=== PATIENT | female | born 1960 | race Hispanic/Latino ===

== ENCOUNTER 2017-04-20 20:06 | Emergency (ER) | payer SELFPAY ==
[2017-04-20 22:24] LABS: #Eosinphils 0.1 thou/uL (0.0-0.7); #Monocytes 0.4 thou/uL (0.11-0.59); #Neutrophils 3.5 thou/uL (1.40-6.50); %Basophils 0.5 % (0.0-1.0); %Eosinophils 1.1 % (0.0-10.0); %Lymphocytes 33.2 % (21.0-51.0); %Monocytes 7.3 % (0.0-10.0); %Neutrophils 57.9 % (42.0-75.0); Hemoglobin 11.4 g/dL (12.0-16.0); Mean Corpuscular HGB CONC 36.2 g/dL (32.0-36.0); Mean Corpuscular Hemoglobin 34.3 pg (27.0-31.0); Mean Corpuscular Volume 94.8 fl (81.0-99.0); Mean Platelet Volume 8.1 fL (7.4-10.4); Platelet Count 141 thou/uL (130-400); RBC Distribution Width 12.5 % (11.5-14.5); Red Blood Cell (RBC) Count 3.32 mill/uL (4.20-5.40)
--- NOTE | 2017-04-20 22:27 | RAD ---
PORTABLE CHEST: History: Dyspnea. FINDINGS: The lungs appear clear. No infiltrate identified on this portable projection. Heart and mediastinum u nremarkable. Evidence of old right rib fractures. IMPRESSION: No acute finding. POS: [facility]
[2017-04-20 22:38] LABS: ALT (SGPT) 12 U/L (8-55); AST (SGOT) 10 U/L (5-34); Albumin 3.8 g/dL (3.5-5.0); Alkaline Phosphatase 121 U/L (40-150); Anion Gap 17 mmol/L (10-20); BUN (Urea Nitrogen) 38 mg/dL (9.8-20.1); Bilirubin, Total 0.2 mg/dL (0.2-1.2); CK (CPK) 49 U/L (29-168); Calc. Creatinine Clearance 0 mL/min (70-130); Carbon Dioxide 22 mmol/L (22-29); Chloride 100 mmol/L (98-107); Estimated GFR-MDRD 23; Globulin 3.8 g/dL (2.4-3.5); Glucose 443 mg/dL (70-105); Lipase 17 U/L (8-78); Potassium 4.4 mmol/L (3.5-5.1); Protein, Total 7.6 g/dL (6.0-8.3); Sodium 135 mmol/L (136-145)
[2017-04-20 22:42] LABS: Troponin I Less than 0.010 ng/mL (< 0.028)
== END 2017-04-20 23:10 | disposition home or self-care (01) ==
LOC: ERS 20:06
DX: R06.2 Wheezing (principal); E10.22 Type 1 diabetes mellitus with diabetic chronic kidney disease; E10.65 Type 1 diabetes mellitus with hyperglycemia; N18.9 Chronic kidney disease, unspecified; F41.9 Anxiety disorder, unspecified; F32.9 Major depressive disorder, single episode, unspecified; J44.9 Chronic obstructive pulmonary disease, unspecified
CPT/HCPCS: 36415; 71045; 80053; 82550; 82553; 83690; 83880; 84484; 85025; 93005; 94640; J7620

== ENCOUNTER 2017-11-29 15:45 | Observation (INO) | payer MEDICAID, SELFPAY ==
--- NOTE | 2017-11-29 16:15 | RAD ---
CHEST ONE VIEW: HISTORY: Chest pain. COMPARISON: 04/20/2017 FINDINGS: The lungs are clear. No pneumothorax or effusion. The cardiac silhouette and mediastinal contour ar e similar. IMPRESSION: No acute intrathoracic abnormality. POS: [facility]
[2017-11-29 16:36] LABS: #Eosinphils 0.1 thou/uL (0.0-0.7); #Lymphocytes 1.5 thou/uL (1.20-3.40); #Monocytes 0.5 thou/uL (0.11-0.59); #Neutrophils 4.6 thou/uL (1.40-6.50); %Basophils 0.6 % (0.0-1.0); %Eosinophils 1.1 % (0.0-10.0); %Lymphocytes 22.2 % (21.0-51.0); %Neutrophils 69.2 % (42.0-75.0); Hemoglobin 12.3 g/dL (12.0-16.0); Mean Corpuscular HGB CONC 35.3 g/dL (32.0-36.0); Mean Corpuscular Hemoglobin 34.2 pg (27.0-31.0); Mean Platelet Volume 7.5 fL (7.4-10.4); Platelet Count 207 thou/uL (130-400); Red Blood Cell (RBC) Count 3.59 mill/uL (4.20-5.40); White Blood Cell (WBC) Count 6.6 thou/uL (4.8-10.8)
[2017-11-29 16:50] LABS: ALT (SGPT) 17 U/L (8-55); AST (SGOT) 22 U/L (5-34); Alkaline Phosphatase 164 U/L (40-150); Anion Gap 16 mmol/L (10-20); BUN (Urea Nitrogen) 21 mg/dL (9.8-20.1); Bilirubin, Total 0.3 mg/dL (0.2-1.2); Calc. Creatinine Clearance 0 mL/min (70-130); Calcium 9.5 mg/dL (7.8-10.44); Carbon Dioxide 23 mmol/L (22-29); Chloride 105 mmol/L (98-107); Estimated GFR-MDRD 68; Globulin 3.3 g/dL (2.4-3.5); Glucose 146 mg/dL (70-105); Potassium 4.7 mmol/L (3.5-5.1); Protein, Total 7.3 g/dL (6.0-8.3); Sodium 139 mmol/L (136-145)
[2017-11-29 16:54] LABS: CKMB 4.1 ng/mL (0-6.6); Troponin I Less than 0.010 ng/mL (< 0.028)
[2017-11-29] MEDS ORDERED: Nitroglycerin 2% Ointment 1 INCH/1 GM Packet ONE (16:57)
--- NOTE | 2017-11-29 17:26 | CT ---
CT BRAIN WITHOUT CONTRAST: HISTORY: Fall. COMPARISON: None. FINDINGS: No territorial infarct or hemorrhage. No midline shift or mass effect. Ventricular size and extraax ial CSF spaces are normal. The calvarium is intact. The paranasal sinuses and mastoids are clear. IMPRESSION: No acute intracranial abnormality. POS: [facility]
--- NOTE | 2017-11-29 17:27 | CT ---
CT CERVICAL SPINE WITHOUT CONTRAST: HISTORY: Fall. COMPARISON: None. FINDINGS: The occipital condyles are intact. The odontoid process is intact. Temporomandibular joint alignmen t is normal. Advanced calcifications of the carotid bulbs. The lung apices are clear. The thyroid is unremarkabl e. The paraspinal soft tissues are unremarkable. IMPRESSION: No acute fracture or malalignment. POS: [facility]
--- NOTE | 2017-11-29 17:33 | RAD ---
LEFT SHOULDER THREE VIEWS: HISTORY: Fall. COMPARISON: None. FINDINGS: No acute displaced fracture or malalignment. The ribs are unremarkable. IMPRESSION: No acute fracture or malalignment. POS: [facility]
[2017-11-29] MEDS ORDERED: Dextrose 50% Abboject 50 ML SYRINGE SLOW IVP PRN (18:03)
[2017-11-29] MEDS ORDERED: HumaLOG 300 UNITS/3 ML VIAL SC PRN ×2 (18:03)
[2017-11-29] MEDS ORDERED: Dextrose 5% in Water 1,000 ML IV PRN (18:03)
[2017-11-29] MEDS ORDERED: hydrALAZINE 20 MG/ML VIAL SLOW IVP PRN (18:39)
[2017-11-29] MEDS ORDERED: Bisacodyl 5 MG TAB PO PRN ×2 (18:39)
[2017-11-29] MEDS ORDERED: cloNIDine 0.1 MG TAB PO PRN (18:39)
[2017-11-29] MEDS ORDERED: traZODone HCl 50 MG TAB PO PRN (18:39)
[2017-11-29] MEDS ORDERED: Mag-Al 1200 mg/1200 mg/30 ML UDCUP PO PRN (18:39)
[2017-11-29] MEDS ORDERED: Calcium Carbonate 500 MG ChewTAB PO PRN (18:39)
[2017-11-29] MEDS ORDERED: Benzonatate 100 MG CAP PO PRN (18:39)
[2017-11-29] MEDS ORDERED: Loratadine 10 MG TAB PO PRN (18:39)
[2017-11-29] MEDS ORDERED: Diabetic Tussin 200 MG/10 ML UDCUP PO PRN (18:39)
[2017-11-29] MEDS ORDERED: Nitroglycerin 0.4 MG TAB (25 Tab Bottle) SL PRN (18:39)
[2017-11-29] MEDS ORDERED: Senokot 8.6 MG TAB PO PRN ×2 (18:39)
[2017-11-29] MEDS ORDERED: Acetaminophen 325 MG TAB PO PRN (18:39)
[2017-11-29] MEDS ORDERED: Ondansetron HCl/PF 4 MG/2 ML Vial IVP PRN (18:39)
--- NOTE | 2017-11-29 19:39 | HP ---
DATE OF ADMISSION: 11/29/2017 PRIMARY CARE PHYSICIAN: None. CHIEF COMPLAINT: Left shoulder pain and left neck pain. The patient has fallen 2 days ago. HISTORY OF PRESENTING ILLNESS: Ms. Wilson is a 57-year-old female with past medical history of shana betes, hypertension, and dyslipidemia who has not had any medical care for the last 6 months and is n ot able to afford most of her medication except insulin, who presented to the emergency room with abo ve-mentioned complaint. History is mainly obtained by the patient herself and supplemented by her si ster present in the room. The patient reports that she fell in the shower 2 days ago and started to feel left shoulder pain yes terday evening. It is pretty sharp, now it is a dull ache. It was not associated with any dizziness , but she did have some nausea. She denies any shortness of breath. She denies any fever, chills, o r cough. She reports that the pain radiated somewhat upwards to her left side of the neck. She bossman es any paraesthesias. She has no history of coronary artery disease, but very significant family his tory of coronary artery disease. Her brother had multiple stents and in his 70s. Upon presentation to the emergency room, she was hemodynamically stable. Her initial evaluation reve aled normal EKG and negative troponin. Her BELL score was 5 based on her personal history and family history and she is now being admitted for further workup and rule out acute coronary syndrome. PAST MEDICAL HISTORY: 1. Hypertension. 2. Dyslipidemia. 3. Diabetes mellitus. PAST SURGICAL HISTORY: None reviewed with the patient. SOCIAL HISTORY: The patient has moved to live with her sister in [place]. She is unemployed and unins ured. No history of drug, tobacco or alcohol abuse. FAMILY HISTORY: Significant for heart disease in her brother who in his 70s. The patien t's mother had uterine cancer as well as pancreatic cancer. The patient's grandmother on father's si de and one of her uncles on father's side had colon cancer. ALLERGIES: No known medication allergies. CURRENT MEDICATIONS: Lisinopril and insulin. The patient does not remember the dose and it will be further clarified. REVIEW OF SYSTEMS: A 12-point review of systems was done and it is negative except for those mention ed in the history and physical. PHYSICAL EXAMINATION: VITAL SIGNS: Upon presentation, blood pressure 173/86, pulse 80, saturating 97% on room air, afebril e, respirations 20. GENERAL: No acute distress, awake, alert, oriented x3. The patient appears somewhat disheveled. HEENT: Mucous membrane is moist and pink. No oropharyngeal exudate or erythema. She is missing man y teeth in the front. Poor dental hygiene. She has an eczematous rash over her face involving her f orehead, cheeks, chin and upper lip area. Awake, alert. NECK: Supple without any lymphadenopathy, JVD or bruit. She is somewhat tender to palpation in the left shoulder area without any obvious bruises. CHEST: Clear to auscultation without any wheezing, rales or rhonchi. Rhythm is regular without any murmur, rubs or gallops. ABDOMEN: Soft, nontender, nondistended, positive bowel sounds. EXTREMITIES: Free of any cyanosis, clubbing, or edema. NEUROLOGIC: Examination is nonfocal. SKIN: Shows various scratches in her leg, which she reports was given to her by her 2 cats. PSYCHIATRIC: Normal affect. LABORATORY DATA AND IMAGING DATA: CBC is unremarkable. Serum chemistries: BUN 21, creatinine karen l. Blood sugar 146, alkaline phosphatase 164. Cardiac enzymes, CK-MB normal at 4.1, troponin normal at 0.010. Chest x-ray by my review has no evidence of pleural effusion, edema or infiltrate. A CT scan of the brain was done due to the fall and is negative for any hemorrhage or mass effect. Should er x-ray and CT scan of the cervical spine once again are negative for any fractures. Twelve lead EK G by my review shows normal sinus rhythm and nonspecific ST-T wave changes. IMPRESSION AND PLAN: 1. Left shoulder pain with radiation to neck. The patient has a high heart score given her age, hyp ertension, dyslipidemia, diabetes, and family history. She reports that she has had a stress test do ne 3 years ago for whatever reason, which was reportedly negative. At this time, I will go ahead and order a lipid panel and repeat the stress test. She will be treated with full dose aspirin and poss ibly statins if her lipid panel suggests abnormality. We will continue with Nitro-Dur transdermal fo r now given uncontrolled hypertension. We will continue to trend serial cardiac enzymes. 2. Hypertensive urgency. We will continue transdermal nitroglycerin and restart her lisinopril. Sh polly will benefit from starting on a low dose beta mathew if her blood pressure allows. Continue to mo nitor and start p.r.n. antihypertensives as well. 3. Diabetes mellitus. The patient likely has poor diabetes control with marginal prescription cover age. We will check a hemoglobin A1c and put her insulin sliding scale and adjust her home medication s once confirmed. 4. Hypertension. Restart lisinopril and adjust as needed. 5. Code status: FULL CODE. Discussed with the patient. 6. Eczematous dermatitis on the face. We will use hydrocortisone cream p.r.n. on face. 7. Deep venous thrombosis and gastrointestinal prophylaxis, on p.r.n. medication. 8. Chronic deconditioning. The patient uses a cane to walk around and has had recent falls. We ana l have OT, PT to evaluate her. DISPOSITION: Ms. Wilson is currently being admitted to the hospital to rule out acute coronary syn drome. Further management will depend upon her clinical course. She is currently under observation status.
[2017-11-29] MEDS: HYDROcodone/Acetaminophen 5/325 mg Tablet PO PRN (20:23)
[2017-11-29] MEDS: Famotidine 20 MG TAB PO SCH (20:24)
[2017-11-29] MEDS: Lisinopril 10 MG TAB PO SCH (20:24)
[2017-11-29] MEDS: Proctozone-HC 2.5% Cream 30 GM TUBE TOP SCH (20:25)
[2017-11-29 20:30] LABS: Troponin I Less than 0.010 ng/mL (< 0.028)
[2017-11-29 21:26] LABS: Bilirubin Negative (Negative); Blood, Urine Negative (Negative); Clarity CLEAR (Clear); Glucose, Urine (Dipstick) 100 mg/dL (Negative); Leukocyte Moderate (Negative); Nitrite Negative (Negative); Protein, Urine (Dipstick) 30 mg/dL (Neg-Trace); Specific Gravity, Urine 1.011 (1.002-1.036)
[2017-11-29 21:28] LABS: Bacteria/HPF None Seen HPF (None Seen); Hyaline Casts/LPF 0-3 HYALINE CAST LPF (0-3 Hyaline); Pathc Cast-AUWi Flag 0.58 (0-2.49)
[2017-11-29 21:41] LABS: Crystals/HPF None Seen HPF (Negative); WBC/HPF 21-50 HPF (0-3); Yeast-All Forms None Seen HPF (None Seen)
[2017-11-29 22:56] LABS: Troponin I Less than 0.010 ng/mL (< 0.028)
[2017-11-29] MEDS: traMADol HCl 50 MG TAB PO PRN (23:44)
[2017-11-29] MEDS: Nitroglycerin 2% Ointment 1 INCH/1 GM Packet TOP SCH (23:47)
[2017-11-30] MEDS: HYDROcodone/Acetaminophen 5/325 mg Tablet PO PRN ×2 (03:32→16:01)
[2017-11-30 04:37] LABS: Hemoglobin A1c 9.7 % (4.0-6.0)
[2017-11-30 04:39] LABS: #Eosinphils 0.1 thou/uL (0.0-0.7); #Lymphocytes 1.8 thou/uL (1.20-3.40); #Monocytes 0.4 thou/uL (0.11-0.59); #Neutrophils 2.6 thou/uL (1.40-6.50); %Basophils 0.6 % (0.0-1.0); %Eosinophils 1.4 % (0.0-10.0); %Lymphocytes 36.9 % (21.0-51.0); %Monocytes 7.8 % (0.0-10.0); %Neutrophils 53.3 % (42.0-75.0); Hemoglobin 11.1 g/dL (12.0-16.0); Mean Corpuscular HGB CONC 34.1 g/dL (32.0-36.0); Mean Corpuscular Hemoglobin 33.8 pg (27.0-31.0); Mean Platelet Volume 7.7 fL (7.4-10.4); Platelet Count 160 thou/uL (130-400); Red Blood Cell (RBC) Count 3.29 mill/uL (4.20-5.40); White Blood Cell (WBC) Count 4.9 thou/uL (4.8-10.8)
[2017-11-30 04:51] LABS: Anion Gap 16 mmol/L (10-20); BUN (Urea Nitrogen) 14 mg/dL (9.8-20.1); Calc. Creatinine Clearance 104 mL/min (70-130); Calcium 9.3 mg/dL (7.8-10.44); Carbon Dioxide 17 mmol/L (22-29); Cardiac Risk 4.7 (Less than 4.5); Chloride 107 mmol/L (98-107); Cholesterol 202 mg/dl (< 200 Desired); Estimated GFR-MDRD 69; Glucose 250 mg/dL (70-105); HDL Cholesterol 43 mg/dL (>60 Neg Risk); LDL Cholesterol, Calculated 126 mg/dL; Potassium 4.6 mmol/L (3.5-5.1); Sodium 135 mmol/L (136-145); Triglycerides 164 mg/dL (Less than 150)
[2017-11-30] MEDS: Nitroglycerin 2% Ointment 1 INCH/1 GM Packet TOP SCH ×2 (06:09→14:05)
[2017-11-30] MEDS: traMADol HCl 50 MG TAB PO PRN (08:11)
[2017-11-30] MEDS ORDERED: Regadenoson 0.4 MG/5 ML SYRINGE ONE (08:17)
[2017-11-30] MEDS ORDERED: Aspirin 325 mg Enteric Coated Tablet PO SCH (09:00)
[2017-11-30] MEDS ORDERED: Enoxaparin Sodium 40 MG/0.4 ML SYRINGE SC SCH (09:00)
[2017-11-30] MEDS ORDERED: Lisinopril 10 MG TAB PO SCH (09:16)
[2017-11-30] MEDS ORDERED: Lisinopril 5 MG TAB PO SCH ×2 (09:30→21:00)
[2017-11-30] MEDS ORDERED: Insulin NPH/Reg Insulin Hm 300 UNITS/3 ML VIAL SC SCH (12:00)
--- NOTE | 2017-11-30 13:13 | NM ---
MYOCARDIAL PERFUSION SCAN WITH SPECT IMAGING: HISTORY: Chest pain. Examination was performed using 27.8 mCi on the stress and 10.4 on the resting images. This shows a fairly normal distribution of the radiopharmaceutical without signs of ischemia or scar. WALL MOTION: There is symmetric contractility to the ventricle. LEFT VENTRICULAR EJECTION FRACTION: The calculated left ventricular ejection fraction was 66%. IMPRESSION: Unremarkable myocardial perfusion scan. POS: [facility]
[2017-11-30] MEDS: Famotidine 20 MG TAB PO SCH (13:21)
[2017-11-30] MEDS: Proctozone-HC 2.5% Cream 30 GM TUBE TOP SCH (13:30)
[2017-11-30] MEDS: Lisinopril 10 MG TAB PO SCH (14:06)
--- NOTE | 2017-11-30 15:08 | DIS ---
DATE OF ADMISSION: 11/29/2017 DATE OF DISCHARGE: 11/30/2017 CONDITION AT THE TIME OF DISCHARGE: Stable and improved. DISCHARGE DIAGNOSES: 1. Shoulder pain, likely secondary to fall, acute coronary syndrome ruled out. 2. Urinary tract infection. 3. Uncontrolled diabetes mellitus. 4. Hypertension. 5. Dyslipidemia. PRIMARY CARE PHYSICIAN: None. The patient is instructed to set up with [facility]. PROCEDURES DONE IN THE HOSPITAL: CT scan of the brain as well as CT scan of the cervical spine. Bot h are unremarkable for any acute changes. No hemorrhage, no fractures. Shoulder x-ray of the left s houlder, which shows no evidence of any fractures or malalignment. Chest x-ray unremarkable. Nuclea r medicine stress test negative for any evidence of ischemia or scar. EF 66%. DISCHARGE MEDICATIONS: Resume home medications as follows. Humulin 70/30, 25 units t.i.d., lisinopr il 5 mg daily, albuterol inhaler 2 puffs b.i.d. New medications, metformin 500 mg p.o. b.i.d., levof loxacin 500 mg daily for 5 days, hydrocortisone 2.5% cream for face eczematous lesion. HISTORY OF PRESENT ILLNESS: Ms. Wilson is a pleasant 57-year-old female with poorly controlled shana betes and minimal medical care because of recent move, who presented to the emergency room 3 days aft er a fall with complaints of left shoulder pain. She has significant family history as well as multi ple other risk factors, so she was admitted for ACS rule out. Serial cardiac enzymes and EKG were un remarkable. Please see admission history and physical for further details. HOSPITAL COURSE: The patient remained hemodynamically stable throughout the rest of her hospitalizat ion. Her A1c was checked and it was found to be elevated to 9.7. Because of this, she was started o n metformin and continued on her home insulin. Blood pressure was otherwise controlled. She was con tinued on lisinopril 5 mg daily. Her triglycerides were minimally elevated to 164 and cholesterol to 202. Dietitian was consulted for carb control and heart healthy diet education. The patient's sist er and the patient herself are highly counseled with regards to followup and set up care with a prima care physician. All prescriptions for new medications were provided. She was found to have a urinary tract infection with multiple WBCs, leukocyte esterase in the urine, so was empirically started on levofloxacin short course for 5 days orally. She was not having any sy mptoms with related to that. She was seen and examined prior to discharge and has no new complaints. PHYSICAL EXAMINATION: VITAL SIGNS: This morning, temperature 97.8, pulse of 80, respirations 16, saturating 100% on room a ir, blood pressure 121/56. GENERAL: No acute distress, awake, alert, oriented x3. CHEST: Clear to auscultation bilaterally without any wheezing, rales or rhonchi. CARDIOVASCULAR: Rate and rhythm are regular without any murmurs or gallops. Discharge plan was discussed with the patient who verbalized understanding. development manager has been co nsulted to arrange home health for the patient as she does exhibit deconditioning with frequent falls , needing to use a cane to walk around. Once this is arranged, she will be discharged.
[2017-11-30 15:28] VITALS: BP 144/66; TEMP 97.7
[2017-11-30] MEDS: Insulin NPH/Reg Insulin Hm 300 UNITS/3 ML VIAL SC SCH ×2 (16:02→19:20)
[2017-11-30] MEDS ORDERED: metFORMIN 500 MG TAB PO SCH (17:00)
--- NOTE | 2017-12-04 09:25 | STRESS ---
Acquisition Time: 2017-11-30 09:38:22 Total Exercise Time: 00:01:00 Test Indications: CHEST PAIN Medications: Protocol: LEXISCAN Max HR: 092 BPM 56% of Pred: 163 BPM Max BP: 134/080 mmHG Max Work Load: 1.0 METS RESTING ECG: NORMAL SINUS RHYTHM AT 65 BPM SYMPTOMS: DYSPNEA ON EXERTION; NAUSEA/VOMITING NORMAL BP RESPONSE ECTOPY: NONE ECG STRESS: NO SIGNIFICANT CHANGES INTERPRETATION: AWAIT NUCLEAR IMAGES FOR DEFINITIVE DIAGNOSIS COMMENTS: PATIENT DIAGNOSED WITH COPD. LEXISCAN ADMINISTERED. Confirmed by ILDEFONSO GONZALES ([id number]), avid editor NIC ARROYO ([id number]) on 12/04/2017 9:25:02 AM Referred By: MD Maritza KANG Confirmed By:ILDEFONSO GONZALES
--- NOTE | 2017-12-05 11:20 | EKG ---
Test Reason : Blood Pressure : / mmHG Vent. Rate : 092 BPM Atrial Rate : 092 BPM P-R Int : 128 ms QRS Dur : 064 ms QT Int : 352 ms P-R-T Axes : 008 -30 024 degrees QTc Int : 435 ms Poor data quality, interpretation may be adversely affected Normal sinus rhythm Left axis deviation Minimal voltage criteria for LVH, may be normal variant Abnormal ECG No ST elevation/FL Confirmed by HONG Seth, ELSIE ([id number]), scientific publications editor GAETANO HEBERT ([id number]) on 12/05/2017 11:20:01 AM Referred By: Confirmed By:ELSIE PITTS M.D.
== END 2017-11-30 19:47 | disposition home or self-care (01) ==
LOC: ERS 15:45 → 2SW 17:33
PROVIDERS: ADMIT Internal Medicine; ATTEND Internal Medicine
DX: M25.512 Pain in left shoulder (principal); M54.2 Cervicalgia; N39.0 Urinary tract infection, site not specified; I16.0 Hypertensive urgency; E11.9 Type 2 diabetes mellitus without complications; I10 Essential (primary) hypertension; E78.5 Hyperlipidemia, unspecified; Z85.038 Personal history of other malignant neoplasm of large intestine; Z79.4 Long term (current) use of insulin; Z79.899 Other long term (current) drug therapy; Z91.14 Patient's other noncompliance with medication regimen; W19.XXXA Unspecified fall, initial encounter
CPT/HCPCS: 36415; 36416; 70450; 71045; 72125; 78452; 80048; 80053; 80061; 81003; 81015; 82553; 83036; 84443; 84484; 85025; 87086; 93005; 93017; 96361; 96374; A9500; G0378; G8978-GP-CK; G8979-GP-CJ; G8987-GO-CI; G8988-GO-CI; G8989-GO-CI; J2270; J2785

== ENCOUNTER 2018-06-02 23:36 | Inpatient (IN) | payer MEDICAID, MEDICARE ==
[2018-06-03 00:16] LABS: #Lymphocytes 0.8 thou/uL (1.20-3.40); #Monocytes 0.4 thou/uL (0.11-0.59); #Neutrophils 6.7 thou/uL (1.40-6.50); %Basophils 0.1 % (0.0-1.0); %Eosinophils 0.6 % (0.0-10.0); %Lymphocytes 10.1 % (21.0-51.0); %Monocytes 5.2 % (0.0-10.0); Hemoglobin 10.4 g/dL (12.0-16.0); Mean Corpuscular HGB CONC 35.8 g/dL (32.0-36.0); Mean Corpuscular Hemoglobin 34.5 pg (27.0-31.0); Mean Corpuscular Volume 96.3 fL (78.0-98.0); Mean Platelet Volume 7.6 fL (7.4-10.4); Platelet Count 143 thou/uL (130-400); RBC Distribution Width 11.8 % (11.5-14.5)
[2018-06-03 00:37] LABS: ALT (SGPT) 12 U/L (8-55); AST (SGOT) 11 U/L (5-34); Albumin 3.7 g/dL (3.5-5.0); Alkaline Phosphatase 98 U/L (40-150); Anion Gap 15 mmol/L (10-20); BUN (Urea Nitrogen) 32 mg/dL (9.8-20.1); Bilirubin, Total 0.2 mg/dL (0.2-1.2); Calc. Creatinine Clearance 0 mL/min (70-130); Calcium 9.3 mg/dL (7.8-10.44); Carbon Dioxide 21 mmol/L (22-29); Chloride 106 mmol/L (98-107); Estimated GFR-MDRD 35; Globulin 3.5 g/dL (2.4-3.5); Glucose 322 mg/dL (70-105); Protein, Total 7.2 g/dL (6.0-8.3); Sodium 138 mmol/L (136-145)
[2018-06-03 01:08] LABS: Bilirubin Negative (Negative); Blood, Urine Moderate (Negative); Clarity CLOUDY (Clear); Glucose, Urine (Dipstick) >=1000 mg/dL (Negative); Leukocyte Small (Negative); Nitrite Positive (Negative); Protein, Urine (Dipstick) 100 mg/dL (Neg-Trace); Specific Gravity, Urine 1.033 (1.002-1.036)
[2018-06-03 01:11] LABS: Bacteria/HPF 4+ HPF (None Seen); Hyaline Casts/LPF 7-10 HYALINE CAST LPF (0-3 Hyaline); Pathc Cast-AUWi Flag 1.22 (0-2.49); RBC/HPF 0-3 HPF (0-3); Squamous Epithelial 0-3 HPF (0-3)
[2018-06-03] MEDS ORDERED: cefTRIAXone\\ROCEPHIN 1 GM VIAL ONE (01:42)
[2018-06-03] MEDS ORDERED: Zolpidem Tartrate 5 MG TAB PO PRN (04:28)
[2018-06-03] MEDS ORDERED: HumaLOG 300 UNITS/3 ML VIAL SC PRN (04:32)
[2018-06-03] MEDS ORDERED: Dextrose 5% in Water 1,000 ML IV PRN (04:32)
[2018-06-03] MEDS ORDERED: Dextrose 50% Abboject 50 ML SYRINGE SLOW IVP PRN (04:32)
[2018-06-03] MEDS: cefTRIAXone\\ROCEPHIN 1 GM in Sodium Chloride 0.9% 100 ML IVPB SCH (05:14)
--- NOTE | 2018-06-03 05:34 | HP ---
CHIEF COMPLAINT: Fall, inability to walk. HISTORY OF PRESENT ILLNESS: This is a 58-year-old female coming in status post fall and also complaining of burning upon urination. Patient was found to have high blood sugars as well in the ER. Patient stated that she is unable to walk. Patient had pelvic x-ray and CT scans performed, which did not show any dislocations or any fractures. Patient states that otherwise upon ambulation, she does have pain in her lower back. Denies any other complaints or issues. No alleviating or aggravating factors noted. Patient is seen and examined in the ER, official read of the x-rays pending, x-ray and images read by myself as well as the ER doctor. Decision made to admit the patient to observation unit. [facility] was contacted to see if the patient would be accepted there. However, there are no beds and the patient is unable to be taken there today at this point in time. Patient otherwise feels stable and feels well. Patient was seen and examined in the ER. No family at bedside. All questions answered. ALLERGIES: NO KNOWN DRUG ALLERGIES. REVIEW OF SYSTEMS: All systems reviewed, pertinent positives in HPI, otherwise negative. FAMILY HISTORY: Hypertension and diabetes. SOCIAL HISTORY: Nonsmoker and nondrinker. HOME MEDICATIONS: See MAR. PHYSICAL EXAMINATION: VITAL SIGNS: Blood pressure 128/88, respiratory rate of 18, temperature of 98, O2 saturations of 100% on room air, and heart rate of 78. GENERAL: Patient is lying in bed, in no acute discomfort. HEENT: Pupils equal, round, and reactive to light and accommodation. Oral cavity, moist and pink. Extraocular muscles intact. NECK: Supple, mobile, nontender thyroid. RESPIRATORY: Clear to auscultation bilaterally. No respiratory distress. HEART EXAM: Regular rate and rhythm. S1 and S2. ABDOMINAL EXAM: Positive bowel sounds. Soft, nontender, and nondistended. EXTREMITIES: 2+ pulses. No cyanosis, clubbing, or edema. NEUROLOGICAL: Cranial nerves 2 through 12 intact. Positive straight leg raise test on both sides of the lower extremities. LABORATORY DATA: CBC normal. Basic metabolic panel shows a creatinine of 1.52, high blood sugars at 322. UA positive for UTI. ASSESSMENT: 1. Fall. 2. Hypertension. 3. Hyperlipidemia. 4. Diabetes mellitus. 5. Urinary tract infection. 6. Antalgic gait. PLAN: At this point in time, we admit the patient to observation unit. Consult placed to PT as well as Case Management for placement to rehab, likely [facility] in the morning. We will trend enzymes. Insulin for diabetes, as well as antibiotics for the UTI. Patient wishes to remain a full code. Case and plan discussed with patient at length. She understood and agreed with this plan. Job ID: [id number]
--- NOTE | 2018-06-03 08:08 | RAD ---
AP PELVIS: Date: 06/02/18 COMPARISON: None. HISTORY: Fall with pelvic pain. FINDINGS: Single view of the pelvis shows no evidence of acute fracture or dislocation. No degenerative changes are seen in either hip. Multiple injection granulomas are seen in the bilateral gluteal regions. IMPRESSION: No evidence of acute osseous abnormality. POS: [facility]
[2018-06-03 08:19] LABS: Troponin I 0.038 ng/mL (< 0.028)
--- NOTE | 2018-06-03 08:20 | CT ---
PRELIMINARY REPORT/[facility]/EMERGENCY AFTER HOURS PROCEDURE: EXAM: CT Head Without Contrast EXAM DATE/TIME: 06/03/2018 12:57 AM CLINICAL HISTORY: 58 years old, female; Injury or trauma; Fall; Initial encounter; Blunt trauma (contusions or hematoma s); Without loss of consciousness; Patient HX: F58 presents to ed for fall. Ems reports PT was trying to get dressed after taking a shower when she felt dizzy, tried to sit on the edge of the tub, and t hen fell back into the tub. PT reports she felt dizzy like she was off balance and then fell backward s landing in the tub and hitting her head. PT denies any loc. PT reports bilateral hip pain. PT repor ts multiple falls in the last few days. PT reports HX of similar symptoms in november but reports sh e passed out that time TECHNIQUE: Imaging protocol: Axial computed tomography images of the head/brain without contrast. COMPARISON: No relevant prior studies available. FINDINGS: Brain: Normal. No hemorrhage. No significant white matter disease. No edema. Ventricles: Normal. No ventriculomegaly. Bones/joints: Unremarkable. No acute fracture. Sinuses: Visualized sinuses are unremarkable. No acute sinusitis. Mastoid air cells: Visualized mastoid air cells are unremarkable. No mastoid effusion. Soft tissues: Unremarkable. IMPRESSION: No acute intracranial hemorrhage. Thank you for allowing us to participate in the care of your patient. Dictated and Authenticated by: Vineet Barragan MD 06/03/2018 1:29 AM Central Time ([place] & [place]) FINAL REPORT HEAD CT WITHOUT CONTRAST: Date: 06/03/18 COMPARISON: 11/29/17. HISTORY: Fall, trauma, pain. FINDINGS: This report is in agreement with the preliminary report given by Man. Imaged paranasal sinuses/masto id air cells are well aerated. No displaced calvarial fracture. No intracranial hemorrhage, midline s hift, mass effect, or ventricular enlargement. IMPRESSION: No acute findings. POS: [facility]
[2018-06-03] MEDS: Lisinopril 5 MG TAB PO SCH (08:25)
[2018-06-03] MEDS ORDERED: Lisinopril 10 MG TAB ONE (08:29)
[2018-06-03] MEDS ORDERED: Acetaminophen 325 MG TAB ONE (08:52)
[2018-06-03] MEDS: Acetaminophen 325 MG TAB PO PRN ×3 (08:53→20:34)
[2018-06-03] MEDS ORDERED: Sodium Bicarbonate 75 MEQ in Sodium Chloride 0.45% 1,000 ML IV SCH (10:00)
[2018-06-03] MEDS ORDERED: HumaLOG 300 UNITS/3 ML VIAL ONE (12:02)
[2018-06-03] MEDS: HumaLOG 300 UNITS/3 ML VIAL SC PRN ×2 (12:09→16:37)
[2018-06-03 14:39] VITALS: BMI 29.9
[2018-06-03 14:46] LABS: Troponin I 0.014 ng/mL (< 0.028)
[2018-06-03] MEDS: Insulin Glargine 10 UNITS in Pre-Filled Syringe 1 EACH SC SCH (20:42)
[2018-06-04] MEDS: Acetaminophen 325 MG TAB PO PRN ×5 (00:24→20:15)
[2018-06-04] MEDS: cefTRIAXone\\ROCEPHIN 1 GM in Sodium Chloride 0.9% 100 ML IVPB SCH (05:15)
[2018-06-04 05:30] LABS: #Eosinphils 0.1 thou/uL (0.0-0.7); #Lymphocytes 1.5 thou/uL (1.20-3.40); #Monocytes 0.3 thou/uL (0.11-0.59); #Neutrophils 3.2 thou/uL (1.40-6.50); %Basophils 0.2 % (0.0-1.0); %Eosinophils 1.4 % (0.0-10.0); %Lymphocytes 29.7 % (21.0-51.0); %Monocytes 5.8 % (0.0-10.0); %Neutrophils 62.9 % (42.0-75.0); Mean Corpuscular HGB CONC 34.7 g/dL (32.0-36.0); Mean Corpuscular Hemoglobin 33.3 pg (27.0-31.0); Mean Corpuscular Volume 96.1 fL (78.0-98.0); Mean Platelet Volume 7.7 fL (7.4-10.4); Platelet Count 121 thou/uL (130-400); Red Blood Cell (RBC) Count 3.01 mill/uL (4.20-5.40); White Blood Cell (WBC) Count 5.1 thou/uL (4.8-10.8)
[2018-06-04 05:33] LABS: Hemoglobin A1c 8.2 % (4.0-6.0)
[2018-06-04 05:50] LABS: Anion Gap 9 mmol/L (10-20); BUN (Urea Nitrogen) 14 mg/dL (9.8-20.1); Calc. Creatinine Clearance 101 mL/min (70-130); Calcium 9.1 mg/dL (7.8-10.44); Carbon Dioxide 29 mmol/L (22-29); Chloride 104 mmol/L (98-107); Estimated GFR-MDRD 76; Glucose 207 mg/dL (70-105); Potassium 3.4 mmol/L (3.5-5.1); Sodium 139 mmol/L (136-145)
[2018-06-04] MEDS: HumaLOG 300 UNITS/3 ML VIAL SC PRN ×2 (06:30→13:07)
[2018-06-04] MEDS: Lisinopril 5 MG TAB PO SCH (08:49)
[2018-06-04] MEDS ORDERED: PROVENTIL INHALER 6.7 G (200 INHALATIONS) INH PRN (13:31)
[2018-06-04] MEDS ORDERED: Insulin Regular 300 UNITS/3 ML VIAL SC PRN (13:35)
[2018-06-04] MEDS: traMADol HCl 50 MG TAB PO PRN ×2 (13:48→20:15)
[2018-06-04] MEDS: metFORMIN 500 MG TAB PO SCH (16:35)
[2018-06-04] MEDS: HumuLIN 70/30 (300 UNITS/3 ML VIAL) SC SCH (16:35)
[2018-06-04] MEDS ORDERED: Potassium Chloride 20 MEQ TAB PO SCH (17:00)
--- NOTE | 2018-06-04 17:43 | PDOC.PN ---
- Subjective Encounter Start Date: 06/04/18 Encounter Start Time: 13:39 Subjective: Patient without any complaints. States yesterday when she fell she was -: trying to get out of the shower and had weakness in her legs. Denies any -: associated dizziness or chest pain. No sob. No further episodes. Per patient she is eager to go home. Patient states she lives with her sister. Per nurse she is in a 1 bedroom apartment with stairs. Patient states she doesnt use her walker at home, only when walking outside of her home. At home she uses a cane but admits she is unsteady when not using her walker. She admits to being noncompliant with oral diabetes medications and states it is due to high-cost of meds. She only takes Insulin, and has been taking more than what was prescribed. Usually in the morning she takes 60 units and 10 at night, but was prescribed 20 units TID. - Objective Resuscitation Status - Order Detail: 06/03/18 04:28 Resuscitation Status Routine Resuscitation Status: FULL: Full Resuscitation Discussed with: patient Vital Signs & Weight: Vital Signs (12 hours) Temp Pulse Resp BP BP BP Pulse Ox 06/04/18 15:17 97.6 F 69 18 132/74 95 06/04/18 10:45 97.5 F L 69 18 110/69 95 06/04/18 08:49 65 140/77 06/04/18 07:42 97.7 F 65 16 104/77 95 Weight Weight 180 lb I&O: 06/03/18 06/04/18 06/05/18 06:59 06:59 06:59 Intake Total 3480 Balance 3480 Result Diagrams: 06/04/18 05:05 06/04/18 05:05 Additional Labs: Accuchecks 06/04/18 06/04/18 06/04/18 15:43 11:49 05:27 POC Glucose 386 H 368 H 218 H 06/03/18 20:37 POC Glucose 315 H Phys Exam - Physical Examination Constitutional: NAD HEENT: PERRLA, oral pharynx no lesions Neck: full ROM Respiratory: no wheezing, no rales, no rhonchi, clear to auscultation bilateral Cardiovascular: RRR Gastrointestinal: soft, non-tender, no distention, positive bowel sounds Musculoskeletal: no edema, pulses present Neurological: normal sensation, moves all 4 limbs Psychiatric: A&O x 3 Deviation from normal: flat affect, able to answer questions appropriately expresses understanding but appears to have underlying learning disability Skin: no rash Dx/Plan (1) Fall Code(s): W19.XXXA - UNSPECIFIED FALL, INITIAL ENCOUNTER Status: Acute Plan: Evaluated by PT/OT. Was screened for [facility] but no beds. Has since been cleared by PT. No further falls or unsteadiness. (2) Diabetes Code(s): E11.9 - TYPE 2 DIABETES MELLITUS WITHOUT COMPLICATIONS Status: Acute Plan: Patient knowingly missing oral meds and taking insulin incorrectly due to cost of oral meds, per patient. Resume home meds as prescribed. Monitor glucose. (3) UTI (urinary tract infection) Status: Acute Plan: continue antibiotics. (4) Weakness Code(s): R53.1 - WEAKNESS Status: Acute (5) Noncompliance w/medication treatment due to intermit use of medication Code(s): Z91.14 - PATIENT'S OTHER NONCOMPLIANCE WITH MEDICATION REGIMEN Status : Acute - Plan cont current plan of care, PT/OT Patient seems to have a learning disability and unsafely taking meds. -: Unfortunately she does not wish to undergo placement, and -: due to insurance does not have many options. -: Per discussion with Dr. Lynne, given patients competence he -: advised to educate and plan for discharge tmrw as per patients request. * .
[2018-06-04] MEDS: Insulin Glargine 10 UNITS in Pre-Filled Syringe 1 EACH SC SCH (20:19)
[2018-06-05] MEDS: traMADol HCl 50 MG TAB PO PRN ×2 (04:06→14:56)
[2018-06-05] MEDS: Acetaminophen 325 MG TAB PO PRN ×3 (04:06→20:06)
[2018-06-05] MEDS: Ondansetron PF 4 MG/2 ML Vial IVP PRN ×2 (05:40→10:38)
[2018-06-05] MEDS: cefTRIAXone\\ROCEPHIN 1 GM in Sodium Chloride 0.9% 100 ML IVPB SCH (05:48)
[2018-06-05] MEDS: glipiZIDE 10 MG TAB PO SCH (08:14)
[2018-06-05] MEDS: Lisinopril 5 MG TAB PO SCH (08:15)
[2018-06-05] MEDS: metFORMIN 500 MG TAB PO SCH ×2 (08:15→18:19)
[2018-06-05] MEDS: HumuLIN 70/30 (300 UNITS/3 ML VIAL) SC SCH ×3 (08:58→18:19)
--- NOTE | 2018-06-05 10:14 | PDOC.EVN ---
Event Note - Event Note Event Note: Given the N/V and inability to tolerate PO meds and the uncontrolled glucose, will need inpatient care. Discussed with nurse, CM and order entered.
[2018-06-05 10:38] LABS: #Eosinphils 0.1 thou/uL (0.0-0.7); #Lymphocytes 1.3 thou/uL (1.20-3.40); #Monocytes 0.3 thou/uL (0.11-0.59); #Neutrophils 4.6 thou/uL (1.40-6.50); %Basophils 0.6 % (0.0-1.0); %Eosinophils 0.9 % (0.0-10.0); %Lymphocytes 20.9 % (21.0-51.0); %Monocytes 5.2 % (0.0-10.0); %Neutrophils 72.3 % (42.0-75.0); Hemoglobin 10.1 g/dL (12.0-16.0); Mean Corpuscular HGB CONC 34.5 g/dL (32.0-36.0); Mean Corpuscular Hemoglobin 33.1 pg (27.0-31.0); Mean Corpuscular Volume 96.1 fL (78.0-98.0); Mean Platelet Volume 7.4 fL (7.4-10.4); Platelet Count 122 thou/uL (130-400); RBC Distribution Width 12.1 % (11.5-14.5); Red Blood Cell (RBC) Count 3.05 mill/uL (4.20-5.40); White Blood Cell (WBC) Count 6.3 thou/uL (4.8-10.8)
--- NOTE | 2018-06-05 10:50 | PRG ---
DATE OF SERVICE: 06/05/2018 SUBJECTIVE: The patient reports that she started vomiting last night. She continues to report nausea this morning, still had some vomiting this morning. She denies any abdominal pain, change in her bowel movements, or fever. OBJECTIVE: VITAL SIGNS: T-max 98.3, pulse 59, BP 132/72, respirations 16, O2 saturation 96% on room air, BP 113/68. GENERAL APPEARANCE: Age-appropriate female. She is awake and alert. She is in no distress. HEART: Regular rate and rhythm without murmurs, gallops, or rubs. LUNGS: Clear bilaterally. No wheezes or rales. ABDOMEN: Soft, nontender, and nondistended. Positive bowel sounds. No masses or organomegaly. EXTREMITIES: No cyanosis, clubbing, or edema. LABORATORY DATA: Glucose 107-386. IMPRESSION AND PLAN: 1. Fall. The patient appears to not have any significant injury. She has been evaluated and cleared by physical therapy. 2. Urinary tract infection. Culture was negative at 24 hours. She continues on Rocephin. Should have update today. If it remains negative at 48 hours, we will likely discontinue the Rocephin in light of her vomiting for fear that it could be possibly interacting. 3. Diabetes mellitus. The patient's blood sugar is lower this morning. Of course she has the nausea and vomiting and has not eaten much this morning. Overall, blood sugars have been running fairly high. We will need to continue to monitor today. 4. Hypertension, stable, well controlled. 5. Hyperlipidemia, stable, well controlled. 6. With nausea and vomiting, we will obtain some repeat labs. Continue with p.r.n. antiemetics. It is possible the patient may have some gastroparesis as well. However, she does not carry that diagnosis or had that history. Job ID: [id number]
[2018-06-05 11:00] LABS: Anion Gap 12 mmol/L (10-20); BUN (Urea Nitrogen) 15 mg/dL (9.8-20.1); Calc. Creatinine Clearance 103 mL/min (70-130); Calcium 9.1 mg/dL (7.8-10.44); Carbon Dioxide 28 mmol/L (22-29); Chloride 102 mmol/L (98-107); Estimated GFR-MDRD 77; Glucose 177 mg/dL (70-105); Potassium 4.2 mmol/L (3.5-5.1); Sodium 138 mmol/L (136-145)
--- NOTE | 2018-06-05 17:15 | EKG ---
Test Reason : Blood Pressure : / mmHG Vent. Rate : 099 BPM Atrial Rate : 099 BPM P-R Int : 124 ms QRS Dur : 070 ms QT Int : 376 ms P-R-T Axes : 025 -25 013 degrees QTc Int : 482 ms Normal sinus rhythm Minimal voltage criteria for LVH, may be normal variant Septal infarct , age undetermined Abnormal ECG Confirmed by CAMILLE CORNEJO ([id number]), medical editor SHIRA VARGAS ([id number]) on 06/05/2018 5:14:52 PM Referred By: Confirmed By:CAMILLE CORNEJO
[2018-06-05] MEDS: Insulin Regular 300 UNITS/3 ML VIAL SC PRN (18:23)
[2018-06-05] MEDS: Insulin Glargine 10 UNITS in Pre-Filled Syringe 1 EACH SC SCH (22:05)
[2018-06-06] MEDS: traMADol HCl 50 MG TAB PO PRN ×4 (01:02→23:18)
[2018-06-06] MEDS: cefTRIAXone\\ROCEPHIN 1 GM in Sodium Chloride 0.9% 100 ML IVPB SCH (05:20)
[2018-06-06] MEDS: Acetaminophen 325 MG TAB PO PRN (05:21)
[2018-06-06] MEDS: HumuLIN 70/30 (300 UNITS/3 ML VIAL) SC SCH ×3 (09:25→18:02)
[2018-06-06] MEDS: Lisinopril 5 MG TAB PO SCH (09:28)
[2018-06-06] MEDS: glipiZIDE 10 MG TAB PO SCH (09:28)
[2018-06-06] MEDS: metFORMIN 500 MG TAB PO SCH ×2 (09:29→18:02)
[2018-06-06] MEDS: Insulin Regular 300 UNITS/3 ML VIAL SC PRN (12:02)
--- NOTE | 2018-06-06 13:16 | PDOC.PN ---
- Subjective Encounter Start Date: 06/06/18 Encounter Start Time: 13:14 Subjective: low blood sugar this morning -: no more vomiting but some nausea but still was able to eat all breakfats -: no abd pain or diarrhea - Objective Resuscitation Status - Order Detail: 06/03/18 04:28 Resuscitation Status Routine Resuscitation Status: FULL: Full Resuscitation Discussed with: patient KEERTHI Reviewed: Yes Vital Signs & Weight: Vital Signs (12 hours) Temp Pulse Resp BP BP Pulse Ox 06/06/18 11:24 97.9 F 75 16 124/71 97 06/06/18 07:52 98.8 F 67 16 124/85 95 06/06/18 04:00 97.9 F 66 16 129/75 94 L Weight Weight 180 lb I&O: 06/05/18 06/06/18 06/07/18 06:59 06:59 06:59 Intake Total 2800 660 2100 Output Total 1900 Balance 2800 660 200 Result Diagrams: 06/05/18 10:22 06/05/18 10:22 Additional Labs: Accuchecks 06/06/18 06/06/18 06/06/18 11:58 06:08 05:46 POC Glucose 246 H 99 48 L* 06/06/18 06/05/18 05:32 16:05 POC Glucose 51 L* 239 H Microbiology 06/03/18 18:55 Urine clean catch Urine Culture - Final NO GROWTH AT 48 HOURS Laboratory Tests 11/29/17 11/29/17 11/29/17 16:26 19:46 22:18 Creatinine Hemoglobin A1c Troponin I Less than 0.010 Less than 0.010 Less than 0.010 Triglycerides Cholesterol 11/30/17 11/30/17 06/03/18 03:30 03:30 00:07 Creatinine 1.52 H Hemoglobin A1c 9.7 H Troponin I Triglycerides 164 H Cholesterol 202 H 06/04/18 06/04/18 06/05/18 05:05 05:05 10:22 Creatinine 0.78 0.77 Hemoglobin A1c 8.2 H Troponin I Triglycerides Cholesterol Phys Exam - Physical Examination Constitutional: NAD HEENT: PERRLA, moist MMs, sclera anicteric, oral pharynx no lesions Neck: no nodes, no JVD, supple, full ROM Respiratory: no wheezing, no rales, no rhonchi, clear to auscultation bilateral Cardiovascular: RRR, no significant murmur, no rub Gastrointestinal: soft, non-tender, no distention, positive bowel sounds Musculoskeletal: no edema, pulses present Neurological: non-focal, normal sensation, moves all 4 limbs Psychiatric: normal affect, A&O x 3 Dx/Plan (1) Hypoglycemia Code(s): E16.2 - HYPOGLYCEMIA, UNSPECIFIED Status: Acute (2) Diabetes Code(s): E11.9 - TYPE 2 DIABETES MELLITUS WITHOUT COMPLICATIONS Status: Chronic Qualifiers: Diabetes mellitus type: type 2 (3) Fall Code(s): W19.XXXA - UNSPECIFIED FALL, INITIAL ENCOUNTER Status: Acute (4) Noncompliance w/medication treatment due to intermit use of medication Code(s): Z91.14 - PATIENT'S OTHER NONCOMPLIANCE WITH MEDICATION REGIMEN Status : Acute (5) Weakness Code(s): R53.1 - WEAKNESS Status: Acute - Plan DVT proph w/SCDs DC lantus -: monitor sugar.HD stable -: stop antibiotic as there is no clear indication .urine Cx negative -: Cleared by OT/PT.encouraged to use walker & cane at home-has them at home -: likely DC later today or tomorrow if sugar stable.restart 70/30 & monitor * . Review of Systems - Review of Systems Constitutional: negative: fever, chills, sweats, weakness, malaise, other ENT: negative: Ear Pain, Ear Discharge, Nose Pain, Nose Discharge, Nose Congestion, Mouth Pain, Mouth Swelling, Throat Pain, Throat Swelling, Other Respiratory: negative: Cough, Dry, Shortness of Breath, Hemoptysis, SOB with Excertion, Pleuritic Pain, Sputum, Wheezing Cardiovascular: negative: chest pain, palpitations, orthopnea, paroxysmal nocturnal dyspnea, edema, light headedness, other Gastrointestinal: negative: Nausea, Vomiting, Abdominal Pain, Diarrhea, Constipation, Melena, Hematochezia, Other Genitourinary: negative: Dysuria, Frequency, Incontinence, Hematuria, Retention , Other Musculoskeletal: negative: Neck Pain, Shoulder Pain, Arm Pain, Back Pain, Hand Pain, Leg Pain, Foot Pain, Other Neurological: negative: Weakness, Numbness, Incoordination, Change in Speech, Confusion, Seizures, Other - Medications/Allergies Allergies/Adverse Reactions: Allergies Allergy/AdvReac Type Severity Reaction Status Date / Time No Known Allergies Allergy Verified 11/29/17 20:50 Medications: Current Medications Acetaminophen (Tylenol) 650 mg PO Q4H PRN PRN Reason: Headache/Fever/Mild Pain (1-3) Last Admin: 06/06/18 05:21 Dose: 650 mg Albuterol Sulfate (Proventil Hfa) 2 puff INH Q4H PRN PRN Reason: SOB &/or Wheezing Dextrose/Water (Dextrose 50%) 25 gm SLOW IVP PRN PRN PRN Reason: Hypoglycemia Glipizide (Glucotrol) 10 mg PO DAILY [facility] Last Admin: 06/06/18 09:28 Dose: 10 mg Glucagon (Glucagon) 1 mg IM PRN PRN PRN Reason: Hypoglycemia Dextrose/Water (D5w) 1,000 mls @ 0 mls/hr IV .Q0M PRN PRN Reason: Hypoglycemia Ceftriaxone Sodium 1 gm/ (Sodium Chloride) 100 mls @ 200 mls/hr IVPB Q24HR [facility] Last Admin: 06/06/18 05:20 Dose: 100 mls Insulin Human Isoph/Insulin Regular (Humulin 70/30) 25 units SC TID-[facility] Last Admin: 06/06/18 12:02 Dose: 25 unit Insulin Human Regular (Humulin R) 0 units SC .MODERATE SLIDING SC PRN PRN Reason: Moderate Correctional Scale Last Admin: 06/06/18 12:02 Dose: 4 unit Insulin Human Regular (Humulin R) 0 units SC .BEDTIME SLIDING SC PRN PRN Reason: Bedtime Correctional Scale Lisinopril (Zestril) 5 mg PO DAILY [facility] Last Admin: 06/06/18 09:28 Dose: 5 mg Metformin HCl (Glucophage) 500 mg PO BID-[facility] Last Admin: 06/06/18 09:29 Dose: 500 mg Ondansetron HCl (Zofran) 4 mg IVP Q6H PRN PRN Reason: Nausea/Vomiting Last Admin: 06/05/18 10:38 Dose: 4 mg Sodium Chloride (Flush - Normal Saline) 10 ml IVF Q12HR PRN PRN Reason: Saline Flush Last Admin: 06/05/18 20:09 Dose: 10 ml Tramadol HCl (Ultram) 50 mg PO Q6H PRN PRN Reason: Pain Last Admin: 03/24/19 10:06 Dose: 50 mg Zolpidem Tartrate (Ambien) 5 mg PO HSPRN PRN PRN Reason: Insomnia
[2018-06-07] MEDS: Acetaminophen 325 MG TAB PO PRN ×4 (04:04→21:36)
[2018-06-07] MEDS: traMADol HCl 50 MG TAB PO PRN ×3 (04:19→21:09)
[2018-06-07] MEDS: Insulin Regular 300 UNITS/3 ML VIAL SC PRN ×2 (06:31→17:44)
[2018-06-07] MEDS: Lisinopril 5 MG TAB PO SCH (08:28)
[2018-06-07] MEDS: metFORMIN 500 MG TAB PO SCH ×2 (08:28→17:43)
[2018-06-07] MEDS: glipiZIDE 10 MG TAB PO SCH (08:28)
[2018-06-07] MEDS: HumuLIN 70/30 (300 UNITS/3 ML VIAL) SC SCH ×3 (08:29→17:43)
--- NOTE | 2018-06-07 13:20 | PQF ---
TARAN SMILEY RICHA MD [id number] B- [id number] CLINICAL DOCUMENTATION IMPROVEMENT CLARIFICATION FORM: ICD-10 Updated PLEASE DO AN ADDENDUM TO THE PROGRESS NOTE WITH ANY DOCUMENTATION UPDATES OR ADDITIONS AND CARRY THROUGH TO DC SUMMARY. THANK YOU. DATE: 06/07 ATTN: DR. CHELA KANG Please exercise your independent, professional judgment in responding to the clarification form. Clinical indicators are provided on the bottom of this form for your review. Please check appropriate box(s): [ X ] Acute Renal Failure (ARF) / Acute Kidney Injury (EUGENIO) [ ] Acute on Chronic Renal Failure please specify Stage of CKD (see below) [ ] Other [ ] Unable to determine In addition, please specify: Present on Admission (POA): [ X ] Yes [ ] No [ ] Unable to determine National Kidney Foundation Guidelines for CKD Staging Stage I Kidney damage with normal or increased GFR GFR > 90 Stage II Kidney damage with mildly decreased GFR GFR 60-89 Stage III Kidney damage with moderately decreased GFR GFR 30-59 Stage IV Kidney damage with severely decreased GFR GFR 16-29 Stage V Kidney failure GFR<15 ESRD End Stage Renal Disease On dialysis Acute Renal Failure/Acute Kidney Failure defined as: Increases in SCr by (>) 0.3 mg/dl within 48 hours OR- Increases in SCr by (>) 1.5 times baseline, known or presumed to have occurred within the prior 7 days OR- Urine volume < 0.5 ml/kg/hour for 6 hours (KDIGO supplement 2012 for RIFLE/LILIAN criteria) For continuity of documentation, please document condition throughout progress notes and discharge summary. Thank You. CLINICAL INDICATORS - SIGNS / SYMPTOMS / LABS BUN: 32 CR: 1.52 GFR: 35 (06/03) 14 0.78 76 (06/04) 15 0.77 77 (06/05) RISK: DM II MEDICATION NON-COMPLIANCE NAUSEA W/VOMITING TREATMENT: SODIUM BICARBONATE 1/2 NS (1L 06/04) IVF (1L NS IN ER 06/04) THANK YOU! Estrella (This form is maintained as a part of the permanent medical record) 2014 [employer], [employer]. All Rights Reserved Estrella Parrish RN, BSN [email or web address] Office: [phone] [facility]
--- NOTE | 2018-06-07 14:24 | PDOC.PN ---
- Subjective Encounter Start Date: 06/07/18 Encounter Start Time: 14:23 Subjective: FEELS WELL. NO NEW COMPLAINTS -[facility] - Objective Resuscitation Status - Order Detail: 06/03/18 04:28 Resuscitation Status Routine Resuscitation Status: FULL: Full Resuscitation Discussed with: patient KEERTHI Reviewed: Yes Vital Signs & Weight: Vital Signs (12 hours) Temp Pulse Resp BP BP Pulse Ox 06/07/18 11:20 97.8 F 66 14 133/59 L 97 06/07/18 08:43 97.7 F 63 15 110/54 L 94 L Weight Weight 180 lb I&O: 06/06/18 06/07/18 06/08/18 06:59 06:59 06:59 Intake Total 660 5010 Output Total 4400 Balance 660 610 Result Diagrams: 06/05/18 10:22 06/05/18 10:22 Additional Labs: Accuchecks 06/07/18 06/07/18 06/06/18 11:43 05:10 21:59 POC Glucose 145 H 192 H 165 H 06/06/18 06/06/18 20:11 15:21 POC Glucose 65 L 101 Microbiology 06/03/18 18:55 Urine clean catch Urine Culture - Final NO GROWTH AT 48 HOURS Phys Exam - Physical Examination Constitutional: NAD HEENT: PERRLA, moist MMs, sclera anicteric, oral pharynx no lesions Neck: no nodes, no JVD, supple, full ROM Respiratory: no wheezing, no rales, no rhonchi, clear to auscultation bilateral Cardiovascular: RRR, no significant murmur, no rub Gastrointestinal: soft, non-tender, no distention, positive bowel sounds Musculoskeletal: no edema, pulses present Neurological: non-focal, normal sensation, moves all 4 limbs Dx/Plan (1) Hypoglycemia Code(s): E16.2 - HYPOGLYCEMIA, UNSPECIFIED Status: Acute Comment: labile Diabetes.Insulin reduced to 5 units TID /30 (2) Diabetes Code(s): E11.9 - TYPE 2 DIABETES MELLITUS WITHOUT COMPLICATIONS Status: Chronic Qualifiers: Diabetes mellitus type: type 2 (3) Fall Code(s): W19.XXXA - UNSPECIFIED FALL, INITIAL ENCOUNTER Status: Acute (4) Noncompliance w/medication treatment due to intermit use of medication Code(s): Z91.14 - PATIENT'S OTHER NONCOMPLIANCE WITH MEDICATION REGIMEN Status : Acute (5) Weakness Code(s): R53.1 - WEAKNESS Status: Acute (6) EUGENIO (acute kidney injury) Code(s): N17.9 - ACUTE KIDNEY FAILURE, UNSPECIFIED Status: Resolved - Plan DVT proph w/SCDs HD stable and blood sugar better.running high so increase 70/30 gradually -: placement pending * . Review of Systems - Review of Systems Constitutional: negative: fever, chills, sweats, weakness, malaise, other ENT: negative: Ear Pain, Ear Discharge, Nose Pain, Nose Discharge, Nose Congestion, Mouth Pain, Mouth Swelling, Throat Pain, Throat Swelling, Other Respiratory: negative: Cough, Dry, Shortness of Breath, Hemoptysis, SOB with Excertion, Pleuritic Pain, Sputum, Wheezing Cardiovascular: negative: chest pain, palpitations, orthopnea, paroxysmal nocturnal dyspnea, edema, light headedness, other Gastrointestinal: negative: Nausea, Vomiting, Abdominal Pain, Diarrhea, Constipation, Melena, Hematochezia, Other Genitourinary: negative: Dysuria, Frequency, Incontinence, Hematuria, Retention , Other Musculoskeletal: negative: Neck Pain, Shoulder Pain, Arm Pain, Back Pain, Hand Pain, Leg Pain, Foot Pain, Other Neurological: negative: Weakness, Numbness, Incoordination, Change in Speech, Confusion, Seizures, Other - Medications/Allergies Allergies/Adverse Reactions: Allergies Allergy/AdvReac Type Severity Reaction Status Date / Time No Known Allergies Allergy Verified 11/29/17 20:50 Medications: Current Medications Acetaminophen (Tylenol) 650 mg PO Q4H PRN PRN Reason: Headache/Fever/Mild Pain (1-3) Last Admin: 06/07/18 10:45 Dose: 650 mg Albuterol Sulfate (Proventil Hfa) 2 puff INH Q4H PRN PRN Reason: SOB &/or Wheezing Dextrose/Water (Dextrose 50%) 25 gm SLOW IVP PRN PRN PRN Reason: Hypoglycemia Glipizide (Glucotrol) 10 mg PO DAILY [facility] Last Admin: 06/07/18 08:28 Dose: 10 mg Glucagon (Glucagon) 1 mg IM PRN PRN PRN Reason: Hypoglycemia Dextrose/Water (D5w) 1,000 mls @ 0 mls/hr IV .Q0M PRN PRN Reason: Hypoglycemia Insulin Human Isoph/Insulin Regular (Humulin 70/30) 5 units SC TID-[facility] Last Admin: 06/07/18 12:12 Dose: 5 unit Insulin Human Regular (Humulin R) 0 units SC .MODERATE SLIDING SC PRN PRN Reason: Moderate Correctional Scale Last Admin: 06/07/18 06:31 Dose: 2 unit Insulin Human Regular (Humulin R) 0 units SC .BEDTIME SLIDING SC PRN PRN Reason: Bedtime Correctional Scale Lisinopril (Zestril) 5 mg PO DAILY [facility] Last Admin: 06/07/18 08:28 Dose: 5 mg Metformin HCl (Glucophage) 500 mg PO BID-[facility] Last Admin: 06/07/18 08:28 Dose: 500 mg Ondansetron HCl (Zofran) 4 mg IVP Q6H PRN PRN Reason: Nausea/Vomiting Last Admin: 06/05/18 10:38 Dose: 4 mg Sodium Chloride (Flush - Normal Saline) 10 ml IVF Q12HR PRN PRN Reason: Saline Flush Last Admin: 06/06/18 23:26 Dose: 10 ml Tramadol HCl (Ultram) 50 mg PO Q6H PRN PRN Reason: Pain Last Admin: 06/07/18 14:13 Dose: 50 mg Zolpidem Tartrate (Ambien) 5 mg PO HSPRN PRN PRN Reason: Insomnia
[2018-06-08] MEDS: Acetaminophen 325 MG TAB PO PRN ×3 (05:13→18:34)
[2018-06-08] MEDS: traMADol HCl 50 MG TAB PO PRN ×2 (05:13→16:53)
[2018-06-08] MEDS: Insulin Regular 300 UNITS/3 ML VIAL SC PRN ×2 (06:26→15:57)
[2018-06-08] MEDS: glipiZIDE 10 MG TAB PO SCH (09:09)
[2018-06-08] MEDS: Lisinopril 5 MG TAB PO SCH (09:09)
[2018-06-08] MEDS: metFORMIN 500 MG TAB PO SCH ×2 (09:11→16:53)
[2018-06-08] MEDS: HumuLIN 70/30 (300 UNITS/3 ML VIAL) SC SCH ×3 (09:12→16:56)
--- NOTE | 2018-06-08 10:06 | PDOC.PN ---
- Subjective Encounter Start Date: 06/08/18 Encounter Start Time: 11:50 Subjective: Patient reports some SOB on and off. No chest pain. No more low -: blood sugar. - Objective Resuscitation Status - Order Detail: 06/03/18 04:28 Resuscitation Status Routine Resuscitation Status: FULL: Full Resuscitation Discussed with: mable PENDLETON Reviewed: Yes Vital Signs & Weight: Vital Signs (12 hours) Temp Pulse Resp BP Pulse Ox 06/08/18 09:09 70 06/08/18 04:00 98.3 F 70 16 129/71 92 L 06/08/18 00:00 98.5 F 71 16 130/72 93 L Weight Weight 180 lb I&O: 06/07/18 06/08/18 06/09/18 06:59 06:59 06:59 Intake Total 5010 3010 Output Total 4400 2100 Balance 610 910 Result Diagrams: 06/05/18 10:22 06/05/18 10:22 Additional Labs: Accuchecks 06/08/18 06/07/18 06/07/18 05:42 20:14 16:19 POC Glucose 252 H 191 H 255 H 06/07/18 06/05/18 11:43 20:32 POC Glucose 145 H 98 Phys Exam - Physical Examination Constitutional: NAD HEENT: moist MMs Respiratory: no wheezing, no rales, no rhonchi Cardiovascular: RRR, no significant murmur Gastrointestinal: soft, positive bowel sounds Neurological: non-focal Psychiatric: normal affect Dx/Plan (1) Diabetes Code(s): E11.9 - TYPE 2 DIABETES MELLITUS WITHOUT COMPLICATIONS Status: Chronic Qualifiers: Diabetes mellitus type: type 2 Diabetes mellitus longterm insulin use: with longterm use Comment: BS still a bit high, just bumped up insulin to 10 unit TID last night, will observe response over course of today and can titrate up further as needed (2) Fall Code(s): W19.XXXA - UNSPECIFIED FALL, INITIAL ENCOUNTER Status: Acute (3) Noncompliance w/medication treatment due to intermit use of medication Code(s): Z91.14 - PATIENT'S OTHER NONCOMPLIANCE WITH MEDICATION REGIMEN Status : Acute (4) EUGENIO (acute kidney injury) Code(s): N17.9 - ACUTE KIDNEY FAILURE, UNSPECIFIED Status: Resolved - Plan cont current plan of care, PT/OT, DVT proph w/SCDs stable for discharge home vs. detention if family able to arrange * . - Discharge Day Encounter end time: 12:00
[2018-06-08 16:17] VITALS: BP 101/49; TEMP 98.2
--- NOTE | 2018-06-09 08:29 | DIS ---
DATE OF ADMISSION: 06/05/2018 DATE OF DISCHARGE: 06/08/2018 PRIMARY CARE PHYSICIAN: Bj Rao MD, at [facility]. REASON FOR ADMISSION: Fall with some back pain and difficulty walking. DIAGNOSES AT DISCHARGE: 1. Diabetes mellitus type 2, insulin dependent with poor compliance and intermittent hypoglycemia. 2. Fall. 3. Acute kidney injury, resolved. PROCEDURES: 1. CT of the brain without contrast showing no acute findings. 2. X-ray of the pelvis showing no acute evidence of osseous abnormality. CONSULTATIONS: None. SUMMARY OF HOSPITAL COURSE: This is a 58-year-old white female, who has a history of poorly controlled diabetes associated with poor vision, neuropathy and forgetful about administering her insulin or regulating her blood sugar. She lives with her sister, who works long shifts and is not able to oversee her a lot of the time. Has had recurrent falls. She is currently in the process of trying to get on social security. The patient had a fall at home, was also complaining of some burning with urination. She had negative exams and negative x-rays in the emergency room, but did have urinalysis concerning for possible UTI. She was started on Rocephin. Urine culture was done that eventually was negative for any infections. She did have some nausea and vomiting with antibiotics in the hospital. After the culture came back negative, these were discontinued and she had resolution of all nausea and vomiting, and had no more dysuria. The patient was apparently noncompliant with her insulins at home, was taking more insulin in the morning than she was prescribed and less at night, so she was started on 20 units 3 times a day on diabetic diet here in the hospital and had low blood sugars into the 50s, so she was backed off. She was started on 5 units 3 times a day and then titrated up to 10 units 3 times a day with blood sugars improving mostly in the 100s to 200s on the new dose of medication. She was cleared medically. Sister is not able to care her well at home, so they tried to get her to detention but she denied for that, so the sister is taking her back home now. The patient did ambulate with a walker, which she has at home. DISCHARGE MANAGEMENT: Discharged home. ACTIVITY: As tolerated. DIET: Diabetic diet. MEDICATIONS: 1. Humulin 70/30, 10 units 3 times a day. 2. Continue albuterol as needed. 3. Glipizide 10 mg daily. 4. Lisinopril 5 mg daily. 5. Metformin 500 mg twice a day. 6. Proctozone twice a day. FOLLOWUP: Follow up with primary care physician in 7 days. Job ID: [id number]
== END 2018-06-08 19:14 | disposition home or self-care (01) | DRG 638 ==
LOC: ERS 23:36 → SURG B 06-03 03:37 → ERHOLD 06-03 03:37 → SURG B 06-03 13:59 → OBSVTOIN 06-05 10:12
PROVIDERS: ADMIT Internal Medicine; ATTEND Internal Medicine
DX: E11.65 Type 2 diabetes mellitus with hyperglycemia (principal); N17.9 Acute kidney failure, unspecified; E11.649 Type 2 diabetes mellitus with hypoglycemia without coma; I10 Essential (primary) hypertension; E78.5 Hyperlipidemia, unspecified; R30.0 Dysuria; E11.40 Type 2 diabetes mellitus with diabetic neuropathy, unspecified; W19.XXXA Unspecified fall, initial encounter; Z79.4 Long term (current) use of insulin; Z79.84 Long term (current) use of oral hypoglycemic drugs; Z91.14 Patient's other noncompliance with medication regimen; Z79.899 Other long term (current) drug therapy
CPT/HCPCS: 36415; 36416; 51701; 70450; 72170; 80048; 80053; 81003; 81015; 82010; 83036; 83880; 84484; 85025; 87086; 93005; 96361; 96365; A4353; J0696; J1815; J1825; J2405; J7050

== ENCOUNTER 2018-07-21 16:01 | Inpatient (IN) | payer MEDICAID ==
[2018-07-21 16:33] LABS: #Lymphocytes 0.6 thou/uL (1.20-3.40); #Monocytes 0.4 thou/uL (0.11-0.59); #Neutrophils 7.5 thou/uL (1.40-6.50); %Basophils 0.2 % (0.0-1.0); %Eosinophils 0.4 % (0.0-10.0); %Lymphocytes 6.6 % (21.0-51.0); %Monocytes 4.7 % (0.0-10.0); Hemoglobin 10.1 g/dL (12.0-16.0); Mean Corpuscular HGB CONC 34.4 g/dL (32.0-36.0); Mean Corpuscular Hemoglobin 33.5 pg (27.0-31.0); Mean Corpuscular Volume 97.4 fL (78.0-98.0); Mean Platelet Volume 7.9 fL (7.4-10.4); Platelet Count 165 thou/uL (130-400); RBC Distribution Width 11.7 % (11.5-14.5); Red Blood Cell (RBC) Count 3.02 mill/uL (4.20-5.40); White Blood Cell (WBC) Count 8.5 thou/uL (4.8-10.8)
--- NOTE | 2018-07-21 16:45 | RAD ---
Right foot 3 views HISTORY: Right foot injury. FINDINGS: Lisfranc joint alignment is anatomic. Plantar arch is maintained. Internal fixation of the proximal and middle phalanges of the middle toe. Fragmentation of the navicular shows small sclerotic fragment and well-corticated margins. Minimal me dial displacement of the 2.3 cm medial ossific fragment. Osteophytosis throughout the foot. No acute fracture or dislocation are apparent. 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 Internal fixation of the middle toe. Mild degenerative changes throughout the foot.
[2018-07-21 16:55] LABS: ALT (SGPT) 10 U/L (8-55); AST (SGOT) 13 U/L (5-34); Albumin 3.9 g/dL (3.5-5.0); Alkaline Phosphatase 144 U/L (40-150); Anion Gap 23 mmol/L (10-20); BUN (Urea Nitrogen) 48 mg/dL (9.8-20.1); Bilirubin, Total 0.8 mg/dL (0.2-1.2); Calc. Creatinine Clearance 0 mL/min (70-130); Calcium 9.6 mg/dL (7.8-10.44); Carbon Dioxide 18 mmol/L (22-29); Chloride 97 mmol/L (98-107); Estimated GFR-MDRD 32; Globulin 2.8 g/dL (2.4-3.5); Potassium 5.1 mmol/L (3.5-5.1); Protein, Total 6.7 g/dL (6.0-8.3); Sodium 133 mmol/L (136-145)
[2018-07-21 16:58] LABS: Glucose 572 mg/dL (70-105)
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
[2018-07-21 17:47] LABS: Bilirubin Negative (Negative); Blood, Urine Negative (Negative); Clarity CLOUDY (Clear); Glucose, Urine (Dipstick) >=1000 mg/dL (Negative); Leukocyte Small (Negative); Nitrite Negative (Negative); Protein, Urine (Dipstick) Trace mg/dL (Neg-Trace); Specific Gravity, Urine 1.027 (1.002-1.036)
--- NOTE | 2018-07-21 17:47 | CT ---
CT Cervical Spine WO Con History: [Trauma. Fall. Injury.] Comparison: Cervical spine CT November 2017 Findings: The occipital condyles are intact. The odontoid process is intact. Moderate vascular calcif ications of the carotid bulbs. No abnormal facet joint widening. There is no acute fracture or malalignment. Moderate degenerative c hanges at C5-C7. Thyroid is unremarkable. Impression: No acute fracture or malalignment of the cervical spine.
--- NOTE | 2018-07-21 17:55 | CT ---
CT Chest Abd Pelvis without Con Limited CT thoracic spine without contrast limited CT lumbosacral spine without contrast History: [Fall. Trauma.] Comparison: None. Findings: The sternum and manubrium are intact. No compression fracture of the thoracic or lumbar spi ne nor the sacrum. Clavicles are intact. Both scapula are intact. Old buckle fracture right anterior fifth rib old right posterior seventh, eighth, and ninth rib fract ures. Healing left anterior third, fourth, fifth, sixth rib fractures. Healing left posterior eighth, ninth, and 10th rib fractures. No acute displaced rib fracture is appreciated. No transverse process fracture. SI joints not widened. The obturator rings are intact. The femoral heads and necks are intact. Age indeterminate fracture of a right marginal L2/L3 osteophyte. Lungs are clear. No pneumothorax. No effusion. No contusion. Thyroid is unremarkable. Of note there i s no significant contrast within the vasculature. Dense calcifications of the aorta. No retroperitoneal adenopathy. No free intraperitoneal gas or fluid. Evaluation for solid organ injury i s limited without intravenous contrast. There is a left gluteal soft tissue contusion. No acute aortic injury. Impression: 1. Likely subacute or chronic fracture of the right anterior L2/L3 osteophyte. 2. Left gluteal soft tissue contusion. 3. Combination of remote and healing bilateral rib fractures.
[2018-07-21 18:00] LABS: Bacteria/HPF None Seen HPF (None Seen); Hyaline Casts/LPF 4-6 HYALINE CAST LPF (0-3 Hyaline); Pathc Cast-AUWi Flag 1.49 (0-2.49); RBC/HPF 0-3 HPF (0-3)
[2018-07-21 18:17] LABS: Renal Epithelial 0-3 HPF (0-3); Transitional Epithelial 0-3 HPF (0-3)
[2018-07-21] MEDS ORDERED: Insulin Regular 300 UNITS/3 ML VIAL ONE (19:10)
[2018-07-21] MEDS ORDERED: Insulin Regular 100 units/100 ml in NS IVPB SCH (19:15)
[2018-07-21] MEDS ORDERED: Sodium Chloride 0.9% 1,000 ML IV PRN ×4 (20:50)
[2018-07-21] MEDS ORDERED: NS 0.9% w/ 20 MEQ KCL 1,000 ML IV PRN ×2 (20:50)
[2018-07-21] MEDS ORDERED: CCU Electrolyte Replacement 1 EACH IVPB ONE (20:50)
[2018-07-21] MEDS ORDERED: Dextrose 5 %-0.45 % NaCl 1,000 ML IV PRN (20:50)
[2018-07-21] MEDS ORDERED: PROVENTIL INHALER 6.7 G (200 INHALATIONS) INH PRN (20:53)
[2018-07-21] MEDS ORDERED: HUMULIN R 100 UNITS in Sodium Chloride 0.9% 100 ML IVPB SCH (21:00)
[2018-07-21] MEDS ORDERED: Potassium Phosphate 12 MMOL in Sodium Chloride 0.9% 250 ML 250 ML IV PRN (21:10)
[2018-07-21] MEDS ORDERED: Potassium Phosphate 15 MMOL in Sodium Chloride 0.9% 250 ML 250 ML IV PRN (21:10)
[2018-07-21] MEDS ORDERED: Potassium Chloride 40 MEQ in Sodium Chloride 0.9% 250 ML 250 ML IVPB PRN (21:10)
[2018-07-21] MEDS ORDERED: Potassium Chloride 40 MEQ in Premix Bag 1 BAG IVPB PRN (21:10)
[2018-07-21] MEDS ORDERED: Magnesium 2 GM/50 ML 2 GM in Premix Bag 1 BAG IVPB PRN (21:10)
[2018-07-21] MEDS ORDERED: PHOS-NAK 1 PKT PACK PO PRN ×2 (21:10)
[2018-07-21] MEDS ORDERED: Magnesium Oxide 400 MG TAB PO PRN ×2 (21:10)
[2018-07-21] MEDS ORDERED: Potassium Chloride 20 MEQ TAB PO PRN (21:10)
[2018-07-21] MEDS ORDERED: Potassium Phosphate 9 MMOL in Sodium Chloride 0.9% 100 ML IVPB PRN (21:10)
[2018-07-21] MEDS ORDERED: CCU ELECTROLYTE REPLACEMENT PROTOCOL FS PRN (21:10)
[2018-07-21 21:28] LABS: Anion Gap 15 mmol/L (10-20); BUN (Urea Nitrogen) 39 mg/dL (9.8-20.1); Calc. Creatinine Clearance 0 mL/min (70-130); Calcium 9.2 mg/dL (7.8-10.44); Carbon Dioxide 23 mmol/L (22-29); Chloride 105 mmol/L (98-107); Estimated GFR-MDRD 44; Glucose 219 mg/dL (70-105); Potassium 3.8 mmol/L (3.5-5.1); Sodium 139 mmol/L (136-145)
[2018-07-21 22:06] VITALS: BMI 29.2
[2018-07-21] MEDS: Acetaminophen 325 MG TAB PO PRN (22:11)
[2018-07-21] MEDS: D5 1/2 NS w/20 mEq KCL 1,000 ML IV PRN (22:12)
[2018-07-21] MEDS: HYDROcodone/Acetaminophen 7.5/325 mg Tablet PO PRN (23:47)
[2018-07-22] MEDS: cefTRIAXone\\ROCEPHIN 1 GM in Sodium Chloride 0.9% 100 ML IVPB SCH (01:05)
--- NOTE | 2018-07-22 01:11 | HP ---
PRIMARY CARE DOCTOR: Bj Rao MD. CODE STATUS: Full code. TIME OF EVALUATION: 8:00 p.m. CHIEF COMPLAINT: "I have a fall." HISTORY OF PRESENT ILLNESS: This is a 58-year-old female patient with past medical history of diabetes, came to the hospital after having a fall when she hit her head. The patient denies any loss of consciousness. She stated she remembers all the events. She was at home with her sister. She was on the ground for 10 minutes. She reported having some headache. The patient was also found to be in DKA. She has been started on DKA protocol. Labs have been improving. After the treatment is being initiated, she will be in IMCU most likely to be able to transfer in the morning. The symptoms were reported as severe, associated with back pain. No clear triggers, no alleviating factors. REVIEW OF SYSTEMS: CONSTITUTIONAL: No fever or chills. The patient did report generalized weakness. RESPIRATORY : No cough, sputum production, or shortness of breath. CARDIOVASCULAR: No chest pain or palpitation. GASTROINTESTINAL: No nausea, vomiting, diarrhea, abdominal pain. TELEVISION PARTS TESTER: The patient has headache after a fall. No dizziness or feeling lightheaded. GENITOURINARY: No burning on urination. EXTREMITIES: No leg swelling. PAST MEDICAL HISTORY: The patient has hyperlipidemia, hypertension, history of diabetes type 1, and COPD. SURGICAL HISTORY: Dilation and curettage multiple times, appendectomy, cholecystectomy, orthopedic surgery of the right knee and the right great toe. PSYCH HISTORY: Includes anxiety and depression. SOCIAL HISTORY: No alcohol, no drugs. The patient quit smoking more than 10 years ago. FAMILY HISTORY: Reviewed, noncontributory for current presentation. KNOWN ALLERGIES: No known drug allergies reported. MEDICATIONS: Humulin 70/30. ProAir HFA. PHYSICAL EXAMINATION: VITAL SIGNS: On ,presentation blood pressure is 163/72 with heart rate 93, respiratory rate was 18. Pain was 0/10, oxygen saturation was 97% on room air. GENERAL APPEARANCE: The patient is alert, oriented, not in acute distress. HEENT: Eyes normal. ENT normal. Oral mucosa anicteric. No JVD. RESPIRATORY: Bilateral air entry. No rales. No wheezes. Symmetric expansion. CARDIOVASCULAR: Normal. Rate regular rhythm. No murmurs. No gallop. No edema. ABDOMEN: Soft, normal bowel sounds. MUSCULOSKELETAL: Baseline range of motion and strength. No tenderness. SKIN: Warm, intact. No pallor. No rash. No redness. Peripheral pulses are present. Capillary refill seems to be intact. NEURO: No evidence of any new focal weakness. Baseline speech. Cranial nerves seems to be intact. The patient has some ecchymosis on the left frontal area of the forehead secondary to the fall. PSYCH: The patient is in good mood. No anxiety. IMAGING: EKG was reviewed. The patient has normal sinus rhythm with a rate of 83, TN 138, QRS 80, QT corrected 453. Brain CT was reviewed. The patient has no acute intracranial abnormalities. Chest, abdomen and pelvis CT was reviewed. The patient has left gluteal soft-tissue contusion, a combination of remote and bilateral rib fractures and likely subacute to chronic fracture of the right into the L2-L3. Cervical spine CT was reviewed. The patient has no acute fracture or malalignment of the cervical spine. Foot x-ray was reviewed. Mild degenerative changes throughout the foot. Old injury fracture of the navicular with evidence of osteonecrosis of the medial fragment. Internal fixation reviewed. LABORATORY DATA: Reviewed the patient has white count of 8.5, hemoglobin 10.1, MCV 97.4. Chemistry: Sodium 133, corrected after treatment 139; potassium 5.1, chloride 97, carbon dioxide was 18, anion gap 23, the repeat one was 15. The BUN is 48, came down 39, creatinine initially was , GFR 32-44, and glucose 272, came down to 219. UA was done and showed white count 11 to 20. ASSESSMENT AND PLAN: The patient will be placed in the hospital with following medical problems: 1. Diabetic ketoacidosis. The patient has been started on diabetic ketoacidosis protocol. He has been placed in IMCU. Repeat labs are improving, we will monitor closely. 2. Acute kidney injury, presented with creatinine 1.67. Creatinine has improved after initial hydration and came down to 1.25. This problem is resolving. We will continue to monitor and treat accordingly. 3. Urinary tract infection. The patient has a white count of [address] the patient on antibiotics, we will follow cultures and adjust treatment as needed. 4. Hyponatremia. It seems to be hypertonic: Sodium was 133, repeat was 139. This has resolved due to hyperglycemia. 5. Iron gap metabolic acidosis secondary to diabetic ketoacidosis. Treatment as above. Job ID: [id number]
[2018-07-22 01:29] LABS: Anion Gap 13 mmol/L (10-20); BUN (Urea Nitrogen) 37 mg/dL (9.8-20.1); Calc. Creatinine Clearance 72 mL/min (70-130); Calcium 9.2 mg/dL (7.8-10.44); Carbon Dioxide 24 mmol/L (22-29); Chloride 106 mmol/L (98-107); Estimated GFR-MDRD 53; Glucose 173 mg/dL (70-105); Potassium 3.8 mmol/L (3.5-5.1); Sodium 139 mmol/L (136-145)
[2018-07-22] MEDS: D5 1/2 NS w/20 mEq KCL 1,000 ML IV PRN ×2 (02:51→06:04)
[2018-07-22 05:01] LABS: #Eosinphils 0.1 thou/uL (0.0-0.7); #Lymphocytes 2.1 thou/uL (1.20-3.40); #Monocytes 0.5 thou/uL (0.11-0.59); #Neutrophils 2.9 thou/uL (1.40-6.50); %Basophils 0.3 % (0.0-1.0); %Eosinophils 1.4 % (0.0-10.0); %Lymphocytes 37.7 % (21.0-51.0); %Monocytes 8.2 % (0.0-10.0); %Neutrophils 52.5 % (42.0-75.0); Hemoglobin 9.4 g/dL (12.0-16.0); Mean Corpuscular HGB CONC 34.9 g/dL (32.0-36.0); Mean Corpuscular Volume 97.4 fL (78.0-98.0); Platelet Count 155 thou/uL (130-400); RBC Distribution Width 11.7 % (11.5-14.5); Red Blood Cell (RBC) Count 2.77 mill/uL (4.20-5.40); White Blood Cell (WBC) Count 5.5 thou/uL (4.8-10.8)
[2018-07-22 05:21] LABS: Anion Gap 9 mmol/L (10-20); BUN (Urea Nitrogen) 35 mg/dL (9.8-20.1); Calc. Creatinine Clearance 83 mL/min (70-130); Carbon Dioxide 25 mmol/L (22-29); Chloride 108 mmol/L (98-107); Estimated GFR-MDRD 62; Glucose 138 mg/dL (70-105); Sodium 138 mmol/L (136-145)
[2018-07-22] MEDS: HYDROcodone/Acetaminophen 7.5/325 mg Tablet PO PRN ×4 (06:06→22:55)
[2018-07-22 06:27] LABS: Anion Gap 13 mmol/L (10-20); BUN (Urea Nitrogen) 33 mg/dL (9.8-20.1); Calc. Creatinine Clearance 91 mL/min (70-130); Calcium 8.9 mg/dL (7.8-10.44); Carbon Dioxide 20 mmol/L (22-29); Chloride 109 mmol/L (98-107); Estimated GFR-MDRD 69; Glucose 101 mg/dL (70-105); Potassium 3.7 mmol/L (3.5-5.1); Sodium 138 mmol/L (136-145)
--- NOTE | 2018-07-22 08:24 | PRG ---
DATE OF SERVICE: 07/22/2018 SUBJECTIVE: The patient is seen and examined at bedside. She is feeling somewhat better. She did not have any nausea or vomiting. She fell without any warning and according to her, she had some workup done for frequent falls and they never found any good reason why she does that. Her sister called EMS and she was brought to the emergency room, was found to be in DKA. She is not having any other complaints at this point. OBJECTIVE: VITAL SIGNS: Blood pressure is 149/71, pulse is 90, respiratory rate is 16, O2 saturation is 100 on room air, and temperature is 97.0. GENERAL: She is posttraumatic. HEENT: She has abrasion, which is scabbed on the left face and her left eye. Her pupils are responding to light properly. Sclerae are nonicteric. Oral mucosa is dry. NECK: Supple. LUNGS: Clear. HEART: S1 and S2 normal. No S3. No S4. ABDOMEN: Soft. Mildly tender in the epigastric area in the mid section. No guarding. No masses. EXTREMITIES: No clubbing, cyanosis, or edema. NEUROLOGICAL: She follows my commands. She moves all 4 extremities. There is no any motor deficits. Cranial nerves are intact. LABORATORY DATA: Labs showed white count of 5.5, hemoglobin 9.4, hematocrit 27.0, and platelet count is 155. Sodium of 138, potassium 3.7, chloride 109, CO2 of 20, BUN 33, creatinine 0.85, glucose is 101, and calcium 8.9. IMPRESSION: 1. Diabetic ketoacidosis. She is on diabetic ketoacidosis protocol. Her anion gap is closed and her glycemia is down to 100. She is on D5 water 250 mL/h and 2 units of insulin drip at this moment. We are going to switch her to 10 units of 70/30 and continue IV fluids because she is dehydrated. We are going to have orthopedic surgeon to look at her foot since her x-ray showed some osteonecrosis of the navicular bone in the foot. This could be the cause of her diabetic ketoacidosis, but also she had previous admissions for the same reason and she is not very compliant. She forgets to use her insulin and she works long hours, so this could be the reason. Also, she is treated for urinary tract infection as possible cause of her diabetic ketoacidosis. 2. Acute kidney injury, improved with IV fluids. 3. Urinary tract infection, possible. We are waiting for the cultures. She is on Rocephin at this point. 4. 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 We are going to get orthopedic surgeon to take a look at her. PLAN: So plan is going to give her 10 units of 70/30, let her eat, stop the IV insulin drip and continue IV fluids D5 at 250 for now. Follow up her closely. Apparently, she remembers everything what happened, so those falls are not related to any syncope. We are going to have neurologist to take a look at her and see whether we can find any reason why she falls frequently. Job ID: [id number]
[2018-07-22] MEDS ORDERED: HumuLIN 70/30 (300 UNITS/3 ML VIAL) SC SCH (08:30)
[2018-07-22] MEDS: Enoxaparin Sodium 40 MG/0.4 ML SYRINGE SC SCH (09:00)
[2018-07-22] MEDS: Lisinopril 5 MG TAB PO SCH (09:00)
[2018-07-22] MEDS ORDERED: Dextrose 50% Abboject 50 ML SYRINGE IVP PRN (10:38)
[2018-07-22] MEDS ORDERED: HumaLOG 300 UNITS/3 ML VIAL SC PRN ×3 (10:38→16:30)
[2018-07-22] MEDS ORDERED: Dextrose 5% in Water 1,000 ML IV PRN (10:38)
--- NOTE | 2018-07-22 10:44 | CON ---
DATE OF CONSULTATION: 07/22/2018 This is Anne Patino PA-C dictating a report for Eddi Ken MD. REQUESTING PHYSICIAN: [facility]. CONSULTING PHYSICIAN: Eddi Ken MD REASON FOR CONSULTATION: Right foot injury. HISTORY OF PRESENT ILLNESS: This is a 58-year-old female, who was admitted yesterday on 07/21/2018, after a fall at home. Upon presentation to our facility, she was found to be in DKA. She has a history of DKA. The patient states that her last episode was 2 years ago, for which she was hospitalized. Upon further workup, the patient complained of right foot pain. 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 We have been consulted for this reason. The patient also has a history of multiple frequent falls. Currently at bedside, the patient denies any foot pain. She denies any pain anywhere except for her back. She states that she does have some neuropathy and has decreased sensation to both of her feet. Per nursing staff, the patient reported foot pain last night. She has ambulated to the bedside commode without any difficulty involving her foot. She did not complain of any pain with standing upright. PAST MEDICAL HISTORY: Significant for insulin-dependent diabetes, hyperlipidemia, hypertension, and COPD. PAST SURGICAL HISTORY: D and C multiple times, appendectomy, cholecystectomy, orthopedic surgery of the right knee and right foot. PSYCHIATRIC HISTORY: Includes anxiety and depression. SOCIAL HISTORY: No alcohol. No drugs. The patient quit smoking more than 10 years ago. FAMILY HISTORY: Reviewed, noncontributory. ALLERGIES: NO KNOWN DRUG ALLERGIES REPORTED. REVIEW OF SYSTEMS: A 10-point review of systems conducted and otherwise negative except for stated above. PHYSICAL EXAMINATION: VITAL SIGNS: Blood pressure 131/48, pulse is 72, respiratory rate of 17, and temperature of 97.0. GENERAL: The patient is awake and alert. She is lying supine in bed at this time. No family members are present. She is cooperative with exam at this time. HEENT: Normocephalic. There is a healing abrasion to the forehead noted. The patient has poor dentition. NECK: Supple. Trachea midline. Breathing nonlabored. EXTREMITIES: The bilateral lower extremities were evaluated. There is ecchymosis noted at the right foot along the lateral and distal aspects on both the plantar aspect and the dorsal aspect. No skin injuries are noted. The patient is able to move all toes. No nail bed injuries. No tenderness to palpation along the lateral aspect of the foot, where the ecchymosis is noted. Also no tenderness to palpation over the medial aspect, specifically no tenderness to palpation over the navicular bone. Decreased sensation. Capillary refill 3 seconds. The patient is able to plantar flex and dorsiflex at the ankle. No soft tissue swelling is noted. On the left lower extremity, there is ecchymosis noted along the posterior thigh and popliteal region of the leg. Radiographic data, which is reviewed by Dr. 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 It is noted that there is osteonecrosis of the medial fragment. This bone appears to have necrosed. There is evidence of open reduction and internal fixation on the third toe. 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 PLAN: At this time, the patient is nontender on examination. She does not complain of any pain to me. She has ambulated with the nursing staff without any difficulties. We can place her in a postoperative shoe as this provides her comfort. This will be as needed. I have discussed this with the patient's nurse today. Otherwise, this is not an emergent surgical matter. It may not be even an elective surgical matter if it does not bother the patient. She may follow up on an outpatient basis with Dr. Bird, foot and ankle surgery. We will write her this referral. Please reconsult Orthopedics as needed. Job ID: [id number]
--- NOTE | 2018-07-22 11:26 | CON ---
DATE OF CONSULTATION: HISTORY OF PRESENT ILLNESS: The patient is a 58-year-old female, who apparently fell 2 days ago, was in the ER, and admitted with a blood sugar in the 500. She has known diabetes. This morning, MICU consulted her. She is a former smoker, quit smoking 30 years ago. No prior history of pneumonia or TB. Somewhere there is a diagnosis of COPD. She denies any coughing or wheezing. Denies any headache. She has a bruise on the left side of the face. PAST MEDICAL HISTORY: Uncontrolled diabetes, hyperlipidemia, and hypertension. Former smoker. PAST SURGICAL HISTORY: Appendix, gallbladder, and orthopedic surgery. SOCIAL HISTORY: No alcohol, no drugs. Former smoker as noted, quit smoking 10 years ago apparently. HOME MEDICATIONS: 1. Insulin 70/30 at 10 units 3 times a day. 2. Albuterol inhaler. ALLERGIES: NONE. REVIEW OF SYSTEMS: Otherwise, 10-point negative. PHYSICAL EXAMINATION: GENERAL: No distress. VITAL SIGNS: Saturations 100% on room air, temperature 97, blood pressure and respiratory rate 18. CHEST: No wheezing, crackles. CARDIAC: Normal S1 and S2. No gallops. ABDOMEN: No masses. LABORATORY DATA: Lytes are normal. CBC shows white count 5000, H and H 9 and 29, platelet count normal. DIAGNOSTIC DATA: CT of the abdomen and pelvis did not show any acute pulmonary infiltrate. CT brain was unremarkable. CT spine was negative. ASSESSMENT: Uncontrolled diabetes, status post fall, former smoker. No evidence of . PLAN: Pulmonary crawford, I see no reason to start any antibiotics. Continue diabetic care. Continue home insulin. She can be transferred out of the MICU. We will follow while in the MICU. Job ID: [id number]
[2018-07-22] MEDS: HumuLIN 70/30 (300 UNITS/3 ML VIAL) SC SCH ×2 (11:28→17:13)
[2018-07-22] MEDS: D5 1/2 NS w/20 mEq KCL 1,000 ML IV SCH (17:13)
--- NOTE | 2018-07-22 23:47 | CON ---
DATE OF CONSULTATION: 07/22/2018 This is a telemedicine Neurology consultation with RN, Pablo Godfrey. CHIEF COMPLAINT: Falls and gait difficulty. HISTORY OF PRESENT ILLNESS: We are consulted on the ICU patient for her recurrent falls. Patient's sister was in the room and she gave us medical history. Patient has been falling for a few years now and her pattern of falls is she could be walking and she just hits the floor. She has multiple bruises on her body due to falls. She has not been diagnosed with neuropathy, but complains of numbness in her legs. She also has back problems. She broke two walkers due to her falls and she is fairly independent with her day-to-day activities, gets around the house on her walker. Her sister works at night and she is there with her during daytime, but she is asleep. She tells the patient to take showers when she is around. Patient also has vision problems. She had a surgery in her left eye and she has been playing video games and was told by her doctor not to do so. Patient never had a CVA. PREVIOUS MEDICAL HISTORY: Hypertension, COPD, diabetes, depression, and anxiety. PAST SURGICAL HISTORY: Previous surgical history as noted in the chart. The patient has history of dilatation and curettage, one miscarriage, appendectomy, cholecystectomy, right knee surgery, and right great toe surgery. SOCIAL HISTORY: She does not drink, does not use any drugs. She quit smoking more than 10 years ago. She lives with her sister. FAMILY HISTORY: Negative for any similar health issues. Most family members are healthy. ALLERGIES: NO KNOWN DRUG ALLERGIES. MEDICATIONS: At home, she takes: 1. Humulin 70/30. 2. ProAir HFA. REVIEW OF SYSTEMS: PULMONARY: Positive for shortness of breath and cough due to COPD. CARDIAC: Positive for hypertension. GI: Negative for gastrointestinal problems. GENITOURINARY: Positive for incontinence. NEUROLOGICAL: Positive for balance problems and recurrent falls and numbness in her feet. OPHTHALMOLOGIC: Positive for vision problems. PSYCHIATRIC: Positive for anxiety and depression. HEMATOLOGICAL: Negative for any bleeding diatheses. DERMATOLOGICAL: Multiple bruises. LABORATORY DATA: Her current workup. Her laboratory results, white count 5.5, hemoglobin 9.4, hematocrit 27, and platelet count 155. Chemistry; sodium 138, potassium 3.7, chloride 109, bicarb 20, BUN 33, creatinine 0.85, and glucose 101. Urinalysis is negative. Toxicology, beta hydroxybutyrate 5.59. IMAGING: CT of the head was negative for any acute stroke. There was no comment on chronic microvascular ischemic state. PHYSICAL EXAMINATION: VITAL SIGNS: Blood pressure 100/41, heart rate 76, and temperature 97. GENERAL APPEARANCE: Well-built, well-nourished lady with bruising all over her left legs as well as right leg and arms and face as well. She has multiple bruises in different locations with different sizes. She has edema of her right foot with erythema as general. CHEST: Clear vesicular breathing. CARDIOVASCULAR: S1, S2 heard. No murmurs. ABDOMEN: Soft and nontender. No organomegaly noted. EXTREMITIES: Motor bulk normal, tone normal. Strength, 5/5 in upper and lower extremities in iliopsoas, hamstrings, quadriceps, ankle dorsiflexion, plantar flexion, deltoid, biceps, triceps, wrist extension, flexion, finger extension, flexion bilaterally. Sensory examination, decreased sensation in both lower extremities, left worse than the right to touch. Deep tendon reflexes were absent throughout. Cerebellar, normal [id number]. Cranial nerve examination; pupils 2 mm, reactive to light. Normal extraocular movements. Normal sensation of face bilaterally. Tongue midline. No atrophy noted. Normal elevation of palate. Normal hearing bilaterally. IMPRESSION: Patient is a 58-year-old lady who has severe diabetes and she has neuropathy likely from diabetes as well based on the clinical examination and her history. She has vision problems as well. She has multiple falls and has even broken walkers due to her fall. She lives with her sister. They do not have any home health care or anyone else assisting them; between the two of them they manage. Her sister thinks she might not be taking her insulin regularly and she might be noncompliant. There is no clear forgetfulness or memory loss or dementia. Her current clinical examination shows bilateral lower extremity numbness and no other neurological findings and she had normal strength. Clinical diagnosis is most consistent with gait and balance dysfunction, likely secondary to peripheral neuropathy and vision problems. At this time, based on CT, we are not able to confirm any prior or current infarcts. Therefore, she will need further imaging studies. RECOMMENDATIONS: I ordered an MRI of the brain without contrast. Please complete that, so we can understand if she had any mini strokes here now or in the past. She will also need inpatient rehab and setting up home health care prior to discharge. Please call Neurology if you have any further questions. Job ID: [id number]
[2018-07-23] MEDS: D5 1/2 NS w/20 mEq KCL 1,000 ML IV SCH (01:17)
[2018-07-23] MEDS: cefTRIAXone\\ROCEPHIN 1 GM in Sodium Chloride 0.9% 100 ML IVPB SCH (01:17)
[2018-07-23] MEDS: HYDROcodone/Acetaminophen 7.5/325 mg Tablet PO PRN ×5 (03:58→22:20)
[2018-07-23 06:15] LABS: Anion Gap 10 mmol/L (10-20); BUN (Urea Nitrogen) 12 mg/dL (9.8-20.1); Calc. Creatinine Clearance 103 mL/min (70-130); Calcium 8.8 mg/dL (7.8-10.44); Carbon Dioxide 24 mmol/L (22-29); Chloride 110 mmol/L (98-107); Estimated GFR-MDRD 79; Glucose 191 mg/dL (70-105); Potassium 4.7 mmol/L (3.5-5.1); Sodium 139 mmol/L (136-145)
[2018-07-23] MEDS: HumuLIN 70/30 (300 UNITS/3 ML VIAL) SC SCH ×3 (07:06→18:04)
[2018-07-23] MEDS ORDERED: Dextrose 50% Abboject 50 ML SYRINGE SLOW IVP PRN (08:02)
[2018-07-23] MEDS ORDERED: Dextrose 5% in Water 1,000 ML IV PRN (08:02)
[2018-07-23] MEDS: Lisinopril 5 MG TAB PO SCH (08:22)
[2018-07-23] MEDS: Enoxaparin Sodium 40 MG/0.4 ML SYRINGE SC SCH (08:22)
--- NOTE | 2018-07-23 09:04 | PRG ---
DATE OF SERVICE: 07/23/2018 SUBJECTIVE: Still appears somewhat encephalopathic, but in no respiratory distress. OBJECTIVE: VITAL SIGNS: Temperature 97, blood pressure 115/55, saturations are 98%, respiratory rate 18. CHEST: No wheezing, crackles. CARDIAC: Normal S1, S2. No gallops. ABDOMEN: No masses. LABORATORY DATA: Lytes are normal. ASSESSMENT AND PLAN: 1. Uncontrolled diabetes. 2. Encephalopathy. 3. Probably hypoventilation syndrome, may be chronic obstructive pulmonary disease. Neurology was consulted. An MRI of the head is being ordered. Pulmonary will follow while in the MICU. Job ID: [id number]
--- NOTE | 2018-07-23 09:24 | PRG ---
DATE OF SERVICE: 07/23/2018 SUBJECTIVE: The patient is seen and examined at the bedside. She is feeling significantly better. OBJECTIVE: VITAL SIGNS: Blood pressure is 115/55, pulse is 61, temperature 97. Her pulse oximetry is within normal limits without any oxygen supplementation. HEENT: Head is atraumatic and normocephalic. Sclerae are nonicteric. Conjunctivae pinkish. Oral mucosa is moist. She has multiple missing teeth. NECK: Supple. LUNGS: Clear. HEART: S1 and S2 normal. No S3. No S4. ABDOMEN: Soft. Obese. Nontender. EXTREMITIES: No clubbing, cyanosis, or edema. NEUROLOGICAL: She is alert and oriented x3. There are no any motor deficits. Cranial nerves are intact. LABORATORY DATA: Labs showed sodium of 139, potassium 4.7, chloride 110, CO2 of 24, BUN 12, creatinine 0.75. Glycemia is ranging from 189-260. Microbiology, none. IMPRESSION: 1. Diabetic ketoacidosis, resolved. She is back to her home regimen on insulin three doses a day. We are going to stop her IV fluids and Accu-Chek a.c. and bedtime. 2. Acute kidney injury, improved with IV fluids. 3. Urinary tract infection, possible although we do not have urine culture. 4. 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 The patient was seen by Orthopedic Team and they do not recommend to do anything acutely, is to stop her IV fluids, send her out to the medical floor and continue her current insulin dosing plus sliding scale. Job ID: [id number]
--- NOTE | 2018-07-23 09:31 | MRI ---
MRI BRAIN WITHOUT CONTRAST: HISTORY: Falls, headache, vision problems CORRELATION: CT scan from 07/21/2018. FINDINGS: No restricted diffusion is seen. The ventricular size is appropriate and the basilar cisterns are pat ent. No evidence of acute infarct, hemorrhage, midline shift or abnormal extra-axial fluid collections is seen. Tiny amount of fluid is seen in the mastoid air cells. IMPRESSION: No evidence of acute intracranial process.
[2018-07-23] MEDS: Insulin Regular 300 UNITS/3 ML VIAL SC PRN ×3 (10:43→20:29)
--- NOTE | 2018-07-23 11:39 | PRG ---
DATE OF SERVICE: 07/23/2018 CHIEF COMPLAINT: Falls. INTERVAL HISTORY: The patient has not had any physical therapy. She has been seen by Orthopedic Surgery team and is scheduled for outpatient followup for the old navicular fracture on her right foot. Interval testing MRI has been completed and it did not show any evidence of acute intracranial process. No new labs from today. PHYSICAL EXAMINATION: VITAL SIGNS: Blood pressure 131/48, pulse 74, temperature 97. GENERAL APPEARANCE: Lady with multiple bruises in her legs and also her left face. NEUROLOGICAL: Higher intellectual functions are normal. Cranial nerves, pupils are 2 mm reactive to light and she has light perception and hand movements only in both of her eyes. She cannot count fingers. No facial asymmetry noted. Tongue midline. Motor examination, strength 5/5 throughout in both upper and lower extremities. She still has persistent numbness in the legs. IMPRESSION: The patient is a 58-year-old lady with poorly controlled diabetes and she has had multiple falls. Contribution to falls is from, 1. Vision impairment and she is legally blind. 2. Neuropathy in the legs likely secondary to diabetes. 3. Orthopedic issues with the right foot. RECOMMENDATIONS: Please consider physical therapy and placement in a rehab center for short-term until she is safe to go home. She can see Dr. Cardenas as outpatient for EMG nerve conduction studies. Call Neurology if you have any further questions. Job ID: [id number]
[2018-07-23] MEDS: Ondansetron PF 4 MG/2 ML Vial IVP PRN (20:35)
[2018-07-24] MEDS: cefTRIAXone\\ROCEPHIN 1 GM in Sodium Chloride 0.9% 100 ML IVPB SCH (01:27)
[2018-07-24] MEDS: HYDROcodone/Acetaminophen 7.5/325 mg Tablet PO PRN ×5 (02:02→20:47)
[2018-07-24 05:42] LABS: Anion Gap 8 mmol/L (10-20); BUN (Urea Nitrogen) 9 mg/dL (9.8-20.1); Calc. Creatinine Clearance 104 mL/min (70-130); Calcium 8.9 mg/dL (7.8-10.44); Carbon Dioxide 28 mmol/L (22-29); Chloride 106 mmol/L (98-107); Estimated GFR-MDRD 81; Glucose 136 mg/dL (70-105); Potassium 4.4 mmol/L (3.5-5.1); Sodium 138 mmol/L (136-145)
[2018-07-24] MEDS: diphenhydrAMINE 25 MG CAP PO PRN ×3 (06:20→20:47)
[2018-07-24] MEDS: Enoxaparin Sodium 40 MG/0.4 ML SYRINGE SC SCH (08:39)
[2018-07-24] MEDS: HumuLIN 70/30 (300 UNITS/3 ML VIAL) SC SCH ×3 (08:39→16:29)
[2018-07-24] MEDS: Lisinopril 5 MG TAB PO SCH ×2 (08:40→09:49)
[2018-07-24] MEDS: Ondansetron PF 4 MG/2 ML Vial IVP PRN (08:47)
[2018-07-24] MEDS: Insulin Regular 300 UNITS/3 ML VIAL SC PRN ×2 (12:04→16:30)
--- NOTE | 2018-07-24 14:41 | PRG ---
DATE OF SERVICE: 07/24/2018 SUBJECTIVE: Ms. Wilson has no complaints. She is awaken from sleep. She is in no distress. OBJECTIVE: VITAL SIGNS: She is afebrile. Heart rate 90 and blood pressure 127/52. She is on room air. LUNGS: Clear. HEART: Regular rhythm. ABDOMEN: Soft. IMPRESSION AND PLAN: 1. Possible chronic obstructive pulmonary disease. 2. Obesity hypoventilation. 3. Diabetes. 4. Encephalopathy. She had an MRI done yesterday afternoon that showed nothing acute. She appears to be stable at this time. Job ID: [id number]
--- NOTE | 2018-07-24 18:44 | EKG ---
Test Reason : Blood Pressure : / mmHG Vent. Rate : 083 BPM Atrial Rate : 083 BPM P-R Int : 138 ms QRS Dur : 080 ms QT Int : 386 ms P-R-T Axes : 026 -16 023 degrees QTc Int : 453 ms Normal sinus rhythm Left axis deviation Abnormal ECG Confirmed by ARACELIS CANNON DO ([id number]), school photograph editor SHIRA VARGAS ([id number]) on 07/24/2018 6:44:34 PM Referred By: Confirmed By:ARACELIS CANNON DO
[2018-07-25] MEDS: cefTRIAXone\\ROCEPHIN 1 GM in Sodium Chloride 0.9% 100 ML IVPB SCH (00:10)
[2018-07-25] MEDS: HYDROcodone/Acetaminophen 7.5/325 mg Tablet PO PRN ×5 (00:58→22:25)
[2018-07-25] MEDS: diphenhydrAMINE 25 MG CAP PO PRN ×2 (01:37→20:05)
[2018-07-25 04:50] LABS: Anion Gap 11 mmol/L (10-20); BUN (Urea Nitrogen) 10 mg/dL (9.8-20.1); Calc. Creatinine Clearance 94 mL/min (70-130); Calcium 8.8 mg/dL (7.8-10.44); Carbon Dioxide 25 mmol/L (22-29); Chloride 105 mmol/L (98-107); Estimated GFR-MDRD 72; Glucose 162 mg/dL (70-105); Potassium 4.4 mmol/L (3.5-5.1); Sodium 137 mmol/L (136-145)
[2018-07-25] MEDS: Enoxaparin Sodium 40 MG/0.4 ML SYRINGE SC SCH (08:06)
[2018-07-25] MEDS: Lisinopril 5 MG TAB PO SCH (08:07)
[2018-07-25] MEDS: Insulin Regular 300 UNITS/3 ML VIAL SC PRN ×4 (08:09→12:31)
[2018-07-25] MEDS: HumuLIN 70/30 (300 UNITS/3 ML VIAL) SC SCH ×3 (08:10→17:16)
--- NOTE | 2018-07-25 11:22 | PRG ---
DATE OF SERVICE: 07/25/2018 SUBJECTIVE: The patient is seen and examined at the bedside. She is doing quite well. It is quite apparent that her vision is quite bad and she said that maybe this is the reason why she falls frequently. OBJECTIVE: VITAL SIGNS: Blood pressure is 116/70, pulse is 73, temperature is 97.6, respirations 18, and O2 saturation is 99% on room air. HEENT: Head is atraumatic and normocephalic. Eyes are PERRLA. Sclerae are nonicteric. Oral mucosa is moist. NECK: Supple. No lymphadenopathy. LUNGS: Clear. HEART: S1 and S2 normal. No S3. No S4. No any murmur. ABDOMEN: Soft, nontender. Bowel sounds are present. No organomegaly. EXTREMITIES: No clubbing, cyanosis, or edema. NEUROLOGICAL: She is alert and oriented x3. There is no any motor deficits. LABORATORY DATA: Normal BMP. Glycemia is ranging from 160 to 284, calcium is 8.8. IMPRESSION: 1. Diabetic ketoacidosis, resolved. 2. Acute kidney injury, resolved. 3. Urinary tract infection. 4. 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 The patient was seen by orthopedic surgery team and they did not recommend any acute intervention. Just follow up with them on outpatient basis. 5. Significant visual impairment, which could be the reason why she has those frequent falls. We will obtain consultation with Dr. Olmedo, multimedia developer to find out whether we can help her. Apparently, she did not any multimedia developer because of lack of funds. 6. Frequent falls with negative MRI of the brain. PLAN: Plan is to obtain Ophthalmology consult with Dr. Olmedo and move her to correction unit for PT as soon as this is arranged. We are going to continue current regimen. Job ID: [id number]
[2018-07-25] MEDS: Acetaminophen 325 MG TAB PO PRN (20:05)
[2018-07-26] MEDS: cefTRIAXone\\ROCEPHIN 1 GM in Sodium Chloride 0.9% 100 ML IVPB SCH (01:30)
[2018-07-26] MEDS: diphenhydrAMINE 25 MG CAP PO PRN ×4 (01:30→23:58)
[2018-07-26] MEDS: HYDROcodone/Acetaminophen 7.5/325 mg Tablet PO PRN ×5 (03:03→21:12)
[2018-07-26 07:24] LABS: Anion Gap 10 mmol/L (10-20); BUN (Urea Nitrogen) 8 mg/dL (9.8-20.1); Calc. Creatinine Clearance 94 mL/min (70-130); Calcium 9.1 mg/dL (7.8-10.44); Carbon Dioxide 27 mmol/L (22-29); Chloride 103 mmol/L (98-107); Estimated GFR-MDRD 72; Glucose 247 mg/dL (70-105); Potassium 4.3 mmol/L (3.5-5.1); Sodium 136 mmol/L (136-145)
[2018-07-26] MEDS: HumuLIN 70/30 (300 UNITS/3 ML VIAL) SC SCH ×3 (07:59→17:16)
[2018-07-26] MEDS: Lisinopril 5 MG TAB PO SCH (08:03)
[2018-07-26] MEDS: Enoxaparin Sodium 40 MG/0.4 ML SYRINGE SC SCH (08:04)
--- NOTE | 2018-07-26 08:26 | PRG ---
DATE OF SERVICE: 07/24/2018 SUBJECTIVE: The patient is seen and examined at the bedside. She is feeling better overall. She is tolerating food without any problem. OBJECTIVE: VITAL SIGNS: Blood pressure is 127/52, pulse is 90, temperature is 97.9, and her pulse oximetry is 96% on room air. HEENT: Her head is atraumatic and normocephalic. Eyes are PERRLA. Sclerae are nonicteric. Oral mucosa is moist. She has several missing teeth in her oral cavity. NECK: Supple. Thyroid is not palpable. LUNGS: Clear. HEART: S1 and S2 normal. No S3. No S4. ABDOMEN: Soft, obese, and nontender. EXTREMITIES: No clubbing, cyanosis, or edema. NEUROLOGICAL: She follows my commands. She moves all 4 extremities. There are no any sensory or motor deficits. Cranial nerves are intact. LABORATORY DATA: Labs showed normal electrolytes, CO2 of 28, BUN 9, creatinine 0.74, and glycemia is ranging from 179 to 341. IMAGING DATA: MRI of the brain did not show any evidence of acute intracranial process. IMPRESSION: 1. Diabetic ketoacidosis, resolved. Glycemia is still too high for her current dose what she was on prior to this hospitalization, so I am going to increase her insulin to 15 units twice a day instead of 10 units twice a day. We can transfer her out to the medical floor. 2. Acute kidney injury, improved with IV fluids. 3. Urinary tract infection . 4. 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 The patient was seen by Ortho and they do not recommend to have anything done currently. She will need to have follow up with them in the future. They might consider . 5. Frequent falls. The patient was seen by neurologist. MRI was recommended. It is done, it is negative, so we feel like she will benefit from PT and OT and longterm facility transfer. She can be transferred anytime. Case Management consult is in place and as soon as this is arranged, she can be transferred. Job ID: [id number]
[2018-07-26] MEDS: Insulin Regular 300 UNITS/3 ML VIAL SC PRN (11:56)
--- NOTE | 2018-07-26 13:29 | PDOC.PN ---
- Subjective Encounter Start Date: 07/26/18 Encounter Start Time: 16:50 Subjective: Patient reports low back pain, body aches. Pain meds helping. No -: other complaints. - Objective Resuscitation Status - Order Detail: 07/21/18 20:50 Resuscitation Status Routine Resuscitation Status: FULL: Full Resuscitation MAR Reviewed: Yes Vital Signs & Weight: Vital Signs (12 hours) Temp Pulse Resp BP BP Pulse Ox 07/26/18 08:03 89 125/77 07/26/18 08:00 98.3 F 89 16 125/77 98 Weight Weight 176 lb 1.6 oz Most Recent Monitor Data Heart Rate from ECG 78 NIBP 112/37 NIBP BP-Mean 62 Respiration from ECG 7 I&O: 07/25/18 07/26/18 07/27/18 06:59 06:59 06:59 Intake Total 560 2420 240 Output Total 650 2000 700 Balance -90 420 -460 Result Diagrams: 07/22/18 03:57 07/26/18 06:08 Additional Labs: Accuchecks 07/26/18 07/26/18 07/25/18 11:52 05:30 20:41 POC Glucose 352 H 273 H 154 H 07/25/18 16:33 POC Glucose 124 H Phys Exam - Physical Examination Constitutional: NAD HEENT: moist MMs Respiratory: no wheezing, no rales, no rhonchi Cardiovascular: RRR, no significant murmur Gastrointestinal: soft, non-tender, positive bowel sounds Neurological: non-focal Psychiatric: normal affect, A&O x 3 Deviation from normal: Alert Dx/Plan (1) Diabetes mellitus, insulin dependent (IDDM), controlled Code(s): E11.9 - TYPE 2 DIABETES MELLITUS WITHOUT COMPLICATIONS; 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 starvation ketosis and poorly controlled DM (3) Fall Code(s): W19.XXXA - UNSPECIFIED FALL, INITIAL ENCOUNTER Status: Acute Comment: secondary to poor vision (4) EUGENIO (acute kidney injury) Code(s): N17.9 - ACUTE KIDNEY FAILURE, UNSPECIFIED Status: Resolved (5) Osteonecrosis of left foot due to previous trauma Code(s): M87.275 - OSTEONECROSIS DUE TO PREVIOUS TRAUMA, LEFT FOOT Status: Acute Comment: ortho f/u outpatient (6) Vision disorder Status: Acute Comment: likely diabetic retinopathy, opthamologist recommends f /u in his clinic - Plan cont current plan of care, PT/OT, social studies teacher try and place in SNF, unsuccessful at previous hospitalization * . - Discharge Day Encounter end time: 17:00
[2018-07-26] MEDS: Docusate 100 MG CAP PO SCH (20:15)
[2018-07-26] MEDS: Senokot S 8.6-50 MG TAB PO SCH (20:15)
[2018-07-27] MEDS: cefTRIAXone\\ROCEPHIN 1 GM in Sodium Chloride 0.9% 100 ML IVPB SCH
[2018-07-27] MEDS: HYDROcodone/Acetaminophen 7.5/325 mg Tablet PO PRN ×6 (01:24→22:21)
[2018-07-27] MEDS: diphenhydrAMINE 25 MG CAP PO PRN ×3 (05:59→22:21)
[2018-07-27 07:00] LABS: Anion Gap 12 mmol/L (10-20); BUN (Urea Nitrogen) 10 mg/dL (9.8-20.1); Calc. Creatinine Clearance 77 mL/min (70-130); Calcium 9.6 mg/dL (7.8-10.44); Carbon Dioxide 31 mmol/L (22-29); Chloride 101 mmol/L (98-107); Estimated GFR-MDRD 56; Glucose 253 mg/dL (70-105); Sodium 139 mmol/L (136-145)
[2018-07-27] MEDS: Senokot S 8.6-50 MG TAB PO SCH ×2 (08:10→19:43)
[2018-07-27] MEDS: Enoxaparin Sodium 40 MG/0.4 ML SYRINGE SC SCH (08:10)
[2018-07-27] MEDS: Lisinopril 5 MG TAB PO SCH (08:10)
[2018-07-27] MEDS: Insulin Regular 300 UNITS/3 ML VIAL SC PRN (08:11)
[2018-07-27] MEDS: Docusate 100 MG CAP PO SCH ×2 (08:11→19:43)
[2018-07-27] MEDS: HumuLIN 70/30 (300 UNITS/3 ML VIAL) SC SCH ×3 (08:26→18:04)
--- NOTE | 2018-07-27 09:41 | PRG ---
DATE OF SERVICE: SUBJECTIVE: Pinky Wilson this morning awake, responsive. She is walking in the halls. No distress. OBJECTIVE: VITAL SIGNS: Saturations 98% room air, blood pressure 132/76, temperature 98, respiratory rate 18. CHEST: Decreased breath sounds. No wheezing. CARDIAC: Normal S1 and S2. No gallops. ABDOMEN: Soft. No masses. LABORATORY DATA: Blood sugar is 253. ASSESSMENT AND PLAN: 1. Uncontrolled diabetes. 2. Possibly chronic obstructive pulmonary disease. 3. Possibly obesity hypoventilation syndrome. 4. Pulmonary crawford, could discontinue antibiotics. I see no reason to continue antibiotics. 5. Follow up with the primary care physician. Pulmonary will follow at a distance. Job ID: [id number]
--- NOTE | 2018-07-27 10:22 | PDOC.PN ---
- Subjective Encounter Start Date: 07/27/18 Encounter Start Time: 13:00 Subjective: Persistent low back pain and muscle aches, improving slowly. -: No fever. Ambulating with PT. - Objective Resuscitation Status - Order Detail: 07/21/18 20:50 Resuscitation Status Routine Resuscitation Status: FULL: Full Resuscitation MAR Reviewed: Yes Vital Signs & Weight: Vital Signs (12 hours) Temp Pulse Resp BP BP Pulse Ox 07/27/18 08:10 72 132/76 07/27/18 07:52 98.5 F 72 16 132/76 98 Weight Weight 176 lb 1.6 oz Most Recent Monitor Data Heart Rate from ECG 78 NIBP 112/37 NIBP BP-Mean 62 Respiration from ECG 7 I&O: 07/26/18 07/27/18 07/28/18 06:59 06:59 06:59 Intake Total 2420 2130 Output Total 2000 700 Balance 420 1430 Result Diagrams: 07/22/18 03:57 07/27/18 05:46 Additional Labs: Accuchecks 07/27/18 07/26/18 07/26/18 05:05 19:46 16:32 POC Glucose 251 H 129 H 116 H 07/26/18 11:52 POC Glucose 352 H Phys Exam - Physical Examination Constitutional: NAD HEENT: moist MMs Respiratory: no wheezing, no rales, no rhonchi Cardiovascular: RRR Gastrointestinal: soft, positive bowel sounds Neurological: non-focal, moves all 4 limbs Psychiatric: normal affect, A&O x 3 Dx/Plan (1) Diabetes mellitus, insulin dependent (IDDM), controlled Code(s): E11.9 - TYPE 2 DIABETES MELLITUS WITHOUT COMPLICATIONS; Z79.4 - 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 starvation ketosis and poorly controlled DM (3) Fall Code(s): W19.XXXA - UNSPECIFIED FALL, INITIAL ENCOUNTER Status: Acute Comment: secondary to poor vision (4) EUGENIO (acute kidney injury) Code(s): N17.9 - ACUTE KIDNEY FAILURE, UNSPECIFIED Status: Resolved (5) Osteonecrosis of left foot due to previous trauma Code(s): M87.275 - OSTEONECROSIS DUE TO PREVIOUS TRAUMA, LEFT FOOT Status: Acute Comment: ortho f/u outpatient (6) Vision disorder Status: Acute Comment: likely diabetic retinopathy, opthamologist recommends f /u in his clinic - Plan cont current plan of care, PT/OT d/c antibiotics, awaiting SNF placement -: needs outpatient optho followup * . - Discharge Day Encounter end time: 13:10
[2018-07-28] MEDS: HYDROcodone/Acetaminophen 7.5/325 mg Tablet PO PRN ×4 (03:46→17:08)
[2018-07-28] MEDS: Ondansetron PF 4 MG/2 ML Vial IVP PRN (04:15)
[2018-07-28] MEDS: diphenhydrAMINE 25 MG CAP PO PRN ×2 (04:15→17:11)
[2018-07-28 07:35] LABS: Anion Gap 8 mmol/L (10-20); BUN (Urea Nitrogen) 11 mg/dL (9.8-20.1); Calc. Creatinine Clearance 99 mL/min (70-130); Calcium 9.3 mg/dL (7.8-10.44); Carbon Dioxide 30 mmol/L (22-29); Chloride 101 mmol/L (98-107); Estimated GFR-MDRD 76; Glucose 219 mg/dL (70-105); Potassium 4.4 mmol/L (3.5-5.1); Sodium 135 mmol/L (136-145)
[2018-07-28] MEDS: Lisinopril 5 MG TAB PO SCH (08:09)
[2018-07-28] MEDS: Senokot S 8.6-50 MG TAB PO SCH (08:09)
[2018-07-28] MEDS: Enoxaparin Sodium 40 MG/0.4 ML SYRINGE SC SCH (08:09)
[2018-07-28] MEDS: Docusate 100 MG CAP PO SCH (08:09)
[2018-07-28] MEDS: HumuLIN 70/30 (300 UNITS/3 ML VIAL) SC SCH ×3 (08:10→17:07)
--- NOTE | 2018-07-28 12:03 | PDOC.PN ---
- Subjective Encounter Start Date: 07/28/18 Encounter Start Time: 12:30 Subjective: Patient aching, but otherwise ok. No other complaints. - Objective Resuscitation Status - Order Detail: 07/21/18 20:50 Resuscitation Status Routine Resuscitation Status: FULL: Full Resuscitation MAR Reviewed: Yes Vital Signs & Weight: Vital Signs (12 hours) Temp Pulse Resp BP Pulse Ox 07/28/18 08:09 69 07/28/18 07:57 98.3 F 69 16 105/66 98 Weight Admit Weight 176 lb 1.6 oz Weight 176 lb 1.6 oz Most Recent Monitor Data Heart Rate from ECG 78 NIBP 112/37 NIBP BP-Mean 62 Respiration from ECG 7 I&O: 07/27/18 07/28/18 07/29/18 06:59 06:59 06:59 Intake Total 2130 240 Output Total 700 Balance 1430 240 Result Diagrams: 07/22/18 03:57 07/28/18 07:02 Additional Labs: Accuchecks 07/28/18 07/27/18 07/27/18 04:50 20:12 16:45 POC Glucose 183 H 216 H 155 H 07/27/18 11:47 POC Glucose 236 H Phys Exam - Physical Examination Constitutional: NAD HEENT: moist MMs Respiratory: no wheezing, no rales, no rhonchi Cardiovascular: RRR Gastrointestinal: soft, positive bowel sounds Neurological: non-focal, moves all 4 limbs Psychiatric: normal affect, A&O x 3 Dx/Plan (1) Diabetes mellitus, insulin dependent (IDDM), controlled Code(s): E11.9 - TYPE 2 DIABETES MELLITUS WITHOUT COMPLICATIONS; 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 starvation ketosis and poorly controlled DM (3) Fall Code(s): W19.XXXA - UNSPECIFIED FALL, INITIAL ENCOUNTER Status: Acute Comment: secondary to poor vision (4) EUGENIO (acute kidney injury) Code(s): N17.9 - ACUTE KIDNEY FAILURE, UNSPECIFIED Status: Resolved (5) Osteonecrosis of left foot due to previous trauma Code(s): M87.275 - OSTEONECROSIS DUE TO PREVIOUS TRAUMA, LEFT FOOT Status: Acute Comment: ortho f/u outpatient (6) Vision disorder Status: Acute Comment: likely diabetic retinopathy, opthamologist recommends f /u in his clinic - Plan cont current plan of care, PT/OT Unable to confirm insurance so can't place in SNF. Will d/c home with -: family -: F/u with Dr. Olmedo in the office for catarract surgery and treatment of -: diabetic retinopathy * . - Discharge Day Encounter end time: 12:40
[2018-07-28 20:21] VITALS: BP 118/72; TEMP 98.1
--- NOTE | 2018-07-29 06:55 | DIS ---
DATE OF ADMISSION: 07/21/2018 DATE OF DISCHARGE: 07/28/2018 PRIMARY CARE PHYSICIAN: Bj Rao MD REASON FOR ADMISSION: Diabetic ketoacidosis and fall. DIAGNOSES AT DISCHARGE: 1. Insulin dependent diabetes mellitus, controlled. 2. Diabetic ketoacidosis, resolved. 3. Recurrent falls secondary to poor vision. 4. Cataracts and diabetic retinopathy. 5. Acute kidney injury, resolved. 6. Osteonecrosis of left foot due to previous trauma. PROCEDURES: 1. CT of the brain without contrast showing no acute intracranial abnormality. 2. CT of the cervical spine without contrast showing no acute fracture or malalignment. 3. CT of the chest, abdomen, and pelvis without contrast along with thoracic and lumbosacral spines without contrast showing a subacute or chronic fracture of the right anterior L2-L3 osteophyte, left gluteal soft tissue contusion and combination of remote and healing bilateral rib fractures. 4. Foot x-ray showing old ununited fracture of the navicular with evidence of osteonecrosis of the medial fragment, internal fixation of the middle toe and mild degenerative changes throughout the foot. 5. MRI of the brain showing no evidence of acute intracranial process. CONSULTATIONS: 1. Pulmonology, Dr. Sanders. 2. Orthopedics, Dr. Ken. 3. Neurology, Dr. Leon. 4. Ophthalmology, Dr. Olmedo. SUMMARY OF HOSPITAL COURSE: This is a 58-year-old female with a medical history of diabetes, who came to the hospital after having a fall, where she hit her head. No loss of consciousness, but she was on the ground for 10 minutes. She was found to be in mild DKA versus starvation ketosis on presentation and was treated with fluids and insulin with resolution of those problems. She did have significant back pain after the fall. She had x-ray imaging as above. The patient had Neurology consult to see if she may have some mini-strokes or strokes causing her recurrent falls. MRI of the brain was done, which did not show any evidence of infarction. The patient had Orthopedics consulted for the nonhealing fracture of the foot. This was not painful. She was able to ambulate on, so they determined that she does not need anything acutely done for it and that if she did have any problems with in the future, she could have see the orthopedic surgeon as an outpatient. The patient does have Pulmonology consult due to her being in the [facility] for DKA. Dr. Sanders treated her when she was there, but she does not have any acute pulmonary problems during her hospitalization. Given her lack of evidence for strokes, there was concern that actually her significant vision difficulties were a source for her recurrent falls and trauma. We did consult Dr. Olmedo, who came by and saw her in the hospital. He diagnosed her with cataracts and likely diabetic retinopathy and recommended that she follow up in his clinic for the cataract removal and treatment of the retinopathy. The patient was doing decently with physical therapy during her hospitalization that what we did try to get her set up with either rehab or [facility] facility. However, it turns out that she was not able to confirm actually having any Medicaid or Medicare insurance. She is currently in the process of getting on disability. As a result, we have to do physical therapy here in the hospital. She was able to ambulate well and she is now being discharged home with family. DISCHARGE MANAGEMENT: Discharged home. ACTIVITY: As tolerated. DIET: Diabetic diet. FOLLOWUP: Follow up with Dr. Olmedo in 1 to [address] Rao in 2 to 3 weeks. DISCHARGE MEDICATIONS: 1. Humulin 70/30 of 15 units subcu before meals, 2 vials dispensed. 2. Lisinopril 2.5 mg daily, 30 tablets dispensed. 3. Tramadol as needed, 20 tablets dispensed. 4. Continue albuterol as needed. Job ID: [id number]
== END 2018-07-28 21:30 | disposition home or self-care (01) | DRG 638 ==
LOC: ERS 16:01 → IMCU/EMU 19:07 → T4-B 07-24 08:03
PROVIDERS: ADMIT Hospitalist; ATTEND Hospitalist
DX: E10.10 Type 1 diabetes mellitus with ketoacidosis without coma (principal); N17.9 Acute kidney failure, unspecified; N39.0 Urinary tract infection, site not specified; E87.1 Hypo-osmolality and hyponatremia; G93.40 Encephalopathy, unspecified; E66.2 Morbid (severe) obesity with alveolar hypoventilation; M87.275 Osteonecrosis due to previous trauma, left foot; E78.5 Hyperlipidemia, unspecified; I10 Essential (primary) hypertension; J44.9 Chronic obstructive pulmonary disease, unspecified; E10.40 Type 1 diabetes mellitus with diabetic neuropathy, unspecified; F41.9 Anxiety disorder, unspecified; E10.319 Type 1 diabetes mellitus with unspecified diabetic retinopathy without macular edema; F32.9 Major depressive disorder, single episode, unspecified; Z87.891 Personal history of nicotine dependence; Z68.29 Body mass index [BMI] 29.0-29.9, adult; Z79.4 Long term (current) use of insulin; Z90.49 Acquired absence of other specified parts of digestive tract; Z79.899 Other long term (current) drug therapy
CPT/HCPCS: 36415; 36416; 51701; 70450; 70551; 71250; 72125; 74177; 80048; 80053; 81003; 81015; 82010; 84484; 85025; 90471; 90732; 93005; 96361; 96365; A4353; G0009; J0696; J1650; J1815; J2405; J3490; Q0163

== ENCOUNTER 2018-08-09 16:57 | Emergency (ER) | payer MEDICAID ==
--- NOTE | 2018-08-09 17:47 | CT ---
CT brain. HISTORY: Fall Noncontrast enhanced CT images brain obtained. The brain is unremarkable. No evidence of intracranial masses, hemorrhages strokes or contusion seen. IMPRESSION: normal CT brain.
--- NOTE | 2018-08-09 18:02 | RAD ---
AP view chest. HISTORY: Altered mental status AP view chest obtained. The lungs are well aerated. No evidence of active intrathoracic disease seen. No evidence of effusions, pneumonia or pneumothorax seen. IMPRESSION: Unremarkable AP view chest.
--- NOTE | 2018-08-09 18:03 | RAD ---
3 views lumbar spine. HISTORY: Back pain AP, lateral and coned-down views lumbar spine obtained. 3 views lumbar spine demonstrate multilevel lumbar degenerative changes seen. No evidence of acute fr acture seen. Dextroscoliosis seen at the L4 level. Atherosclerotic calcifications of the abdominal aorta seen. The patient has had numerous previous injection granulomas in the buttocks. IMPRESSION: Multilevel changes of spondylosis.
[2018-08-09 18:11] LABS: #Lymphocytes 1.3 thou/uL (1.20-3.40); #Monocytes 0.5 thou/uL (0.11-0.59); #Neutrophils 5.4 thou/uL (1.40-6.50); %Basophils 0.2 % (0.0-1.0); %Eosinophils 0.5 % (0.0-10.0); %Monocytes 7.4 % (0.0-10.0); Hemoglobin 11.3 g/dL (12.0-16.0); Mean Corpuscular HGB CONC 34.4 g/dL (32.0-36.0); Mean Corpuscular Hemoglobin 33.8 pg (27.0-31.0); Mean Corpuscular Volume 98.4 fL (78.0-98.0); Mean Platelet Volume 7.7 fL (7.4-10.4); Platelet Count 200 thou/uL (130-400); RBC Distribution Width 11.3 % (11.5-14.5); Red Blood Cell (RBC) Count 3.33 mill/uL (4.20-5.40); White Blood Cell (WBC) Count 7.4 thou/uL (4.8-10.8)
[2018-08-09 18:33] LABS: Acetaminophen Less than 6.0 mcg/mL (10.0-30.0); Alcohol Less than 10 mg/dL (Less than 10); Salicylate Less than 8.0 mg/dL (15.0-30.0)
[2018-08-09 18:35] LABS: ALT (SGPT) 15 U/L (8-55); AST (SGOT) 16 U/L (5-34); Albumin 4.1 g/dL (3.5-5.0); Alkaline Phosphatase 163 U/L (40-150); Anion Gap 14 mmol/L (10-20); BUN (Urea Nitrogen) 26 mg/dL (9.8-20.1); Bilirubin, Total 0.6 mg/dL (0.2-1.2); CK (CPK) 134 U/L (29-168); Calc. Creatinine Clearance 0 mL/min (70-130); Calcium 10.2 mg/dL (7.8-10.44); Carbon Dioxide 25 mmol/L (22-29); Chloride 99 mmol/L (98-107); Estimated GFR-MDRD 42; Globulin 3.3 g/dL (2.4-3.5); Glucose 167 mg/dL (70-105); Lipase Less than 4 U/L (8-78); Protein, Total 7.4 g/dL (6.0-8.3); Sodium 134 mmol/L (136-145)
[2018-08-09 19:02] LABS: Actual Bicarbonate (HCO3v) 26 mEq/L (22-28); Analyzer IN Cardio ER; Base Excess -0.6 mEq/L (-2.0 to +3.0); Calcium, Ionized 1.21 mmol/L (1.16-1.32); Chloride (ABG LAB) 101 mmol/L (98-106); Hemoglobin (Hb) 11.3 g/dL (11.7-16.0); Potassium - ABG Lab 4.02 mmol/L (3.70-5.30); Sodium 133.6 mmol/L (133-146); pH (venous) 7.33 (7.32-7.43)
[2018-08-09 19:09] LABS: Bilirubin Negative (Negative); Blood, Urine Negative (Negative); Clarity CLOUDY (Clear); Glucose, Urine (Dipstick) >=1000 mg/dL (Negative); Leukocyte Negative (Negative); Nitrite Negative (Negative); Protein, Urine (Dipstick) 30 mg/dL (Neg-Trace); Specific Gravity, Urine 1.019 (1.002-1.036); Urobilinogen 0.2 mg/dL (0.2-1.0); pH, Urine 5.5 (5.0-9.0)
[2018-08-09 19:11] LABS: Bacteria/HPF None Seen HPF (None Seen); Hyaline Casts/LPF 7-10 HYALINE CAST LPF (0-3 Hyaline); Pathc Cast-AUWi Flag 1.36 (0-2.49); RBC/HPF 0-3 HPF (0-3); Squamous Epithelial 0-3 HPF (0-3); WBC/HPF 0-3 HPF (0-3)
[2018-08-09 19:22] LABS: Amphetamine Not Detected (NotDetected); Barbiturates Screen Not Detected (NotDetected); Benzodiazepine Screen Not Detected (NotDetected); Cocaine Metabolite Screen Not Detected (NotDetected); Medtox Control Line Valid? VALID (VALID); Medtox Reader # READER 1; Methadone Not Detected (NotDetected); Methamphetamine Not Detected (NotDetected); Opiate Screen Not Detected (NotDetected); Oxycodone Screen Not Detected (NotDetected); Phencyclidine (PCP) Not Detected (NotDetected); THC/Cannabinoid Screen Not Detected (NotDetected); Tricyclic Screen Not Detected (NotDetected)
== END 2018-08-09 19:45 | disposition home or self-care (01) ==
LOC: ERS 16:57
DX: E10.65 Type 1 diabetes mellitus with hyperglycemia (principal); J44.9 Chronic obstructive pulmonary disease, unspecified; I10 Essential (primary) hypertension; F41.9 Anxiety disorder, unspecified; F32.9 Major depressive disorder, single episode, unspecified; Z87.891 Personal history of nicotine dependence
CPT/HCPCS: 36415; 51701; 70450; 71045; 72100; 80053; 80306; 80307; 81003; 81015; 82010; 82550; 82805; 83690; 83880; 84443; 84484; 85025; 87040; 93005; 96360; A4353

== ENCOUNTER 2018-08-18 16:57 | Emergency (ER) | payer MEDICAID ==
[2018-08-18 17:44] LABS: Bilirubin Negative (Negative); Blood, Urine Negative (Negative); Clarity CLEAR (Clear); Glucose, Urine (Dipstick) >=1000 mg/dL (Negative); Leukocyte Negative (Negative); Nitrite Negative (Negative); Protein, Urine (Dipstick) Negative (Neg-Trace); Specific Gravity, Urine 1.028 (1.002-1.036); Urobilinogen 0.2 mg/dL (0.2-1.0); pH, Urine 5.5 (5.0-9.0)
[2018-08-18 18:00] LABS: #Eosinphils 0.1 thou/uL (0.0-0.7); #Monocytes 0.3 thou/uL (0.11-0.59); #Neutrophils 2.1 thou/uL (1.40-6.50); %Basophils 0.8 % (0.0-1.0); %Eosinophils 1.5 % (0.0-10.0); %Lymphocytes 27.7 % (21.0-51.0); %Monocytes 8.2 % (0.0-10.0); %Neutrophils 61.8 % (42.0-75.0); Mean Corpuscular HGB CONC 34.8 g/dL (32.0-36.0); Mean Corpuscular Volume 97.8 fL (78.0-98.0); Mean Platelet Volume 7.7 fL (7.4-10.4); Platelet Count 136 thou/uL (130-400); RBC Distribution Width 11.1 % (11.5-14.5); Red Blood Cell (RBC) Count 2.93 mill/uL (4.20-5.40); White Blood Cell (WBC) Count 3.4 thou/uL (4.8-10.8)
[2018-08-18] MEDS ORDERED: Insulin Regular 300 UNITS/3 ML VIAL ONE (18:28)
[2018-08-18 18:29] LABS: ALT (SGPT) 12 U/L (8-55); AST (SGOT) 15 U/L (5-34); Albumin 3.6 g/dL (3.5-5.0); Alkaline Phosphatase 161 U/L (40-150); Anion Gap 12 mmol/L (10-20); BUN (Urea Nitrogen) 20 mg/dL (9.8-20.1); Bilirubin, Total 0.3 mg/dL (0.2-1.2); Calc. Creatinine Clearance 0 mL/min (70-130); Carbon Dioxide 24 mmol/L (22-29); Chloride 100 mmol/L (98-107); Estimated GFR-MDRD 54; Globulin 2.7 g/dL (2.4-3.5); Glucose 521 mg/dL (70-105); Lipase 8 U/L (8-78); Magnesium 1.9 mg/dL (1.6-2.6); Phosphorus 2.7 mg/dL (2.3-4.7); Potassium 4.1 mmol/L (3.5-5.1); Protein, Total 6.3 g/dL (6.0-8.3); Sodium 132 mmol/L (136-145)
[2018-08-18] MEDS ORDERED: Acetaminophen 500 MG TAB ONE (20:01)
== END 2018-08-18 20:05 | disposition home or self-care (01) ==
LOC: ERS 16:57
DX: E10.65 Type 1 diabetes mellitus with hyperglycemia (principal); J44.9 Chronic obstructive pulmonary disease, unspecified; I10 Essential (primary) hypertension; E78.5 Hyperlipidemia, unspecified; F41.9 Anxiety disorder, unspecified; F32.9 Major depressive disorder, single episode, unspecified; Z79.899 Other long term (current) drug therapy; Z87.891 Personal history of nicotine dependence; Z91.19 Patient's noncompliance with other medical treatment and regimen
CPT/HCPCS: 36415; 36416; 81003; 82010; 83690; 83735; 84100; 85025; 94760; 96361; 96374; J1815

== ENCOUNTER 2018-08-28 13:35 | Emergency (ER) | payer MEDICAID ==
[2018-08-28 14:33] LABS: #Lymphocytes 0.8 thou/uL (1.20-3.40); #Monocytes 0.4 thou/uL (0.11-0.59); #Neutrophils 4.2 thou/uL (1.40-6.50); %Basophils 0.4 % (0.0-1.0); %Eosinophils 0.8 % (0.0-10.0); %Monocytes 7.4 % (0.0-10.0); %Neutrophils 77.4 % (42.0-75.0); Hemoglobin 9.8 g/dL (12.0-16.0); Mean Corpuscular HGB CONC 33.9 g/dL (32.0-36.0); Mean Corpuscular Hemoglobin 33.7 pg (27.0-31.0); Mean Corpuscular Volume 99.3 fL (78.0-98.0); Mean Platelet Volume 7.3 fL (7.4-10.4); Platelet Count 166 thou/uL (130-400); RBC Distribution Width 11.2 % (11.5-14.5); Red Blood Cell (RBC) Count 2.91 mill/uL (4.20-5.40); White Blood Cell (WBC) Count 5.4 thou/uL (4.8-10.8)
[2018-08-28 14:52] LABS: Anion Gap 12 mmol/L (10-20); BUN (Urea Nitrogen) 29 mg/dL (9.8-20.1); Calc. Creatinine Clearance 0 mL/min (70-130); Calcium 9.3 mg/dL (7.8-10.44); Carbon Dioxide 25 mmol/L (22-29); Chloride 105 mmol/L (98-107); Estimated GFR-MDRD 58; Glucose 284 mg/dL (70-105); Potassium 4.6 mmol/L (3.5-5.1); Sodium 137 mmol/L (136-145)
--- NOTE | 2018-08-28 15:03 | RAD ---
LEFT KNEE 4 VIEWS: HISTORY: Fall, left knee pain. FINDINGS/IMPRESSION: Degenerative changes are present. No acute fracture or dislocation is identified. POS: [facility]
--- NOTE | 2018-08-28 15:07 | RAD ---
LEFT ANKLE 3 VIEWS: HISTORY: Injury, fall, left ankle pain. FINDINGS/IMPRESSION: The ankle mortise is maintained. No fracture or dislocation is identified. A small radiopaque wire- like density is seen in the soft tissues of the plantar aspect of the proximal foot. This could repr esent a radiopaque foreign body. POS: [facility]
--- NOTE | 2018-08-28 15:13 | RAD ---
LEFT HIP 2 VIEWS: HISTORY: Fall, left hip pain. FINDINGS/IMPRESSION: No acute fracture or dislocation is seen. Soft tissue calcifications in the gluteal region are consi stent with injection granulomas. POS: [facility]
--- NOTE | 2018-08-28 15:13 | RAD ---
LUMBAR SPINE 3 VIEWS: HISTORY: Fall, back pain. FINDINGS: Comparison is made with the exam of 08/09/2018. Multilevel degenerative changes are again seen. No acute fracture or subluxation was identified. Mi nimal dextroscoliosis is again noted. There are vascular calcifications. IMPRESSION: Lumbar spondylosis without evidence of acute fracture or subluxation. POS: [facility]
[2018-08-28] MEDS ORDERED: Adacel (T-DAP) 0.5 ML SYRINGE ONE (16:12)
[2018-08-28] MEDS ORDERED: Acetaminophen 500 MG TAB ONE (17:44)
== END 2018-08-28 18:00 | disposition home or self-care (01) ==
LOC: ERS 13:35
DX: S00.81XA Abrasion of other part of head, initial encounter (principal); S90.512A Abrasion, left ankle, initial encounter; S80.212A Abrasion, left knee, initial encounter; I10 Essential (primary) hypertension; E10.9 Type 1 diabetes mellitus without complications; F41.9 Anxiety disorder, unspecified; F32.9 Major depressive disorder, single episode, unspecified; Z87.891 Personal history of nicotine dependence; Z79.899 Other long term (current) drug therapy; Z79.4 Long term (current) use of insulin; W19.XXXA Unspecified fall, initial encounter
CPT/HCPCS: 36415; 72100; 80048; 85025; 90715; A4353

== ENCOUNTER 2018-10-07 20:50 | Emergency (ER) | payer MEDICAID, MEDICARE ==
--- NOTE | 2018-10-07 21:55 | RAD ---
PORTABLE CHEST: 10/07/18 HISTORY: Mental status change. COMPARISON: 08/09/18. Lungs appear clear of infiltrate. Heart and mediastinum unremarkable and stable in appearance. Old right rib fractures again noted. IMPRESSION: No acute finding. POS: [facility]
--- NOTE | 2018-10-07 21:57 | RAD ---
LEFT ANKLE THREE VIEWS: 10/07/18 HISTORY: Trauma. Minimal soft tissue swelling. No evidence of fracture or acute osseous abnormality. There continues to be a small linear metallic soft tissue foreign body seen in the plantar aspect of the hindfoot. This was present on the films of 08/28/18 and is unchanged. IMPRESSION: 1. No acute fracture. 2. Soft tissue foreign body plantar aspect of foot again noted. POS: [facility]
[2018-10-07 22:16] LABS: Bilirubin Negative (Negative); Blood, Urine Negative (Negative); Clarity Clear (Clear); Glucose, Urine (Dipstick) Greater than 1000 mg/dL (Negative); Leukocyte 75 Leu/uL (Negative); Nitrite Negative (Negative); Protein, Urine (Dipstick) 50 mg/dL (Neg-Trace); RBC/HPF 0-3 HPF (0-3); Squamous Epithelial 0-3 HPF (0-3)
[2018-10-07 22:21] LABS: Bacteria/HPF 1+ HPF (None Seen)
[2018-10-07 22:50] LABS: #Lymphocytes 1.7 thou/uL (1.20-3.40); #Monocytes 0.6 thou/uL (0.11-0.59); #Neutrophils 3.5 thou/uL (1.40-6.50); %Basophils 0.4 % (0.0-1.0); %Eosinophils 0.7 % (0.0-10.0); %Lymphocytes 28.2 % (21.0-51.0); %Monocytes 10.5 % (0.0-10.0); %Neutrophils 60.3 % (42.0-75.0); Hemoglobin 10.6 g/dL (12.0-16.0); Mean Corpuscular HGB CONC 35.4 g/dL (32.0-36.0); Mean Platelet Volume 8.4 fL (7.4-10.4); Platelet Count 165 thou/uL (130-400); RBC Distribution Width 11.5 % (11.5-14.5); Red Blood Cell (RBC) Count 3.11 mill/uL (4.20-5.40); White Blood Cell (WBC) Count 5.8 thou/uL (4.8-10.8)
[2018-10-07 23:11] LABS: ALT (SGPT) 11 U/L (8-55); AST (SGOT) 13 U/L (5-34); Albumin 3.7 g/dL (3.5-5.0); Alkaline Phosphatase 138 U/L (40-150); Anion Gap 13 mmol/L (10-20); BUN (Urea Nitrogen) 46 mg/dL (9.8-20.1); Bilirubin, Total 0.3 mg/dL (0.2-1.2); CK (CPK) 97 U/L (29-168); Calc. Creatinine Clearance 0 mL/min (70-130); Calcium 9.9 mg/dL (7.8-10.44); Carbon Dioxide 25 mmol/L (22-29); Chloride 104 mmol/L (98-107); Estimated GFR-MDRD 39; Globulin 2.9 g/dL (2.4-3.5); Glucose 176 mg/dL (70-105); Lipase 11 U/L (8-78); Potassium 4.2 mmol/L (3.5-5.1); Protein, Total 6.6 g/dL (6.0-8.3); Sodium 138 mmol/L (136-145)
[2018-10-07] MEDS ORDERED: Ciprofloxacin 500 MG TAB ONE (23:22)
== END 2018-10-08 00:07 | disposition home or self-care (01) ==
LOC: ERS 20:50
DX: S90.02XA Contusion of left ankle, initial encounter (principal); E86.0 Dehydration; N39.0 Urinary tract infection, site not specified; J44.9 Chronic obstructive pulmonary disease, unspecified; E78.5 Hyperlipidemia, unspecified; I10 Essential (primary) hypertension; E10.9 Type 1 diabetes mellitus without complications; F41.9 Anxiety disorder, unspecified; F32.9 Major depressive disorder, single episode, unspecified; Z87.891 Personal history of nicotine dependence; W18.30XA Fall on same level, unspecified, initial encounter; Y92.090 Kitchen in other non-institutional residence as the place of occurrence of the external cause
CPT/HCPCS: 36415; 51701; 71045; 80053; 81003; 81015; 82010; 82550; 83690; 83880; 84484; 85025; 93005; 96360; A4353

== ENCOUNTER 2018-10-25 21:16 | Emergency (ER) | payer MEDICAID, MEDICARE, SELFPAY ==
[2018-10-25 22:25] LABS: #Eosinphils 0.1 thou/uL (0.0-0.7); #Lymphocytes 1.5 thou/uL (1.20-3.40); #Monocytes 0.4 thou/uL (0.11-0.59); #Neutrophils 2.3 thou/uL (1.40-6.50); %Basophils 0.2 % (0.0-1.0); %Eosinophils 2.1 % (0.0-10.0); %Lymphocytes 34.1 % (21.0-51.0); %Neutrophils 54.5 % (42.0-75.0); Hemoglobin 10.5 g/dL (12.0-16.0); Mean Corpuscular HGB CONC 35.2 g/dL (32.0-36.0); Mean Corpuscular Hemoglobin 33.9 pg (27.0-31.0); Mean Corpuscular Volume 96.5 fL (78.0-98.0); Mean Platelet Volume 7.1 fL (7.4-10.4); Platelet Count 152 thou/uL (130-400); RBC Distribution Width 11.5 % (11.5-14.5); Red Blood Cell (RBC) Count 3.09 mill/uL (4.20-5.40); White Blood Cell (WBC) Count 4.3 thou/uL (4.8-10.8)
[2018-10-25 22:36] LABS: Bilirubin Negative (Negative); Blood, Urine Negative (Negative); Clarity Clear (Clear); Glucose, Urine (Dipstick) 500 mg/dL (Negative); Leukocyte 250 Leu/uL (Negative); Nitrite Negative (Negative); Protein, Urine (Dipstick) 10 mg/dL (Neg-Trace); RBC/HPF 0-3 HPF (0-3); Squamous Epithelial 0-3 HPF (0-3); Urobilinogen Normal mg/dL (Less than 2); WBC/HPF 21-50 HPF (0-3)
[2018-10-25 22:40] LABS: Amphetamine Not Detected (NotDetected); Barbiturates Screen Not Detected (NotDetected); Benzodiazepine Screen Not Detected (NotDetected); Cocaine Metabolite Screen Not Detected (NotDetected); Medtox Control Line Valid? VALID (VALID); Medtox Reader # READER 4; Methadone Not Detected (NotDetected); Methamphetamine Not Detected (NotDetected); Opiate Screen Not Detected (NotDetected); Oxycodone Screen Not Detected (NotDetected); Phencyclidine (PCP) Not Detected (NotDetected); THC/Cannabinoid Screen Not Detected (NotDetected); Tricyclic Screen Not Detected (NotDetected)
[2018-10-25 22:46] LABS: Bacteria/HPF 1+ HPF (None Seen)
[2018-10-25 22:47] LABS: ALT (SGPT) 13 U/L (8-55); AST (SGOT) 13 U/L (5-34); Albumin 3.6 g/dL (3.5-5.0); Alkaline Phosphatase 146 U/L (40-150); Anion Gap 16 mmol/L (10-20); BUN (Urea Nitrogen) 15 mg/dL (9.8-20.1); Bilirubin, Total 0.2 mg/dL (0.2-1.2); Calc. Creatinine Clearance 0 mL/min (70-130); Calcium 8.9 mg/dL (7.8-10.44); Carbon Dioxide 20 mmol/L (22-29); Chloride 103 mmol/L (98-107); Estimated GFR-MDRD 76; Globulin 2.9 g/dL (2.4-3.5); Glucose 200 mg/dL (70-105); Potassium 4.1 mmol/L (3.5-5.1); Protein, Total 6.5 g/dL (6.0-8.3); Sodium 135 mmol/L (136-145)
[2018-10-25 22:48] LABS: Acetaminophen Less than 6.0 mcg/mL (10.0-30.0); Alcohol Less than 10 mg/dL (Less than 10); Salicylate Less than 8.0 mg/dL (15.0-30.0)
[2018-10-25] MEDS ORDERED: Nitrofurantoin Monohyd/M-Cryst 100 MG CAP PO SCH (23:15)
--- NOTE | 2018-10-30 12:47 | EKG ---
Test Reason : SUICIDAL IDEATIONS Blood Pressure : / mmHG Vent. Rate : 073 BPM Atrial Rate : 073 BPM P-R Int : 138 ms QRS Dur : 074 ms QT Int : 402 ms P-R-T Axes : 047 -19 052 degrees QTc Int : 442 ms Sinus rhythm with Premature supraventricular complexes Minimal voltage criteria for LVH, may be normal variant Borderline ECG Confirmed by HECTOR NEVES, LYLY ([id number]), material expeditor SHIRA VARGAS ([id number]) on 10/30/2018 12:46:13 PM Referred By: Confirmed By:LYLY YOUNG MD
== END 2018-10-26 01:39 ==
LOC: ERS 21:16
DX: F32.9 Major depressive disorder, single episode, unspecified (principal); N39.0 Urinary tract infection, site not specified; E10.9 Type 1 diabetes mellitus without complications; E78.5 Hyperlipidemia, unspecified; I10 Essential (primary) hypertension; J44.9 Chronic obstructive pulmonary disease, unspecified; F41.9 Anxiety disorder, unspecified; Z87.891 Personal history of nicotine dependence; Z79.899 Other long term (current) drug therapy
CPT/HCPCS: 36415; 80053; 80306; 80307; 81003; 81015; 84443; 85025; 87086; 93005

== ENCOUNTER 2018-12-14 19:47 | Emergency (ER) | payer OTHER, SELFPAY ==
[2018-12-14] MEDS ORDERED: Acetaminophen 500 MG TAB ONE (19:57)
--- NOTE | 2018-12-14 20:18 | RAD ---
RADIOGRAPH LUMBAR SPINE 3 VIEWS: DATE: 12/14/2018 HISTORY: Lumbar spine trauma due to fall, 58-year-old female. FINDINGS: Vertebral body heights are maintained. There is no evidence of fracture. Large number of moderate-siz ed dystrophic calcifications in the soft tissues of the bilateral buttocks, presumably representing injection granulomata. Multilevel high-grade degenerative disc disease in the lower thoracic spine as sociated with kyphosis there. IMPRESSION: 1. No evidence of compression fracture. 2. Multilevel degenerative disc disease in the lower thoracic spine and associated kyphosis of lower thoracic spine.
--- NOTE | 2018-12-14 20:21 | RAD ---
Radiograph thoracic spine 3 views: HISTORY: 58-year-old female with acute traumatic mid back pain due to fall FINDINGS: Mildly exaggerated kyphosis. Multilevel mild and moderate degenerative disc disease throughout the mi d and lower thoracic spine. Minimal chronic-appearing anterior wedging of T11. Otherwise, the rest of the thoracic vertebral body heights are maintained. IMPRESSION: 1. Thoracic spondylosis with multilevel degenerative disc disease. 2. No definite acute compression fracture identified. 3. Mildly exaggerated kyphosis. 4. If patient's symptoms persist in the next several days, and an occult compression fracture is clin ically suspected, then a noncontrast MRI of the thoracic spine would be the most sensitive modality to detect such.
== END 2018-12-14 22:30 | disposition home or self-care (01) ==
LOC: ERS 19:47
DX: S29.012A Strain of muscle and tendon of back wall of thorax, initial encounter (principal); E78.5 Hyperlipidemia, unspecified; I10 Essential (primary) hypertension; E10.9 Type 1 diabetes mellitus without complications; J44.9 Chronic obstructive pulmonary disease, unspecified; F41.9 Anxiety disorder, unspecified; F32.9 Major depressive disorder, single episode, unspecified; Z87.891 Personal history of nicotine dependence; Z79.899 Other long term (current) drug therapy; W18.30XA Fall on same level, unspecified, initial encounter
CPT/HCPCS: 72072; 72100

== ENCOUNTER 2018-12-22 11:12 | Emergency (ER) | payer SELFPAY ==
[2018-12-22 12:01] LABS: #Eosinphils 0.1 thou/uL (0.0-0.7); #Monocytes 0.6 thou/uL (0.11-0.59); #Neutrophils 4.1 thou/uL (1.40-6.50); %Basophils 0.3 % (0.0-1.0); %Eosinophils 1.3 % (0.0-10.0); %Lymphocytes 16.3 % (21.0-51.0); Hemoglobin 10.5 g/dL (12.0-16.0); Mean Corpuscular Hemoglobin 33.1 pg (27.0-31.0); Mean Corpuscular Volume 94.6 fL (78.0-98.0); Mean Platelet Volume 7.4 fL (7.4-10.4); Platelet Count 170 thou/uL (130-400); RBC Distribution Width 12.1 % (11.5-14.5); Red Blood Cell (RBC) Count 3.17 mill/uL (4.20-5.40); White Blood Cell (WBC) Count 5.8 thou/uL (4.8-10.8)
--- NOTE | 2018-12-22 12:05 | RAD ---
AP CHEST: Date: 12/22/18 INDICATION: Fall. COMPARISON: 10/07/18. FINDINGS: There is new alveolar infiltrate in the right lower lung. There may also be patchy left basilar infil trate. The exam is suboptimal due to portable projection and poor inspiration. Recommend further eval uation with upright PA and lateral views of chest. Old right rib fractures appear stable. IMPRESSION: Evidence of new infiltrate in the right lower lung and possible infiltrate or atelectasis in the left lung base. Exam is suboptimal as noted above. Recommend upright PA and lateral views of chest. POS: [facility]
--- NOTE | 2018-12-22 12:16 | CT ---
CT BRAIN PERFORMED WITHOUT CONTRAST ENHANCEMENT: Date: 12/22/18 HISTORY: Fall with syncope. COMPARISON: 08/09/18. FINDINGS: The ventricular and cisternal system is mildly prominent for age. There are no signs of intracerebral hemorrhage or extra-axial fluid collections. The mastoid air cells and visualized sinuses appear rafy ar. IMPRESSION: No acute intracranial abnormalities. POS: [facility]
[2018-12-22 12:36] LABS: ALT (SGPT) 16 U/L (8-55); AST (SGOT) 16 U/L (5-34); Albumin 3.5 g/dL (3.5-5.0); Alkaline Phosphatase 156 U/L (40-110); Anion Gap 11 mmol/L (10-20); BUN (Urea Nitrogen) 16 mg/dL (9.8-20.1); Bilirubin, Total 0.3 mg/dL (0.2-1.2); Calc. Creatinine Clearance 0 mL/min (70-130); Calcium 8.7 mg/dL (7.8-10.44); Carbon Dioxide 25 mmol/L (22-29); Chloride 100 mmol/L (98-107); Estimated GFR-MDRD 69; Globulin 2.8 g/dL (2.4-3.5); Glucose 283 mg/dL (70-105); Potassium 4.2 mmol/L (3.5-5.1); Protein, Total 6.3 g/dL (6.0-8.3); Sodium 132 mmol/L (136-145)
[2018-12-22 12:44] LABS: CKMB 3.1 ng/mL (0-6.6)
[2018-12-22] MEDS ORDERED: Ketorolac Tromethamine 30 MG/ML VIAL ONE (13:46)
--- NOTE | 2018-12-22 15:18 | RAD ---
XR Chest Pa Lat STANDARD HISTORY: Multiple falls COMPARISON: Earlier today FINDINGS: The heart size is normal. There are patchy infiltrates bilaterally, most prominent in the r ight medial lung base. No pneumothoraces or large effusions are seen. There are old right rib fractures.
--- NOTE | 2018-12-25 23:23 | EKG ---
Test Reason : FALLS Blood Pressure : / mmHG Vent. Rate : 073 BPM Atrial Rate : 073 BPM P-R Int : 120 ms QRS Dur : 074 ms QT Int : 426 ms P-R-T Axes : 030 -23 050 degrees QTc Int : 469 ms Normal sinus rhythm Normal ECG Confirmed by ROBINSON SILVA DO ([id number]), web editor SHIRA VARGAS ([id number]) on 12/25/2018 11:23:06 PM Referred By: SHIRA Confirmed By:ROBINSON SILVA DO
== END 2018-12-22 18:42 | disposition home or self-care (01) ==
LOC: ERS 11:12
DX: S80.212A Abrasion, left knee, initial encounter (principal); S80.211A Abrasion, right knee, initial encounter; J18.9 Pneumonia, unspecified organism; W18.30XA Fall on same level, unspecified, initial encounter
CPT/HCPCS: 36415; 70450; 71045; 71046; 80053; 82553; 84484; 85025; 93005; 94760; 96372; J1885

== ENCOUNTER 2019-01-01 02:10 | Inpatient (IN) | payer MEDICAID, SELFPAY ==
[2019-01-01 02:57] LABS: #Eosinphils 0.1 thou/uL (0.0-0.7); #Lymphocytes 0.8 thou/uL (1.20-3.40); #Monocytes 0.5 thou/uL (0.11-0.59); #Neutrophils 5.3 thou/uL (1.40-6.50); %Eosinophils 1.3 % (0.0-10.0); %Lymphocytes 12.6 % (21.0-51.0); %Neutrophils 79.1 % (42.0-75.0); Hemoglobin 10.1 g/dL (12.0-16.0); Mean Corpuscular HGB CONC 34.6 g/dL (32.0-36.0); Mean Corpuscular Hemoglobin 33.3 pg (27.0-31.0); Mean Platelet Volume 7.1 fL (7.4-10.4); Platelet Count 156 thou/uL (130-400); RBC Distribution Width 13.2 % (11.5-14.5); Red Blood Cell (RBC) Count 3.03 mill/uL (4.20-5.40); White Blood Cell (WBC) Count 6.7 thou/uL (4.8-10.8)
[2019-01-01 03:18] LABS: ALT (SGPT) 14 U/L (8-55); AST (SGOT) 17 U/L (5-34); Albumin 3.5 g/dL (3.5-5.0); Alkaline Phosphatase 123 U/L (40-110); Anion Gap 12 mmol/L (10-20); BUN (Urea Nitrogen) 19 mg/dL (9.8-20.1); Bilirubin, Total 0.3 mg/dL (0.2-1.2); Calc. Creatinine Clearance 0 mL/min (70-130); Calcium 8.9 mg/dL (7.8-10.44); Carbon Dioxide 22 mmol/L (22-29); Chloride 101 mmol/L (98-107); Estimated GFR-MDRD 78; Globulin 2.8 g/dL (2.4-3.5); Glucose 109 mg/dL (70-105); Potassium 3.9 mmol/L (3.5-5.1); Protein, Total 6.3 g/dL (6.0-8.3); Sodium 131 mmol/L (136-145)
[2019-01-01] MEDS ORDERED: Furosemide 20 MG/2 ML VIAL ONE (04:05)
[2019-01-01 06:36] VITALS: BMI 29.6
[2019-01-01] MEDS ORDERED: FLU VACC QS2019-20(6MOS UP)/PF 60 MCG/0.5 ML SYRINGE IM ONE (07:15)
[2019-01-01 07:31] LABS: Troponin I Less than 0.010 ng/mL (< 0.028)
[2019-01-01] MEDS ORDERED: Ondansetron ODT 4 MG TAB PO PRN (08:55)
[2019-01-01] MEDS ORDERED: Dextrose 5% in Water 1,000 ML IV PRN (08:55)
[2019-01-01] MEDS ORDERED: Dextrose 50% Abboject 50 ML SYRINGE SLOW IVP PRN (08:55)
[2019-01-01] MEDS ORDERED: Ondansetron PF 4 MG/2 ML Vial IVP PRN (08:55)
[2019-01-01] MEDS ORDERED: Acetaminophen 325 MG TAB PO PRN (08:55)
[2019-01-01] MEDS ORDERED: Senokot S 8.6-50 MG TAB PO PRN (08:55)
[2019-01-01] MEDS ORDERED: Bisacodyl 10 MG SUPP PR PRN (08:55)
--- NOTE | 2019-01-01 09:10 | RAD ---
PORTABLE CHEST: HISTORY: Shortness of breath. COMPARISON: 12/22/2018. FINDINGS: Cardiomegaly. Vascular congestion. Bibasilar infiltrates could represent edema, atelectasis, or inf lammatory process. Evidence of bilateral effusions. IMPRESSION: Not significantly changed. POS: [facility]
[2019-01-01] MEDS ORDERED: Furosemide 20 MG/2 ML VIAL SLOW IVP SCH (09:15)
[2019-01-01] MEDS: Polyethylene Glycol 3350 17 GM Packet PO SCH (09:24)
[2019-01-01] MEDS: Ferrous Sulfate 325 MG TAB PO SCH ×2 (09:24→20:36)
[2019-01-01] MEDS: Famotidine 20 MG TAB PO SCH ×2 (09:24→20:36)
[2019-01-01] MEDS: Enoxaparin Sodium 40 MG/0.4 ML SYRINGE SC SCH (09:24)
[2019-01-01 09:38] LABS: Troponin I Less than 0.010 ng/mL (< 0.028)
--- NOTE | 2019-01-01 09:38 | CT ---
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 Per the [place] her o2 sats have b een in the 70's. PT reports an episode of chest pain yesterday morning at breakfast. PT also reports nonproductive cough and nausea. PT states she does not usually wear oxygen. PT reports nausea and inc reased swelling to her ble TECHNIQUE: Imaging protocol: Computed tomographic angiography of the chest with intravenous contrast. 3D rendering: MIP reconstructed images were created and reviewed. COMPARISON: No relevant prior studies available. FINDINGS: Pulmonary arteries: Exam is degraded by motion artifact without definitive central pulmonary emboli. Aorta: No aortic aneurysm. No aortic dissection. Lungs: Lungs are hypoexpanded. Interlobular septal thickening, pulmonary vascular engorgement, bronch ial wall thickening and patchy ground glass opacity are compatible with pulmonary edema. No discrete consolidation. No masses. Pleural space: No pneumothorax. Moderate bilateral, right worst than left, pleural effusion. Heart: Coronary arteries calcifications are moderate. No cardiomegaly. Small pericardial effusion. Lymph nodes: Nonspecific prominent lymph nodes. Bones/joints: No acute fracture. Old right rib fractures. Soft tissues: Unremarkable. IMPRESSION: Exam is degraded by motion artifact without definitive central pulmonary emboli. Findings compatible with pulmonary edema. Moderate bilateral, right worst than left, pleural effusion. Thank you for allowing us to participate in the care of your patient. Dictated and Authenticated by: Angelica Cool MD 01/01/2019 3:45 AM Central Time ([place] & [place]) FINAL REPORT CTA CHEST WITH CONTRAST: Axial tomograms were obtained with multiplanar reconstruction and 3D postprocessing. FINDINGS: The exam is suboptimal as noted on the preliminary report. No definite pulmonary embolus identified. There are bilateral effusions, small pericardial effusion, pulmonary edema, and bibasilar atelectas is. I am in agreement with the preliminary report.
--- NOTE | 2019-01-01 09:40 | HP ---
CHIEF COMPLAINT: Worsening shortness of breath. HISTORY OF PRESENT ILLNESS: A 58-year-old female, prison resident, seen about 2 months ago for frequent falls, insulin-requiring diabetes, hypertension, and others, [facility] the prison due to acute onset of worsening shortness of breath associated with chest pain. The patient reportedly developed worsening shortness of breath as well as chest pain and nonproductive cough associated with nausea but no vomiting. Symptoms started about 2 days prior to presentation, but progressively worsened, such that, when EMS saw the patient, SpO2 was in 70s, hence she was started on oxygen supplementation and brought over to the hospital. Further evaluation in the ER with chest x-ray showed pulmonary congestion. The patient also was found to have elevated D-dimer, but subsequent CT angio of the chest showed pulmonary edema and pleural effusion, but no PE. The patient was started on diuretics and admitted for further evaluation and treatment. She also carries history of COPD. She reports feeling better this morning. PAST MEDICAL HISTORY: 1. Frequent falls. 2. Hyperlipidemia. 3. Hypertension. 4. Diabetes mellitus type 1. 5. COPD. PAST SURGICAL HISTORY: 1. Appendectomy. 2. Cholecystectomy. 3. Right knee surgery. 4. Right great toe, hammertoe repair. 5. D and C. PAST PSYCHIATRIC HISTORY: Anxiety and depression. FAMILY HISTORY: Significant for diabetes in mother and brother as well as coronary artery disease in brother. SOCIAL HISTORY: The patient currently lives at [facility]. She is a former smoker, quit in 2009 after 20 years of smoking 1 pack per day. ALLERGIES: NO KNOWN DRUG ALLERGIES REPORTED. HOME MEDICATIONS: 1. Albuterol sulfate 8.5 g HFA 2 puffs q.6 p.r.n. 2. Doxycycline 100 mg p.o. b.i.d. 3. Ferrous sulfate 325 mg p.o. b.i.d. 4. Breo Ellipta 100 mcg/25 mcg 1 inhalation daily. 5. Humalog sliding scale. 6. Ibuprofen 600 mg q.i.d. p.r.n. 7. Tresiba 24 units subcutaneously at bedtime. 8. Meloxicam 15 mg p.o. daily. 9. Zoloft 50 mg p.o. daily at bedtime. REVIEW OF SYSTEMS: 12-point review of systems performed, was negative other than pertinent positives and negatives included in the history of present illness. Of note, the patient denied dysuria, but admitted to bilateral leg swelling which has worsened in the last few days, but denied pain or erythema. PHYSICAL EXAMINATION: VITAL SIGNS: Temperature 98.2, pulse 75, respiratory rate 16, SpO2 of 98% on nasal cannula oxygen, and blood pressure is 141/65. GENERAL: Female, in no obvious distress. Afebrile. Anicteric. Acyanotic. HEENT: Normocephalic, atraumatic. Oral mucosa is moist. NECK: Supple. Nontender with good range of motion. No JVD or masses appreciated. CARDIOVASCULAR: Regular rhythm and rate with normal heart sounds 1 and 2. RESPIRATORY: Air entry is decreased at both bases with few crackles and some transmitted breath sounds. No obvious rhonchi or use of accessory muscles were appreciated. GI: Abdomen is obese, soft, nontender, nondistended with normal bowel sounds. EXTREMITIES: Moderate bilateral leg edema noted with no obvious erythema. 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 Cranial nerves 2 through 12 are grossly intact. The patient moves all extremities. SKIN: Few bruises with scab noted on the lower extremities. PSYCHIATRIC: Normal affect and cooperative. DIAGNOSTIC DATA: CBC showed WBC count of 6.7, hemoglobin of 10.0, MCV of 96.0, and platelets of 156. D-dimer was 0.76. CMP showed sodium 131, potassium 3.9, chloride 101, CO2 of 22, BUN 19, creatinine 0.76, glucose 109, calcium 8.9, total bilirubin 0.3, AST 17, ALT 14, alkaline phosphatase 123, total protein 6.3, albumin 3.5, and globulin 2.8. Cardiac markers showed initial troponin of less than 0.010 and BNP of 189. Repeat troponin is less than 0.010. EKG showed normal sinus rhythm with rate of 79. Poor R-wave progression noted. Preliminary report of chest x-ray showed pulmonary congestion and effusion. CT angio of the chest showed no PE. Pulmonary edema and effusion also were noted. ASSESSMENT: 1. Acute respiratory failure with hypoxia. 2. Acute congestive heart failure of unclear type. 3. Chronic obstructive pulmonary disease with no obvious exacerbation. 4. Atypical chest pain with negative troponin. 5. Bilateral leg edema. 6. Diabetes mellitus type 1, on insulin therapy. 7. Frequent falls. 8. Hypertension, on treatment. PLAN: 1. We will start the patient on diuretic therapy with Lasix intravenously. 2. We will monitor blood pressures as well as intake and output. 3. We will monitor electrolytes and replete as needed. 4. We will get echocardiogram to assess cardiac function. 5. We will rule out acute myocardial infarction with serial troponin. 6. PT/OT will be continued as well as oxygen supplementation as needed. 7. Insulin therapy also will be continued. 8. Code status, full code. The patient's sister is the surrogate decision maker. Job ID: [id number]
[2019-01-01] MEDS: Insulin Regular 300 UNITS/3 ML VIAL SC PRN ×3 (11:20→20:53)
[2019-01-01] MEDS ORDERED: ISOVUE-370 76%-LOCM 1 ML ONE (12:33)
[2019-01-01] MEDS: Furosemide 40 MG/4 ML VIAL SLOW IVP SCH (13:33)
[2019-01-01] MEDS: HYDROcodone/Acetaminophen 5/325 mg Tablet PO PRN ×2 (13:33→20:36)
[2019-01-01] MEDS: Mometasone/Formoterol 120 PUFF INHALER INH SCH (18:41)
[2019-01-02 04:37] LABS: #Eosinphils 0.1 thou/uL (0.0-0.7); #Lymphocytes 1.2 thou/uL (1.20-3.40); #Monocytes 0.5 thou/uL (0.11-0.59); #Neutrophils 4.9 thou/uL (1.40-6.50); %Basophils 0.2 % (0.0-1.0); %Eosinophils 1.9 % (0.0-10.0); %Lymphocytes 17.2 % (21.0-51.0); %Monocytes 7.9 % (0.0-10.0); %Neutrophils 72.8 % (42.0-75.0); Hemoglobin 10.3 g/dL (12.0-16.0); Mean Corpuscular HGB CONC 34.1 g/dL (32.0-36.0); Mean Corpuscular Hemoglobin 33.2 pg (27.0-31.0); Mean Corpuscular Volume 97.4 fL (78.0-98.0); Mean Platelet Volume 7.6 fL (7.4-10.4); Platelet Count 170 thou/uL (130-400); RBC Distribution Width 13.3 % (11.5-14.5); Red Blood Cell (RBC) Count 3.11 mill/uL (4.20-5.40); White Blood Cell (WBC) Count 6.7 thou/uL (4.8-10.8)
[2019-01-02 04:58] LABS: Anion Gap 11 mmol/L (10-20); BUN (Urea Nitrogen) 19 mg/dL (9.8-20.1); Calc. Creatinine Clearance 96 mL/min (70-130); Calcium 8.5 mg/dL (7.8-10.44); Carbon Dioxide 26 mmol/L (22-29); Chloride 99 mmol/L (98-107); Estimated GFR-MDRD 73; Glucose 100 mg/dL (70-105); Magnesium 1.9 mg/dL (1.6-2.6); Sodium 132 mmol/L (136-145)
[2019-01-02] MEDS: HYDROcodone/Acetaminophen 5/325 mg Tablet PO PRN ×3 (05:20→20:28)
[2019-01-02] MEDS: Furosemide 40 MG/4 ML VIAL SLOW IVP SCH ×2 (05:20→13:55)
[2019-01-02] MEDS: Mometasone/Formoterol 120 PUFF INHALER INH SCH ×2 (06:28→20:06)
[2019-01-02] MEDS: Famotidine 20 MG TAB PO SCH ×2 (08:31→20:30)
[2019-01-02] MEDS: Enoxaparin Sodium 40 MG/0.4 ML SYRINGE SC SCH (08:31)
[2019-01-02] MEDS: Ferrous Sulfate 325 MG TAB PO SCH ×2 (08:31→20:30)
[2019-01-02] MEDS: Polyethylene Glycol 3350 17 GM Packet PO SCH (08:55)
[2019-01-02] MEDS ORDERED: Non-Formulary Item 1 EACH (Fluticasone/Vilanterol [Breo Ellipta] 1 INH) IH SCH (09:00)
[2019-01-02] MEDS: Insulin Regular 300 UNITS/3 ML VIAL SC PRN ×2 (11:11→17:18)
--- NOTE | 2019-01-02 17:47 | PDOC.HOSPP ---
- Subjective Encounter Date: 01/02/19 Encounter Time: 09:39 Subjective: 58 y/o female, [place] resident with frequent falls, DM COPD and others admitted with worsening SOB and edema. Started on oxygen and lasix for CHF exacerbation. Feeling better. still on oxygen. - Objective Vital Signs & Weight: Vital Signs (12 hours) Temp Pulse Pulse Pulse Resp BP BP 01/02/19 15:46 99.0 F 63 16 01/02/19 11:29 98.5 F 70 20 01/02/19 09:24 68 66 135/64 146/65 H 01/02/19 08:02 98.5 F 69 16 BP Pulse Ox 01/02/19 15:46 136/63 99 01/02/19 11:29 138/63 100 01/02/19 09:24 01/02/19 08:02 135/62 95 Weight Weight 188 lb 3 oz I&O: 01/01/19 01/02/19 01/03/19 06:59 06:59 06:59 Intake Total 1160 720 Output Total 3450 1999 Balance -2290 -1280 Result Diagrams: 01/02/19 03:50 01/02/19 03:50 Additional Labs: Accuchecks 01/02/19 01/02/19 01/02/19 16:46 10:41 05:51 POC Glucose 202 H 246 H 125 H 01/01/19 19:34 POC Glucose 201 H Hospitalist ROS - Medication Medications: Active Medications Generic Name Dose Route Start Last Admin Trade Name Freq PRN Reason Stop Dose Admin Hydrocodone Bitart/Acetaminophen 1 tab 01/01/19 08:55 01/02/19 14:32 [place] 5/325 PO 1 tab Q4H PRN Administration Moderate Pain (4-6) Albuterol/Ipratropium 3 ml 01/01/19 09:00 01/02/19 00:32 Duoneb NEB 3 ml [id number] PRN Administration SOB &/or Wheezing Enoxaparin Sodium 40 mg 01/01/19 09:00 01/02/19 08:31 Lovenox SC 40 mg 0900 CARLOS Administration Famotidine 20 mg 01/01/19 09:00 01/02/19 08:31 Pepcid PO 20 mg BID CARLOS Administration Ferrous Sulfate 325 mg 01/01/19 09:00 01/02/19 08:31 Feosol PO 325 mg BID CARLOS Administration Furosemide 40 mg 01/01/19 14:00 01/02/19 13:55 Lasix SLOW IVP 40 mg 0600,1400 CARLOS Administration Insulin Human Regular 0 units 01/01/19 08:55 01/02/19 17:18 Humulin R SC 4 unit .MODERATE SLIDING SC PRN Administration Moderate Correctional Scale Mometasone Furoate/Formoterol Fumar 2 puff 01/01/19 18:30 01/02/19 06:28 Dulera 100 Mcg/5 Mcg Inhaler INH 2 puff BID-RT CARLOS Administration Polyethylene Glycol 17 gm 01/01/19 09:00 01/02/19 08:55 Miralax PO Not Given DAILY CARLOS Sertraline HCl 50 mg 01/01/19 21:00 01/01/19 20:36 Zoloft PO 50 mg HS CARLOS Administration Sodium Chloride 10 ml 01/01/19 21:00 01/02/19 09:06 Flush - Normal Saline IVF 10 ml Q12HR CARLOS Administration Sodium Chloride 10 ml 01/01/19 09:25 01/01/19 09:32 Flush - Normal Saline IVF 10 ml PRN PRN Administration Saline Flush - Exam General Appearance: awake alert Eye: anicteric sclera ENT: normocephalic atraumatic, moist mucosa Neck: supple, symmetric Heart: RRR Respiratory: no ronchi, no tachypnea Respiratory - other findings: fair air entry with bibasal crackles. Gastrointestinal: soft, non-tender, non-distended, normal bowel sounds Extremities: 1+ LE edema Neurological: cranial nerve grossly intact, no focal deficits Psychiatric: A&O x 3 Hosp A/P (1) Acute respiratory failure with hypoxia Code(s): J96.01 - ACUTE RESPIRATORY FAILURE WITH HYPOXIA Status: Acute (2) Acute CHF Code(s): I50.9 - HEART FAILURE, UNSPECIFIED Status: Acute (3) Diabetes mellitus, insulin dependent (IDDM), controlled Code(s): E11.9 - TYPE 2 DIABETES MELLITUS WITHOUT COMPLICATIONS; Z79.4 - SENIOR LIVING (CURRENT) USE OF INSULIN Status: Chronic (4) Hyponatremia Code(s): E87.1 - HYPO-OSMOLALITY AND HYPONATREMIA Status: Acute - Plan Continue diuretics and oxygen. Wean oxygen as tolerated. Continue bronchodilators Continue insulin therapy Awaiting Echo Monitor renal function nand electrolytes
[2019-01-02] MEDS ORDERED: Dextrose 50% Abboject 50 ML SYRINGE IVP PRN (22:40)
[2019-01-02] MEDS ORDERED: Dextrose 5% in Water 1,000 ML IV PRN (22:40)
[2019-01-02] MEDS ORDERED: HumaLOG 300 UNITS/3 ML VIAL SC PRN ×2 (22:40)
[2019-01-03] MEDS: Furosemide 40 MG/4 ML VIAL SLOW IVP SCH ×2 (05:29→14:49)
[2019-01-03] MEDS: HYDROcodone/Acetaminophen 5/325 mg Tablet PO PRN ×3 (05:29→21:36)
[2019-01-03 06:27] LABS: Anion Gap 13 mmol/L (10-20); BUN (Urea Nitrogen) 16 mg/dL (9.8-20.1); Calc. Creatinine Clearance 95 mL/min (70-130); Calcium 8.9 mg/dL (7.8-10.44); Carbon Dioxide 26 mmol/L (22-29); Chloride 96 mmol/L (98-107); Estimated GFR-MDRD 70; Glucose 128 mg/dL (70-105); Potassium 4.4 mmol/L (3.5-5.1); Sodium 131 mmol/L (136-145)
[2019-01-03] MEDS: Mometasone/Formoterol 120 PUFF INHALER INH SCH ×2 (07:31→18:18)
--- NOTE | 2019-01-03 08:10 | PDOC.HOSPP ---
- Subjective Encounter Date: 01/03/19 Encounter Time: 08:07 Subjective: 58 y/o female, [place] resident with frequent falls, DM COPD and others admitted with worsening SOB and edema. Started on oxygen and lasix for CHF exacerbation. Feeling better. Still on oxygen. - Objective Vital Signs & Weight: Vital Signs (12 hours) Temp Pulse Resp BP BP Pulse Ox 01/03/19 07:45 97.6 F 64 16 165/72 H 94 L 01/03/19 07:31 63 18 97 01/03/19 05:34 97.7 F 63 16 144/63 H 92 L 01/03/19 01:16 97.7 F 70 16 136/60 93 L Weight Weight 182 lb 9.6 oz I&O: 01/02/19 01/03/19 01/04/19 06:59 06:59 06:59 Intake Total 1160 720 Output Total 3450 1999 Balance -1358 -4218 Result Diagrams: 01/02/19 03:50 01/03/19 04:44 Additional Labs: Accuchecks 01/03/19 01/02/19 01/02/19 06:21 19:51 16:46 POC Glucose 129 H 215 H 202 H 01/02/19 10:41 POC Glucose 246 H Hospitalist ROS - Medication Medications: Active Medications Generic Name Dose Route Start Last Admin Trade Name Freq PRN Reason Stop Dose Admin Hydrocodone Bitart/Acetaminophen 1 tab 01/01/19 08:55 01/03/19 05:29 [place] 5/325 PO 1 tab Q4H PRN Administration Moderate Pain (4-6) Albuterol/Ipratropium 3 ml 01/01/19 09:00 01/02/19 00:32 Duoneb NEB 3 ml [id number] PRN Administration SOB &/or Wheezing Enoxaparin Sodium 40 mg 01/01/19 09:00 01/02/19 08:31 Lovenox SC 40 mg 0900 CARLOS Administration Famotidine 20 mg 01/01/19 09:00 01/02/19 20:30 Pepcid PO 20 mg BID CARLOS Administration Ferrous Sulfate 325 mg 01/01/19 09:00 01/02/19 20:30 Feosol PO 325 mg BID CARLOS Administration Furosemide 40 mg 01/01/19 14:00 01/03/19 05:29 Lasix SLOW IVP 40 mg 0600,1400 CARLOS Administration Insulin Human Lispro 0 units 01/02/19 22:40 01/02/19 23:06 Humalog SC 2 unit .BEDTIME SLIDING SC PRN Administration BEDTIME SLIDING SCALE Protocol Mometasone Furoate/Formoterol Fumar 2 puff 01/01/19 18:30 01/03/19 07:31 Dulera 100 Mcg/5 Mcg Inhaler INH 2 puff BID-RT CARLOS Administration Polyethylene Glycol 17 gm 01/01/19 09:00 01/02/19 08:55 Miralax PO Not Given DAILY CARLOS Sertraline HCl 50 mg 01/01/19 21:00 01/02/19 20:30 Zoloft PO 50 mg HS CARLOS Administration Sodium Chloride 10 ml 01/01/19 21:00 01/02/19 20:28 Flush - Normal Saline IVF 10 ml Q12HR CARLOS Administration Sodium Chloride 10 ml 01/01/19 09:25 01/01/19 09:32 Flush - Normal Saline IVF 10 ml PRN PRN Administration Saline Flush - Exam General Appearance: awake alert Eye: anicteric sclera ENT: normocephalic atraumatic Neck: supple, symmetric, no JVD Heart: RRR Respiratory: no ronchi, normal chest expansion Respiratory - other findings: Fair air entry with bibasal crackles posteriorly Gastrointestinal: soft, non-tender, non-distended, normal bowel sounds Extremities: no cyanosis, no edema Neurological: cranial nerve grossly intact, no focal deficits Psychiatric: A&O x 3 Hosp A/P (1) Acute respiratory failure with hypoxia Code(s): J96.01 - ACUTE RESPIRATORY FAILURE WITH HYPOXIA Status: Acute (2) Acute CHF Code(s): I50.9 - HEART FAILURE, UNSPECIFIED Status: Acute Qualifiers: Heart failure type: systolic Qualified Code(s): I50.21 - Acute systolic ( congestive) heart failure (3) Diabetes mellitus, insulin dependent (IDDM), controlled Code(s): E11.9 - TYPE 2 DIABETES MELLITUS WITHOUT COMPLICATIONS; Z79.4 - ACT TUTOR (CURRENT) USE OF INSULIN Status: Chronic (4) Hyponatremia Code(s): E87.1 - HYPO-OSMOLALITY AND HYPONATREMIA Status: Acute - Plan Start Lisinopril and coreg. Consult cardioly. Start mucinex Continue diuretics Wean oxygen as tolerated. Continue bronchodilators Continue insulin therapy Monitor renal function and electrolytes
[2019-01-03] MEDS: Ferrous Sulfate 325 MG TAB PO SCH ×2 (08:50→21:35)
[2019-01-03] MEDS: guaiFENesin ER 600 MG TAB PO SCH ×2 (08:50→21:35)
[2019-01-03] MEDS: Carvedilol 3.125 MG TAB PO SCH ×2 (08:50→17:41)
[2019-01-03] MEDS: Lisinopril 10 MG TAB PO SCH (08:51)
[2019-01-03] MEDS: Enoxaparin Sodium 40 MG/0.4 ML SYRINGE SC SCH (08:51)
[2019-01-03] MEDS: Famotidine 20 MG TAB PO SCH ×2 (08:51→21:35)
[2019-01-03] MEDS: Polyethylene Glycol 3350 17 GM Packet PO SCH (09:38)
[2019-01-03] MEDS ORDERED: Furosemide 40 MG/4 ML VIAL SLOW IVP SCH (11:15)
--- NOTE | 2019-01-03 11:26 | CON ---
DATE OF CONSULTATION: HISTORY OF PRESENT ILLNESS: The patient is a 58-year-old woman who presents for evaluation of a chest discomfort and dyspnea. The patient has no previous cardiac history. She was in her usual state of health and started developing increasing dyspnea over the past several days. She also reports having left-sided chest discomfort. She states it lasts up to 30 minutes. She had recurrent chest discomfort this morning. The patient has multiple cardiac risk factors including diabetes mellitus, hypertension, dyslipidemia and a strong family history of coronary artery disease. PAST MEDICAL HISTORY: 1. Diabetes mellitus. 2. COPD. 3. Hypertension. 4. Dyslipidemia. PAST SURGICAL HISTORY: Knee surgery, cholecystectomy, and appendectomy. SOCIAL HISTORY: Former smoker. FAMILY HISTORY: Strong family history of heart disease. ALLERGIES: NO KNOWN DRUG ALLERGIES. REVIEW OF SYSTEMS: Ten-point system otherwise unremarkable. PHYSICAL EXAMINATION: GENERAL: This is an obese woman, in no acute distress. VITAL SIGNS: Blood pressure of 165/72. NECK: Showed no jugular venous distention. LUNGS: Have a few crackles in both bases. HEART: Regular rate and rhythm. Normal S1, S2 with a 1/6 systolic murmur. ABDOMEN: Nondistended. EXTREMITIES: Showed mild edema. VASCULAR: Radial pulses are 2+. LABORATORY DATA: Sodium 131, potassium 4.4, chloride 96, bicarbonate 26, BUN 16, creatinine 0.84, glucose 128. White blood cell count 6.7, hemoglobin 10.3, hematocrit 30.3, platelets are 170. Her EKG reveals normal sinus rhythm with poor R-wave progression. Her chest x-ray revealed mild pulmonary edema. Chest CT revealed her to have bilateral pleural effusions with a small pericardial effusion and evidence of pulmonary edema. IMPRESSION: 1. New onset congestive heart failure. 2. Diabetes mellitus. 3. Hypertension. 4. Dyslipidemia. 5. Chronic obstructive pulmonary disease. 6. Anemia. PLAN: This patient presents with recurrent chest discomfort and dyspnea. From a cardiac standpoint, I have discussed the option of stress testing versus an invasive evaluation and the patient strongly prefers a definitive diagnosis. We will proceed with cardiac catheterization. The risks involved with the procedure include RI, bleeding, stroke, cardiac arrest and cardiac have been explained to the patient. Patient understands these risks and wished to proceed. Job ID: [id number]
[2019-01-03] MEDS ORDERED: Lidocaine 1% (PF) 30 ML VIAL ONE (12:25)
[2019-01-03] MEDS ORDERED: Midazolam HCl 2 mg/2 ml Vial ONE (13:25)
[2019-01-03] MEDS ORDERED: Sodium Chloride 0.9% 200 ML IV PRN (13:44)
[2019-01-03] MEDS ORDERED: Acetaminophen/Codeine 30-300mg Tablet PO PRN ×2 (13:44)
[2019-01-03] MEDS: Insulin Regular 300 UNITS/3 ML VIAL SC PRN (17:41)
[2019-01-03] MEDS ORDERED: Iopamidol 370 76% 100 ML VIAL ONE (20:47)
--- NOTE | 2019-01-03 22:51 | CON ---
DATE OF CONSULTATION: 01/03/2019 REASON FOR CONSULTATION: Evaluate patient for coronary artery bypass grafting. CONSULTING PHYSICIAN: Dr. Dileep Peterson. HISTORY OF PRESENT ILLNESS: Ms. Wilson is a 58-year-old woman who lives at [facility]. She says that due to her diabetes, she has become nearly blind and also cannot feel her feet anymore. She was having numerous falls at home and her sister placed her at [facility]. She presented to the hospital with severe shortness of breath. She had a CT angiogram performed in the emergency department, which showed no pulmonary embolism, but does show a large bilateral pleural effusions. She has a terrible family history of coronary artery disease. She did have some chest pain at home also which led to her having cardiac catheterization performed. The catheterization shows severe left-sided coronary disease with bypassable targets including LAD, diagonal and 2 OM branches. Her right side has no significant stenosis. Echocardiogram shows an ejection fraction in the 40% to 45% range. She does have some mitral regurgitation, but it is not severe. She has no other valvular disease. I have been asked to see her to discuss coronary artery bypass grafting. PAST MEDICAL HISTORY: 1. Diabetes mellitus. 2. COPD. 3. Hypertension. 4. Dyslipidemia. PAST SURGICAL HISTORY: 1. Knee surgery. 2. Cholecystectomy. 3. Appendectomy. SOCIAL HISTORY: She does not use tobacco anymore. She is single and lives in the [facility]. ALLERGIES: NONE. MEDICATIONS: Prior to admission: 1. Tresiba 24 units at bedtime. 2. Vibramycin 100 mg b.i.d. 3. Meloxicam 15 mg daily. 4. Breo Ellipta inhaled 1 puff inhaled daily. 5. Zoloft 50 mg at bedtime. 6. Iron 325 mg b.i.d. 7. Humalog p.r.n. 8. ProAir 2 puffs p.r.n. REVIEW OF SYSTEMS: A 10-point review of systems is performed and is negative except as above. PHYSICAL EXAMINATION: GENERAL: This is a well-developed, well-nourished woman resting comfortably in the bed. VITAL SIGNS: Height 5 feet 5 inches, weight is 182 pounds, BSA is 1.95. Temperature is 98.2. Pulse is 77, regular. Blood pressure 168/72. HEENT: Sclerae nonicteric. Pupils are equal and round bilaterally. NECK: Supple without bruit. CHEST: Clear bilaterally with diminished breath sounds at both bases. HEART: Rhythm is regular. ABDOMEN: Soft and nontender. EXTREMITIES: There is no edema. ASSESSMENT AND PLAN: This is a very pleasant 58-year-old woman with severe left-sided coronary artery disease. Risks, benefits, and options of coronary bypass grafting were discussed with her. We will plan for bypass later in the week with multivessel grafting to her left system. Job ID: [id number]
[2019-01-04] MEDS: Furosemide 40 MG/4 ML VIAL SLOW IVP SCH (06:11)
[2019-01-04 06:13] LABS: Anion Gap 13 mmol/L (10-20); BUN (Urea Nitrogen) 11 mg/dL (9.8-20.1); Calc. Creatinine Clearance 85 mL/min (70-130); Carbon Dioxide 27 mmol/L (22-29); Chloride 94 mmol/L (98-107); Estimated GFR-MDRD 64; Glucose 210 mg/dL (70-105); Potassium 4.5 mmol/L (3.5-5.1); Sodium 129 mmol/L (136-145)
[2019-01-04] MEDS: Mometasone/Formoterol 120 PUFF INHALER INH SCH ×2 (06:45→18:18)
[2019-01-04] MEDS: Insulin Regular 300 UNITS/3 ML VIAL SC PRN ×2 (07:42→11:10)
[2019-01-04] MEDS: Ferrous Sulfate 325 MG TAB PO SCH ×2 (08:48→21:09)
[2019-01-04] MEDS: Lisinopril 10 MG TAB PO SCH (08:48)
[2019-01-04] MEDS: Carvedilol 3.125 MG TAB PO SCH ×2 (08:48→16:54)
[2019-01-04] MEDS: Famotidine 20 MG TAB PO SCH ×2 (08:48→21:08)
[2019-01-04] MEDS: guaiFENesin ER 600 MG TAB PO SCH ×2 (08:49→21:09)
[2019-01-04] MEDS: Enoxaparin Sodium 40 MG/0.4 ML SYRINGE SC SCH (08:49)
[2019-01-04] MEDS ORDERED: Insulin Glargine 12 UNITS in Pre-Filled Syringe 1 EACH SC SCH (09:00)
[2019-01-04] MEDS ORDERED: Carvedilol 3.125 MG TAB PO SCH (09:15)
[2019-01-04] MEDS: Aspirin 325 mg Enteric Coated Tablet PO SCH (09:54)
[2019-01-04] MEDS: Nitroglycerin 2% Ointment 1 INCH/1 GM Packet TOP SCH ×2 (09:55→16:54)
[2019-01-04] MEDS: Polyethylene Glycol 3350 17 GM Packet PO SCH (10:07)
[2019-01-04] MEDS ORDERED: Insulin Regular 300 UNITS/3 ML VIAL SC PRN (10:46)
--- NOTE | 2019-01-04 12:46 | PDOC.HOSPP ---
- Subjective Encounter Date: 01/04/19 Encounter Time: 08:44 Subjective: 58 y/o female, NH resident with frequent falls, DM COPD and others admitted with worsening SOB and edema. Started on oxygen and lasix for CHF exacerbation. Echo showed new systolic dysfunction and subsequent Cardiac cath showed severe Left coronary aartery disease. CABG is planned. Feeling better. Still on oxygen. - Objective Vital Signs & Weight: Vital Signs (12 hours) Temp Pulse Resp BP BP BP Pulse Ox 01/04/19 12:13 97.8 F 64 20 130/59 L 97 01/04/19 08:48 130/61 93 L 01/04/19 07:59 97.9 F 62 20 130/61 93 L 01/04/19 06:47 94 L 01/04/19 06:45 67 16 94 L 01/04/19 03:56 97.8 F 70 20 136/63 95 Weight Weight 175 lb 14.4 oz I&O: 01/03/19 01/04/19 01/05/19 06:59 06:59 06:59 Intake Total 840 Output Total 3151 4350 Balance -2311 -8110 Result Diagrams: 01/02/19 03:50 01/04/19 05:31 Additional Labs: Accuchecks 01/04/19 01/04/19 01/03/19 10:57 06:42 19:13 POC Glucose 330 H 241 H 312 H 01/03/19 16:20 POC Glucose 257 H Hospitalist ROS - Medication Medications: Active Medications Generic Name Dose Route Start Last Admin Trade Name Freq PRN Reason Stop Dose Admin Hydrocodone Bitart/Acetaminophen 1 tab 01/01/19 08:55 01/03/19 21:36 [place] 5/325 PO 1 tab Q4H PRN Administration Moderate Pain (4-6) Albuterol/Ipratropium 3 ml 01/01/19 09:00 01/02/19 00:32 Duoneb NEB 3 ml [id number] PRN Administration SOB &/or Wheezing Aspirin 325 mg 01/04/19 09:00 01/04/19 09:54 Ecotrin PO 325 mg DAILY CARLOS Administration Enoxaparin Sodium 40 mg 01/01/19 09:00 01/04/19 08:49 Lovenox SC 40 mg 0900 CARLOS Administration Famotidine 20 mg 01/01/19 09:00 01/04/19 08:48 Pepcid PO 20 mg BID CARLOS Administration Ferrous Sulfate 325 mg 01/01/19 09:00 01/04/19 08:48 Feosol PO 325 mg BID CARLOS Administration Guaifenesin 600 mg 01/03/19 09:00 01/04/19 08:49 Mucinex PO 600 mg Q12HR CARLOS Administration Insulin Glargine 12 units/ 0.12 mls @ 0 mls/hr 01/04/19 09:00 01/04/19 09:54 Miscellaneous Medication SC 0.12 mls QAM CARLOS Administration Insulin Human Regular 0 units 01/03/19 06:39 01/04/19 11:10 Humulin R SC 8 unit .MODERATE SLIDING SC PRN Administration Moderate Correctional Scale Lisinopril 10 mg 01/03/19 09:00 01/04/19 08:48 Zestril PO 10 mg DAILY CARLOS Administration Mometasone Furoate/Formoterol Fumar 2 puff 01/01/19 18:30 01/04/19 06:45 Dulera 100 Mcg/5 Mcg Inhaler INH 2 puff BID-RT CARLOS Administration Nitroglycerin 1 inch 01/04/19 09:00 01/04/19 09:55 Nitro-Bid 2% Ointment TOP 1 inch 0100,0900,1700 CARLOS Administration Polyethylene Glycol 17 gm 01/01/19 09:00 01/04/19 10:07 Miralax PO Not Given DAILY CARLOS Sertraline HCl 50 mg 01/01/19 21:00 01/03/19 21:35 Zoloft PO 50 mg HS CARLOS Administration Sodium Chloride 10 ml 01/01/19 21:00 01/04/19 11:11 Flush - Normal Saline IVF 10 ml Q12HR CARLOS Administration Sodium Chloride 10 ml 01/01/19 09:25 01/01/19 09:32 Flush - Normal Saline IVF 10 ml PRN PRN Administration Saline Flush - Exam General Appearance: awake alert Eye: anicteric sclera ENT: normocephalic atraumatic Neck: symmetric, no JVD Heart: RRR Respiratory: no wheezes, no ronchi, normal chest expansion, no tachypnea, rales Gastrointestinal: soft, non-tender, non-distended, normal bowel sounds Extremities: no cyanosis, no edema Neurological: cranial nerve grossly intact, no focal deficits Musculoskeletal: generalized weakness Psychiatric: A&O x 3 Hosp A/P (1) Acute respiratory failure with hypoxia Code(s): J96.01 - ACUTE RESPIRATORY FAILURE WITH HYPOXIA Status: Acute (2) Acute CHF Code(s): I50.9 - HEART FAILURE, UNSPECIFIED Status: Acute Qualifiers: Heart failure type: systolic Qualified Code(s): I50.21 - Acute systolic ( congestive) heart failure (3) Diabetes mellitus, insulin dependent (IDDM), controlled Code(s): E11.9 - TYPE 2 DIABETES MELLITUS WITHOUT COMPLICATIONS; Z79.4 - HUMANITIES INSTRUCTOR (CURRENT) USE OF INSULIN Status: Chronic (4) Hyponatremia Code(s): E87.1 - HYPO-OSMOLALITY AND HYPONATREMIA Status: Acute (5) CAD (coronary artery disease) Code(s): I25.10 - ATHSCL HEART DISEASE OF [place] CORONARY ARTERY W/O ANG PCTRS Status: Acute - Plan Add lantus to sliding scaqle insulin to get better glycemic control. Get Hba1c in the am. Start Lisinopril and coreg. Change lasix to oral. Wean oxygen as tolerated. Continue bronchodilators Monitor renal function and electrolytes CABG is planned
[2019-01-04] MEDS: Furosemide 40 MG TAB PO SCH (16:54)
[2019-01-04] MEDS: Nitroglycerin 0.4 MG TAB (25 Tab Bottle) SL PRN (21:06)
[2019-01-04] MEDS: HYDROcodone/Acetaminophen 5/325 mg Tablet PO PRN (21:08)
[2019-01-04] MEDS: Atorvastatin Calcium 40 MG TAB PO SCH (21:08)
[2019-01-05] MEDS: diphenhydrAMINE 25 MG CAP PO PRN ×2 (00:25→04:05)
[2019-01-05] MEDS: Nitroglycerin 2% Ointment 1 INCH/1 GM Packet TOP SCH ×3 (01:01→16:50)
[2019-01-05] MEDS ORDERED: Communication Order-Pharmacy FS SCH (06:12)
[2019-01-05 06:34] LABS: Mean Corpuscular HGB CONC 35.1 g/dL (32.0-36.0); Mean Corpuscular Hemoglobin 33.8 pg (27.0-31.0); Mean Corpuscular Volume 96.3 fL (78.0-98.0); Mean Platelet Volume 7.9 fL (7.4-10.4); Platelet Count 164 thou/uL (130-400); RBC Distribution Width 12.4 % (11.5-14.5); Red Blood Cell (RBC) Count 3.26 mill/uL (4.20-5.40); White Blood Cell (WBC) Count 4.4 thou/uL (4.8-10.8)
[2019-01-05 06:41] LABS: PTT 30.5 SEC (22.9-36.1); Prothrombin Time 13.4 SEC (12.0-14.7)
[2019-01-05 06:58] LABS: Anion Gap 11 mmol/L (10-20); BUN (Urea Nitrogen) 22 mg/dL (9.8-20.1); Calc. Creatinine Clearance 88 mL/min (70-130); Calcium 9.3 mg/dL (7.8-10.44); Carbon Dioxide 26 mmol/L (22-29); Chloride 97 mmol/L (98-107); Estimated GFR-MDRD 67; Glucose 244 mg/dL (70-105); Potassium 4.4 mmol/L (3.5-5.1); Sodium 130 mmol/L (136-145)
[2019-01-05] MEDS: Mometasone/Formoterol 120 PUFF INHALER INH SCH ×2 (07:01→19:13)
[2019-01-05] MEDS: Carvedilol 3.125 MG TAB PO SCH (08:34)
[2019-01-05] MEDS: Aspirin 325 mg Enteric Coated Tablet PO SCH (08:34)
[2019-01-05] MEDS: Famotidine 20 MG TAB PO SCH ×2 (08:34→20:33)
[2019-01-05] MEDS: Enoxaparin Sodium 40 MG/0.4 ML SYRINGE SC SCH (08:34)
[2019-01-05] MEDS: Furosemide 40 MG TAB PO SCH ×2 (08:35→16:15)
[2019-01-05] MEDS: Lisinopril 10 MG TAB PO SCH (08:35)
[2019-01-05] MEDS: Polyethylene Glycol 3350 17 GM Packet PO SCH (08:35)
[2019-01-05] MEDS: Ferrous Sulfate 325 MG TAB PO SCH ×2 (08:35→20:31)
[2019-01-05] MEDS: guaiFENesin ER 600 MG TAB PO SCH ×2 (08:35→20:31)
[2019-01-05] MEDS: Insulin Regular 300 UNITS/3 ML VIAL SC PRN ×2 (08:38→11:52)
[2019-01-05] MEDS: Insulin Glargine 20 UNITS in Pre-Filled Syringe 1 EACH SC SCH (09:36)
--- NOTE | 2019-01-05 11:12 | RAD ---
CHEST TWO VIEWS: HISTORY: Abnormal physical exam. Abnormal auscultation. COMPARISON: 01/01/2019 FINDINGS: Mild cardiomegaly. There is mild vascular congestion which appears improved when compared to 01/02/20 19. Poor inspiration. Small effusions may be present. There continues to be mild interstitial promine nce which could represent mild interstitial edema. POS: TPC
[2019-01-05] MEDS: HYDROcodone/Acetaminophen 5/325 mg Tablet PO PRN ×2 (11:27→20:32)
[2019-01-05] MEDS: Nitroglycerin 0.4 MG TAB (25 Tab Bottle) SL PRN (12:17)
--- NOTE | 2019-01-05 13:26 | PDOC.HOSPP ---
- Subjective Encounter Date: 01/05/19 Encounter Time: 10:25 Subjective: 58 y/o female, NH resident with frequent falls, DM COPD and others admitted with worsening SOB and edema. Started on oxygen and lasix for CHF exacerbation. Echo showed new systolic dysfunction and subsequent Cardiac cath showed severe Left coronary artery disease. CABG is planned. Feeling better. Off oxygen. - Objective Vital Signs & Weight: Vital Signs (12 hours) Temp Pulse Resp BP BP Pulse Ox 01/05/19 11:25 97.8 F 62 17 127/61 94 L 01/05/19 07:31 98.0 F 64 16 120/56 L 94 L 01/05/19 07:03 96 01/05/19 07:01 63 16 96 01/05/19 04:00 97.9 F 66 18 124/60 96 Weight Weight 174 lb 11.2 oz I&O: 01/04/19 01/05/19 01/06/19 06:59 06:59 06:59 Intake Total 720 Output Total 4350 1000 Balance -4350 -280 Result Diagrams: 01/05/19 06:05 01/05/19 06:05 Additional Labs: Accuchecks 01/05/19 01/05/19 01/04/19 11:53 05:21 20:08 POC Glucose 294 H 286 H 275 H 01/04/19 18:30 POC Glucose 205 H Hospitalist ROS - Medication Medications: Active Medications Generic Name Dose Route Start Last Admin Trade Name Freq PRN Reason Stop Dose Admin Acetaminophen/Codeine Phosphate 1 tab 01/03/19 13:44 01/05/19 04:06 Tylenol #3 PO 01/06/19 08:59 1 tab Q4H PRN Administration Mild Pain (1-3) Hydrocodone Bitart/Acetaminophen 1 tab 01/01/19 08:55 01/05/19 11:27 [place] 5/325 PO 01/06/19 08:59 1 tab Q4H PRN Administration Moderate Pain (4-6) Albuterol/Ipratropium 3 ml 01/01/19 09:00 01/02/19 00:32 Duoneb NEB 01/06/19 08:59 3 ml [id number] PRN Administration SOB &/or Wheezing Aspirin 325 mg 01/04/19 09:00 01/05/19 08:34 Ecotrin PO 01/06/19 08:59 325 mg DAILY CARLOS Administration Atorvastatin Calcium 40 mg 01/04/19 21:00 01/04/19 21:08 Lipitor PO 01/06/19 08:59 40 mg HS CARLOS Administration Carvedilol 6.25 mg 01/04/19 17:00 01/05/19 08:34 Coreg PO 01/06/19 10:00 6.25 mg BID-WM CARLOS Administration Diphenhydramine HCl 25 mg 01/04/19 23:21 01/05/19 04:05 Benadryl PO 01/06/19 08:59 25 mg Q4H PRN Administration Itching Enoxaparin Sodium 40 mg 01/01/19 09:00 01/05/19 08:34 Lovenox SC 01/06/19 08:59 40 mg 0900 CARLOS Administration Famotidine 20 mg 01/01/19 09:00 01/05/19 08:34 Pepcid PO 01/06/19 08:59 20 mg BID CARLOS Administration Ferrous Sulfate 325 mg 01/01/19 09:00 01/05/19 08:35 Feosol PO 01/06/19 08:59 325 mg BID CARLOS Administration Furosemide 40 mg 01/04/19 16:00 01/05/19 08:35 Lasix PO 01/06/19 08:59 40 mg 0900,1600 CARLOS Administration Guaifenesin 600 mg 01/03/19 09:00 01/05/19 08:35 Mucinex PO 01/06/19 08:59 600 mg Q12HR CARLOS Administration Insulin Glargine 20 units/ 0.2 mls @ 1 mls/hr 01/05/19 09:00 01/05/19 09:36 Miscellaneous Medication SC 01/06/19 09:01 0.2 mls QAM CARLOS Administration Insulin Human Regular 0 units 01/03/19 06:39 01/05/19 11:52 Humulin R SC 01/06/19 08:59 6 unit .MODERATE SLIDING SC PRN Administration Moderate Correctional Scale Lisinopril 10 mg 01/03/19 09:00 01/05/19 08:35 Zestril PO 01/06/19 10:00 10 mg DAILY CARLOS Administration Mometasone Furoate/Formoterol Fumar 2 puff 01/01/19 18:30 01/05/19 07:01 Dulera 100 Mcg/5 Mcg Inhaler INH 01/06/19 08:59 2 puff BID-RT CARLOS Administration Nitroglycerin 0.4 mg 01/03/19 13:44 01/05/19 12:17 Nitrostat SL 01/06/19 08:59 0.4 mg Q5MIN PRN Administration Chest Pain Nitroglycerin 1 inch 01/04/19 09:00 01/05/19 08:35 Nitro-Bid 2% Ointment TOP 01/06/19 08:59 1 inch 0100,0900,1700 CARLOS Administration Polyethylene Glycol 17 gm 01/01/19 09:00 01/05/19 08:35 Miralax PO 01/06/19 08:59 Not Given DAILY CARLOS Sertraline HCl 50 mg 01/01/19 21:00 01/04/19 21:08 Zoloft PO 01/06/19 08:59 50 mg HS CARLOS Administration Sodium Chloride 10 ml 01/05/19 09:00 01/05/19 08:46 Flush - Normal Saline IVF Not Given Q12HR CARLOS - Exam General Appearance: awake alert Eye: anicteric sclera ENT: normocephalic atraumatic Neck: symmetric, no JVD Heart: RRR Respiratory: no wheezes, no ronchi, normal chest expansion Respiratory - other findings: Fair air entry with few posterior crackles Gastrointestinal: soft, non-tender, non-distended, normal bowel sounds Extremities: no cyanosis, no edema Neurological: cranial nerve grossly intact, no focal deficits Psychiatric: A&O x 3 Hosp A/P (1) CAD (coronary artery disease) Code(s): I25.10 - ATHSCL HEART DISEASE OF [place] CORONARY ARTERY W/O ANG PCTRS Status: Acute Qualifiers: Coronary Disease-Associated Artery/Lesion type: unspecified vessel or lesion type [place] vs. transplanted heart: [place] heart Associated angina: without angina Qualified Code(s): I25.10 - Atherosclerotic heart disease of [place] coronary artery without angina pectoris (2) Acute respiratory failure with hypoxia Code(s): J96.01 - ACUTE RESPIRATORY FAILURE WITH HYPOXIA Status: Acute (3) Acute CHF Code(s): I50.9 - HEART FAILURE, UNSPECIFIED Status: Acute Qualifiers: Heart failure type: systolic Qualified Code(s): I50.21 - Acute systolic ( congestive) heart failure (4) Diabetes mellitus, insulin dependent (IDDM), controlled Code(s): E11.9 - TYPE 2 DIABETES MELLITUS WITHOUT COMPLICATIONS; 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 Continue sliding scale insulin to get better glycemic control. Continue Nitro, lisinopril, BB Continue bronchodilators Monitor renal function and electrolytes CABG tomorrow
[2019-01-05] MEDS: Atorvastatin Calcium 40 MG TAB PO SCH (20:30)
[2019-01-05] MEDS: Carvedilol 6.25 MG TAB PO SCH (20:31)
[2019-01-06] MEDS: Nitroglycerin 2% Ointment 1 INCH/1 GM Packet TOP SCH (02:10)
[2019-01-06] MEDS: Carvedilol 6.25 MG TAB PO SCH (05:27)
[2019-01-06 06:06] LABS: Anion Gap 13 mmol/L (10-20); BUN (Urea Nitrogen) 26 mg/dL (9.8-20.1); Calc. Creatinine Clearance 91 mL/min (70-130); Calcium 9.1 mg/dL (7.8-10.44); Carbon Dioxide 25 mmol/L (22-29); Chloride 96 mmol/L (98-107); Estimated GFR-MDRD 70; Glucose 143 mg/dL (70-105); Potassium 4.2 mmol/L (3.5-5.1); Sodium 130 mmol/L (136-145)
[2019-01-06] MEDS ORDERED: Albumin 5% 500 ML ONE (06:35)
[2019-01-06] MEDS ORDERED: Dexmedetomidine 200 MCG/2 ML VIAL ONE (06:41)
[2019-01-06] MEDS ORDERED: Midazolam HCl 5 mg/5 ml Vial ONE (06:41)
[2019-01-06] MEDS ORDERED: Phenylephrine HCL 10 MG/ML VIAL ONE (06:41)
[2019-01-06] MEDS ORDERED: Fentanyl 250 MCG/5 ML VIAL ONE (06:41)
[2019-01-06] MEDS ORDERED: Heparin 10,000 UNITS/1 ML VIAL 30,000 UNITS in Sodium Chloride 0.9% 1,000 ML FS SCH (07:00)
[2019-01-06] MEDS ORDERED: Dexamethasone 4 mg/ml Vial ONE (07:01)
[2019-01-06] MEDS ORDERED: Bupivacaine HCl 0.5%/Epinephrine 1:200,000/PF 30 ml Vial ONE (07:01)
[2019-01-06] MEDS ORDERED: Insulin Regular 300 UNITS/3 ML VIAL ONE (07:25)
[2019-01-06] MEDS ORDERED: CEFAZOLIN 2 GM in Premix Bag 1 BAG IVPB SCH (07:30)
[2019-01-06] MEDS: Mometasone/Formoterol 120 PUFF INHALER INH SCH (07:48)
[2019-01-06] MEDS ORDERED: Milrinone 10 MG/10 ML VIAL ONE (09:09)
[2019-01-06] MEDS ORDERED: Morphine 2 MG/ML SYRINGE SLOW IVP PRN (11:02)
[2019-01-06] MEDS ORDERED: Guaifenesin DM 100-10/5 ML UDCUP PO PRN (11:02)
[2019-01-06] MEDS ORDERED: Fentanyl 100 MCG/2 ML VIAL SLOW IVP PRN (11:02)
[2019-01-06] MEDS ORDERED: Magnesium 2 GM/50 ML 2 GM in Premix Bag 1 BAG IVPB SCH (11:02)
[2019-01-06] MEDS ORDERED: Phenylephrine 10 MG/NS 250 ML 250 ML IVPB PRN (11:02)
[2019-01-06] MEDS ORDERED: Hetastarch 6% 500 ML 500 ML IVPB PRN (11:02)
[2019-01-06] MEDS ORDERED: Bisacodyl 10 MG SUPP PR PRN (11:02)
[2019-01-06] MEDS ORDERED: Norepinephrine 8 MG in Sodium Chloride 0.9% 250 ML 242 ML IVPB PRN (11:02)
[2019-01-06] MEDS ORDERED: Post-Op Insulin Drip Protocol IVPB ONE (11:02)
[2019-01-06] MEDS ORDERED: hydrALAZINE 20 MG/ML VIAL SLOW IVP PRN (11:02)
[2019-01-06] MEDS ORDERED: Mag-Al 1200 mg/1200 mg/30 ML UDCUP PO PRN (11:02)
[2019-01-06] MEDS ORDERED: Bisacodyl 5 MG TAB PO PRN (11:02)
[2019-01-06] MEDS ORDERED: Promethazine HCl 25 MG/ML VIAL IM PRN (11:02)
[2019-01-06] MEDS ORDERED: Nitroglycerin 50 MG/250 ML BOT 250 ML IVPB PRN (11:02)
[2019-01-06] MEDS ORDERED: D5 1/2 NS w/20 mEq KCL 1,000 ML IV SCH (11:02)
--- NOTE | 2019-01-06 11:22 | OP ---
DATE OF PROCEDURE: 01/06/2019 PREOPERATIVE DIAGNOSES: Coronary artery disease/diabetes mellitus/hypertension/dyslipidemia. POSTOPERATIVE DIAGNOSES: Coronary artery disease/diabetes mellitus/hypertension/dyslipidemia. PROCEDURES PERFORMED: 1. Coronary artery bypass grafting x3. a. Left internal mammary artery to 1.0 mm mid left anterior descending artery - good conduit, small target. b. Reverse saphenous vein 1.0 mm diagonal - thin-walled conduit in small target. c. Reverse saphenous vein to 1.0 mm OM-1 - thin-walled conduit in small target. RF TEST TECHNICIAN: González Santana MD ANESTHESIA: General endotracheal, Dr. Wolf Miranda. PUMP TIME: 58 minutes. CROSS-CLAMP TIME: 34 minutes. LOW CORE TEMPERATURE: 34 degrees Celsius. CLINICAL LABORATORY MEDICAL DIRECTOR: Colton Dan. DRAINS: 24-[place] chest tubes x3. DRIPS: None. TRANSFUSIONS: None. DESCRIPTION OF PROCEDURE: After consent was obtained, the patient was brought up to the operating room, placed in supine position on the operating room table. Appropriate central line and monitors were placed and general endotracheal anesthesia was induced. Chest, abdomen, and legs were prepped and draped in usual sterile fashion. Greater saphenous vein was harvested from left thigh utilizing skip incisions. Wound was irrigated and closed in layers. Median sternotomy was performed. Left internal mammary artery was harvested as a pedicle graft. The patient was systemically heparinized. Distal pedicle was divided and infused with papaverine. Thymic fat and pericardium were divided with electrocautery. Pericardial stay sutures were placed. Aortic and atrial cannulation was performed. After adequate heparinization, retrograde pyelogram was performed and the patient was placed on cardiopulmonary bypass. Distal targets were marked. Aortic cross-clamp was applied and antegrade sanguineous Cardioplegic arrest obtained. 1 L of antegrade cold [place] cardioplegia was given. Topical cold solution was used. Reverse saphenous vein was anastomosed to diagonal in an end-to-side fashion with running 7-0 Prolene suture. Anastomosis was tested and was hemostatic. Reverse saphenous vein was anastomosed to the OM in an end-to-side fashion with running 7-0 Prolene suture. Anastomosis was tested and was hemostatic. The mammary artery was brought through one of the pericardium and anastomosed to mid LAD in an end-to-side fashion with running 7-0 Prolene suture. On release of mammary clamps, good hooding anastomosis and good distal flow. Pedicle was secured with interrupted 6-0 Prolene suture. The cross-clamp was removed and partial occluding clamp placed. Saphenous veins were anastomosed to puncture sized in the aorta with running 6-0 Prolene suture. Partial occluding clamp was removed. Anastomoses were inspected for hemostasis, which was good. The patient was warmed and weaned from cardiopulmonary bypass. After resumption of sinus rhythm, good hemodynamics, temperature greater than 36.5, bypass was discontinued. Transfusions were given. 24-[place] chest tubes x3 were placed in the mediastinum. Sternum was treated with vancomycin paste. Decannulation was performed with pursestring suture secured. After adequate hemostasis had been obtained, sternum was closed with #7 wire. Sternum was treated with platelet rich plasma. Wire was twisted and buried. Parasternal block was performed with Marcaine mixed with Decadron. The wounds were then copiously irrigated and treated with platelet poor plasma and closed in multiple layers. Needle, sponge, and instrument counts were all reported as correct at the end of the procedure. The patient tolerated the procedure well, was transferred to the intensive care unit in stable, but critical condition. Job ID: [id number]
--- NOTE | 2019-01-06 11:30 | RAD ---
XR Chest 1 View Portable HISTORY: Postop open heart surgery. Respiratory failure COMPARISON: 01/01/2019 FINDINGS: Interval changes of median sternotomy are seen. There is an endotracheal tube with tip just above the level of the syd. Chest tubes and mediastinal drains are present. No lobar consolidation, pneumothoraces or large effusions are identified.
[2019-01-06] MEDS ORDERED: Dextrose 50% Abboject 50 ML SYRINGE SLOW IVP PRN (11:31)
[2019-01-06] MEDS ORDERED: HUMULIN R 100 UNITS in Sodium Chloride 0.9% 100 ML IVPB SCH (11:31)
[2019-01-06] MEDS ORDERED: Dextrose 5% in Water 1,000 ML IV PRN (11:31)
[2019-01-06] MEDS ORDERED: Insulin Regular 300 UNITS/3 ML VIAL SC PRN (11:31)
[2019-01-06 11:32] LABS: Actual Bicarbonate (HCO3a) 23.8 mEq/L (22-28); Base Excess (BEa) -0.2 mEq/L (-2.0 to +3.0); CO2 Tension 35.7 mmHg (35.0-45.0); Calcium, Ionized 1.21 mmol/L (1.12-1.30); Carboxyhemoglobin (COHb) 0.9 gm% (0.0-3.0); Hemoglobin (Hb) 9.1 g/dL (12.0-16.0); O2 Tension (PaO2) 95.3 mmHg (80.0-100.0); pH, Arterial 7.44 (7.35-7.45)
[2019-01-06 11:34] LABS: #Eosinphils 0.1 thou/uL (0.0-0.7); #Lymphocytes 0.8 thou/uL (1.20-3.40); #Monocytes 0.5 thou/uL (0.11-0.59); #Neutrophils 8.4 thou/uL (1.40-6.50); %Basophils 0.1 % (0.0-1.0); %Eosinophils 0.9 % (0.0-10.0); %Monocytes 5.3 % (0.0-10.0); %Neutrophils 85.7 % (42.0-75.0); Mean Corpuscular HGB CONC 34.5 g/dL (32.0-36.0); Mean Corpuscular Hemoglobin 33.1 pg (27.0-31.0); Mean Platelet Volume 7.9 fL (7.4-10.4); Platelet Count 134 thou/uL (130-400); RBC Distribution Width 12.7 % (11.5-14.5); Red Blood Cell (RBC) Count 2.71 mill/uL (4.20-5.40); White Blood Cell (WBC) Count 9.8 thou/uL (4.8-10.8)
[2019-01-06] MEDS: Lisinopril 10 MG TAB PO SCH (11:36)
[2019-01-06] MEDS: Insulin Glargine 20 UNITS in Pre-Filled Syringe 1 EACH SC SCH (11:36)
[2019-01-06 11:42] LABS: INR-International Normal Ratio 1.3; PTT 34.1 SEC (22.9-36.1); Prothrombin Time 15.8 SEC (12.0-14.7)
[2019-01-06] MEDS: Ketorolac Tromethamine 30 MG/ML VIAL IVP SCH ×3 (11:43→23:55)
[2019-01-06 11:49] LABS: Puncture Site ALINE
[2019-01-06 11:50] LABS: ALV-art Gradient 145.275 (0-20)
[2019-01-06 11:59] LABS: Anion Gap 11 mmol/L (10-20); BUN (Urea Nitrogen) 23 mg/dL (9.8-20.1); Calc. Creatinine Clearance 100 mL/min (70-130); Carbon Dioxide 23 mmol/L (22-29); Chloride 103 mmol/L (98-107); Estimated GFR-MDRD 78; Glucose 134 mg/dL (70-105); Potassium 3.9 mmol/L (3.5-5.1); Sodium 133 mmol/L (136-145)
[2019-01-06] MEDS ORDERED: Albumin 25% 25 GM/100 ML BOT ONE (12:12)
[2019-01-06] MEDS ORDERED: Heparin 5,000 UNITS/ML VIAL ONE (12:12)
[2019-01-06] MEDS ORDERED: Ondansetron PF 4 MG/2 ML Vial ONE (12:12)
[2019-01-06] MEDS ORDERED: Protamine Sulfate 250 MG/25 ML VIAL ONE (12:12)
[2019-01-06] MEDS ORDERED: Sodium Bicarb 50 MEQ/50 ML VIAL ONE (12:12)
[2019-01-06] MEDS ORDERED: Rocuronium Bromide 10 MG/ML (10ML VIAL) ONE (12:12)
[2019-01-06] MEDS ORDERED: Ketorolac Tromethamine 30 MG/ML VIAL ONE (12:12)
[2019-01-06] MEDS ORDERED: Papaverine 60 MG/2 ML VIAL ONE (12:12)
[2019-01-06] MEDS ORDERED: PROPOFOL 200 MG/20 ML VIAL ONE (12:12)
[2019-01-06] MEDS ORDERED: Calcium Chloride 1 GM/10 ML Abboject SYRINGE ONE (12:12)
[2019-01-06] MEDS ORDERED: Magnesium 5 GM/10 ML VIAL ONE (12:12)
[2019-01-06] MEDS ORDERED: Thrombin 5000 UNITS/5 ML VIAL ONE (12:12)
[2019-01-06] MEDS ORDERED: ePHEDrine 50 MG/ML VIAL ONE (12:12)
[2019-01-06] MEDS ORDERED: Aminocaproic Acid 5 GM/20 ML VIAL ONE (12:12)
[2019-01-06] MEDS ORDERED: Heparin 30,000 units/30 ml VIAL ONE (12:12)
[2019-01-06] MEDS ORDERED: Lidocaine 2% PF 5 ML VIAL ONE (12:12)
[2019-01-06] MEDS ORDERED: Potassium Chloride 60 MEQ/30 ML VIAL ONE (12:12)
[2019-01-06] MEDS ORDERED: Mannitol 12.5 GM/50 ML ONE (12:12)
[2019-01-06] MEDS: Potassium Chloride 20 MEQ/100 ML PREMIX BAG IVPB PRN ×2 (12:46→17:55)
[2019-01-06] MEDS: CEFAZOLIN 2 GM in Premix Bag 1 BAG IVPB SCH ×2 (13:55→21:05)
--- NOTE | 2019-01-06 15:02 | PDOC.HOSPP ---
- Subjective Encounter Date: 01/06/19 Encounter Time: 15:00 Subjective: 58 y/o female, NH resident with frequent falls, DM COPD and others admitted with worsening SOB and edema. Started on oxygen and lasix for CHF exacerbation. Echo showed new systolic dysfunction and subsequent Cardiac cath showed severe Left coronary artery disease. Had CABG earlier today. Still intubated but awake. - Objective Vital Signs & Weight: Vital Signs (12 hours) Temp Pulse Resp BP BP Pulse Ox 01/06/19 14:47 70 01/06/19 14:00 97.5 F L 10 L 01/06/19 13:49 68 15 100 01/06/19 13:12 67 01/06/19 12:00 14 01/06/19 11:49 65 140/54 L 01/06/19 11:36 127/63 01/06/19 11:15 14 100 01/06/19 11:12 97.4 F L 65 01/06/19 05:27 127/63 01/06/19 04:10 98.3 F 61 20 123/58 L 96 Weight Weight 2.773 oz Most Recent Monitor Data Heart Rate from ECG 71 NIBP 88/55 NIBP BP-Mean 66 Respiration from ECG 13 SpO2 100 I&O: 01/05/19 01/06/19 01/07/19 06:59 06:59 06:59 Intake Total 720 730 100 Output Total 1000 2400 306 Balance -716 -6012 -952 Result Diagrams: 01/06/19 11:24 01/06/19 11:24 Additional Labs: Accuchecks 01/06/19 01/06/19 01/06/19 11:27 10:49 10:29 POC Glucose 142 H 123 H 120 H 01/06/19 01/06/19 01/06/19 10:00 09:31 08:59 POC Glucose 120 H 126 H 155 H 01/06/19 01/05/19 01/05/19 07:52 20:09 16:42 POC Glucose 165 H 204 H 147 H Hospitalist ROS - Medication Medications: Active Medications Generic Name Dose Route Start Last Admin Trade Name Freq PRN Reason Stop Dose Admin Albuterol/Ipratropium 3 ml 01/06/19 13:00 01/06/19 13:49 Duoneb NEB 3 ml [id number] CARLOS Administration Hydralazine HCl 10 mg 01/06/19 11:02 01/06/19 11:49 Apresoline SLOW IVP 10 mg Q6H PRN Administration To Maintain SBP< 140mmHG Cefazolin Sodium/Dextrose 2 gm 50 mls @ 100 mls/hr 01/06/19 14:00 01/06/19 13 :55 / Device IVPB 01/07/19 06:29 50 mls Q8HR CARLOS Administration Potassium Chloride/Dextrose/Sod Cl 1,000 mls @ 40 mls/hr 01/06/19 11:02 01/06 11:42 D5 1/2 Ns W/20 Meq Kcl IV 1,000 mls .Q24H CARLOS Administration Nitroglycerin/Dextrose 250 mls @ 0 mls/hr 01/06/19 11:02 01/06/19 12:39 Nitroglycerin 50 Mg/250 Ml Bot IVPB 250 mls PRN PRN Administration To Maintain SBP< 140mmHG Protocol Titrate Insulin Human Regular 0 units 01/06/19 11:31 01/06/19 11:44 Humulin R SC 3 unit Q4H PRN Administration POST OP SLIDING SCALE Protocol Ketorolac Tromethamine 30 mg 01/06/19 12:00 01/06/19 11:43 Toradol IVP 01/09/19 12:01 30 mg Q6HR CARLOS Administration Morphine Sulfate 2 mg 01/06/19 11:02 01/06/19 11:43 Morphine SLOW IVP 2 mg Q15MIN PRN Administration Severe Pain (7-10) Potassium Chloride 20 meq 01/06/19 11:02 01/06/19 12:46 Kcl IVPB 20 meq PRN PRN Administration K level </= 4.0 - Exam General Appearance: awake alert Eye: anicteric sclera ENT: normocephalic atraumatic ENT - other findings: ET tube in place Heart: RRR Respiratory - other findings: good air entry with vent transmitted sound Gastrointestinal: soft, non-distended, normal bowel sounds Gastrointestinal - other findings: [place] catheter in place Extremities: no cyanosis Neurological: cranial nerve grossly intact, no focal deficits Hosp A/P (1) CAD (coronary artery disease) Code(s): I25.10 - ATHSCL HEART DISEASE OF [place] CORONARY ARTERY W/O ANG PCTRS Status: Acute Qualifiers: Coronary Disease-Associated Artery/Lesion type: unspecified vessel or lesion type [place] vs. transplanted heart: [place] heart Associated angina: without angina Qualified Code(s): I25.10 - Atherosclerotic heart disease of [place] coronary artery without angina pectoris (2) Acute respiratory failure with hypoxia Code(s): J96.01 - ACUTE RESPIRATORY FAILURE WITH HYPOXIA Status: Acute (3) Acute CHF Code(s): I50.9 - HEART FAILURE, UNSPECIFIED Status: Acute Qualifiers: Heart failure type: systolic Qualified Code(s): I50.21 - Acute systolic ( congestive) heart failure (4) Diabetes mellitus, insulin dependent (IDDM), controlled Code(s): E11.9 - TYPE 2 DIABETES MELLITUS WITHOUT COMPLICATIONS; 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 sliding scale insulin to get better glycemic control. Monitor Hb, renal function and electrolytes
[2019-01-06 15:24] LABS: Actual Bicarbonate (HCO3a) 22.1 mEq/L (22-28); CO2 Tension 39.6 mmHg (35.0-45.0); Carboxyhemoglobin (COHb) 0.8 gm% (0.0-3.0); O2 Tension (PaO2) 143.8 mmHg (80.0-100.0); Potassium - ABG Lab 4.44 mmol/L (3.70-5.30); pH, Arterial 7.36 (7.35-7.45)
[2019-01-06 15:25] LABS: Puncture Site ALINE
[2019-01-06] MEDS: Fentanyl 100 MCG/2 ML VIAL SLOW IVP PRN ×3 (15:41→19:57)
[2019-01-06 17:04] LABS: Hemoglobin 9.5 g/dL (12.0-16.0)
[2019-01-06] MEDS ORDERED: Famotidine/PF 20 mg/2ml Vial SLOW IVP SCH (21:00)
[2019-01-06] MEDS ORDERED: Atorvastatin Calcium 20 MG TAB PO SCH (21:00)
[2019-01-07] MEDS: traMADol HCl 50 MG TAB PO PRN ×2 (04:13→21:27)
[2019-01-07] MEDS: Acetaminophen 325 MG TAB PO PRN (04:14)
[2019-01-07] MEDS: CEFAZOLIN 2 GM in Premix Bag 1 BAG IVPB SCH (05:12)
[2019-01-07 05:31] LABS: #Lymphocytes 0.7 thou/uL (1.20-3.40); #Monocytes 0.9 thou/uL (0.11-0.59); %Eosinophils 0.2 % (0.0-10.0); %Lymphocytes 7.1 % (21.0-51.0); %Monocytes 9.4 % (0.0-10.0); %Neutrophils 83.4 % (42.0-75.0); Hemoglobin 9.2 g/dL (12.0-16.0); Mean Corpuscular HGB CONC 33.5 g/dL (32.0-36.0); Mean Corpuscular Hemoglobin 32.9 pg (27.0-31.0); Platelet Count 146 thou/uL (130-400); RBC Distribution Width 12.7 % (11.5-14.5); White Blood Cell (WBC) Count 9.6 thou/uL (4.8-10.8)
[2019-01-07 05:47] LABS: Anion Gap 11 mmol/L (10-20); BUN (Urea Nitrogen) 26 mg/dL (9.8-20.1); Calc. Creatinine Clearance 89 mL/min (70-130); Calcium 8.9 mg/dL (7.8-10.44); Carbon Dioxide 25 mmol/L (22-29); Chloride 103 mmol/L (98-107); Estimated GFR-MDRD 69; Glucose 114 mg/dL (70-105); Potassium 4.9 mmol/L (3.5-5.1); Sodium 134 mmol/L (136-145)
[2019-01-07] MEDS: Ketorolac Tromethamine 30 MG/ML VIAL IVP SCH ×4 (06:11→23:51)
[2019-01-07] MEDS ORDERED: Dextrose 50% Abboject 50 ML SYRINGE SLOW IVP PRN (07:48)
[2019-01-07] MEDS ORDERED: Dextrose 5% in Water 1,000 ML IV PRN (07:48)
[2019-01-07] MEDS ORDERED: Atorvastatin Calcium 20 MG TAB PO SCH (07:49)
[2019-01-07] MEDS ORDERED: PROVENTIL INHALER 6.7 G (200 INHALATIONS) INH PRN (07:50)
--- NOTE | 2019-01-07 07:53 | RAD ---
EXAM: Single view of the chest HISTORY: Status post open heart surgery. COMPARISON: 01/06/2019 FINDINGS: Single view of the chest shows an enlarged but stable cardiomediastinal silhouette. The pa tient is status post sternotomy. The chest tubes are unchanged in position. There is a stable right subclavian central venous catheter which extends up the internal jugular vein. There is no evidence o f consolidation, mass, or pleural effusion. The bones are unremarkable. IMPRESSION: Stable exam
[2019-01-07] MEDS ORDERED: Furosemide 40 MG/4 ML VIAL SLOW IVP SCH (08:00)
[2019-01-07] MEDS: Magnesium 2 GM/50 ML 2 GM in Premix Bag 1 BAG IVPB SCH (08:22)
[2019-01-07] MEDS ORDERED: Aspirin 325 MG TAB PO SCH (09:00)
[2019-01-07] MEDS: Insulin Regular 300 UNITS/3 ML VIAL SC PRN (11:34)
--- NOTE | 2019-01-07 13:47 | PDOC.HOSPP ---
- Subjective Encounter Date: 01/07/19 Encounter Time: 13:45 Subjective: 58 y/o female, NH resident with frequent falls, DM COPD and others admitted with worsening SOB and edema. Started on oxygen and lasix for acute CHF with improvement. Echo showed new systolic dysfunction and subsequent cardiac cath showed severe Left coronary artery disease. s/p CABG on 01/06/2019. doing well. Off oxygen - Objective Vital Signs & Weight: Vital Signs (12 hours) Temp Pulse Pulse Pulse Resp BP BP 01/07/19 13:00 98.7 F 01/07/19 10:42 81 76 110/58 L 97/42 L 01/07/19 08:00 98.9 F 01/07/19 07:09 79 18 01/07/19 04:00 98.5 F Pulse Ox 01/07/19 13:00 01/07/19 10:42 01/07/19 08:00 01/07/19 07:09 100 01/07/19 04:00 Weight Weight 159 lb 9.835 oz Most Recent Monitor Data Heart Rate from ECG 80 NIBP 119/48 NIBP BP-Mean 71 Respiration from ECG 9 SpO2 98 I&O: 01/06/19 01/07/19 01/08/19 06:59 06:59 06:59 Intake Total 730 1143.7 Output Total 2400 1166 705 Balance -1670 -22.3 -705 Result Diagrams: 01/07/19 05:20 01/07/19 05:20 Additional Labs: Accuchecks 01/07/19 01/07/19 01/07/19 11:36 07:12 06:10 POC Glucose 196 H 151 H 124 H 01/07/19 01/07/19 01/07/19 05:13 04:20 03:07 POC Glucose 106 92 134 H 01/07/19 01/07/19 01/07/19 02:15 01:11 00:03 POC Glucose 137 H 124 H 128 H 01/06/19 01/06/19 01/06/19 23:29 22:14 21:07 POC Glucose 109 167 H 85 01/06/19 01/06/19 01/06/19 20:08 19:06 18:04 POC Glucose 81 122 H 161 H 01/06/19 01/06/19 01/06/19 16:56 16:20 15:06 POC Glucose 210 H 229 H 216 H 01/06/19 11:27 POC Glucose 142 H Hospitalist ROS - Medication Medications: Active Medications Generic Name Dose Route Start Last Admin Trade Name Freq PRN Reason Stop Dose Admin Acetaminophen 650 mg 01/06/19 11:02 01/07/19 04:14 Tylenol PO 650 mg Q6H PRN Administration Headache/Fever Or Mild Pain Albuterol/Ipratropium 3 ml 01/06/19 13:00 01/07/19 07:09 Duoneb NEB 3 ml Q4HS-MB CARLOS Administration Aspirin 325 mg 01/07/19 09:00 01/07/19 08:23 Aspirin PO 325 mg DAILY CARLOS Administration Fentanyl 50 mcg 01/06/19 11:02 01/06/19 19:57 Sublimaze SLOW IVP 01/08/19 10:56 50 mcg Q2H PRN Administration Severe Pain (7-10) Hydralazine HCl 10 mg 01/06/19 11:02 01/06/19 11:49 Apresoline SLOW IVP 10 mg Q6H PRN Administration To Maintain SBP< 140mmHG Magnesium Sulfate 2 gm/ Device 50 mls @ 50 mls/hr 01/07/19 09:00 01/07/19 08: 22 IVPB 01/08/19 09:59 50 mls QAM CARLOS Administration Ketorolac Tromethamine 30 mg 01/06/19 12:00 01/07/19 11:28 Toradol IVP 01/09/19 12:01 30 mg Q6HR CARLOS Administration Potassium Chloride 20 meq 01/06/19 11:02 01/06/19 17:55 Kcl IVPB 20 meq PRN PRN Administration K level </= 4.0 Sodium Chloride 10 ml 01/06/19 21:00 01/07/19 08:24 Flush - Normal Saline IVF 10 ml Q12HR CARLOS Administration Tramadol HCl 50 mg 01/06/19 11:02 01/07/19 04:13 Ultram PO 50 mg Q6H PRN Administration Moderate to Severe Pain (6-10) - Exam General Appearance: awake alert Eye: anicteric sclera ENT: normocephalic atraumatic Neck: symmetric Heart: RRR Respiratory: no wheezes, no ronchi Respiratory - other findings: fair air entry with few transmitted sound. Chedt tube in place Gastrointestinal: soft, non-tender, non-distended Extremities: no cyanosis Extremities - other findings: Left leg covered with dressing Neurological: cranial nerve grossly intact, no focal deficits Psychiatric: A&O x 3 Hosp A/P (1) CAD (coronary artery disease) Code(s): I25.10 - ATHSCL HEART DISEASE OF [place] CORONARY ARTERY W/O ANG PCTRS Status: Acute Qualifiers: Coronary Disease-Associated Artery/Lesion type: unspecified vessel or lesion type [place] vs. transplanted heart: [place] heart Associated angina: without angina Qualified Code(s): I25.10 - Atherosclerotic heart disease of [place] coronary artery without angina pectoris (2) Acute respiratory failure with hypoxia Code(s): J96.01 - ACUTE RESPIRATORY FAILURE WITH HYPOXIA Status: Resolved (3) Acute CHF Code(s): I50.9 - HEART FAILURE, UNSPECIFIED Status: Acute Qualifiers: Heart failure type: systolic Qualified Code(s): I50.21 - Acute systolic ( congestive) heart failure (4) Diabetes mellitus, insulin dependent (IDDM), controlled Code(s): E11.9 - TYPE 2 DIABETES MELLITUS WITHOUT COMPLICATIONS; Z79.4 - [employer] HOME (CURRENT) USE OF INSULIN Status: Chronic (5) Hyponatremia Code(s): E87.1 - HYPO-OSMOLALITY AND HYPONATREMIA Status: Acute - Plan Continue insulin therapy and adjust to get adequate glycemic control. Other treatment as per cardiology, CTS and Pulm/crit Monitor Hb, renal function and electrolytes PT eval and treatment
[2019-01-07] MEDS ORDERED: Bisacodyl 10 MG SUPP PR PRN (13:58)
[2019-01-07] MEDS ORDERED: Mineral Oil ENEMA PR PRN (13:58)
[2019-01-07] MEDS ORDERED: Mag-Al 1200 mg/1200 mg/30 ML UDCUP PO PRN (13:58)
[2019-01-07] MEDS ORDERED: Guaifenesin DM 100-10/5 ML UDCUP PO PRN (13:58)
[2019-01-07] MEDS ORDERED: diphenhydrAMINE 25 MG CAP PO PRN (13:58)
[2019-01-07] MEDS ORDERED: Nitroglycerin 0.4 MG TAB (25 Tab Bottle) SL PRN (13:58)
[2019-01-07] MEDS ORDERED: Artificial Tears 18 DROP/0.9 ML EA EYE PRN (13:58)
[2019-01-07] MEDS ORDERED: Milk Of Magnesia 30 ML UDCUP PO PRN (13:58)
[2019-01-07] MEDS ORDERED: Bisacodyl 5 MG TAB PO PRN (13:58)
[2019-01-07] MEDS ORDERED: Zolpidem Tartrate 5 MG TAB PO PRN (13:58)
[2019-01-07] MEDS ORDERED: Insulin Regular 300 UNITS/3 ML VIAL SC PRN (14:13)
[2019-01-07] MEDS: HumaLOG 300 UNITS/3 ML VIAL SC PRN ×2 (17:49→21:24)
[2019-01-07] MEDS: Famotidine 20 MG TAB PO SCH (20:17)
[2019-01-07] MEDS: Atorvastatin Calcium 40 MG TAB PO SCH (20:17)
[2019-01-07] MEDS ORDERED: INSULIN DEGLUDEC 24 UNIT SQ SCH (21:00)
[2019-01-07] MEDS ORDERED: Insulin Glargine 24 UNITS in Pre-Filled Syringe 1 EACH SC SCH (21:00)
--- NOTE | 2019-01-08 01:11 | CON ---
DATE OF CONSULTATION: 01/07/2019 HISTORY OF PRESENT ILLNESS: Ms. Wilson is a 59-year-old female, who has undergone coronary artery bypass grafting. I was consulted because of her presence in the critical care unit. She has no complaints, although she is not very talkative. She is not mechanically ventilated. She still had her chest tubes in when I evaluated her this morning. PAST MEDICAL HISTORY: Remarkable for 1. Lipid disorder. 2. Hypertension. 3. Diabetes. 4. Reported history of COPD. 5. History of cholecystectomy. 6. History of an appendectomy. 7. History of right knee surgery. 8. History of right great toe surgery. 9. History of D and C. FAMILY HISTORY: Positive for vascular disease and diabetes. Apparently, residing in a fdc. SOCIAL HISTORY: Not obtained. PHYSICAL EXAMINATION: GENERAL: Ms. Wilson is a 59-year-old female. VITAL SIGNS: She is afebrile, heart rate is 85, respiratory rate is 18, oximetry is 98% on room air, blood pressure 92/55. HEENT: Pupils are reactive. Sclerae are anicteric. Extraocular movements are full. She has poor dentition. NECK: Supple, no lymphadenopathy. LUNGS: Clear. HEART: Regular rhythm. S1 and S2 are normal. ABDOMEN: Soft and nontender. EXTREMITIES: Without clubbing, cyanosis, or edema. LABORATORY DATA: White count 9.6, hemoglobin 9.2, platelets 146. Sodium 134, potassium 4.9, chloride 103, bicarb 25, BUN 26, creatinine 0.84. IMPRESSION: 1. Status post coronary artery bypass grafting, clinically stable. 2. Diabetes. 3. Obesity. 4. Poor dentition. 5. Deconditioning. PLAN: Transfer out of critical care unit and okay with Thoracic Surgery. TIME SPENT: This is a 70-minute consult, with greater than 50% of the time was spent on the unit, coordinating care. Job ID: [id number] [id number]
[2019-01-08] MEDS: traMADol HCl 50 MG TAB PO PRN ×2 (02:58→17:00)
[2019-01-08] MEDS: Ketorolac Tromethamine 30 MG/ML VIAL IVP SCH ×3 (05:38→18:08)
[2019-01-08] MEDS: Magnesium 2 GM/50 ML 2 GM in Premix Bag 1 BAG IVPB SCH (08:30)
[2019-01-08] MEDS: Furosemide 40 MG TAB PO SCH (08:31)
[2019-01-08] MEDS: Famotidine 20 MG TAB PO SCH ×2 (08:31→20:52)
[2019-01-08] MEDS: Aspirin 325 mg Enteric Coated Tablet PO SCH (08:31)
[2019-01-08] MEDS: Potassium Chloride 10 MEQ TAB PO SCH (08:31)
[2019-01-08] MEDS: HumaLOG 300 UNITS/3 ML VIAL SC PRN ×2 (11:35→17:01)
[2019-01-08] MEDS: Ondansetron PF 4 MG/2 ML Vial IVP PRN (11:39)
--- NOTE | 2019-01-08 11:49 | PDOC.HOSPP ---
- Subjective Encounter Date: 01/08/19 Encounter Time: 08:48 Subjective: 58 y/o female, NH resident with frequent falls, DM COPD and others admitted with worsening SOB and edema. Started on oxygen and lasix for acute CHF with improvement. Echo showed new systolic dysfunction and subsequent cardiac cath showed severe Left coronary artery disease. s/p CABG on 01/06/2019. Doing well. No new problem. No SOB or fever. - Objective Vital Signs & Weight: Vital Signs (12 hours) Temp Pulse Resp BP BP Pulse Ox 01/08/19 08:00 99.1 F 78 17 114/54 L 98 01/08/19 06:46 74 16 95 01/08/19 03:05 97.7 F 75 18 110/51 L 92 L 01/08/19 01:14 93 L Weight Weight 178 lb 11.2 oz Most Recent Monitor Data Heart Rate from ECG 75 NIBP 107/53 NIBP BP-Mean 71 Respiration from ECG 20 SpO2 98 I&O: 01/07/19 01/08/19 01/09/19 06:59 06:59 06:59 Intake Total 1143.7 600 Output Total 1166 1305 Balance -22.3 -705 Result Diagrams: 01/07/19 05:20 01/07/19 05:20 Additional Labs: Accuchecks 01/08/19 01/08/19 01/07/19 11:12 05:29 20:57 POC Glucose 251 H 204 H 270 H 01/07/19 01/07/19 16:31 11:36 POC Glucose 232 H 196 H Hospitalist ROS - Medication Medications: Active Medications Generic Name Dose Route Start Last Admin Trade Name Freq PRN Reason Stop Dose Admin Acetaminophen 650 mg 01/06/19 11:02 01/07/19 04:14 Tylenol PO 650 mg Q6H PRN Administration Headache/Fever Or Mild Pain Albuterol/Ipratropium 3 ml 01/06/19 13:00 01/08/19 06:46 Duoneb NEB 3 ml [id number] CARLOS Administration Aspirin 325 mg 01/08/19 09:00 01/08/19 08:31 Ecotrin PO 325 mg DAILY CARLOS Administration Atorvastatin Calcium 40 mg 01/07/19 21:00 01/07/19 20:17 Lipitor PO 40 mg HS CARLOS Administration Famotidine 20 mg 01/07/19 21:00 01/08/19 08:31 Pepcid PO 20 mg BID CARLOS Administration Furosemide 40 mg 01/08/19 09:00 01/08/19 08:31 Lasix PO 40 mg DAILY CARLOS Administration Hydralazine HCl 10 mg 01/06/19 11:02 01/06/19 11:49 Apresoline SLOW IVP 10 mg Q6H PRN Administration To Maintain SBP< 140mmHG Insulin Human Lispro 0 units 01/07/19 07:48 01/08/19 11:35 Humalog SC 4 unit .MILD SLIDING SCALE PRN Administration Mild Correctional Scale Ketorolac Tromethamine 30 mg 01/06/19 12:00 01/08/19 11:35 Toradol IVP 01/09/19 12:01 30 mg Q6HR CARLOS Administration Ondansetron HCl 4 mg 01/06/19 11:02 01/08/19 11:39 Zofran IVP 4 mg Q6H PRN Administration Nausea/Vomiting Potassium Chloride 20 meq 01/06/19 11:02 01/06/19 17:55 Kcl IVPB 20 meq PRN PRN Administration K level </= 4.0 Potassium Chloride 10 meq 01/08/19 08:00 01/08/19 08:31 Klor-Con 10 PO 10 meq QAM-WM CARLOS Administration Sodium Chloride 10 ml 01/06/19 21:00 01/08/19 08:31 Flush - Normal Saline IVF 10 ml Q12HR CARLOS Administration Tramadol HCl 50 mg 01/06/19 11:02 01/08/19 02:58 Ultram PO 50 mg Q6H PRN Administration Moderate to Severe Pain (6-10) - Exam General Appearance: awake alert Eye: anicteric sclera ENT: normocephalic atraumatic Neck: supple, no JVD Heart: RRR Respiratory: no rales, no ronchi, normal chest expansion Respiratory - other findings: fair air entry with some tranmitted sound Gastrointestinal: soft, non-tender, non-distended, normal bowel sounds Extremities: no edema Neurological: cranial nerve grossly intact, no focal deficits Psychiatric: A&O x 3, flat affect Hosp A/P (1) CAD (coronary artery disease) Code(s): I25.10 - ATHSCL HEART DISEASE OF [place] CORONARY ARTERY W/O ANG PCTRS Status: Acute Qualifiers: Coronary Disease-Associated Artery/Lesion type: unspecified vessel or lesion type [place] vs. transplanted heart: [place] heart Associated angina: without angina Qualified Code(s): I25.10 - Atherosclerotic heart disease of [place] coronary artery without angina pectoris (2) Acute respiratory failure with hypoxia Code(s): J96.01 - ACUTE RESPIRATORY FAILURE WITH HYPOXIA Status: Resolved (3) Acute CHF Code(s): I50.9 - HEART FAILURE, UNSPECIFIED Status: Acute Qualifiers: Heart failure type: systolic Qualified Code(s): I50.21 - Acute systolic ( congestive) heart failure (4) Diabetes mellitus, insulin dependent (IDDM), controlled Code(s): E11.9 - TYPE 2 DIABETES MELLITUS WITHOUT COMPLICATIONS; Z79.4 - LAST CHALKER (CURRENT) USE OF INSULIN Status: Chronic (5) Hyponatremia Code(s): E87.1 - HYPO-OSMOLALITY AND HYPONATREMIA Status: Acute (6) Physical deconditioning Code(s): R53.81 - OTHER MALAISE Status: Acute - Plan Increase lantus to 30 HS. Continue sliding scale insulin. Start glucerna. Get Rehab screening. Other treatment as per cardiology and CTS Monitor Hb, renal function and electrolytes PT eval and treatment
--- NOTE | 2019-01-08 14:49 | PDOC.CPN ---
- Subjective Date: 01/08/19 Time: 14:52 Interval history: The pt seen and examined. No overnight events. No cardiac complaints. - Objective Allergies/Adverse Reactions: Allergies Allergy/AdvReac Type Severity Reaction Status Date / Time No Known Allergies Allergy Verified 11/29/17 20:50 Visit Medications: Current Medications Acetaminophen (Tylenol) 650 mg PO Q6H PRN PRN Reason: Headache/Fever Or Mild Pain Last Admin: 01/07/19 04:14 Dose: 650 mg Al Hydroxide/Mg Hydroxide (Maalox) 30 ml PO Q4H PRN PRN Reason: Indigestion Albuterol Sulfate (Proventil Hfa) 2 puff INH Q6H PRN PRN Reason: Wheezing Albuterol/Ipratropium (Duoneb) 3 ml NEB [id number] PRN PRN Reason: SHORTNESS OF BREATH Albuterol/Ipratropium (Duoneb) 3 ml NEB [id number] [facility] Last Admin: 01/08/19 13:34 Dose: 3 ml Artificial Tears (Tears Naturale) 0 drop EA EYE PRN PRN PRN Reason: Dry Eyes Aspirin (Ecotrin) 325 mg PO DAILY [facility] Last Admin: 01/08/19 08:31 Dose: 325 mg Atorvastatin Calcium (Lipitor) 40 mg PO HS [facility] Last Admin: 01/07/19 20:17 Dose: 40 mg Bisacodyl (Dulcolax) 10 mg PO Q12H PRN PRN Reason: Constipation Bisacodyl (Dulcolax) 10 mg NM Q12H PRN PRN Reason: Constipation Dextrose/Water (Dextrose 50%) 25 gm SLOW IVP PRN PRN PRN Reason: Hypoglycemia Diphenhydramine HCl (Benadryl) 25 mg PO Q6H PRN PRN Reason: Itching & Insomnia or Pito Chava Famotidine (Pepcid) 20 mg PO BID [facility] Last Admin: 01/08/19 08:31 Dose: 20 mg Furosemide (Lasix) 40 mg PO DAILY [facility] Last Admin: 01/08/19 08:31 Dose: 40 mg Glucagon (Glucagon) 1 mg IM PRN PRN PRN Reason: Hypoglycemia Guaifenesin/Dextromethorphan (Robitussin Dm) 15 ml PO Q4H PRN PRN Reason: Cough Hydralazine HCl (Apresoline) 10 mg SLOW IVP Q6H PRN PRN Reason: To Maintain SBP< 140mmHG Last Admin: 01/06/19 11:49 Dose: 10 mg Dextrose/Water (D5w) 1,000 mls @ 0 mls/hr IV .Q0M PRN PRN Reason: Hypoglycemia Insulin Glargine 30 units/ (Miscellaneous Medication) 0.3 mls @ 0 mls/hr SC HS [facility] Insulin Human Lispro (Humalog) 0 units SC .MILD SLIDING SCALE PRN PRN Reason: Mild Correctional Scale Last Admin: 01/08/19 11:35 Dose: 4 unit Insulin Human Regular (Humulin R) 0 units SC Q4H PRN; Protocol PRN Reason: POST OP SLIDING SCALE Ketorolac Tromethamine (Toradol) 30 mg IVP Q6HR [facility] Stop: 01/09/19 12:01 Last Admin: 01/08/19 11:35 Dose: 30 mg Magnesium Hydroxide (Milk Of Magnesium) 30 ml PO Q12H PRN PRN Reason: Constipation Mineral Oil (Fleet Mineral Oil) 133 ml NM DAILYPRN PRN PRN Reason: Constipation Nitroglycerin (Nitrostat) 0.4 mg SL Q5MIN PRN PRN Reason: Chest Pain Ondansetron HCl (Zofran) 4 mg IVP Q6H PRN PRN Reason: Nausea/Vomiting Last Admin: 01/08/19 11:39 Dose: 4 mg Potassium Chloride (Kcl) 20 meq IVPB PRN PRN PRN Reason: K level </= 4.0 Last Admin: 01/06/19 17:55 Dose: 20 meq Potassium Chloride (Klor-Con 10) 10 meq PO QAM-WM [facility] Last Admin: 01/08/19 08:31 Dose: 10 meq Promethazine HCl (Phenergan) 6.25 mg IM Q4H PRN PRN Reason: Nausea/Vomiting Sodium Chloride (Flush - Normal Saline) 10 ml IVF Q12HR [facility] Last Admin: 01/08/19 08:31 Dose: 10 ml Tramadol HCl (Ultram) 50 mg PO Q6H PRN PRN Reason: Moderate to Severe Pain (6-10) Last Admin: 01/08/19 02:58 Dose: 50 mg Zolpidem Tartrate (Ambien) 5 mg PO HSPRN PRN PRN Reason: Insomnia Vital Signs & Weight: Vital Signs Temp Pulse Pulse Pulse Resp BP BP 01/08/19 13:34 70 18 01/08/19 12:00 97.3 F L 72 18 01/08/19 10:31 72 72 132/62 116/51 L 01/08/19 08:00 99.1 F 78 17 01/08/19 06:46 74 16 01/08/19 03:05 97.7 F 75 18 BP BP Pulse Ox 01/08/19 13:34 96 01/08/19 12:00 132/62 97 01/08/19 10:31 01/08/19 08:00 114/54 L 98 01/08/19 06:46 95 01/08/19 03:05 110/51 L 92 L Weight 178 lb 11.2 oz - Physical Exam General: alert & oriented x3 HEENT: mucus membranes moist Cardiac: regular rate and rhythm, S1/S2 Lungs: decreased breath sounds Abdomen: unremarkable Skin: clear Musculoskeletal: decreased range of motion - Labs Result Diagrams: 01/07/19 05:20 01/07/19 05:20 Troponin/CKMB Troponin I Less than 0.010 ng/mL (< 0.028) 01/01/19 08:57 - Telemetry Sinus rhythms and dysrhythmias: sinus rhythm - Assessment/Plan Assessment/Plan: 1. CAD with S/p CABG x 3 on 01/06/2019 - stable with ASA and statin; will start BBlocker and CAMILA/ARB with stable VS 2. Acute on Chronic Systolic HF with EF 40-45% - stable with RA; no diuretic, BBlocker, or CAMILA/ARB due to hypotensive 3. DM type 2 4. HLD - on statin 5. Physical deconditioning [facility] reviewed * Dr Peterson pt Pt. seen and eval. by me. I agree with the A/P by the [employer]. RRR,chest clear. No significant edema. gjm
[2019-01-08] MEDS: Atorvastatin Calcium 40 MG TAB PO SCH (20:52)
[2019-01-08] MEDS: Insulin Glargine 30 UNITS in Pre-Filled Syringe 1 EACH SC SCH (20:52)
[2019-01-09] MEDS: Ketorolac Tromethamine 30 MG/ML VIAL IVP SCH ×3 (00:24→13:55)
[2019-01-09 05:35] LABS: Mean Corpuscular HGB CONC 33.9 g/dL (32.0-36.0); Mean Corpuscular Hemoglobin 33.6 pg (27.0-31.0); Mean Corpuscular Volume 99.1 fL (78.0-98.0); Mean Platelet Volume 8.7 fL (7.4-10.4); Platelet Count 134 thou/uL (130-400); RBC Distribution Width 12.6 % (11.5-14.5); Red Blood Cell (RBC) Count 2.68 mill/uL (4.20-5.40); White Blood Cell (WBC) Count 6.8 thou/uL (4.8-10.8)
[2019-01-09 05:58] LABS: Albumin 3.3 g/dL (3.5-5.0); Anion Gap 12 mmol/L (10-20); BUN (Urea Nitrogen) 31 mg/dL (9.8-20.1); BUN/Creatinine Ratio 30.39; Calc. Creatinine Clearance 79 mL/min (70-130); Calcium 8.9 mg/dL (7.8-10.44); Carbon Dioxide 25 mmol/L (22-29); Chloride 100 mmol/L (98-107); Estimated GFR-MDRD 55; Glucose 160 mg/dL (70-105); Phosphorus 3.8 mg/dL (2.3-4.7); Potassium 4.7 mmol/L (3.5-5.1); Sodium 132 mmol/L (136-145)
[2019-01-09] MEDS: Ondansetron PF 4 MG/2 ML Vial IVP PRN (09:09)
--- NOTE | 2019-01-09 10:12 | PDOC.HOSPP ---
- Subjective Encounter Date: 01/09/19 Encounter Time: 10:10 Subjective: Nausea present, Zofron was given - Objective Vital Signs & Weight: Vital Signs (12 hours) Temp Pulse Resp BP Pulse Ox 01/09/19 08:28 97.7 F 69 28 H 105/52 L 98 01/09/19 07:21 61 20 95 01/09/19 04:00 98.7 F 67 16 98/46 L 94 L 01/09/19 00:50 86 18 99 01/08/19 23:27 102/59 L Weight Weight 186 lb 6.4 oz Most Recent Monitor Data Heart Rate from ECG 75 NIBP 107/53 NIBP BP-Mean 71 Respiration from ECG 20 SpO2 98 I&O: 01/08/19 01/09/19 01/10/19 06:59 06:59 06:59 Intake Total 600 625 Output Total 1305 880 Balance -705 -992 Result Diagrams: 01/09/19 04:14 01/09/19 04:14 Additional Labs: Accuchecks 01/09/19 01/08/19 01/08/19 05:35 20:31 16:13 POC Glucose 170 H 263 H 269 H 01/08/19 01/06/19 11:12 05:18 POC Glucose 251 H 156 H Hospitalist ROS - Medication Medications: Active Medications Generic Name Dose Route Start Last Admin Trade Name Freq PRN Reason Stop Dose Admin Acetaminophen 650 mg 01/06/19 11:02 01/07/19 04:14 Tylenol PO 650 mg Q6H PRN Administration Headache/Fever Or Mild Pain Albuterol/Ipratropium 3 ml 01/06/19 13:00 01/09/19 07:21 Duoneb NEB 3 ml [id number] CARLOS Administration Aspirin 325 mg 01/08/19 09:00 01/08/19 08:31 Ecotrin PO 325 mg DAILY CARLOS Administration Atorvastatin Calcium 40 mg 01/07/19 21:00 01/08/19 20:52 Lipitor PO 40 mg HS CARLOS Administration Famotidine 20 mg 01/07/19 21:00 01/08/19 20:52 Pepcid PO 20 mg BID CARLOS Administration Furosemide 40 mg 01/08/19 09:00 01/08/19 08:31 Lasix PO 40 mg DAILY CARLOS Administration Hydralazine HCl 10 mg 01/06/19 11:02 01/06/19 11:49 Apresoline SLOW IVP 10 mg Q6H PRN Administration To Maintain SBP< 140mmHG Insulin Glargine 30 units/ 0.3 mls @ 0 mls/hr 01/08/19 21:00 01/08/19 20:52 Miscellaneous Medication SC 0.3 mls HS CARLOS Administration Insulin Human Lispro 0 units 01/07/19 07:48 01/08/19 17:01 Humalog SC 4 unit .MILD SLIDING SCALE PRN Administration Mild Correctional Scale Ketorolac Tromethamine 30 mg 01/06/19 12:00 01/09/19 05:57 Toradol IVP 01/09/19 12:01 30 mg Q6HR CARLOS Administration Ondansetron HCl 4 mg 01/06/19 11:02 01/09/19 09:09 Zofran IVP 4 mg Q6H PRN Administration Nausea/Vomiting Potassium Chloride 20 meq 01/06/19 11:02 01/06/19 17:55 Kcl IVPB 20 meq PRN PRN Administration K level </= 4.0 Potassium Chloride 10 meq 01/08/19 08:00 01/08/19 08:31 Klor-Con 10 PO 10 meq QAM-WM CARLOS Administration Tramadol HCl 50 mg 01/06/19 11:02 01/08/19 17:00 Ultram PO 50 mg Q6H PRN Administration Moderate to Severe Pain (6-10) - Exam General Appearance: NAD, awake alert, ill appearing Eye: PERRL, anicteric sclera, scleral icterus ENT: normocephalic atraumatic, no oropharyngeal lesions, moist mucosa, dry oral mucosa Neck: supple, symmetric, no JVD, no thyromegaly, no lymphadenopathy, no carotid bruit, JVD Heart: RRR, no murmur, no gallops, no rubs, normal peripheral pulses, irregular , diminshed peripheral pulses, murmur present, II/IV, III/IV Respiratory: CTAB, no wheezes, no rales, no ronchi, normal chest expansion, no tachypnea, normal percussion, rales, rhonchi, tachypneic, wheezes Gastrointestinal: soft, non-tender, non-distended, normal bowel sounds, no palpable masses, no hepatomegaly, no splenomegaly, no bruit, no guarding, no rigidity, tender to palpation, distended, diminished bowl sounds, voluntary guarding Hosp A/P (1) Nausea Code(s): R11.0 - NAUSEA Status: Acute (2) Nausea & vomiting Code(s): R11.2 - NAUSEA WITH VOMITING, UNSPECIFIED Status: Acute (3) CAD (coronary artery disease) Code(s): I25.10 - ATHSCL HEART DISEASE OF [place] CORONARY ARTERY W/O ANG PCTRS Status: Acute Qualifiers: Coronary Disease-Associated Artery/Lesion type: unspecified vessel or lesion type [place] vs. transplanted heart: [place] heart Associated angina: without angina Qualified Code(s): I25.10 - Atherosclerotic heart disease of [place] coronary artery without angina pectoris (4) Physical deconditioning Code(s): R53.81 - OTHER MALAISE Status: Acute - Plan Add brian PT continued. Ambulate the patient. Apreciate cardiology input.
[2019-01-09] MEDS: Furosemide 40 MG TAB PO SCH (10:48)
[2019-01-09] MEDS: Potassium Chloride 10 MEQ TAB PO SCH (10:48)
[2019-01-09] MEDS: Aspirin 325 mg Enteric Coated Tablet PO SCH (10:48)
[2019-01-09] MEDS: Famotidine 20 MG TAB PO SCH ×2 (10:48→20:34)
[2019-01-09] MEDS: HumaLOG 300 UNITS/3 ML VIAL SC PRN ×2 (13:57→17:27)
--- NOTE | 2019-01-09 15:18 | PDOC.CPN ---
- Subjective Date: 01/09/19 Time: 15:19 Interval history: The pt seen and examined. No overnight events. No cardiac complaints - Objective Allergies/Adverse Reactions: Allergies Allergy/AdvReac Type Severity Reaction Status Date / Time No Known Allergies Allergy Verified 11/29/17 20:50 Visit Medications: Current Medications Acetaminophen (Tylenol) 650 mg PO Q6H PRN PRN Reason: Headache/Fever Or Mild Pain Last Admin: 01/07/19 04:14 Dose: 650 mg Al Hydroxide/Mg Hydroxide (Maalox) 30 ml PO Q4H PRN PRN Reason: Indigestion Albuterol Sulfate (Proventil Hfa) 2 puff INH Q6H PRN PRN Reason: Wheezing Albuterol/Ipratropium (Duoneb) 3 ml NEB [id number] PRN PRN Reason: SHORTNESS OF BREATH Albuterol/Ipratropium (Duoneb) 3 ml NEB [id number] Last Admin: 01/09/19 13:50 Dose: 3 ml Artificial Tears (Tears Naturale) 0 drop EA EYE PRN PRN PRN Reason: Dry Eyes Aspirin (Ecotrin) 325 mg PO DAILY [facility] Last Admin: 01/09/19 10:48 Dose: 325 mg Atorvastatin Calcium (Lipitor) 40 mg PO HS [facility] Last Admin: 01/08/19 20:52 Dose: 40 mg Bisacodyl (Dulcolax) 10 mg PO Q12H PRN PRN Reason: Constipation Bisacodyl (Dulcolax) [address] Q12H PRN PRN Reason: Constipation Dextrose/Water (Dextrose 50%) 25 gm SLOW IVP PRN PRN PRN Reason: Hypoglycemia Diphenhydramine HCl (Benadryl) 25 mg PO Q6H PRN PRN Reason: Itching & Insomnia or Pito Chava Famotidine (Pepcid) 20 mg PO BID [facility] Last Admin: 01/09/19 10:48 Dose: 20 mg Furosemide (Lasix) 40 mg PO DAILY [facility] Last Admin: 01/09/19 10:48 Dose: 40 mg Glucagon (Glucagon) 1 mg IM PRN PRN PRN Reason: Hypoglycemia Guaifenesin/Dextromethorphan (Robitussin Dm) 15 ml PO Q4H PRN PRN Reason: Cough Hydralazine HCl (Apresoline) 10 mg SLOW IVP Q6H PRN PRN Reason: To Maintain SBP< 140mmHG Last Admin: 01/06/19 11:49 Dose: 10 mg Dextrose/Water (D5w) 1,000 mls @ 0 mls/hr IV .Q0M PRN PRN Reason: Hypoglycemia Insulin Glargine 30 units/ (Miscellaneous Medication) 0.3 mls @ 0 mls/hr SC HS [facility] Last Admin: 01/08/19 20:52 Dose: 0.3 mls Insulin Human Lispro (Humalog) 0 units SC .MILD SLIDING SCALE PRN PRN Reason: Mild Correctional Scale Last Admin: 01/09/19 13:57 Dose: 3 unit Insulin Human Regular (Humulin R) 0 units SC Q4H PRN; Protocol PRN Reason: POST OP SLIDING SCALE Magnesium Hydroxide (Milk Of Magnesium) 30 ml PO Q12H PRN PRN Reason: Constipation Mineral Oil (Fleet Mineral Oil) [address] DAILYPRN PRN PRN Reason: Constipation Nitroglycerin (Nitrostat) 0.4 mg SL Q5MIN PRN PRN Reason: Chest Pain Ondansetron HCl (Zofran) 4 mg IVP Q6H PRN PRN Reason: Nausea/Vomiting Last Admin: 01/09/19 09:09 Dose: 4 mg Potassium Chloride (Kcl) 20 meq IVPB PRN PRN PRN Reason: K level </= 4.0 Last Admin: 01/06/19 17:55 Dose: 20 meq Potassium Chloride (Klor-Con 10) 10 meq PO QAM-WM [facility] Last Admin: 01/09/19 10:48 Dose: 10 meq Promethazine HCl (Phenergan) 6.25 mg IM Q4H PRN PRN Reason: Nausea/Vomiting Sodium Chloride (Flush - Normal Saline) 10 ml IVF Q12HR [facility] Last Admin: 01/09/19 13:56 Dose: 10 ml Tramadol HCl (Ultram) 50 mg PO Q6H PRN PRN Reason: Moderate to Severe Pain (6-10) Last Admin: 01/08/19 17:00 Dose: 50 mg Zolpidem Tartrate (Ambien) 5 mg PO HSPRN PRN PRN Reason: Insomnia Vital Signs & Weight: Vital Signs Temp Pulse Resp BP BP BP Pulse Ox 01/09/19 13:50 65 16 94 L 01/09/19 11:52 97.7 F 65 18 126/60 96 01/09/19 08:46 133/60 113/56 L 01/09/19 08:28 97.7 F 69 28 H 105/52 L 98 01/09/19 07:21 61 20 95 01/09/19 04:00 98.7 F 67 16 98/46 L 94 L Weight 186 lb 6.4 oz - Physical Exam General: alert & oriented x3 HEENT: mucus membranes moist Neck: supple neck Cardiac: regular rate and rhythm, S1/S2 Lungs: decreased breath sounds Extremities: no cyanosis Skin: clear Musculoskeletal: decreased range of motion - Labs Result Diagrams: 01/09/19 04:14 01/09/19 04:14 Troponin/CKMB Troponin I Less than 0.010 ng/mL (< 0.028) 01/01/19 08:57 - Telemetry Sinus rhythms and dysrhythmias: sinus rhythm - Assessment/Plan Assessment/Plan: 1. CAD with S/p CABG x 3 on 01/06/2019 - stable with ASA and statin; will start BBlocker and CAMILA/ARB with stable VS 2. Acute on Chronic Systolic HF with EF 40-45% - stable with RA; no diuretic, BBlocker, or CAMILA/ARB due to hypotensive 3. DM type 2 4. HLD - on statin 5. Physical deconditioning [facility] reviewed * Dr Peterson pt
[2019-01-09] MEDS: traMADol HCl 50 MG TAB PO PRN (17:26)
[2019-01-09] MEDS: Acetaminophen 325 MG TAB PO PRN (17:26)
[2019-01-09] MEDS: Atorvastatin Calcium 40 MG TAB PO SCH (20:34)
[2019-01-09] MEDS: Insulin Glargine 30 UNITS in Pre-Filled Syringe 1 EACH SC SCH (20:34)
[2019-01-10] MEDS: traMADol HCl 50 MG TAB PO PRN ×3 (00:18→20:18)
[2019-01-10] MEDS: Furosemide 40 MG TAB PO SCH (08:08)
[2019-01-10] MEDS: Aspirin 325 mg Enteric Coated Tablet PO SCH (08:08)
[2019-01-10] MEDS: Potassium Chloride 10 MEQ TAB PO SCH (08:08)
[2019-01-10] MEDS: Famotidine 20 MG TAB PO SCH ×2 (08:09→20:18)
[2019-01-10] MEDS: HumaLOG 300 UNITS/3 ML VIAL SC PRN (08:10)
[2019-01-10] MEDS: Enoxaparin Sodium 40 MG/0.4 ML SYRINGE SC SCH (09:30)
[2019-01-10] MEDS: Ondansetron PF 4 MG/2 ML Vial IVP PRN ×2 (11:39→20:19)
--- NOTE | 2019-01-10 14:11 | PDOC.HOSPP ---
- Subjective Encounter Date: 01/10/19 Encounter Time: 14:10 Subjective: he patient feels better - Objective Vital Signs & Weight: Vital Signs (12 hours) Temp Pulse Resp BP BP Pulse Ox 01/10/19 12:55 66 16 100 01/10/19 11:23 97.5 F L 70 12 154/68 H 98 01/10/19 08:06 97.4 F L 71 16 137/65 94 L 01/10/19 06:51 65 18 100 01/10/19 04:00 97.4 F L 67 20 132/63 97 Weight Weight 184 lb 1.6 oz Most Recent Monitor Data Heart Rate from ECG 75 NIBP 107/53 NIBP BP-Mean 71 Respiration from ECG 20 SpO2 98 I&O: 01/09/19 01/10/19 01/11/19 06:59 06:59 06:59 Intake Total 625 240 Output Total 880 450 Balance -255 -210 Result Diagrams: 01/09/19 04:14 01/09/19 04:14 Additional Labs: Accuchecks 01/10/19 01/10/19 01/09/19 10:41 05:45 20:24 POC Glucose 147 H 176 H 211 H 01/09/19 16:28 POC Glucose 179 H Hospitalist ROS - Medication Medications: Active Medications Generic Name Dose Route Start Last Admin Trade Name Freq PRN Reason Stop Dose Admin Acetaminophen 650 mg 01/06/19 11:02 01/09/19 17:26 Tylenol PO 650 mg Q6H PRN Administration Headache/Fever Or Mild Pain Albuterol/Ipratropium 3 ml 01/06/19 13:00 01/10/19 12:55 Duoneb NEB 3 ml [id number] CARLOS Administration Aspirin 325 mg 01/08/19 09:00 01/10/19 08:08 Ecotrin PO 325 mg DAILY CARLOS Administration Atorvastatin Calcium 40 mg 01/07/19 21:00 01/09/19 20:34 Lipitor PO 40 mg HS CARLOS Administration Enoxaparin Sodium 40 mg 01/10/19 09:00 01/10/19 09:30 Lovenox SC 40 mg 0900 CARLOS Administration Famotidine 20 mg 01/07/19 21:00 01/10/19 08:09 Pepcid PO 20 mg BID CARLOS Administration Furosemide 40 mg 01/08/19 09:00 01/10/19 08:08 Lasix PO 40 mg DAILY CARLOS Administration Hydralazine HCl 10 mg 01/06/19 11:02 01/06/19 11:49 Apresoline SLOW IVP 10 mg Q6H PRN Administration To Maintain SBP< 140mmHG Insulin Glargine 30 units/ 0.3 mls @ 0 mls/hr 01/08/19 21:00 01/09/19 20:34 Miscellaneous Medication SC 0.3 mls HS CARLOS Administration Insulin Human Lispro 0 units 01/07/19 07:48 01/10/19 08:10 Humalog SC 2 unit .MILD SLIDING SCALE PRN Administration Mild Correctional Scale Ondansetron HCl 4 mg 01/06/19 11:02 01/10/19 11:39 Zofran IVP 4 mg Q6H PRN Administration Nausea/Vomiting Potassium Chloride 20 meq 01/06/19 11:02 01/06/19 17:55 Kcl IVPB 20 meq PRN PRN Administration K level </= 4.0 Potassium Chloride 10 meq 01/08/19 08:00 01/10/19 08:08 Klor-Con 10 PO 10 meq QAM-WM CARLOS Administration Sodium Chloride 10 ml 01/06/19 21:00 01/10/19 08:10 Flush - Normal Saline IVF 10 ml Q12HR CARLOS Administration Tramadol HCl 50 mg 01/06/19 11:02 01/10/19 08:09 Ultram PO 50 mg Q6H PRN Administration Moderate to Severe Pain (6-10) - Exam General Appearance: NAD, awake alert, ill appearing Eye: PERRL, anicteric sclera, scleral icterus ENT: normocephalic atraumatic, no oropharyngeal lesions, moist mucosa, dry oral mucosa Neck: supple, symmetric, no JVD, no thyromegaly, no lymphadenopathy, no carotid bruit, JVD Heart: RRR, no murmur, no gallops, no rubs, normal peripheral pulses, irregular , diminshed peripheral pulses, murmur present, II/IV, III/IV Respiratory: CTAB, no wheezes, no rales, no ronchi, normal chest expansion, no tachypnea, normal percussion, rales, rhonchi, tachypneic, wheezes Gastrointestinal: soft, non-tender, non-distended, normal bowel sounds, no palpable masses, no hepatomegaly, no splenomegaly, no bruit, no guarding, no rigidity, tender to palpation, distended, diminished bowl sounds, voluntary guarding Hosp A/P (1) Nausea Code(s): R11.0 - NAUSEA Status: Acute (2) Nausea & vomiting Code(s): R11.2 - NAUSEA WITH VOMITING, UNSPECIFIED Status: Acute (3) CAD (coronary artery disease) Code(s): I25.10 - ATHSCL HEART DISEASE OF [place] CORONARY ARTERY W/O ANG PCTRS Status: Acute Qualifiers: Coronary Disease-Associated Artery/Lesion type: unspecified vessel or lesion type [place] vs. transplanted heart: [place] heart Associated angina: without angina Qualified Code(s): I25.10 - Atherosclerotic heart disease of [place] coronary artery without angina pectoris (4) Physical deconditioning Code(s): R53.81 - OTHER MALAISE Status: Acute - Plan Add brian, PT continued. Ambulate the patient. Apreciate cardiology input.Consider SNF evaluation
[2019-01-10] MEDS: Metoclopramide HCl 10 MG/2 ML VIAL IVP SCH ×2 (17:42→23:46)
[2019-01-10] MEDS: Atorvastatin Calcium 40 MG TAB PO SCH (20:18)
[2019-01-10] MEDS: Insulin Glargine 30 UNITS in Pre-Filled Syringe 1 EACH SC SCH (22:02)
[2019-01-11] MEDS: traMADol HCl 50 MG TAB PO PRN ×2 (05:04→19:21)
[2019-01-11] MEDS: Metoclopramide HCl 10 MG/2 ML VIAL IVP SCH ×4 (05:05→23:46)
[2019-01-11] MEDS: Aspirin 325 mg Enteric Coated Tablet PO SCH (08:08)
[2019-01-11] MEDS: Famotidine 20 MG TAB PO SCH ×2 (08:08→20:12)
[2019-01-11] MEDS: Enoxaparin Sodium 40 MG/0.4 ML SYRINGE SC SCH (08:09)
[2019-01-11] MEDS: Furosemide 40 MG TAB PO SCH (08:09)
[2019-01-11] MEDS: Potassium Chloride 10 MEQ TAB PO SCH (08:09)
[2019-01-11] MEDS: HumaLOG 300 UNITS/3 ML VIAL SC PRN ×3 (08:10→18:10)
--- NOTE | 2019-01-11 10:25 | EKG ---
Test Reason : POST CABG Blood Pressure : / mmHG Vent. Rate : 066 BPM Atrial Rate : 066 BPM P-R Int : 144 ms QRS Dur : 082 ms QT Int : 556 ms P-R-T Axes : 051 -21 043 degrees QTc Int : 582 ms Normal sinus rhythm Prolonged QT Abnormal ECG When compared with ECG of 01-JAN-2019 02:46, (Unconfirmed) QT has lengthened Confirmed by PATY NEVES, ALBERT ([id number]) on 01/11/2019 10:25:28 AM Referred By: HARRIS Confirmed By:ALBERT NWEMAN MD
[2019-01-11 11:36] LABS: Actual Bicarbonate (HCO3a) 20.4 mEq/L (22-28); Analyzer IN Cardio OR; CO2 Tension 34.7 mmHg (35.0-45.0); Calcium, Ionized 1.07 mmol/L (1.12-1.30); Carboxyhemoglobin (COHb) 0.6 gm% (0.0-3.0); Hemoglobin (Hb) 10.2 g/dL (12.0-16.0); O2 Tension (PaO2) 365.9 mmHg (80.0-100.0); Potassium - ABG Lab 3.76 mmol/L (3.70-5.30); pH, Arterial 7.39 (7.35-7.45)
[2019-01-11 11:36] LABS: Actual Bicarbonate (HCO3a) 22.2 mEq/L (22-28); Analyzer IN Cardio OR; Base Excess (BEa) -1.1 mEq/L (-2.0 to +3.0); CO2 Tension 32.1 mmHg (35.0-45.0); Calcium, Ionized 1.08 mmol/L (1.12-1.30); Carboxyhemoglobin (COHb) 0.4 gm% (0.0-3.0); Hemoglobin (Hb) 10.4 g/dL (12.0-16.0); O2 Tension (PaO2) 430.4 mmHg (80.0-100.0); Potassium - ABG Lab 3.85 mmol/L (3.70-5.30); pH, Arterial 7.46 (7.35-7.45)
[2019-01-11 11:37] LABS: Actual Bicarbonate (HCO3a) 26.8 mEq/L (22-28); Analyzer IN Cardio OR; Base Excess (BEa) 0.7 mEq/L (-2.0 to +3.0); CO2 Tension 51.2 mmHg (35.0-45.0); Calcium, Ionized 0.97 mmol/L (1.12-1.30); Carboxyhemoglobin (COHb) 1.3 gm% (0.0-3.0); Potassium - ABG Lab 3.46 mmol/L (3.70-5.30); pH, Arterial 7.34 (7.35-7.45)
[2019-01-11 11:37] LABS: Actual Bicarbonate (HCO3a) 25.2 mEq/L (22-28); Analyzer IN Cardio OR; Base Excess (BEa) -0.7 mEq/L (-2.0 to +3.0); CO2 Tension 48.6 mmHg (35.0-45.0); Calcium, Ionized 1.15 mmol/L (1.12-1.30); Hemoglobin (Hb) 7.2 g/dL (12.0-16.0); O2 Tension (PaO2) 468.3 mmHg (80.0-100.0); Potassium - ABG Lab 4.11 mmol/L (3.70-5.30); pH, Arterial 7.33 (7.35-7.45)
[2019-01-11 11:37] LABS: Actual Bicarbonate (HCO3a) 22.7 mEq/L (22-28); Analyzer IN Cardio OR; Base Excess (BEa) -1.1 mEq/L (-2.0 to +3.0); CO2 Tension 33.7 mmHg (35.0-45.0); Calcium, Ionized 1.24 mmol/L (1.12-1.30); Carboxyhemoglobin (COHb) 1.3 gm% (0.0-3.0); Hemoglobin (Hb) 7.2 g/dL (12.0-16.0); O2 Tension (PaO2) 332.8 mmHg (80.0-100.0); Potassium - ABG Lab 3.68 mmol/L (3.70-5.30); pH, Arterial 7.45 (7.35-7.45)
[2019-01-11 11:38] LABS: Actual Bicarbonate (HCO3a) 22.9 mEq/L (22-28); Analyzer IN Cardio OR; Base Excess (BEa) -1.3 mEq/L (-2.0 to +3.0); CO2 Tension 35.8 mmHg (35.0-45.0); Calcium, Ionized 1.23 mmol/L (1.12-1.30); Hemoglobin (Hb) 8.7 g/dL (12.0-16.0); O2 Tension (PaO2) 331.3 mmHg (80.0-100.0); pH, Arterial 7.42 (7.35-7.45)
[2019-01-11 11:38] LABS: Puncture Site ALINE
[2019-01-11 11:39] LABS: Puncture Site ALINE
[2019-01-11 11:40] LABS: Puncture Site ALINE
[2019-01-11 11:40] LABS: Puncture Site ALINE
[2019-01-11 11:40] LABS: Puncture Site ALINE
[2019-01-11 11:41] LABS: Puncture Site ALINE
--- NOTE | 2019-01-11 14:08 | PDOC.HOSPP ---
- Subjective Encounter Date: 01/11/19 Encounter Time: 14:07 Subjective: No new complaints - Objective Vital Signs & Weight: Vital Signs (12 hours) Temp Pulse Resp BP Pulse Ox 01/11/19 11:45 97.5 F L 67 18 114/58 L 94 L 01/11/19 08:00 97.4 F L 75 16 123/59 L 93 L 01/11/19 06:46 64 16 94 L 01/11/19 04:00 97.7 F 76 16 108/49 L 94 L Weight Weight 179 lb 1.6 oz Most Recent Monitor Data Heart Rate from ECG 75 NIBP 107/53 NIBP BP-Mean 71 Respiration from ECG 20 SpO2 98 I&O: 01/10/19 01/11/19 01/12/19 06:59 06:59 06:59 Intake Total 240 720 Output Total 450 1400 Balance -210 -680 Result Diagrams: 01/09/19 04:14 01/09/19 04:14 Additional Labs: Accuchecks 01/11/19 01/11/19 01/10/19 10:38 05:48 20:20 POC Glucose 195 H 189 H 229 H 01/10/19 15:34 POC Glucose 247 H Hospitalist ROS - Medication Medications: Active Medications Generic Name Dose Route Start Last Admin Trade Name Freq PRN Reason Stop Dose Admin Acetaminophen 650 mg 01/06/19 11:02 01/09/19 17:26 Tylenol PO 650 mg Q6H PRN Administration Headache/Fever Or Mild Pain Albuterol/Ipratropium 3 ml 01/06/19 13:00 01/11/19 12:18 Duoneb NEB 3 ml [id number] CARLOS Administration Aspirin 325 mg 01/08/19 09:00 01/11/19 08:08 Ecotrin PO 325 mg DAILY CARLOS Administration Atorvastatin Calcium 40 mg 01/07/19 21:00 01/10/19 20:18 Lipitor PO 40 mg HS CARLOS Administration Enoxaparin Sodium 40 mg 01/10/19 09:00 01/11/19 08:09 Lovenox SC 40 mg 0900 CARLOS Administration Famotidine 20 mg 01/07/19 21:00 01/11/19 08:08 Pepcid PO 20 mg BID CARLOS Administration Hydralazine HCl 10 mg 01/06/19 11:02 01/06/19 11:49 Apresoline SLOW IVP 10 mg Q6H PRN Administration To Maintain SBP< 140mmHG Insulin Glargine 30 units/ 0.3 mls @ 0 mls/hr 01/08/19 21:00 01/10/19 22:02 Miscellaneous Medication SC Not Given HS CARLOS Insulin Human Lispro 0 units 01/07/19 07:48 01/11/19 11:42 Humalog SC 2 unit .MILD SLIDING SCALE PRN Administration Mild Correctional Scale Metoclopramide HCl 10 mg 01/10/19 18:00 01/11/19 11:42 Reglan IVP 10 mg Q6HR CARLOS Administration Ondansetron HCl 4 mg 01/06/19 11:02 01/10/19 20:19 Zofran IVP 4 mg Q6H PRN Administration Nausea/Vomiting Potassium Chloride 20 meq 01/06/19 11:02 01/06/19 17:55 Kcl IVPB 20 meq PRN PRN Administration K level </= 4.0 Potassium Chloride 10 meq 01/08/19 08:00 01/11/19 08:09 Klor-Con 10 PO 10 meq QAM-WM CARLOS Administration Sodium Chloride 10 ml 01/06/19 21:00 01/11/19 09:47 Flush - Normal Saline IVF 10 ml Q12HR CARLOS Administration Tramadol HCl 50 mg 01/06/19 11:02 01/11/19 05:04 Ultram PO 50 mg Q6H PRN Administration Moderate to Severe Pain (6-10) - Exam General Appearance: NAD, awake alert, ill appearing Eye: PERRL, anicteric sclera, scleral icterus ENT: normocephalic atraumatic, no oropharyngeal lesions, moist mucosa, dry oral mucosa Neck: supple, symmetric, no JVD, no thyromegaly, no lymphadenopathy, no carotid bruit, JVD Heart: RRR, no murmur, no gallops, no rubs, normal peripheral pulses, irregular , diminshed peripheral pulses, murmur present, II/IV, III/IV Respiratory: CTAB, no wheezes, no rales, no ronchi, normal chest expansion, no tachypnea, normal percussion, rales, rhonchi, tachypneic, wheezes Gastrointestinal: soft, non-tender, non-distended, normal bowel sounds, no palpable masses, no hepatomegaly, no splenomegaly, no bruit, no guarding, no rigidity, tender to palpation, distended, diminished bowl sounds, voluntary guarding Hosp A/P (1) Nausea Code(s): R11.0 - NAUSEA Status: Acute (2) Nausea & vomiting Code(s): R11.2 - NAUSEA WITH VOMITING, UNSPECIFIED Status: Acute (3) CAD (coronary artery disease) Code(s): I25.10 - ATHSCL HEART DISEASE OF [place] CORONARY ARTERY W/O ANG PCTRS Status: Acute Qualifiers: Coronary Disease-Associated Artery/Lesion type: unspecified vessel or lesion type [place] vs. transplanted heart: [place] heart Associated angina: without angina Qualified Code(s): I25.10 - Atherosclerotic heart disease of [place] coronary artery without angina pectoris (4) Physical deconditioning Code(s): R53.81 - OTHER MALAISE Status: Acute - Plan Add zofron, PT continued. Ambulate the patient. Apreciate cardiology input.Consider LTAC evaluation
[2019-01-11] MEDS: Atorvastatin Calcium 40 MG TAB PO SCH (20:12)
[2019-01-11] MEDS: Insulin Glargine 30 UNITS in Pre-Filled Syringe 1 EACH SC SCH (20:39)
[2019-01-11] MEDS: Acetaminophen 325 MG TAB PO PRN (23:52)
[2019-01-12] MEDS: Metoclopramide HCl 10 MG/2 ML VIAL IVP SCH ×2 (05:37→12:10)
[2019-01-12] MEDS: Famotidine 20 MG TAB PO SCH (08:24)
[2019-01-12] MEDS: Aspirin 325 mg Enteric Coated Tablet PO SCH (08:25)
[2019-01-12] MEDS: Potassium Chloride 10 MEQ TAB PO SCH (08:26)
[2019-01-12] MEDS: traMADol HCl 50 MG TAB PO PRN (08:26)
[2019-01-12] MEDS: Enoxaparin Sodium 40 MG/0.4 ML SYRINGE SC SCH (08:27)
--- NOTE | 2019-01-12 08:53 | DIS ---
DATE OF ADMISSION: 01/01/2019 DATE OF DISCHARGE: 01/12/2019 DIAGNOSES: 1. Coronary artery disease. 2. Diabetes mellitus. 3. Chronic obstructive pulmonary disease. 4. Hypertension. 5. Dyslipidemia. PROCEDURES: 1. Cardiac catheterization. 2. Coronary artery bypass grafting on 01/06 x3 - left internal mammary to left anterior descending artery, saphenous vein graft to diagonal and OM-1. BRIEF DESCRIPTION OF HOSPITAL STAY: Ms. Wilson was brought to the hospital with severe shortness of breath and some chest pain. CT angiogram performed in the emergency department did not demonstrate pulmonary embolism. She was admitted with diagnosis of congestive heart failure with large bilateral pleural effusions. She was taken to the pathology lab technician and found to have severe three-vessel disease. Subsequently taken to the operating room on 01/06 for coronary artery bypass grafting as above. Postoperatively, she has done well. She is in her usual ambulatory state at this point. 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 She is being sent back to [facility] today. Followup has been scheduled with me and Dr. Peterson in the near future. DISCHARGE MEDICATIONS: Include; 1. Aspirin 325 mg daily. 2. Lipitor 40 mg at bedtime. 3. Tramadol 50 mg q.6 hours p.r.n. pain. 4. Zoloft 50 mg at bedtime. 5. Meloxicam 15 mg daily. 6. Brovana 100/25 one puff daily. 7. Iron 325 mg b.i.d. 8. Albuterol 2 puffs q.6. 9. Tresiba 24 units subcu at bedtime. 10. Humalog p.r.n. per sliding scale. CONDITION AT DISCHARGE: Good. Job ID: [id number]
[2019-01-12 13:00] VITALS: BP 143/63; TEMP 97.8
== END 2019-01-12 14:50 | DRG 233 ==
LOC: ERS 02:10 → 2SE 05:48 → 2NO 01-04 14:05 → CCU 01-06 06:59 → 2NO 01-07 15:39
PROVIDERS: ADMIT Internal Medicine; ATTEND Internal Medicine
PROC: 3E02340 Introduction of Influenza Vaccine into Muscle, Percutaneous Approach (ICD-10-PCS; 2019-01-01)
PROC: 4A023N7 Measurement of Cardiac Sampling and Pressure, Left Heart, Percutaneous Approach (ICD-10-PCS; 2019-01-03)
PROC: B2111ZZ Fluoroscopy of Multiple Coronary Arteries using Low Osmolar Contrast (ICD-10-PCS; 2019-01-03)
PROC: B2151ZZ Fluoroscopy of Left Heart using Low Osmolar Contrast (ICD-10-PCS; 2019-01-03)
PROC: 4A033BC Measurement of Arterial Pressure, Coronary, Percutaneous Approach (ICD-10-PCS; 2019-01-03)
PROC: 02100Z9 Bypass Coronary Artery, One Artery from Left Internal Mammary, Open Approach (ICD-10-PCS; principal; 2019-01-06)
PROC: 021109W Bypass Coronary Artery, Two Arteries from Aorta with Autologous Venous Tissue, Open Approach (ICD-10-PCS; 2019-01-06)
PROC: 06BQ3ZZ Excision of Left Saphenous Vein, Percutaneous Approach (ICD-10-PCS; 2019-01-06)
PROC: 5A1221Z Performance of Cardiac Output, Continuous (ICD-10-PCS; 2019-01-06)
DX: I25.10 Atherosclerotic heart disease of native coronary artery without angina pectoris (principal); J96.01 Acute respiratory failure with hypoxia; I50.21 Acute systolic (congestive) heart failure; E87.1 Hypo-osmolality and hyponatremia; Z23 Encounter for immunization; I11.0 Hypertensive heart disease with heart failure; J44.9 Chronic obstructive pulmonary disease, unspecified; E78.5 Hyperlipidemia, unspecified; F32.9 Major depressive disorder, single episode, unspecified; F41.9 Anxiety disorder, unspecified; R29.6 Repeated falls; E66.9 Obesity, unspecified; D64.9 Anemia, unspecified; I34.0 Nonrheumatic mitral (valve) insufficiency; I95.9 Hypotension, unspecified; E11.9 Type 2 diabetes mellitus without complications; Z90.49 Acquired absence of other specified parts of digestive tract; Z87.891 Personal history of nicotine dependence; Z79.4 Long term (current) use of insulin; Z79.51 Long term (current) use of inhaled steroids; Z79.899 Other long term (current) drug therapy; Z79.1 Long term (current) use of non-steroidal anti-inflammatories (NSAID); Z68.29 Body mass index [BMI] 29.0-29.9, adult
CPT/HCPCS: 36415; 36416; 36430; 71045; 71046; 71275; 80048; 80053; 80069; 82805; 83036; 83735; 83880; 83930; 83935; 84443; 84484; 85025; 85027; 85379; 85610; 85730; 86850; 86900; 86901; 93005; 93010; 93306; 93458; 93798; 94002; 94640; 94664; 94760; 96374; 99152; C1769; J0360; J0670; J0690; J1100; J1642; J1644; J1650; J1815; J1885; J1940; J2001; J2250; J2260; J2270; J2370; J2405; J2765; J3010; J3475; J3480; J3490; J7620; P9045; Q0163; Q9966; Q9967; S0028

== ENCOUNTER 2019-03-06 19:47 | Emergency (ER) | payer MEDICARE, MEDICAID ==
--- NOTE | 2019-03-06 21:23 | CT ---
CT OF THORACIC SPINE PERFORMED WITHOUT CONTRAST ENHANCEMENT: History: Fall with back pain. FINDINGS: The vertebral bodies are normal in height. There are degenerative changes along the course of the spi ne. I do not appreciate any significant canal narrowing. No rib fractures are identified. IMPRESSION: No CT evidence of fracture of the thoracic spine. POS: ALBERTO
--- NOTE | 2019-03-06 21:26 | CT ---
CT OF LUMBAR SPINE PERFORMED WITHOUT CONTRAST ENHANCEMENT: History: Fall with back pain. FINDINGS: The vertebral bodies are normal in height. Degenerative osteophytes are seen along the course of the spine. No significant disc narrowing. Extensive atherosclerotic change is noted. At L3-4 there is disc bulging and facet hypertrophic changes with a mild degree of canal stenosis. Th ere is a disc bulge and what may be a central disc protrusion at L4-5. There appears to be a moderate ly severe degree of canal narrowing. The remainder of the vertebral body levels show no significant s tenosis. The visualized portion of the sacrum shows no fracture. IMPRESSION: 1. No evidence of any acute compression injury. 2. Findings that would suggest a central disc protrusion at L4-5 with some mild to moderate stenosis. POS: ALBERTO
--- NOTE | 2019-03-06 21:30 | CT ---
CT OF PELVIS PERFORMED WITHOUT CONTRAST ENHANCEMENT: History: Fall with pelvic pain. FINDINGS: SI joints are symmetric. There are no signs of any fracture of the bony pelvis. There are mild arthritic changes of both hips. No signs of any femoral neck fractures. There is air within the bladder, presumably iatrogenic. Bladder wall appears diffusely thickened whic h may be a chronic cystitis. There are findings that would suggest a fecal impaction. IMPRESSION: No CT evidence of fracture. POS: ALBERTO
== END 2019-03-07 00:15 ==
LOC: ERS 19:47
DX: M51.86 Other intervertebral disc disorders, lumbar region (principal); I10 Essential (primary) hypertension; E11.9 Type 2 diabetes mellitus without complications; J44.9 Chronic obstructive pulmonary disease, unspecified; Z87.891 Personal history of nicotine dependence; W18.30XA Fall on same level, unspecified, initial encounter
CPT/HCPCS: 36416; 72128; 72131; 72192

== ENCOUNTER 2019-03-14 21:21 | Inpatient (IN) | payer MEDICAID ==
--- NOTE | 2019-03-14 21:57 | RAD ---
EXAM: XR Chest 1 View Portable PROVIDED CLINICAL HISTORY: Fever COMPARISON: 01/07/2019 FINDINGS: Cardiac and mediastinal silhouette is unchanged in appearance. Median sternotomy changes are redemons trated. Development of consolidation involving the right upper lung zone and right infrahilar region, compatible with pneumonia in the appropriate context. Lungs appear otherwise clear. No pleura l fluid or pneumothorax apparent. IMPRESSION: Right hemithoracic consolidation compatible with pneumonia in the appropriate clinical context. Follo w-up after treatment is recommended to evaluate for resolution.
[2019-03-14 21:59] LABS: #Lymphocytes 0.5 thou/uL (1.20-3.40); #Monocytes 0.4 thou/uL (0.11-0.59); %Basophils 0.1 % (0.0-1.0); %Lymphocytes 4.1 % (21.0-51.0); %Monocytes 3.4 % (0.0-10.0); %Neutrophils 92.4 % (42.0-75.0); Hemoglobin 9.7 g/dL (12.0-16.0); Mean Corpuscular HGB CONC 34.4 g/dL (32.0-36.0); Mean Corpuscular Hemoglobin 31.1 pg (27.0-31.0); Mean Corpuscular Volume 90.3 fL (78.0-98.0); Mean Platelet Volume 7.7 fL (7.4-10.4); Platelet Count 134 thou/uL (130-400); RBC Distribution Width 13.3 % (11.5-14.5); Red Blood Cell (RBC) Count 3.13 mill/uL (4.20-5.40); White Blood Cell (WBC) Count 10.8 thou/uL (4.8-10.8)
[2019-03-14] MEDS ORDERED: Cefepime 2 GM VIAL ONE (22:19)
[2019-03-14 22:22] LABS: ALT (SGPT) 21 U/L (8-55); AST (SGOT) 24 U/L (5-34); Albumin 3.4 g/dL (3.5-5.0); Alkaline Phosphatase 136 U/L (40-110); Anion Gap 10 mmol/L (10-20); BUN (Urea Nitrogen) 27 mg/dL (9.8-20.1); Bilirubin, Total 0.5 mg/dL (0.2-1.2); CK (CPK) 671 U/L (29-168); Calc. Creatinine Clearance 0 mL/min (70-130); Carbon Dioxide 29 mmol/L (22-29); Chloride 100 mmol/L (98-107); Estimated GFR-MDRD 52; Globulin 3.7 g/dL (2.4-3.5); Glucose 184 mg/dL (70-105); Potassium 3.9 mmol/L (3.5-5.1); Protein, Total 7.1 g/dL (6.0-8.3); Sodium 135 mmol/L (136-145)
[2019-03-14 22:31] LABS: Bacteria/HPF 4+ HPF (None Seen); Bilirubin Negative (Negative); Blood, Urine 1+ (Negative); Clarity Turbid (Clear); Glucose, Urine (Dipstick) Normal (Negative); Leukocyte 500 Leu/uL (Negative); Nitrite Negative (Negative); Protein, Urine (Dipstick) 300 mg/dL (Neg-Trace); Squamous Epithelial 0-3 HPF (0-3); Urobilinogen Normal mg/dL (Less than 2); WBC/HPF Greater than 50 HPF (0-3)
[2019-03-15] MEDS ORDERED: Sodium Chloride 0.9% 1,000 ML IV SCH (03:16)
[2019-03-15] MEDS ORDERED: Senokot S 8.6-50 MG TAB PO PRN (05:22)
[2019-03-15] MEDS ORDERED: Acetaminophen 650 MG Suppository PR PRN (05:22)
--- NOTE | 2019-03-15 05:44 | HP ---
CHIEF COMPLAINT: Fever with low oxygen saturation at the nursing facility. HISTORY OF PRESENT ILLNESS: The patient is a 59[facility]-old jail resident with diabetes mellitus type 2, hypertension, and coronary artery bypass grafting two months ago, presented to the emergency room with above complaints. Over the last 3 to 4 days, the patient has worsening cough. She was found to have low oxygen saturation at the nursing facility today. She also had significant chest wall pain due to repeated coughing. She denies any swallowing difficulty. She denies any sick contacts. Her O2 saturation per EMS was 83% with a temperature of 102.6. In the emergency room, her temperature was 102 with respirations of 33.0, pulse rate of 117 with a blood pressure of 114/54 with O2 saturation 83% on room air. Her chest x-ray showed right-sided consolidation. She also had greater than 50 wbc's with 4+ bacteria on the UA. She received cefepime and Levaquin in the emergency room. PAST MEDICAL HISTORY: 1. Coronary artery disease status post coronary artery bypass grafting in January 01. 2. COPD. 3. Diabetes mellitus type 2. 4. Hypertension. 5. Dyslipidemia. 6. Frequent falls. The patient is wheelchair dependent. 7. Anxiety and depression. PAST SURGICAL HISTORY: 1. Appendectomy. 2. Cholecystectomy. 3. Right knee surgery. 4. Right great toe surgery. 5. D and C. 6. Coronary artery bypass grafting. ALLERGIES: NO KNOWN DRUG ALLERGIES. CURRENT MEDICATIONS: At [facility]; 1. Aspirin 81 mg daily. 2. Lipitor 40 mg at bedtime. 3. Lisinopril 5 mg daily. 4. Meloxicam 15 mg daily. 5. Potassium chloride 20 mEq daily. 6. Tramadol as needed. 7. Zoloft 50 mg daily. 8. Ferrous sulfate 325 mg daily. 9. Mucinex twice daily. 10. Eye drops for dry eyes. 11. Lasix 20 mg daily. SOCIAL HISTORY: The patient currently resides at [facility]. She is a former smoker, quit in 2009. She has 20 pack-year smoking history. No current use of alcohol or drug use. FAMILY HISTORY: Positive for diabetes mellitus type 2. Heart disease also runs in her family. REVIEW OF SYSTEMS: All other review of systems were reviewed and were found negative. PHYSICAL EXAMINATION: VITAL SIGNS: As discussed above. GENERAL: A 59-year-old ill-appearing female, in mild respiratory distress, able to complete short phrases. HEENT: Head, atraumatic and normocephalic. Sclerae anicteric. Moist mucous membranes. No oral lesion. NECK: Supple. No JVD appreciated. No carotid bruit. LUNGS: Showed rales and rhonchi, especially on the right lower half of the lung. There was minimal accessory muscle use. No significant wheezing. HEART: S1, S2 present. Regular rate and rhythm. Tachycardic. No heaves or pulsation. ABDOMEN: Soft, nontender. Bowel sounds present. No rebound or guarding. No costovertebral angle tenderness. EXTREMITIES: No calf tenderness. No significant edema. NEUROLOGIC: Grossly nonfocal. Moves all 4 extremities. PSYCHIATRY: Alert, awake, and oriented x3. SKIN: Warm and dry. LYMPH NODES: No palpable lymph nodes in the neck. PERIPHERAL VASCULAR: Radial pulses palpable bilaterally. MUSCULOSKELETAL: No joint swelling or tenderness. CODE STATUS: Full code. LABORATORY FINDINGS: WBC 10.8 with hemoglobin 9.7, hematocrit 28.2, platelet 134. Neutrophils 92.4%. Chemistry showed sodium 135, potassium 3.9, chloride 100, bicarb 29, BUN 27, and creatinine 1.07. Lactic acid was 1.8. CK was 671. BNP was 300. Urinalysis, as discussed above. Chest x-ray by my review, as discussed above. EKG by my review showed sinus tachycardia with left axis deviation. Influenza screen was negative. IMPRESSION: 1. Acute hypoxic respiratory failure secondary to pneumonia, suspected aspiration. 2. Urinary tract infection. 3. Diabetes mellitus type 2. 4. Hyponatremia. 5. Chronic kidney disease, stage 3. 6. Obesity with a BMI of 36. 7. Coronary artery disease status post CABG in January 01. 8. Hypertension. 9. Hyperlipidemia. 10. Sinus tachycardia secondary to #1. PLAN: The patient will be monitored in the telemetry unit. She is currently on cefepime and Levaquin. We will change antibiotic to Levaquin with Zosyn for anaerobic coverage. Speech Therapy consultation. Insulin sliding scale. Resume selected home medications. We will check postvoid residual. Recheck labs in a.m. We will also recheck CK. We will get a chest x-ray after 48 hours. The patient will require 2 to 3 days for stabilization. Plan was discussed with the patient in detail and she stated understanding. Job ID: [id number]
[2019-03-15] MEDS ORDERED: Piperacillin/Tazobactam 3.375 GM VIAL ONE ×2 (05:55→12:02)
[2019-03-15] MEDS: Piperacillin/Tazobactam 3.375 GM in Sodium Chloride 0.9% 100 ML IVPB SCH ×4 (06:03→23:52)
[2019-03-15] MEDS ORDERED: Famotidine/PF 20 mg/2ml Vial ONE (08:34)
[2019-03-15] MEDS ORDERED: Aspirin 81 mg Enteric Coated Tablet ONE (08:34)
[2019-03-15] MEDS ORDERED: Enoxaparin Sodium 40 MG/0.4 ML SYRINGE ONE (08:34)
[2019-03-15] MEDS ORDERED: Furosemide 40 MG TAB ONE (08:34)
[2019-03-15] MEDS: Furosemide 20 MG TAB PO SCH ×2 (08:55→13:40)
[2019-03-15] MEDS: Aspirin 81 mg Enteric Coated Tablet PO SCH (08:55)
[2019-03-15] MEDS: Enoxaparin Sodium 40 MG/0.4 ML SYRINGE SC SCH (08:58)
[2019-03-15] MEDS: Famotidine/PF 20 mg/2ml Vial SLOW IVP SCH ×2 (09:02→21:48)
[2019-03-15] MEDS ORDERED: Cefepime 2 GM in Sodium Chloride 0.9% 100 ML IVPB SCH (10:00)
[2019-03-15] MEDS: guaiFENesin ER 600 MG TAB PO SCH ×2 (11:04→21:48)
[2019-03-15] MEDS: Lisinopril 5 MG TAB PO SCH (11:07)
[2019-03-15] MEDS: Saccharomyces boulardii 250 MG CAP PO SCH (11:12)
--- NOTE | 2019-03-15 12:56 | PDOC.HOSPP ---
- Subjective Encounter Date: 03/15/19 Encounter Time: 12:51 Subjective: Ms. Wilson was seen today in follow-up of pneumonia. She says she is feeling better. She continues to have a cough. - Objective Vital Signs & Weight: Vital Signs (12 hours) Pulse Resp BP Pulse Ox 03/15/19 11:07 92 128/53 L 03/15/19 10:40 82 34 H 100 03/15/19 07:12 83 32 H 99 Weight Weight 209 lb 14.081 oz Result Diagrams: 03/14/19 21:56 03/14/19 21:56 Hospitalist ROS - Medication Medications: Active Medications Generic Name Dose Route Start Last Admin Trade Name Freq PRN Reason Stop Dose Admin Albuterol/Ipratropium 3 ml 03/15/19 06:30 03/15/19 10:40 Duoneb NEB 3 ml [id number] CARLOS Administration Aspirin 81 mg 03/15/19 09:00 03/15/19 08:55 Ecotrin PO 81 mg DAILY CARLOS Administration Enoxaparin Sodium 40 mg 03/15/19 09:00 03/15/19 08:58 Lovenox SC 40 mg 0900 CARLOS Administration Famotidine 20 mg 03/15/19 09:00 03/15/19 09:02 Pepcid SLOW IVP 20 mg Q12HR CARLOS Administration Furosemide 20 mg 03/15/19 09:00 03/15/19 08:55 Lasix PO 20 mg 0900,1400 CARLOS Administration Guaifenesin 600 mg 03/15/19 09:00 03/15/19 11:04 Mucinex PO 600 mg Q12HR CARLOS Administration Piperacillin Sod/Tazobactam 100 mls @ 200 mls/hr 03/15/19 06:00 03/15/19 12: 07 Sod 3.375 gm/ Sodium Chloride IVPB 100 mls Q6HR CARLOS Administration Lisinopril 5 mg 03/15/19 09:00 03/15/19 11:07 Zestril PO 5 mg DAILY CARLOS Administration Potassium Chloride 20 meq 03/15/19 08:00 03/15/19 09:44 Klor-Con PO 20 meq QAM-WM CARLOS Administration Saccharomyces Boulardii 250 mg 03/15/19 09:00 03/15/19 11:12 Florastor PO 250 mg DAILY CARLOS Administration Sertraline HCl 50 mg 03/15/19 09:00 03/15/19 11:10 Zoloft PO 50 mg DAILY CARLOS Administration - Exam Eye: PERRL Heart: RRR, no murmur, no gallops Respiratory: CTAB (with the exception of rales at the bases) Gastrointestinal: soft, non-tender, non-distended, normal bowel sounds, no palpable masses, no hepatomegaly Extremities: no cyanosis, no edema Hosp A/P (1) Pneumonia Code(s): J18.9 - PNEUMONIA, UNSPECIFIED ORGANISM Status: Acute (2) Acute respiratory failure with hypoxemia Code(s): J96.01 - ACUTE RESPIRATORY FAILURE WITH HYPOXIA Status: Acute (3) Diabetes mellitus type 2 in obese Code(s): E11.69 - TYPE 2 DIABETES MELLITUS WITH OTHER SPECIFIED COMPLICATION; E66.9 - OBESITY, UNSPECIFIED Status: Chronic - Plan * Pneumonia- continue Zosyn * Follow-up on blood cultures * DM- blood glucose is stable * HTN-blood pressure is stable
[2019-03-15] MEDS: traMADol HCl 50 MG TAB PO PRN ×2 (13:40→21:49)
[2019-03-15] MEDS ORDERED: Dextrose 5% in Water 1,000 ML IV PRN (19:55)
[2019-03-15] MEDS ORDERED: Dextrose 50% Abboject 50 ML SYRINGE SLOW IVP PRN (19:55)
[2019-03-15] MEDS ORDERED: HumaLOG 300 UNITS/3 ML VIAL SC PRN ×2 (19:55)
[2019-03-15] MEDS: Atorvastatin Calcium 40 MG TAB PO SCH (21:48)
[2019-03-15] MEDS: Benzonatate 100 MG CAP PO PRN (23:01)
[2019-03-16] MEDS: Acetaminophen 325 MG TAB PO PRN ×3 (00:17→20:11)
[2019-03-16 04:57] LABS: #Lymphocytes 0.5 thou/uL (1.20-3.40); #Monocytes 0.4 thou/uL (0.11-0.59); #Neutrophils 4.5 thou/uL (1.40-6.50); %Basophils 0.4 % (0.0-1.0); %Eosinophils 0.1 % (0.0-10.0); %Lymphocytes 8.5 % (21.0-51.0); %Monocytes 7.3 % (0.0-10.0); %Neutrophils 83.7 % (42.0-75.0); Hemoglobin 7.5 g/dL (12.0-16.0); Mean Corpuscular HGB CONC 33.3 g/dL (32.0-36.0); Mean Corpuscular Hemoglobin 31.6 pg (27.0-31.0); Mean Corpuscular Volume 94.8 fL (78.0-98.0); Platelet Count 90 thou/uL (130-400); RBC Distribution Width 13.3 % (11.5-14.5); Red Blood Cell (RBC) Count 2.39 mill/uL (4.20-5.40); White Blood Cell (WBC) Count 5.3 thou/uL (4.8-10.8)
[2019-03-16 05:08] LABS: ALT (SGPT) 16 U/L (8-55); AST (SGOT) 21 U/L (5-34); Albumin 2.8 g/dL (3.5-5.0); Alkaline Phosphatase 110 U/L (40-110); Anion Gap 15 mmol/L (10-20); BUN (Urea Nitrogen) 31 mg/dL (9.8-20.1); Bilirubin, Total 0.3 mg/dL (0.2-1.2); CK (CPK) 256 U/L (29-168); Calc. Creatinine Clearance 67 mL/min (70-130); Calcium 8.2 mg/dL (7.8-10.44); Carbon Dioxide 20 mmol/L (22-29); Chloride 103 mmol/L (98-107); Estimated GFR-MDRD 46; Globulin 3.2 g/dL (2.4-3.5); Glucose 353 mg/dL (70-105); Magnesium 1.6 mg/dL (1.6-2.6); Potassium 3.6 mmol/L (3.5-5.1); Sodium 134 mmol/L (136-145)
[2019-03-16] MEDS: Piperacillin/Tazobactam 3.375 GM in Sodium Chloride 0.9% 100 ML IVPB SCH ×4 (05:25→22:50)
--- NOTE | 2019-03-16 07:43 | RAD ---
EXAM: Single view of the chest HISTORY: Pneumonia COMPARISON: 03/14/2019 FINDINGS: Single view of the chest shows a normal sized cardiomediastinal silhouette. The patient is status post sternotomy. Consolidation is again seen in the right upper lobe. The bones are unremarkable. IMPRESSION: Stable right upper lobe pneumonia.
[2019-03-16] MEDS: Aspirin 81 mg Enteric Coated Tablet PO SCH (08:42)
[2019-03-16] MEDS: Saccharomyces boulardii 250 MG CAP PO SCH (08:43)
[2019-03-16] MEDS: Lisinopril 5 MG TAB PO SCH (08:43)
[2019-03-16] MEDS: Benzonatate 100 MG CAP PO PRN ×2 (08:43→20:11)
[2019-03-16] MEDS: Furosemide 20 MG TAB PO SCH ×2 (08:43→13:07)
[2019-03-16] MEDS: guaiFENesin ER 600 MG TAB PO SCH ×2 (08:43→20:12)
[2019-03-16] MEDS: traMADol HCl 50 MG TAB PO PRN ×2 (08:44→22:41)
[2019-03-16] MEDS: Enoxaparin Sodium 40 MG/0.4 ML SYRINGE SC SCH (08:44)
[2019-03-16] MEDS: Famotidine/PF 20 mg/2ml Vial SLOW IVP SCH ×2 (08:44→20:11)
[2019-03-16] MEDS ORDERED: Insulin Glargine 15 UNITS in Pre-Filled Syringe 1 EACH SC SCH (09:00)
[2019-03-16] MEDS ORDERED: Dextrose 5% in Water 1,000 ML IV PRN (11:19)
[2019-03-16] MEDS ORDERED: Dextrose 50% Abboject 50 ML SYRINGE SLOW IVP PRN (11:19)
--- NOTE | 2019-03-16 12:15 | PDOC.HOSPP ---
- Subjective Encounter Date: 03/16/19 Encounter Time: 12:13 Subjective: Ms. Wilson was seen today in follow-up of pneumonia. She says she is still a bit short of breath. She continues to cough and sounds congested. - Objective Vital Signs & Weight: Vital Signs (12 hours) Temp Pulse Resp BP BP Pulse Ox 03/16/19 10:52 113 H 28 H 90 L 03/16/19 08:43 99 134/62 03/16/19 08:00 100.1 F H 107 H 22 H 134/62 92 L 03/16/19 07:17 90 L 03/16/19 07:15 97 24 H 90 L 03/16/19 04:00 97.7 F 89 22 H 98/46 L 94 L Weight Weight 192 lb I&O: 03/15/19 03/16/19 03/17/19 06:59 06:59 06:59 Intake Total 1020 Balance 1020 Result Diagrams: 03/16/19 04:04 03/16/19 04:04 Additional Labs: Accuchecks 03/16/19 03/16/19 03/15/19 10:29 05:28 21:37 POC Glucose 427 H 370 H 398 H Hospitalist ROS - Medication Medications: Active Medications Generic Name Dose Route Start Last Admin Trade Name Freq PRN Reason Stop Dose Admin Acetaminophen 650 mg 03/15/19 04:09 03/16/19 08:42 Tylenol PO 650 mg Q4H PRN Administration Headache/Fever/Mild Pain 1-3 Albuterol/Ipratropium 3 ml 03/15/19 06:30 03/16/19 10:52 Duoneb NEB 3 ml [id number] CARLOS Administration Aspirin 81 mg 03/15/19 09:00 03/16/19 08:42 Ecotrin PO 81 mg DAILY CARLOS Administration Atorvastatin Calcium 40 mg 03/15/19 21:00 03/15/19 21:48 Lipitor PO 40 mg HS CARLOS Administration Benzonatate 100 mg 03/15/19 22:57 03/16/19 08:43 Tessalon PO 100 mg TIDPRN PRN Administration Cough Enoxaparin Sodium 40 mg 03/15/19 09:00 03/16/19 08:44 Lovenox SC Not Given 09 CARLOS Famotidine 20 mg 03/15/19 09:00 03/16/19 08:44 Pepcid SLOW IVP Not Given Q12HR CARLOS Furosemide 20 mg 03/15/19 09:00 03/16/19 08:43 Lasix PO 20 mg 0900,1400 CARLOS Administration Guaifenesin 600 mg 03/15/19 09:00 03/16/19 08:43 Mucinex PO 600 mg Q12HR CARLOS Administration Levofloxacin 500 mg/ Device 100 mls @ 100 mls/hr 03/15/19 21:00 03/15/19 21: 48 IVPB 100 mls 2100 CARLOS Administration Piperacillin Sod/Tazobactam 100 mls @ 200 mls/hr 03/15/19 06:00 03/16/19 05: 25 Sod 3.375 gm/ Sodium Chloride IVPB 100 mls Q6HR CARLOS Administration Insulin Glargine 15 units/ 0.15 mls @ 0 mls/hr 03/16/19 09:00 03/16/19 08:41 Miscellaneous Medication SC 0.15 mls QAM CARLOS Administration Lisinopril 5 mg 03/15/19 09:00 03/16/19 08:43 Zestril PO 5 mg DAILY CARLOS Administration Potassium Chloride 20 meq 03/15/19 08:00 03/16/19 08:43 Klor-Con PO 20 meq QAM-WM CARLOS Administration Saccharomyces Boulardii 250 mg 03/15/19 09:00 03/16/19 08:43 Florastor PO 250 mg DAILY CARLOS Administration Sertraline HCl 50 mg 03/15/19 09:00 03/16/19 08:42 Zoloft PO 50 mg DAILY CARLOS Administration Tramadol HCl 50 mg 03/15/19 05:30 03/16/19 08:44 Ultram PO 50 mg Q6H PRN Administration Moderate Pain (4-6) - Exam Eye: PERRL Neck: supple Heart: RRR, no murmur, no gallops, no rubs, normal peripheral pulses Respiratory: no wheezes, no ronchi, rales Gastrointestinal: soft, non-tender, non-distended, normal bowel sounds, no palpable masses, no hepatomegaly Extremities: no cyanosis, no clubbing, no edema Hosp A/P (1) Pneumonia Code(s): J18.9 - PNEUMONIA, UNSPECIFIED ORGANISM Status: Acute (2) Acute respiratory failure with hypoxemia Code(s): J96.01 - ACUTE RESPIRATORY FAILURE WITH HYPOXIA Status: Acute (3) Diabetes mellitus type 2 in obese Code(s): E11.69 - TYPE 2 DIABETES MELLITUS WITH OTHER SPECIFIED COMPLICATION; E66.9 - OBESITY, UNSPECIFIED Status: Chronic - Plan * Pneumonia- Fairly dense right upper lobe infiltrate persists * Continue Zosyn * Anemia- ? acute- will check iron studies and stool guiac * Follow-up on blood cultures * DM- blood glucose is elevated- will add scheduled Lantus, and increase the SSI to aggressive * HTN-blood pressure is stable
[2019-03-16 12:56] LABS: Iron 11 ug/dL (50-170); Iron Binding Capacity, Total 186 mcg/dL (265-497)
[2019-03-16] MEDS: HumaLOG 300 UNITS/3 ML VIAL SC PRN ×3 (12:57→22:41)
[2019-03-16] MEDS: Atorvastatin Calcium 40 MG TAB PO SCH (20:11)
[2019-03-17] MEDS: Piperacillin/Tazobactam 3.375 GM in Sodium Chloride 0.9% 100 ML IVPB SCH ×4 (05:16→23:44)
[2019-03-17] MEDS: Benzonatate 100 MG CAP PO PRN ×3 (05:17→22:21)
[2019-03-17 08:44] LABS: #Lymphocytes 0.4 thou/uL (1.20-3.40); #Monocytes 0.5 thou/uL (0.11-0.59); #Neutrophils 5.5 thou/uL (1.40-6.50); %Basophils 0.1 % (0.0-1.0); %Eosinophils 0.5 % (0.0-10.0); %Monocytes 7.4 % (0.0-10.0); %Neutrophils 86.1 % (42.0-75.0); Hemoglobin 8.3 g/dL (12.0-16.0); Mean Corpuscular HGB CONC 33.5 g/dL (32.0-36.0); Mean Corpuscular Hemoglobin 31.5 pg (27.0-31.0); Mean Corpuscular Volume 94.1 fL (78.0-98.0); Mean Platelet Volume 8.5 fL (7.4-10.4); Platelet Count 116 thou/uL (130-400); RBC Distribution Width 13.2 % (11.5-14.5); Red Blood Cell (RBC) Count 2.64 mill/uL (4.20-5.40); White Blood Cell (WBC) Count 6.4 thou/uL (4.8-10.8)
[2019-03-17] MEDS: Aspirin 81 mg Enteric Coated Tablet PO SCH (09:14)
[2019-03-17] MEDS: traMADol HCl 50 MG TAB PO PRN ×2 (09:14→17:25)
[2019-03-17] MEDS: Lisinopril 5 MG TAB PO SCH (09:15)
[2019-03-17] MEDS: Saccharomyces boulardii 250 MG CAP PO SCH (09:15)
[2019-03-17] MEDS: guaiFENesin ER 600 MG TAB PO SCH (09:15)
[2019-03-17] MEDS: Enoxaparin Sodium 40 MG/0.4 ML SYRINGE SC SCH (09:16)
[2019-03-17] MEDS: Furosemide 20 MG TAB PO SCH ×2 (09:16→14:28)
[2019-03-17] MEDS: Famotidine/PF 20 mg/2ml Vial SLOW IVP SCH ×2 (09:16→20:09)
[2019-03-17] MEDS: HumaLOG 300 UNITS/3 ML VIAL SC PRN ×3 (09:20→18:27)
[2019-03-17] MEDS: Insulin Glargine 25 UNITS in Pre-Filled Syringe 1 EACH SC SCH (10:11)
--- NOTE | 2019-03-17 10:19 | PDOC.HOSPP ---
- Subjective Encounter Date: 03/17/19 Encounter Time: 10:17 Subjective: Ms. Wilson was seen today in follow-up of pneumonia. She continues to cough, and it is non-productive. she notes pain in her chest with coughing. she is also a bit short of breath. - Objective Vital Signs & Weight: Vital Signs (12 hours) Temp Pulse Resp BP BP Pulse Ox 03/17/19 09:15 103 H 145/61 H 03/17/19 07:23 95 25 H 100 03/17/19 04:00 97.8 F 90 20 118/51 L 74 L 03/17/19 02:31 90 28 H 92 L 03/16/19 23:11 99.7 F H 104 H 20 130/59 L 94 L 03/16/19 22:43 104 H 30 H 92 L Weight Weight 189 lb 6.4 oz I&O: 03/16/19 03/17/19 03/18/19 06:59 06:59 06:59 Intake Total 1020 950 Output Total 400 Balance 1020 550 Result Diagrams: 03/17/19 08:20 03/16/19 04:04 Additional Labs: Accuchecks 03/17/19 03/16/19 03/16/19 05:09 21:00 17:03 POC Glucose 238 H 363 H 418 H 03/16/19 10:29 POC Glucose 427 H Hospitalist ROS - Medication Medications: Active Medications Generic Name Dose Route Start Last Admin Trade Name Freq PRN Reason Stop Dose Admin Acetaminophen 650 mg 03/15/19 04:09 03/16/19 20:11 Tylenol PO 650 mg Q4H PRN Administration Headache/Fever/Mild Pain 1-3 Albuterol/Ipratropium 3 ml 03/15/19 06:30 03/17/19 07:23 Duoneb NEB 3 ml [id number] CARLOS Administration Aspirin 81 mg 03/15/19 09:00 03/17/19 09:14 Ecotrin PO 81 mg DAILY CARLOS Administration Atorvastatin Calcium 40 mg 03/15/19 21:00 03/16/19 20:11 Lipitor PO 40 mg HS CARLOS Administration Benzonatate 100 mg 03/15/19 22:57 03/17/19 10:11 Tessalon PO 100 mg TIDPRN PRN Administration Cough Enoxaparin Sodium 40 mg 03/15/19 09:00 03/17/19 09:16 Lovenox SC 40 mg 0900 CARLOS Administration Famotidine 20 mg 03/15/19 09:00 03/17/19 09:16 Pepcid SLOW IVP 20 mg Q12HR CARLOS Administration Furosemide 20 mg 03/15/19 09:00 03/17/19 09:16 Lasix PO 20 mg 0900,1400 CARLOS Administration Guaifenesin 600 mg 03/15/19 09:00 03/17/19 09:15 Mucinex PO 600 mg Q12HR CARLOS Administration Levofloxacin 500 mg/ Device 100 mls @ 100 mls/hr 03/15/19 21:00 03/16/19 20: 12 IVPB 100 mls 2100 CARLOS Administration Piperacillin Sod/Tazobactam 100 mls @ 200 mls/hr 03/15/19 06:00 03/17/19 05: 16 Sod 3.375 gm/ Sodium Chloride IVPB 100 mls Q6HR CARLOS Administration Insulin Glargine 25 units/ 0.25 mls @ 0 mls/hr 03/17/19 09:00 03/17/19 10:11 Miscellaneous Medication SC 0.25 mls QAM CARLOS Administration Insulin Human Lispro 0 units 03/16/19 11:19 03/17/19 09:20 Humalog SC 6 unit .AGGRESSIVE SLIDING PRN Administration Aggressive Correctional Scale Lisinopril 5 mg 03/15/19 09:00 03/17/19 09:15 Zestril PO 5 mg DAILY CARLOS Administration Potassium Chloride 20 meq 03/15/19 08:00 03/17/19 09:16 Klor-Con PO 20 meq QAM-WM CARLOS Administration Saccharomyces Boulardii 250 mg 03/15/19 09:00 03/17/19 09:15 Florastor PO 250 mg DAILY CARLOS Administration Sertraline HCl 50 mg 03/15/19 09:00 03/17/19 09:15 Zoloft PO 50 mg DAILY CARLOS Administration Tramadol HCl 50 mg 03/15/19 05:30 03/17/19 09:14 Ultram PO 50 mg Q6H PRN Administration Moderate Pain (4-6) - Exam Eye: PERRL Heart: RRR, no murmur, no gallops, no rubs, normal peripheral pulses Respiratory: no wheezes, rales (+ rales in both lobes, heard throughout.) Gastrointestinal: soft, non-tender, non-distended, normal bowel sounds, no palpable masses, no hepatomegaly Hosp A/P (1) Pneumonia Code(s): J18.9 - PNEUMONIA, UNSPECIFIED ORGANISM Status: Acute (2) Acute respiratory failure with hypoxemia Code(s): J96.01 - ACUTE RESPIRATORY FAILURE WITH HYPOXIA Status: Acute (3) Diabetes mellitus type 2 in obese Code(s): E11.69 - TYPE 2 DIABETES MELLITUS WITH OTHER SPECIFIED COMPLICATION; E66.9 - OBESITY, UNSPECIFIED Status: Chronic - Plan * Pneumonia- Fairly dense right upper lobe infiltrate persists * Continue Zosyn * Will add Robitussin AC for relief of symptoms * repeat CXR in the AM- if not improved, may need to broaden antibiotic coverage - will also check Procalcitonin, and BNP * Anemia- most consistent with chronic disease- will transfuse as needed ( Occult blood is negative) * UTI- urine culture is growing Klebsiella- which is novak-sensitive * DM- blood glucose is elevated- will increase her dose of Lantus- ( there is no record of how much insulin and what type she takes from the longterm records) * HTN-blood pressure is stable
--- NOTE | 2019-03-17 10:57 | RAD ---
XR Chest 1 View Portable HISTORY: Follow-up of pneumonia. COMPARISON: Prior day study. FINDINGS: Bilateral predominantly upper lobe parenchymal changes are stable as compared to the prior exam. Changes are more confluent within the right upper lobe. IMPRESSION: Stable bilateral infiltrates.
[2019-03-17] MEDS: guaiFENesin/Codeine Phosphate 200 mg/20 mg 10 ml UD Cup PO SCH ×3 (12:22→23:44)
[2019-03-17] MEDS: Atorvastatin Calcium 40 MG TAB PO SCH (20:09)
[2019-03-17] MEDS: Acetaminophen 325 MG TAB PO PRN (20:09)
[2019-03-18 01:45] LABS: Anion Gap 13 mmol/L (10-20); BUN (Urea Nitrogen) 27 mg/dL (9.8-20.1); Calc. Creatinine Clearance 78 mL/min (70-130); Calcium 8.8 mg/dL (7.8-10.44); Carbon Dioxide 23 mmol/L (22-29); Chloride 100 mmol/L (98-107); Estimated GFR-MDRD 54; Glucose 166 mg/dL (70-105); Potassium 4.1 mmol/L (3.5-5.1); Sodium 132 mmol/L (136-145)
[2019-03-18] MEDS: Piperacillin/Tazobactam 3.375 GM in Sodium Chloride 0.9% 100 ML IVPB SCH ×3 (05:43→17:28)
[2019-03-18] MEDS: Acetaminophen 325 MG TAB PO PRN (05:43)
[2019-03-18] MEDS: guaiFENesin/Codeine Phosphate 200 mg/20 mg 10 ml UD Cup PO SCH ×3 (05:43→17:29)
[2019-03-18 06:22] LABS: Anion Gap 12 mmol/L (10-20); BUN (Urea Nitrogen) 26 mg/dL (9.8-20.1); Calc. Creatinine Clearance 81 mL/min (70-130); Calcium 8.8 mg/dL (7.8-10.44); Carbon Dioxide 24 mmol/L (22-29); Chloride 100 mmol/L (98-107); Estimated GFR-MDRD 55; Glucose 162 mg/dL (70-105); Potassium 4.1 mmol/L (3.5-5.1); Sodium 132 mmol/L (136-145)
[2019-03-18] MEDS: HumaLOG 300 UNITS/3 ML VIAL SC PRN ×2 (06:33→17:28)
[2019-03-18] MEDS: Aspirin 81 mg Enteric Coated Tablet PO SCH (09:04)
[2019-03-18] MEDS: Lisinopril 5 MG TAB PO SCH (09:04)
[2019-03-18] MEDS: Saccharomyces boulardii 250 MG CAP PO SCH (09:04)
[2019-03-18] MEDS: Insulin Glargine 25 UNITS in Pre-Filled Syringe 1 EACH SC SCH (09:04)
[2019-03-18] MEDS: Famotidine/PF 20 mg/2ml Vial SLOW IVP SCH ×2 (09:40→20:34)
[2019-03-18] MEDS: Enoxaparin Sodium 40 MG/0.4 ML SYRINGE SC SCH (09:40)
[2019-03-18] MEDS: Furosemide 40 MG/4 ML VIAL SLOW IVP SCH (13:43)
[2019-03-18] MEDS: Benzonatate 100 MG CAP PO PRN (13:48)
[2019-03-18] MEDS: traMADol HCl 50 MG TAB PO PRN (13:48)
--- NOTE | 2019-03-18 14:49 | PDOC.HOSPP ---
- Subjective Encounter Date: 03/18/19 Encounter Time: 14:47 Subjective: Ms. Wilson was seen today in follow-up of pneumonia and respiratory failure. She says she is not any better since admission. He CXR is about the same. - Objective Vital Signs & Weight: Vital Signs (12 hours) Temp Pulse Resp BP Pulse Ox Pulse Ox Pulse Ox 03/18/19 11:20 98.2 F 93 22 H 125/68 91 L 03/18/19 10:45 96 86 L 03/18/19 10:29 92 20 90 L 03/18/19 09:04 90 03/18/19 08:00 100 03/18/19 07:45 98.4 F 90 22 H 121/66 100 03/18/19 06:58 91 20 98 03/18/19 05:27 85 30 H 89 L 03/18/19 03:50 98.4 F 78 18 115/67 98 Pulse Ox Pulse Ox Pulse Ox 03/18/19 11:20 03/18/19 10:45 93 L 82 L 92 L 03/18/19 10:29 03/18/19 09:04 03/18/19 08:00 03/18/19 07:45 03/18/19 06:58 03/18/19 05:27 03/18/19 03:50 Weight Admit Weight 189 lb Weight 189 lb 6.4 oz I&O: 03/17/19 03/18/19 03/19/19 06:59 06:59 06:59 Intake Total 1450 900 Output Total 1000 Balance 450 900 Result Diagrams: 03/17/19 08:20 03/18/19 05:15 Additional Labs: Accuchecks 03/18/19 03/17/19 03/17/19 04:03 21:25 16:51 POC Glucose 189 H 219 H 214 H Hospitalist ROS - Medication Medications: Active Medications Generic Name Dose Route Start Last Admin Trade Name Freq PRN Reason Stop Dose Admin Acetaminophen 650 mg 03/15/19 04:09 03/18/19 05:43 Tylenol PO 650 mg Q4H PRN Administration Headache/Fever/Mild Pain 1-3 Albuterol/Ipratropium 3 ml 03/15/19 06:30 03/18/19 10:29 Duoneb NEB 3 ml [id number] CARLOS Administration Albuterol/Ipratropium 3 ml 03/15/19 04:08 03/18/19 08:49 Duoneb NEB 3 ml [id number] PRN Administration SOB &/or Wheezing Aspirin 81 mg 03/15/19 09:00 03/18/19 09:04 Ecotrin PO Not Given DAILY [facility] Atorvastatin Calcium 40 mg 03/15/19 21:00 03/17/19 20:09 Lipitor PO 40 mg HS CARLOS Administration Benzonatate 100 mg 03/15/19 22:57 03/18/19 13:48 Tessalon PO 100 mg TIDPRN PRN Administration Cough Enoxaparin Sodium 40 mg 03/15/19 09:00 03/18/19 09:40 Lovenox SC 40 mg 0900 CARLOS Administration Famotidine 20 mg 03/15/19 09:00 03/18/19 09:40 Pepcid SLOW IVP 20 mg Q12HR CARLOS Administration Furosemide 20 mg 03/15/19 09:00 03/17/19 14:28 Lasix PO 20 mg 0900,1400 CARLOS Administration Furosemide 40 mg 03/18/19 14:00 03/18/19 13:43 Lasix SLOW IVP 03/19/19 06:01 40 mg 0600,1400 CARLOS Administration Guaifenesin/Codeine Phosphate 10 ml 03/17/19 12:00 03/18/19 12:41 Robitussin Ac PO Not Given Q6HR [facility] Levofloxacin 500 mg/ Device 100 mls @ 100 mls/hr 03/15/19 21:00 03/17/19 20: 08 IVPB 100 mls 2100 CARLOS Administration Piperacillin Sod/Tazobactam 100 mls @ 200 mls/hr 03/15/19 06:00 03/18/19 12: 45 Sod 3.375 gm/ Sodium Chloride IVPB 100 mls Q6HR CARLOS Administration Insulin Glargine 25 units/ 0.25 mls @ 0 mls/hr 03/17/19 09:00 03/18/19 09:04 Miscellaneous Medication SC Not Given QAM [facility] Insulin Human Lispro 0 units 03/16/19 11:19 03/18/19 06:33 Humalog SC 3 unit .AGGRESSIVE SLIDING PRN Administration Aggressive Correctional Scale Lisinopril 5 mg 03/15/19 09:00 03/18/19 09:04 Zestril PO Not Given DAILY [facility] Potassium Chloride 20 meq 03/15/19 08:00 03/18/19 09:04 Klor-Con PO Not Given QAM-WM CARLOS Saccharomyces Boulardii 250 mg 03/15/19 09:00 03/18/19 09:04 Florastor PO Not Given DAILY [facility] Sertraline HCl 50 mg 03/15/19 09:00 03/18/19 09:04 Zoloft PO Not Given DAILY [facility] Sodium Chloride 10 ml 03/15/19 03:16 03/18/19 12:45 Flush - Normal Saline IVF 10 ml PRN PRN Administration Saline Flush Tramadol HCl 50 mg 03/15/19 05:30 03/18/19 13:48 Ultram PO 50 mg Q6H PRN Administration Moderate Pain (4-6) - Exam Eye: PERRL Heart: RRR, no murmur, no gallops, no rubs, normal peripheral pulses Respiratory: no ronchi, rales (Rales bilaterally, throughout much her her lungs) Gastrointestinal: soft, non-tender, non-distended, normal bowel sounds, no palpable masses, no hepatomegaly, no splenomegaly Extremities: no cyanosis, no edema Neurological: no focal deficits Hosp A/P (1) Pneumonia Code(s): J18.9 - PNEUMONIA, UNSPECIFIED ORGANISM Status: Acute (2) Acute respiratory failure with hypoxemia Code(s): J96.01 - ACUTE RESPIRATORY FAILURE WITH HYPOXIA Status: Acute (3) Diabetes mellitus type 2 in obese Code(s): E11.69 - TYPE 2 DIABETES MELLITUS WITH OTHER SPECIFIED COMPLICATION; E66.9 - OBESITY, UNSPECIFIED Status: Chronic - Plan * Acute respiratory failure- she has not improved much since admission- some of her symptoms may be related to pulmonary edema- will change the Lasix to IV and re-evaluate in the AM * If she is not improved- then consider Pulmonary Consult * HTN - blood pressure is controlled * DM- blood glucose is stable
--- NOTE | 2019-03-18 15:42 | PQF ---
CLINICAL DOCUMENTATION IMPROVEMENT CLARIFICATION FORM: ICD-10 Updated PLEASE DO AN ADDENDUM TO THE PROGRESS NOTE WITH ANY DOCUMENTATION UPDATES OR ADDITIONS AND CARRY THROUGH TO DC SUMMARY. THANK YOU. DATE: 03/18/2019 ATTN: Dr. Casey Please exercise your independent, professional judgment in responding to the clarification form. Clinical indicators are provided on the bottom of this form for your review Please check appropriate box(s): [ X] Aspiration Pneumonia [ ] Empirically treating Gram Negative Pneumonia [ ] Empirically treating Anaerobic Pneumonia [ ] Pneumonia secondary to (specify organism / underlying disease) ___ [ ] Simple Pneumonia [ ] Pneumonia of unknown etiology [ ] Other diagnosis [ ] Unable to determine In addition, please specify: Present on Admission (POA): [ X ] Yes [ ] No [ ] Unable to determine For continuity of documentation, please document condition throughout progress notes and discharge summary. Thank You. CLINICAL INDICATORS - SIGNS / SYMPTOMS / LABS / RESULTS AND LOCATION IN MR ER Record: 03/14 VS: Temp 99.0- 102.0; resp. 24- 30; pulse 86-117 H&P 03/14: Her chest x-ray showed right - sided consolidation. Impression: Acute hypoxic respiratory failure secondary to pneumonia, suspected aspiration 03/17/2019 ([place]) Pneumonia - Fairly dense right upper lobe infiltrate persists RISKS: H&P 03/14: 59 yr old senior living resident with DM 2, HTN. CABG 2 months ago. Acute hypoxic respiratory failure secondary to pneumonia, suspected aspiration TREATMENT: MAY 25: Zosyn 3.375 gm IV q 6 hr MAY 25: Levaquin 500mg IV Thank you, Stephenie (This form is maintained as a part of the permanent medical record) 2015 [employer]. All Rights Reserved Stephenie Bernal RN, [email or web address] [email or web address] Office: [phone] [facility]
--- NOTE | 2019-03-18 17:33 | PDOC.EVN ---
Event Note - Event Note Event Note: Ms. Wilson continues to feel short of breath even after Lasix IV given. She has rales on exam. Her nurse tells me she has been coughing after she eats. Will move her back to telemetry for closer monitoring, and consult Pulmonology in the AM to help assess
[2019-03-18] MEDS ORDERED: Dextrose 5% in Water 1,000 ML IV SCH (17:45)
[2019-03-18] MEDS: Atorvastatin Calcium 40 MG TAB PO SCH (20:33)
[2019-03-19] MEDS: guaiFENesin/Codeine Phosphate 200 mg/20 mg 10 ml UD Cup PO SCH ×3 (00:10→11:52)
[2019-03-19] MEDS: Piperacillin/Tazobactam 3.375 GM in Sodium Chloride 0.9% 100 ML IVPB SCH ×5 (00:14→23:30)
[2019-03-19 05:13] LABS: Anion Gap 13 mmol/L (10-20); BUN (Urea Nitrogen) 25 mg/dL (9.8-20.1); Calc. Creatinine Clearance 81 mL/min (70-130); Calcium 8.7 mg/dL (7.8-10.44); Carbon Dioxide 25 mmol/L (22-29); Chloride 100 mmol/L (98-107); Estimated GFR-MDRD 55; Glucose 251 mg/dL (70-105); Potassium 4.5 mmol/L (3.5-5.1); Sodium 133 mmol/L (136-145)
[2019-03-19] MEDS: Furosemide 40 MG/4 ML VIAL SLOW IVP SCH (05:46)
[2019-03-19 06:12] LABS: Band 15 % (5-11); Eosinophils 1 % (0-10); Hemoglobin 7.6 g/dL (12.0-16.0); Lymphocytes 9 % (21-51); MDiff Complete? YES; Mean Corpuscular HGB CONC 33.7 g/dL (32.0-36.0); Mean Corpuscular Hemoglobin 30.6 pg (27.0-31.0); Mean Platelet Volume 8.8 fL (7.4-10.4); Monocytes 7 % (0-10); Neutrophil 68 % (42-75); Platelet Count 135 thou/uL (130-400); Platelet Morphology Comment Appears Adequate; RBC Distribution Width 13.4 % (11.5-14.5); Red Blood Cell (RBC) Count 2.48 mill/uL (4.20-5.40); White Blood Cell (WBC) Count 7.5 thou/uL (4.8-10.8)
[2019-03-19] MEDS: Famotidine/PF 20 mg/2ml Vial SLOW IVP SCH ×2 (09:08→20:26)
[2019-03-19] MEDS: Enoxaparin Sodium 40 MG/0.4 ML SYRINGE SC SCH (09:08)
[2019-03-19] MEDS: Insulin Glargine 10 UNITS in Pre-Filled Syringe 1 EACH SC SCH ×2 (09:18→12:10)
[2019-03-19] MEDS: Lisinopril 5 MG TAB PO SCH (09:18)
[2019-03-19] MEDS: Aspirin 81 mg Enteric Coated Tablet PO SCH (09:18)
[2019-03-19] MEDS: Saccharomyces boulardii 250 MG CAP PO SCH (09:19)
[2019-03-19] MEDS ORDERED: Dextrose 5 %-0.45 % NaCl 1,000 ML IV SCH (12:00)
[2019-03-19] MEDS: traMADol HCl 50 MG TAB PO PRN ×2 (12:10→20:27)
--- NOTE | 2019-03-19 12:57 | PDOC.HOSPP ---
- Subjective Encounter Date: 03/19/19 Encounter Time: 12:30 Subjective: Patient seen and examined for resp failure/Pneumonia. NPO. No new complaints. No overnight events - Objective Vital Signs & Weight: Vital Signs (12 hours) Temp Pulse Resp BP Pulse Ox 03/19/19 12:00 97.8 F 113 H 28 H 165/74 H 92 L 03/19/19 11:00 88 20 03/19/19 09:18 84 03/19/19 07:33 98 03/19/19 07:32 84 20 98 03/19/19 07:09 97.5 F L 85 24 H 151/65 H 93 L 03/19/19 03:27 98.7 F 114 H 18 133/63 93 L 03/19/19 03:04 24 H Weight Admit Weight 189 lb Weight 189 lb 6.4 oz I&O: 03/18/19 03/19/19 03/20/19 06:59 06:59 06:59 Intake Total 1450 1220 Output Total 1000 350 700 Balance 450 870 -700 Result Diagrams: 03/19/19 04:27 03/19/19 04:27 Additional Labs: Accuchecks 03/19/19 03/19/19 03/18/19 11:18 05:43 21:04 POC Glucose 320 H 264 H 234 H 03/18/19 03/18/19 17:04 11:20 POC Glucose 436 H 345 H Microbiology 03/14/19 22:16 Urine clean catch Urine Culture - Final Klebsiella pneumoniae ssp pneu 03/14/19 21:56 Venous blood - Left Arm Blood Culture - Preliminary NO GROWTH AT 48 HOURS 03/14/19 21:49 Venous blood - Right Arm Blood Culture - Preliminary NO GROWTH AT 48 HOURS 03/18/19 01:19 Venous blood - Left Hand Blood Culture - Preliminary Specimen has been received and culture in progress. No Growth to date. 03/18/19 01:14 Venous blood - Left Arm Blood Culture - Preliminary Specimen has been received and culture in progress. No Growth to date. Radiology Reviewed by me: Yes (CXR - B/L infiltrates) EKG Reviewed by me: Yes (Tele SR) Hospitalist ROS - Review of Systems Respiratory: reports: SOB with excertion Cardiovascular: denies: chest pain, palpitations, orthopnea, paroxysmal noc. dyspnea, edema, light headedness, other Gastrointestinal: denies: nausea, vomiting, abdominal pain, diarrhea, constipation, melena, hematochezia, other - Medication Medications: Active Medications Generic Name Dose Route Start Last Admin Trade Name Freq PRN Reason Stop Dose Admin Acetaminophen 650 mg 03/15/19 04:09 03/18/19 05:43 Tylenol PO 650 mg Q4H PRN Administration Headache/Fever/Mild Pain 1-3 Albuterol/Ipratropium 3 ml 03/15/19 06:30 03/19/19 11:00 Duoneb NEB 3 ml [id number] CARLOS Administration Albuterol/Ipratropium 3 ml 03/15/19 04:08 03/18/19 08:49 Duoneb NEB 3 ml [id number] PRN Administration SOB &/or Wheezing Aspirin 81 mg 03/15/19 09:00 03/19/19 09:18 Ecotrin PO Not Given DAILY [facility] Atorvastatin Calcium 40 mg 03/15/19 21:00 03/18/19 20:33 Lipitor PO Not Given HS [facility] Benzonatate 100 mg 03/15/19 22:57 03/18/19 13:48 Tessalon PO 100 mg TIDPRN PRN Administration Cough Enoxaparin Sodium 40 mg 03/15/19 09:00 03/19/19 09:08 Lovenox SC 40 mg 0900 CARLOS Administration Famotidine 20 mg 03/15/19 09:00 03/19/19 09:08 Pepcid SLOW IVP 20 mg Q12HR [facility] Administration Guaifenesin/Codeine Phosphate 10 ml 03/17/19 12:00 03/19/19 11:52 Robitussin Ac PO Not Given Q6HR [facility] Levofloxacin 500 mg/ Device 100 mls @ 100 mls/hr 03/15/19 21:00 03/18/19 20: 34 IVPB 100 mls 2100 CARLOS Administration Piperacillin Sod/Tazobactam 100 mls @ 200 mls/hr 03/15/19 06:00 03/19/19 12: 11 Sod 3.375 gm/ Sodium Chloride IVPB 100 mls Q6HR [facility] Administration Insulin Glargine 10 units/ 0.1 mls @ 0 mls/hr 03/19/19 09:00 03/19/19 12:10 Miscellaneous Medication SC 0.1 mls QAM [facility] Administration Lisinopril 5 mg 03/15/19 09:00 03/19/19 09:18 Zestril PO Not Given DAILY [facility] Potassium Chloride 20 meq 03/15/19 08:00 03/19/19 09:18 Klor-Con PO Not Given QAM-WM [facility] Saccharomyces Boulardii 250 mg 03/15/19 09:00 03/19/19 09:19 Florastor PO Not Given DAILY [facility] Sertraline HCl 50 mg 03/15/19 09:00 03/19/19 09:19 Zoloft PO Not Given DAILY [facility] Sodium Chloride 10 ml 03/15/19 03:16 03/18/19 12:45 Flush - Normal Saline IVF 10 ml PRN PRN Administration Saline Flush Tramadol HCl 50 mg 03/15/19 05:30 03/19/19 12:10 Ultram PO 50 mg Q6H PRN Administration Moderate Pain (4-6) - Exam General Appearance: NAD Neck: supple, no JVD Heart: no gallops Respiratory: no rales, rales, rhonchi Gastrointestinal: soft, non-tender, non-distended, normal bowel sounds Hosp A/P - Plan DVT proph w/SCDs Acute hypoxic respiratory failure due to Aspiration pneumonia(POA) Klebsiella UTI (POA) Swallow dysfunction. Hyponatremia Diabetes mellitus type 2. Hyponatremia. Chronic kidney disease, stage 3. Obesity with a BMI of 36. CAD s/p CABG in January 01. Hypertension. Hyperlipidemia. Sinus tachycardia secondary to #1. Anemia due to CKD PLAN: Cont IV Zosyn/Levaquin Start IVF with D5 while NPO Reduce Lantus to 10 units daily Add PRN meds for HTN while NPO Hold Lovenox due to Anemia Cont Nebs Wean O2 Cont other meds
[2019-03-19] MEDS ORDERED: Enalaprilat Dihydrate 1.25 MG/ML VIAL SLOW IVP PRN (13:02)
[2019-03-19] MEDS: Acetaminophen 325 MG TAB PO PRN (17:30)
[2019-03-19] MEDS: HumaLOG 300 UNITS/3 ML VIAL SC PRN ×2 (17:36→20:31)
[2019-03-19] MEDS: Atorvastatin Calcium 40 MG TAB PO SCH (20:26)
[2019-03-19] MEDS: Benzonatate 100 MG CAP PO PRN (20:26)
[2019-03-19] MEDS ORDERED: Insulin Glargine 10 UNITS in Pre-Filled Syringe 1 EACH SC SCH (21:00)
--- NOTE | 2019-03-20 02:16 | CON ---
DATE OF CONSULTATION: 03/19/2019 SERVICE: Pulmonary Medicine. REASON FOR CONSULTATION: Hypoxic failure. HISTORY OF PRESENT ILLNESS: The patient is a 59-year-old female [facility]. She was in her usual state of health when she started having classic symptoms of pneumonia including cough, fever, hypoxemia, and sputum production. As such, she was brought to the emergency department, where a chest x-ray confirmed a right upper lobe pneumonia, which was fairly dense. She had a temperature of 102.6. She was admitted to the hospital. While she was in the hospital, she ended up being initiated on IV fluids, after getting bolused in the emergency department. Additionally, she was on appropriate broad-spectrum antibiotics. During the course of the hospital stay, she has actually gotten better. She has cleared her inflammatory profile. That being said, she became increasingly hypoxemic. She was given a couple of diuretics, and this actually improved some of her low oxygen levels. She denies any chest discomfort, nausea , vomiting, diarrhea, shortness of breath. She indicates that she snores and has sleep apnea, but has never had a sleep study performed. PAST MEDICAL HISTORY: 1. Coronary artery disease. 2. COPD. 3. Type 2 diabetes mellitus. 4. Hypertension. 5. Dyslipidemia. 6. Frequent falls. 7. Anxiety disorder. 8. Major depressive disorder. PAST SURGICAL HISTORY: 1. Appendectomy. 2. Cholecystectomy. 3. Right knee surgery. 4. Right great toe surgery. 5. D and C. 6. Coronary artery bypass graft. ALLERGIES: NO KNOWN DRUG ALLERGIES. MEDICATIONS: List of her inpatient medications was reviewed. No specific updates were made. SOCIAL HISTORY: She is a permanent resident in [facility]. She quit smoking in 2009. Prior to that, she had a 20 pack-year history of smoking. No alcohol or drug use. FAMILY HISTORY: Noncontributory. REVIEW OF SYSTEMS: General, head ears, eyes, nose, throat, cardiovascular, respiratory, GI, , musculoskeletal, neurologic, and skin is negative except as mentioned in the HPI. PHYSICAL EXAMINATION: VITAL SIGNS: Afebrile, pulse 86, blood pressure 152/67, respirations 24, saturation 92% on 3 L nasal cannula. GENERAL: The patient is awake and alert, in no apparent distress. LUNGS: Crackling is present throughout bilateral lung barrera. It is most pronounced in the right upper lobe, and also in the bibasilar dependent regions. HEART: Normal rate. Regular. ABDOMEN: Soft, nontender, and nondistended. Bowel sounds are positive. MUSCULOSKELETAL: No cyanosis or clubbing. There is trace pitting in the bilateral lower extremities. NEUROLOGIC: Grossly nonfocal. LABORATORY DATA: WBC is 7.5, hemoglobin is 7.6, platelets 135,000. Band count is 15%. Basic metabolic profile is unremarkable with a creatinine of 1.02. Urine culture is growing pansensitive Klebsiella pneumoniae. Blood cultures x4 unremarkable. IMAGING DATA: Chest x-ray demonstrates a dense right upper lobe infiltrate on presentation. Subsequent chest x-ray demonstrated slight interval clearing of the right upper lobe density, but there is new cephalization, and bibasilar interstitial fullness. Lung volumes are quite low. ASSESSMENT: 1. Acute hypoxic respiratory failure. 2. Healthcare-associated pneumonia. 3. Acute on chronic systolic heart failure. 4. Mitral regurgitation. 5. Urinary tract infection. 6. Anemia of chronic disease. 7. Obstructive sleep apnea, suspected. DISCUSSION AND PLAN: My presumption is that she either has a right upper lobe pneumonia that is being appropriately treated, or mitral regurgitation that preferentially distributes blood into the right upper lobe. Her white blood cell count, heart rate, and procalcitonin were essentially unremarkable, but she had elevated temperatures on presentation. As such, I would give her a full 5-7 day course of antibiotic directed at the lung, and minimize IV fluids and try to keep her as close to euvolemia as possible. I will back off on her Lasix to once daily. Repeat laboratories will be performed tomorrow morning. 70 minutes have been devoted to this patient in various activities. I personally reviewed all imaging studies and laboratory data noted within this document. For fifty percent of this time, I was interacting with the patient at the bedside or coordinating care with the care team. For the remainder of the time I was immediately available to the patient in the hospital unit. Job ID: [id number] [facility]
[2019-03-20] MEDS: traMADol HCl 50 MG TAB PO PRN ×2 (02:59→19:53)
[2019-03-20] MEDS: Piperacillin/Tazobactam 3.375 GM in Sodium Chloride 0.9% 100 ML IVPB SCH ×3 (05:31→17:37)
[2019-03-20 07:07] LABS: Reticulocyte Count 1.7 % (0.5-1.5)
[2019-03-20 07:25] LABS: Albumin 3.1 g/dL (3.5-5.0); Anion Gap 17 mmol/L (10-20); BUN (Urea Nitrogen) 24 mg/dL (9.8-20.1); BUN/Creatinine Ratio 26.97; Calc. Creatinine Clearance 86 mL/min (70-130); Calcium 9.2 mg/dL (7.8-10.44); Carbon Dioxide 23 mmol/L (22-29); Chloride 101 mmol/L (98-107); Estimated GFR-MDRD 65; Glucose 195 mg/dL (70-105); Magnesium 1.9 mg/dL (1.6-2.6); Phosphorus 2.8 mg/dL (2.3-4.7); Potassium 3.7 mmol/L (3.5-5.1); Sodium 137 mmol/L (136-145)
[2019-03-20 07:33] LABS: Band 2 % (5-11); Hemoglobin 8.5 g/dL (12.0-16.0); Lymphocytes 4 % (21-51); MDiff Complete? YES; Mean Corpuscular HGB CONC 32.9 g/dL (32.0-36.0); Mean Corpuscular Volume 91.4 fL (78.0-98.0); Mean Platelet Volume 8.8 fL (7.4-10.4); Metamyelocyte 1 % (0-0); Monocytes 2 % (0-10); Neutrophil 91 % (42-75); Platelet Count 176 thou/uL (130-400); RBC Distribution Width 13.6 % (11.5-14.5); Red Blood Cell (RBC) Count 2.82 mill/uL (4.20-5.40); White Blood Cell (WBC) Count 10.1 thou/uL (4.8-10.8)
[2019-03-20] MEDS: Saccharomyces boulardii 250 MG CAP PO SCH (08:35)
[2019-03-20] MEDS: Lisinopril 5 MG TAB PO SCH (08:35)
[2019-03-20] MEDS: Aspirin 81 mg Enteric Coated Tablet PO SCH (08:35)
[2019-03-20] MEDS: HumaLOG 300 UNITS/3 ML VIAL SC PRN ×4 (08:37→22:17)
[2019-03-20] MEDS: Insulin Glargine 10 UNITS in Pre-Filled Syringe 1 EACH SC SCH (08:37)
[2019-03-20] MEDS: Famotidine/PF 20 mg/2ml Vial SLOW IVP SCH (08:46)
--- NOTE | 2019-03-20 14:25 | PDOC.HOSPP ---
- Subjective Encounter Date: 03/20/19 Encounter Time: 09:30 Subjective: Patient seen and examined for Resp failure. Tolerating modified diet. Mild dry cough. No new complaints. No overnight events - Objective Vital Signs & Weight: Vital Signs (12 hours) Temp Pulse Resp BP Pulse Ox 03/20/19 13:49 81 20 03/20/19 11:28 97.8 F 84 20 102/47 L 95 03/20/19 10:35 85 20 03/20/19 07:36 98.7 F 81 20 135/79 100 03/20/19 03:02 98.9 F 104 H 20 147/65 H 92 L 03/20/19 02:27 85 22 H 96 Weight Admit Weight 189 lb Weight 177 lb I&O: 03/19/19 03/20/19 03/21/19 06:59 06:59 06:59 Intake Total 1220 790 Output Total 350 1850 Balance 870 -1060 Result Diagrams: 03/20/19 06:51 03/20/19 06:51 Additional Labs: Accuchecks 03/20/19 03/20/19 03/19/19 10:57 05:58 20:21 POC Glucose 214 H 214 H 327 H 03/19/19 16:35 POC Glucose 346 H EKG Reviewed by me: Yes (Tele SR) Hospitalist ROS - Review of Systems Cardiovascular: denies: chest pain, palpitations, orthopnea, paroxysmal noc. dyspnea, edema, light headedness, other Gastrointestinal: denies: nausea, vomiting, abdominal pain, diarrhea, constipation, melena, hematochezia, other - Medication Medications: Active Medications Generic Name Dose Route Start Last Admin Trade Name Freq PRN Reason Stop Dose Admin Acetaminophen 650 mg 03/15/19 04:09 03/19/19 17:30 Tylenol PO 650 mg Q4H PRN Administration Headache/Fever/Mild Pain 1-3 Albuterol/Ipratropium 3 ml 03/15/19 06:30 03/20/19 13:49 Duoneb NEB 3 ml [id number] CARLOS Administration Albuterol/Ipratropium 3 ml 03/15/19 04:08 03/18/19 08:49 Duoneb NEB 3 ml [id number] PRN Administration SOB &/or Wheezing Aspirin 81 mg 03/15/19 09:00 03/20/19 08:35 Ecotrin PO 81 mg DAILY CARLOS Administration Atorvastatin Calcium 40 mg 03/15/19 21:00 03/19/19 20:26 Lipitor PO 40 mg HS CARLOS Administration Enalaprilat 0.625 mg 03/19/19 13:02 03/19/19 13:09 Vasotec SLOW IVP 0.625 mg Q6H PRN Administration SBP Greater Than 180 Levofloxacin 500 mg/ Device 100 mls @ 100 mls/hr 03/15/19 21:00 03/19/19 20: 28 IVPB 100 mls 2100 CARLOS Administration Piperacillin Sod/Tazobactam 100 mls @ 200 mls/hr 03/15/19 06:00 03/20/19 11: 32 Sod 3.375 gm/ Sodium Chloride IVPB 100 mls Q6HR CARLOS Administration Insulin Glargine 10 units/ 0.1 mls @ 0 mls/hr 03/19/19 09:00 03/20/19 08:37 Miscellaneous Medication SC 0.1 mls QAM CARLOS Administration Insulin Human Lispro 0 units 03/19/19 11:47 03/20/19 11:33 Humalog SC 3 unit .MILD SLIDING SCALE PRN Administration Mild Correctional Scale Lisinopril 5 mg 03/15/19 09:00 03/20/19 08:35 Zestril PO 5 mg DAILY CARLOS Administration Potassium Chloride 20 meq 03/15/19 08:00 03/20/19 08:35 Klor-Con PO 20 meq QAM-WM CARLOS Administration Saccharomyces Boulardii 250 mg 03/15/19 09:00 03/20/19 08:35 Florastor PO 250 mg DAILY [facility]OS Administration Sertraline HCl 50 mg 03/15/19 09:00 03/20/19 08:35 Zoloft PO 50 mg DAILY [facility]OS Administration Sodium Chloride 10 ml 03/15/19 03:16 03/18/19 12:45 Flush - Normal Saline IVF 10 ml PRN PRN Administration Saline Flush Tramadol HCl 50 mg 03/15/19 05:30 03/20/19 02:59 Ultram PO 50 mg Q6H PRN Administration Moderate Pain (4-6) - Exam General Appearance: NAD Heart: RRR, no gallops, no rubs Respiratory: no wheezes, rales, rhonchi Gastrointestinal: soft, non-tender, non-distended, normal bowel sounds Extremities: no edema Neurological: no new deficit Hosp A/P - Plan DVT proph w/SCDs Acute hypoxic respiratory failure due to Aspiration pneumonia(POA) Klebsiella UTI (POA) Swallow dysfunction. Hyponatremia Diabetes mellitus type 2. Hyponatremia. Chronic kidney disease, stage 3. Obesity with a BMI of 36. CAD s/p CABG in January 01. Hypertension. Hyperlipidemia. Sinus tachycardia secondary to #1. Anemia due to CKD PLAN: Cont Zosyn/Levaquin Cont modified diet Pulmonary input appreciated IVF dced Cont Lantus and sliding scale Change Pepcid to PO Lovenox on hold due to Anemia Cont other meds
[2019-03-20] MEDS: Famotidine 20 MG TAB PO SCH (19:51)
[2019-03-20] MEDS: Acetaminophen 325 MG TAB PO PRN (19:52)
[2019-03-20] MEDS: Atorvastatin Calcium 40 MG TAB PO SCH (19:54)
[2019-03-20 19:57] LABS: Actual Bicarbonate (HCO3a) 22.2 mEq/L (22-28); CO2 Tension 31.3 mmHg (35.0-45.0); Calcium, Ionized 1.15 mmol/L (1.12-1.30); Carboxyhemoglobin (COHb) 1.1 gm% (0.0-3.0); Hemoglobin (Hb) 9.4 g/dL (12.0-16.0); Potassium - ABG Lab 3.68 mmol/L (3.70-5.30); pH, Arterial 7.47 (7.35-7.45)
[2019-03-20 19:58] LABS: O2 Tension (PaO2) 48.9 mmHg (80.0-100.0); Puncture Site LBA
[2019-03-20 19:59] LABS: ALV-art Gradient 168.655 (0-20)
--- NOTE | 2019-03-20 20:58 | PDOC.EVN ---
Event Note - Event Note Event Note: called by RN for pt pulling off high flow oxygen, feeling anxious. Earlier this was placed due to pulse ox in the 80's. pt has received tramadol and tylenol earlier for pain. Discussed with nurse that I'm not comfortable adding an anxiolytic that may depress her respiratory drive. Instead, requested RT be contacted to see if there are other options to help the patient be more comfortable.
[2019-03-21] MEDS: traMADol HCl 50 MG TAB PO PRN (02:11)
[2019-03-21] MEDS: Acetaminophen 325 MG TAB PO PRN ×2 (02:16→17:36)
[2019-03-21] MEDS: Piperacillin/Tazobactam 3.375 GM in Sodium Chloride 0.9% 100 ML IVPB SCH ×4 (05:19→17:32)
[2019-03-21 06:14] LABS: #Eosinphils 0.2 thou/uL (0.0-0.7); #Lymphocytes 0.8 thou/uL (1.20-3.40); #Monocytes 0.7 thou/uL (0.11-0.59); #Neutrophils 11.4 thou/uL (1.40-6.50); %Eosinophils 1.9 % (0.0-10.0); %Lymphocytes 6.1 % (21.0-51.0); %Monocytes 5.3 % (0.0-10.0); %Neutrophils 86.7 % (42.0-75.0); Hemoglobin 8.5 g/dL (12.0-16.0); Mean Corpuscular HGB CONC 32.8 g/dL (32.0-36.0); Mean Corpuscular Hemoglobin 31.1 pg (27.0-31.0); Mean Corpuscular Volume 94.9 fL (78.0-98.0); Mean Platelet Volume 8.3 fL (7.4-10.4); Platelet Count 198 thou/uL (130-400); RBC Distribution Width 13.6 % (11.5-14.5); Red Blood Cell (RBC) Count 2.73 mill/uL (4.20-5.40); White Blood Cell (WBC) Count 13.1 thou/uL (4.8-10.8)
[2019-03-21 06:33] LABS: Albumin 2.9 g/dL (3.5-5.0); Anion Gap 18 mmol/L (10-20); BUN (Urea Nitrogen) 28 mg/dL (9.8-20.1); BUN/Creatinine Ratio 24.56; Calc. Creatinine Clearance 67 mL/min (70-130); Calcium 8.9 mg/dL (7.8-10.44); Carbon Dioxide 19 mmol/L (22-29); Chloride 100 mmol/L (98-107); Estimated GFR-MDRD 49; Glucose 240 mg/dL (70-105); Phosphorus 3.2 mg/dL (2.3-4.7); Potassium 4.1 mmol/L (3.5-5.1); Sodium 133 mmol/L (136-145)
--- NOTE | 2019-03-21 09:03 | RAD ---
SINGLE VIEW CHEST: Date: 03/21/2019 COMPARISON: 03/17/2019. HISTORY: Increasing oxygen requirements. FINDINGS: Single view of the chest shows an enlarged but stable cardiomediastinal silhouette. The patient is st atus post sternotomy. There are mixed diffuse multifocal infiltrates which are relatively stable comp ared to the prior exam. IMPRESSION: Stable exam. POS: CET
[2019-03-21] MEDS: Aspirin 81 mg Enteric Coated Tablet PO SCH (10:34)
[2019-03-21] MEDS: Famotidine 20 MG TAB PO SCH ×2 (10:36→22:48)
[2019-03-21] MEDS: Insulin Glargine 10 UNITS in Pre-Filled Syringe 1 EACH SC SCH (10:36)
[2019-03-21] MEDS: Saccharomyces boulardii 250 MG CAP PO SCH (10:37)
[2019-03-21] MEDS: Lisinopril 5 MG TAB PO SCH (10:37)
[2019-03-21] MEDS: HumaLOG 300 UNITS/3 ML VIAL SC PRN ×3 (10:54→21:07)
--- NOTE | 2019-03-21 12:02 | PRG ---
DATE OF SERVICE: 03/21/2019 SUBJECTIVE: Pinky Wilson is a 59-year-old female, whom we were consulted regarding healthcare-associated pneumonia. She has been in the hospital now for several days. This morning, she remains somewhat agitated and confused. X-ray taken last night showed right-sided infiltrate. She is on Levaquin and Zosyn. She is a longterm resident. Unable to verbalize much. Apparently, she is a full code. OBJECTIVE: VITAL SIGNS: Her temperature 98, saturations 100% on high flow, respiratory rate , pulse 93, blood pressure 141/65. CHEST: Bilateral rhonchi and crackles right greater than left. CARDIAC: Normal S1 and S2. No gallops. ABDOMEN: No masses. LABORATORY DATA: White count 13,000, H and H of 8 and 25, platelet count is normal. Creatinine 1.4. ASSESSMENT: Aspiration pneumonia, encephalopathy. PLAN: 1. Continue antibiotics. I have added low-dose steroids. 2. Continue PT, supportive care. 3. We will follow. Job ID: [id number]
[2019-03-21] MEDS ORDERED: methylPREDNISolone Sod Succ 40 MG VIAL IVP SCH (12:15)
--- NOTE | 2019-03-21 15:22 | PRG ---
DATE OF SERVICE: 03/20/2019 SERVICE: Pulmonary Medicine. INTERVAL HISTORY: The patient indicates that she has sharp pain whenever she is coughing. She is bringing up phlegm. She is also having some degree of increasing work of breathing/shortness of breath. There has been no interval change to her condition otherwise. PHYSICAL EXAMINATION: VITAL SIGNS: Afebrile, pulse 81, blood pressure 102/47, respirations 20, and saturation 95% on 4 L nasal cannula. GENERAL: The patient is awake and alert. She is in mild respiratory distress. HEENT: Normocephalic, atraumatic. Sclerae white. Conjunctivae pink. Oral mucosa is moist without lesions. LUNGS: Decent air entry. There are some crackles present bilaterally, but worse on the right upper lung zone. HEART: Tachycardic. Regular. ABDOMEN: Soft, nontender, and nondistended. Bowel sounds are positive. MUSCULOSKELETAL: No cyanosis or clubbing. There is no pitting edema. NEUROLOGIC: Grossly nonfocal. LABORATORY DATA: WBC 10.1, hemoglobin 8.5, and platelets 176,000 rebounding beautifully. Band count is dropping precipitously, though the neutrophil count is up trending. Retic count is low. The smear is currently pending. LDH is significantly elevated, vitamin B12 is elevated, and folate is within normal limits. Basic metabolic profile is otherwise unremarkable. Magnesium and phosphorus are normal. Urine culture is growing Klebsiella, though four blood cultures are negative to date. ASSESSMENT: 1. Acute hypoxic respiratory failure. 2. Healthcare-associated pneumonia. 3. Acute on chronic systolic heart failure, likely close to euvolemia. 4. Mitral regurgitation. 5. Urinary tract infection. 6. Anemia of chronic disease. DISCUSSION AND PLAN: The patient is doing okay from respiratory standpoint. We are going to continue nebulized medications and antibiotics. She should take a full 7 day course of antibiotics directing at lung related disease. I believe she is on the dry side. As such, Lasix will be interrupted altogether. She is not taking great p.o. at this point. I will get an ABG to make certain that she does not have significant hypercapnic failure. Job ID: [id number]
[2019-03-21] MEDS ORDERED: cloNIDine 0.1 MG TAB PO PRN (17:02)
[2019-03-21] MEDS ORDERED: hydrALAZINE 20 MG/ML VIAL SLOW IVP PRN (17:03)
[2019-03-21] MEDS ORDERED: cloNIDine 0.1mg/24 Hour PATCH TD SCH (17:30)
--- NOTE | 2019-03-21 17:52 | PDOC.HOSPP ---
- Subjective Encounter Date: 03/21/19 Encounter Time: 11:30 Subjective: Patient seen and examined for resp failure. On high flow O2. Confused. Overnight events noted - Objective Vital Signs & Weight: Vital Signs (12 hours) Temp Pulse Pulse Pulse Resp BP BP 03/21/19 15:35 101.4 F H 107 H 18 03/21/19 14:56 98 22 H 03/21/19 11:25 98.3 F 91 33 H 03/21/19 10:10 104 H 92 164/74 H 137/62 03/21/19 09:51 93 20 03/21/19 07:50 98.5 F 98 18 03/21/19 06:59 100 18 BP Pulse Ox Pulse Ox Pulse Ox 03/21/19 15:35 191/83 H 95 03/21/19 14:56 99 03/21/19 11:25 163/101 H 95 03/21/19 10:10 96 97 03/21/19 09:51 100 03/21/19 07:50 141/65 H 92 L 03/21/19 06:59 99 Weight Admit Weight 189 lb Weight 177 lb I&O: 03/20/19 03/21/19 03/22/19 06:59 06:59 06:59 Intake Total 790 1040 Output Total 1850 400 Balance -1060 640 Result Diagrams: 03/21/19 05:49 03/21/19 05:49 Additional Labs: Accuchecks 03/21/19 03/21/19 03/21/19 16:57 10:43 05:20 POC Glucose 229 H 310 H 260 H 03/20/19 22:03 POC Glucose 283 H Radiology Reviewed by me: Yes (CXR - no new infiltrates) EKG Reviewed by me: Yes (Tele SR) Hospitalist ROS - Review of Systems ROS unobtainable: due to mental status - Medication Medications: Active Medications Generic Name Dose Route Start Last Admin Trade Name Freq PRN Reason Stop Dose Admin Acetaminophen 650 mg 03/15/19 04:09 03/21/19 17:36 Tylenol PO 650 mg Q4H PRN Administration Headache/Fever/Mild Pain 1-3 Albuterol/Ipratropium 3 ml 03/15/19 06:30 03/21/19 14:56 Duoneb NEB 3 ml [id number] CARLOS Administration Albuterol/Ipratropium 3 ml 03/15/19 04:08 03/18/19 08:49 Duoneb NEB 3 ml [id number] PRN Administration SOB &/or Wheezing Aspirin 81 mg 03/15/19 09:00 03/21/19 10:34 Ecotrin PO 81 mg DAILY CARLOS Administration Atorvastatin Calcium 40 mg 03/15/19 21:00 03/20/19 19:54 Lipitor PO 40 mg HS CARLOS Administration Clonidine 0.1 mg 03/21/19 17:30 03/21/19 17:31 [id number] Patch TD 0.1 mg Q7D CARLOS Administration Enalaprilat 0.625 mg 03/19/19 13:02 03/19/19 13:09 Vasotec SLOW IVP 0.625 mg Q6H PRN Administration SBP Greater Than 180 Famotidine 20 mg 03/20/19 21:00 03/21/19 10:36 Pepcid PO 20 mg BID CARLOS Administration Levofloxacin 500 mg/ Device 100 mls @ 100 mls/hr 03/15/19 21:00 03/20/19 19: 54 IVPB 100 mls 2100 CARLOS Administration Piperacillin Sod/Tazobactam 100 mls @ 200 mls/hr 03/15/19 06:00 03/21/19 17: 32 Sod 3.375 gm/ Sodium Chloride IVPB 100 mls Q6HR CARLOS Administration Insulin Glargine 10 units/ 0.1 mls @ 0 mls/hr 03/19/19 09:00 03/21/19 10:36 Miscellaneous Medication SC 0.1 mls QAM CARLOS Administration Insulin Human Lispro 0 units 03/19/19 11:47 03/20/19 22:17 Humalog SC 3 unit .BEDTIME SLIDING SC PRN Administration Bedtime Correctional Scale Insulin Human Lispro 0 units 03/20/19 14:48 03/21/19 17:36 Humalog SC 4 unit .MODERATE SLIDING SC PRN Administration Moderate Correctional Scale Potassium Chloride 20 meq 03/15/19 08:00 03/21/19 10:34 Klor-Con PO 20 meq QAM-WM CARLOS Administration Saccharomyces Boulardii 250 mg 03/15/19 09:00 03/21/19 10:37 Florastor PO 250 mg DAILY CARLOS Administration Sertraline HCl 50 mg 03/15/19 09:00 03/21/19 10:37 Zoloft PO 50 mg DAILY CARLOS Administration Sodium Chloride 10 ml 03/15/19 03:16 03/18/19 12:45 Flush - Normal Saline IVF 10 ml PRN PRN Administration Saline Flush Tramadol HCl 50 mg 03/15/19 05:30 03/21/19 02:11 Ultram PO 50 mg Q6H PRN Administration Moderate Pain (4-6) - Exam General - other findings: in Resp distress - high flow O2 Heart: RRR, no gallops, no rubs, normal peripheral pulses Respiratory: rales, rhonchi, wheezes Respiratory - other findings: accessory muscle use Gastrointestinal: soft, non-tender, non-distended, normal bowel sounds Extremities: no cyanosis, no clubbing Psychiatric - other findings: Neuro/Psych - cannot assess due to current mentation Hosp A/P - Plan DVT proph w/SCDs Acute hypoxic respiratory failure due to Aspiration pneumonia(POA) Toxic Metabolic Encephalopathy Klebsiella UTI (POA) Swallow dysfunction - on modified diet Hypertension - uncontrolled Hyponatremia Diabetes mellitus type 2. Hyponatremia. Chronic kidney disease, stage 3. Obesity with a BMI of 36. CAD s/p CABG in January 01. Hyperlipidemia. Sinus tachycardia secondary to #1. Anemia due to CKD PLAN: Add Clonidine Patch Increase Lisinopril to BID Cont Zosyn/Levaquin Cont modified diet Pulmonary input appreciated Cont Lantus/sliding scale Lovenox on hold due to Anemia Cont other meds AM labs
[2019-03-21 18:06] LABS: Actual Bicarbonate (HCO3a) 22.5 mEq/L (22-28); CO2 Tension 32.4 mmHg (35.0-45.0); Calcium, Ionized 1.13 mmol/L (1.12-1.30); Carboxyhemoglobin (COHb) 1.2 gm% (0.0-3.0); Hemoglobin (Hb) 8.8 g/dL (12.0-16.0); O2 Tension (PaO2) 76.2 mmHg (80.0-100.0); Potassium - ABG Lab 4.48 mmol/L (3.70-5.30); pH, Arterial 7.46 (7.35-7.45)
[2019-03-21 18:09] LABS: Puncture Site RRADIAL
--- NOTE | 2019-03-21 18:27 | PDOC.EVN ---
Event Note - Event Note Event Note: Code green was called due to O2 desaturation. ABGs reviewed. Will transfer to [facility] for PRN CPAP.
[2019-03-21] MEDS ORDERED: Dextrose 5 % And 0.9 % NaCl 1,000 ML IV SCH (18:45)
[2019-03-21] MEDS ORDERED: Lisinopril 5 MG TAB PO SCH (21:00)
[2019-03-21] MEDS: methylPREDNISolone Sod Succ 40 MG VIAL IVP SCH (21:08)
[2019-03-21] MEDS: Atorvastatin Calcium 40 MG TAB PO SCH (22:48)
[2019-03-22] MEDS: Piperacillin/Tazobactam 3.375 GM in Sodium Chloride 0.9% 100 ML IVPB SCH ×4 (00:36→18:42)
[2019-03-22 04:31] LABS: Band 10 % (5-11); Hemoglobin 9.1 g/dL (12.0-16.0); Lymphocytes 4 % (21-51); MDiff Complete? YES; Mean Corpuscular HGB CONC 33.1 g/dL (32.0-36.0); Mean Corpuscular Hemoglobin 30.2 pg (27.0-31.0); Mean Corpuscular Volume 91.3 fL (78.0-98.0); Mean Platelet Volume 8.6 fL (7.4-10.4); Myelocyte 2 % (0-0); Neutrophil 84 % (42-75); Platelet Count 184 thou/uL (130-400); RBC Distribution Width 14.2 % (11.5-14.5); Red Blood Cell (RBC) Count 3.03 mill/uL (4.20-5.40); White Blood Cell (WBC) Count 10.3 thou/uL (4.8-10.8)
[2019-03-22 04:58] LABS: Anion Gap 19 mmol/L (10-20); BUN (Urea Nitrogen) 43 mg/dL (9.8-20.1); BUN/Creatinine Ratio 29.86; Calc. Creatinine Clearance 53 mL/min (70-130); Calcium 8.4 mg/dL (7.8-10.44); Carbon Dioxide 20 mmol/L (22-29); Chloride 103 mmol/L (98-107); Estimated GFR-MDRD 37; Glucose 253 mg/dL (70-105); Magnesium 2.2 mg/dL (1.6-2.6); Phosphorus 4.8 mg/dL (2.3-4.7); Sodium 137 mmol/L (136-145)
[2019-03-22] MEDS: HumaLOG 300 UNITS/3 ML VIAL SC PRN ×3 (05:44→22:31)
--- NOTE | 2019-03-22 07:45 | RAD ---
XR Chest 1 View Portable History: Shortness of breath Comparison: Radiograph prior day Findings: Patchy airspace opacities both lungs are relatively similar. Small effusions. No pneumothor ax. Cardiac silhouette and mediastinal contours are within normal limits. No acute osseous abnormality. Impression: Similar appearance of the chest since 03/21/2019. When comparing the March 17, 2019 examin ation to today's exam, there is worsening aeration of the right lower lobe.
[2019-03-22] MEDS ORDERED: Insulin Glargine 25 UNITS in Pre-Filled Syringe 1 EACH SC SCH (09:00)
--- NOTE | 2019-03-22 09:13 | PRG ---
DATE OF SERVICE: 03/22/2019 SUBJECTIVE: This morning, she has a BiPAP on board. OBJECTIVE: VITAL SIGNS: Temperature 99, pulse 130, respiratory rate 42, sats 100%, blood pressure 130/80. GENERAL: She is encephalopathic. CHEST: Decreased breath sounds. No wheezing. CARDIAC: Normal S1 and S2. No gallop. ABDOMEN: No mass. LABORATORY DATA: PO2 is 76, pCO2 on high-flow. Creatinine is 1.47, glucose 295. White count 10,000. IMPRESSION: Encephalopathy, right-sided pneumonia, probably aspiration. We will discuss with family when they arrive. At this stage, we will continue antibiotics. All cultures from the sputum were negative. Urine is growing Klebsiella to which she is sensitive to. I will continue low-dose steroids. Pulmonary will follow. Job ID: [id number]
[2019-03-22] MEDS: Saccharomyces boulardii 250 MG CAP PO SCH (10:44)
[2019-03-22] MEDS: Aspirin 81 mg Enteric Coated Tablet PO SCH (10:44)
[2019-03-22] MEDS: Famotidine 20 MG TAB PO SCH ×2 (10:45→22:02)
[2019-03-22] MEDS: Lisinopril 5 MG TAB PO SCH (10:45)
[2019-03-22] MEDS: Amlodipine 5 MG TAB PO SCH ×2 (10:45→22:02)
[2019-03-22] MEDS: methylPREDNISolone Sod Succ 40 MG VIAL IVP SCH ×2 (10:46→22:04)
[2019-03-22 14:08] LABS: Base Excess (BEa) -7.1 mEq/L (-2.0 to +3.0); Calcium, Ionized 1.05 mmol/L (1.12-1.30); Carboxyhemoglobin (COHb) 0.7 gm% (0.0-3.0); Hemoglobin (Hb) 10.1 g/dL (12.0-16.0); O2 Tension (PaO2) 103.2 mmHg (80.0-100.0); Potassium - ABG Lab 5.51 mmol/L (3.70-5.30); pH, Arterial 7.43 (7.35-7.45)
[2019-03-22] MEDS ORDERED: Propofol 1,000 MG/100 ML VIAL IV ONE (14:10)
[2019-03-22 14:25] LABS: ALV-art Gradient 222.425 (0-20); CO2 Tension 24.7 mmHg (35.0-45.0); Puncture Site L.R.
[2019-03-22 15:50] LABS: Actual Bicarbonate (HCO3a) 16.7 mEq/L (22-28); Base Excess (BEa) -5.8 mEq/L (-2.0 to +3.0); Calcium, Ionized 1.03 mmol/L (1.12-1.30); Carboxyhemoglobin (COHb) 1.2 gm% (0.0-3.0); Hemoglobin (Hb) 8.2 g/dL (12.0-16.0); O2 Tension (PaO2) 121.6 mmHg (80.0-100.0); Potassium - ABG Lab 5.12 mmol/L (3.70-5.30); pH, Arterial 7.48 (7.35-7.45)
[2019-03-22 15:52] LABS: CO2 Tension 22.8 mmHg (35.0-45.0)
[2019-03-22 15:53] LABS: Puncture Site RBA
[2019-03-22] MEDS: Sodium Chloride 0.9% 1,000 ML IV SCH (16:39)
[2019-03-22] MEDS ORDERED: DISCONTINUE PREVIOUS NARCOTIC PAIN MEDICATIONS AND BENZODIAZEPINES FS SCH (16:51)
[2019-03-22] MEDS ORDERED: Fentanyl BOLUS 250 ML IVPB PRN (16:51)
[2019-03-22] MEDS ORDERED: fentaNYL Citrate/PF 2,000 MCG in Sodium Chloride 0.9% 60 ML IV SCH (16:51)
[2019-03-22] MEDS ORDERED: Lorazepam 2 MG/ML VIAL SLOW IVP PRN (16:51)
[2019-03-22] MEDS ORDERED: Propofol BOLUS 1,000 MG/100 ML VIAL IV PRN (16:51)
[2019-03-22] MEDS: Morphine 2 MG/ML SYRINGE SLOW IVP PRN (20:48)
[2019-03-22] MEDS: Atorvastatin Calcium 40 MG TAB PO SCH (22:03)
--- NOTE | 2019-03-22 22:33 | PDOC.HOSPP ---
- Subjective Encounter Date: 03/22/19 Encounter Time: 14:00 Subjective: Patient seen and examined for Resp failure. Disoriented. On high flow O2. Sitter at bedside. Overnight events reviewed. - Objective Vital Signs & Weight: Vital Signs (12 hours) Temp Pulse Resp BP Pulse Ox 03/22/19 22:02 123 H 128/84 03/22/19 20:00 100.7 F H 33 H 03/22/19 18:53 124 H 100 03/22/19 18:52 100 03/22/19 18:00 33 H 03/22/19 17:00 99 F 03/22/19 16:00 33 H 99 03/22/19 15:23 124 H 114/69 03/22/19 15:20 124 H 34 H 99 03/22/19 11:01 129 H 45 H 97 03/22/19 10:50 100 03/22/19 10:45 130 H 03/22/19 10:39 99.3 F Weight Admit Weight 209 lb 14.081 oz Weight 174 lb 13.225 oz Most Recent Monitor Data Heart Rate from ECG 123 NIBP 128/84 NIBP BP-Mean 98 Respiration from ECG 24 SpO2 100 I&O: 03/21/19 03/22/19 03/23/19 06:59 06:59 06:59 Intake Total 1040 1051 509 Output Total 400 50 Balance 640 1051 459 Result Diagrams: 03/23/19 03:28 03/23/19 03:28 Additional Labs: Accuchecks 03/22/19 03/22/19 03/22/19 16:25 11:45 05:45 POC Glucose 362 H 305 H 295 H Radiology Reviewed by me: Yes (CXR - infiltrates) EKG Reviewed by me: Yes (Tele ST) Hospitalist ROS - Review of Systems ROS unobtainable: due to mental status - Medication Medications: Active Medications Generic Name Dose Route Start Last Admin Trade Name Freq PRN Reason Stop Dose Admin Acetaminophen 650 mg 03/15/19 04:09 03/21/19 02:16 Tylenol PO 650 mg Q4H PRN Administration Headache/Fever/Mild Pain 1-3 Albuterol/Ipratropium 3 ml 03/15/19 06:30 03/22/19 18:52 Duoneb NEB 3 ml [id number] CARLOS Administration Albuterol/Ipratropium 3 ml 03/15/19 04:08 03/18/19 08:49 Duoneb NEB 3 ml [id number] PRN Administration SOB &/or Wheezing Amlodipine Besylate 5 mg 03/22/19 09:00 03/22/19 22:02 Norvasc PO 5 mg BID CARLOS Administration Aspirin 81 mg 03/15/19 09:00 03/22/19 10:44 Ecotrin PO 81 mg DAILY CARLOS Administration Atorvastatin Calcium 40 mg 03/15/19 21:00 03/22/19 22:03 Lipitor PO 40 mg HS CARLOS Administration Clonidine 0.1 mg 03/21/19 17:30 03/21/19 17:31 [id number] Patch TD 0.1 mg Q7D CARLOS Administration Enalaprilat 0.625 mg 03/19/19 13:02 03/19/19 13:09 Vasotec SLOW IVP 0.625 mg Q6H PRN Administration SBP Greater Than 180 Famotidine 20 mg 03/20/19 21:00 03/22/19 22:02 Pepcid PO 20 mg BID CARLOS Administration Levofloxacin 500 mg/ Device 100 mls @ 100 mls/hr 03/15/19 21:00 03/22/19 22: 03 IVPB 100 mls 2100 CARLOS Administration Piperacillin Sod/Tazobactam 100 mls @ 200 mls/hr 03/15/19 06:00 03/22/19 18: 42 Sod 3.375 gm/ Sodium Chloride IVPB 100 mls Q6HR CARLOS Administration Sodium Chloride 1,000 mls @ 50 mls/hr 03/22/19 13:30 03/22/19 16:39 Normal Saline 0.9% IV 1,000 mls .Q20H CARLOS Administration Insulin Human Lispro 0 units 03/19/19 11:47 03/22/19 17:22 Humalog SC 5 unit .BEDTIME SLIDING SC PRN Administration Bedtime Correctional Scale Insulin Human Lispro 0 units 03/20/19 14:48 03/22/19 05:44 Humalog SC 6 unit .MODERATE SLIDING SC PRN Administration Moderate Correctional Scale Lisinopril 5 mg 03/22/19 09:00 03/22/19 10:45 Zestril PO 5 mg DAILY CARLOS Administration Methylprednisolone Sodium Succinate 40 mg 03/21/19 21:00 03/22/19 22:04 Solu-Medrol IVP 40 mg BID CARLOS Administration Morphine Sulfate 2 mg 03/22/19 16:51 03/22/19 20:48 Morphine SLOW IVP 04/21/19 16:51 2 mg Q1H PRN Administration BREAKTHROUGH PAIN/Agitation Saccharomyces Megi 250 mg 03/15/19 09:00 03/22/19 10:44 Florastor PO 250 mg DAILY CARLOS Administration Sertraline HCl 50 mg 03/15/19 09:00 03/22/19 10:44 Zoloft PO 50 mg DAILY CARLOS Administration Sodium Chloride 10 ml 03/15/19 03:16 03/18/19 12:45 Flush - Normal Saline IVF 10 ml PRN PRN Administration Saline Flush - Exam General Appearance: ill appearing General - other findings: in mod-sev resp distress Heart: RRR, no gallops, no rubs Heart - other findings: tachycardic Respiratory: rales, rhonchi, wheezes Respiratory - other findings: accessory muscle use Gastrointestinal: soft, non-tender, non-distended, no guarding, no rigidity, tender to palpation Neurological - other findings: Neuro/Pscyh - unable to assess due to AMS Hosp A/P - Plan DVT proph w/lovenox Acute hypoxic respiratory failure due to Aspiration pneumonia(POA) Toxic Metabolic Encephalopathy Klebsiella UTI (POA) Swallow dysfunction - on modified diet Hypertension - uncontrolled Hyponatremia Diabetes mellitus type 2. Hyponatremia. Chronic kidney disease, stage 3. Obesity with a BMI of 36. CAD s/p CABG in January 01. Hyperlipidemia. Sinus tachycardia secondary to #1. Anemia due to CKD PLAN: ABGs reviewed CT brain cannot be done due to current mentation Plan d/w sister Palliative care team input appreciate Cont Zosyn/Levaquin Adjust IVF CXR in AM Cont Lantus/sliding scale Cont other meds Will prob need Intubation
[2019-03-23] MEDS: Piperacillin/Tazobactam 3.375 GM in Sodium Chloride 0.9% 100 ML IVPB SCH ×2 (00:26→06:41)
[2019-03-23] MEDS: Propofol 1,000 MG/100 ML VIAL IV PRN ×2 (01:39→13:19)
[2019-03-23 04:06] LABS: Phosphorus 4.2 mg/dL (2.3-4.7)
[2019-03-23 04:08] LABS: Anion Gap 14 mmol/L (10-20); BUN (Urea Nitrogen) 69 mg/dL (9.8-20.1); Calc. Creatinine Clearance 39 mL/min (70-130); Calcium 7.5 mg/dL (7.8-10.44); Carbon Dioxide 21 mmol/L (22-29); Chloride 107 mmol/L (98-107); Estimated GFR-MDRD 26; Glucose 346 mg/dL (70-105); Magnesium 2.5 mg/dL (1.6-2.6); Potassium 4.1 mmol/L (3.5-5.1); Sodium 138 mmol/L (136-145)
[2019-03-23 05:47] LABS: #Lymphocytes 0.4 thou/uL (1.20-3.40); #Monocytes 0.3 thou/uL (0.11-0.59); #Neutrophils 7.9 thou/uL (1.40-6.50); %Eosinophils 0.4 % (0.0-10.0); %Lymphocytes 4.8 % (21.0-51.0); %Monocytes 3.3 % (0.0-10.0); %Neutrophils 91.5 % (42.0-75.0); Hemoglobin 8.4 g/dL (12.0-16.0); Mean Corpuscular HGB CONC 33.4 g/dL (32.0-36.0); Mean Corpuscular Hemoglobin 30.3 pg (27.0-31.0); Mean Corpuscular Volume 90.5 fL (78.0-98.0); Mean Platelet Volume 9.8 fL (7.4-10.4); Platelet Count 90 thou/uL (130-400); Platelet Morphology Comment Appears Decreased; RBC Distribution Width 14.5 % (11.5-14.5); Red Blood Cell (RBC) Count 2.76 mill/uL (4.20-5.40); White Blood Cell (WBC) Count 8.6 thou/uL (4.8-10.8)
[2019-03-23] MEDS: HumaLOG 300 UNITS/3 ML VIAL SC PRN ×3 (06:40→13:20)
[2019-03-23 07:06] LABS: Actual Bicarbonate (HCO3a) 20.8 mEq/L (22-28); Base Excess (BEa) -1.3 mEq/L (-2.0 to +3.0); Calcium, Ionized 1.03 mmol/L (1.12-1.30); Carboxyhemoglobin (COHb) 1.2 gm% (0.0-3.0); Hemoglobin (Hb) 7.1 g/dL (12.0-16.0); O2 Tension (PaO2) 138.4 mmHg (80.0-100.0); Potassium - ABG Lab 3.86 mmol/L (3.70-5.30); pH, Arterial 7.54 (7.35-7.45)
[2019-03-23 07:11] LABS: CO2 Tension 24.9 mmHg (35.0-45.0); Puncture Site RRA
[2019-03-23 07:12] LABS: ALV-art Gradient 115.675 (0-20)
[2019-03-23] MEDS ORDERED: Furosemide 40 MG/4 ML VIAL SLOW IVP SCH (08:30)
--- NOTE | 2019-03-23 08:51 | RAD ---
[facility] ONE VIEW: HISTORY: Ventilated patient. COMPARISON: Radiograph from the prior day. FINDINGS: The patient is intubated. The endotracheal tube tip is felt to be above the syd approximately 3 cm . Enteric tube tip is below the diaphragm and out of the field of view. Similar to slightly improving aeration of the lungs. IMPRESSION: Similar to slightly improving aeration of the lungs. POS: CET
--- NOTE | 2019-03-23 08:52 | PRG ---
DATE OF SERVICE: 03/23/2019 SUBJECTIVE: This morning she is sedated. Eyes are deviated to the right, opens eyes. OBJECTIVE: VITAL SIGNS: Temperature 98, pulse 116, respirations 30, blood pressure 145\74_. I's and O's have been consistently negative. CHEST: Rhonchi, crackles. CARDIAC: S3 gallop. ABDOMEN: Soft. No masses. EXTREMITIES: No edema. LABORATORY DATA: X-ray shows no acute infiltrates. White count 8000. H and H 26. Platelet count is 90,000, has decreased substantially. PO2 is 138, pCO2 34 ph 7.54__. BUN and creatinine are elevated at 69 and 1.9. BUN is 69, glucose 387. BNP is 2635. IMPRESSION: Respiratory failure, metabolic encephalopathy, azotemia, congestive heart failure, diabetes. Echo is being ordered. Antibiotics are adjusted for renal failure. We will start nutrition, PT. Still not weanable as of today. She was intubated yesterday with progressive respiratory failure and mental status change. One-half hour of critical time. Job ID: [id number] MTDD
[2019-03-23] MEDS ORDERED: Enoxaparin Sodium 30 MG/0.3 ML SYRINGE SC SCH (09:00)
[2019-03-23] MEDS ORDERED: Insulin Glargine 10 UNITS in Pre-Filled Syringe 1 EACH SC SCH ×2 (09:00→21:00)
--- NOTE | 2019-03-23 09:30 | OP ---
DATE OF PROCEDURE: 03/22/2019 Apparently, Ms. Wilson this morning improved somewhat and was able to wean off BiPAP to high-flow and then this afternoon became more and more tachypneic and less and less responsive. She was transferred to the critical care unit. I was the pulmonary physician on-call in the ICU and recommended intubation. She was semi-recumbent. A bite block was placed in her mouth. BiPAP was on at that point and it was removed. Bronchoscope was passed into her upper airway and quickly passed through her glottis into her trachea. An endotracheal tube was advanced and secured above the main syd. She is connected to mechanical ventilation and sedated. Propofol sedation protocol will be initiated. She tolerated the procedure and intubation well. She did not become hypotensive with intubation. CRITICAL CARE TIME: 30 minutes independent of the procedure performed. Job ID: [id number]
[2019-03-23] MEDS: Lisinopril 5 MG TAB PO SCH (09:58)
[2019-03-23] MEDS: Amlodipine 5 MG TAB PO SCH (09:58)
[2019-03-23] MEDS: Famotidine 20 MG TAB PO SCH (09:58)
[2019-03-23] MEDS: Aspirin 81 mg Enteric Coated Tablet PO SCH (09:59)
[2019-03-23] MEDS: Saccharomyces boulardii 250 MG CAP PO SCH (09:59)
[2019-03-23] MEDS: Sodium Chloride 0.9% 1,000 ML IV SCH (09:59)
[2019-03-23] MEDS: Aspirin 300 MG Suppository PR SCH (10:00)
[2019-03-23] MEDS: methylPREDNISolone Sod Succ 40 MG VIAL IVP SCH (10:08)
[2019-03-23] MEDS: Morphine 2 MG/ML SYRINGE SLOW IVP PRN (11:02)
[2019-03-23] MEDS: Piperacillin/Tazobactam 2.25 GM in Sodium Chloride 0.9% 100 ML IVPB SCH ×2 (13:19→22:26)
--- NOTE | 2019-03-23 13:57 | PDOC.PALCO ---
Palliative Care Consult - Consult Details Requesting Physician: Dr Reich Reason for Consult: goals of care, advance directives assistance, assistance with communication prognosis/disease Family Members Present: None - Pertinent HPI Resident of snf with diabetes II, htn, cad was sent to the emergency room for evaluation secondary to fever and poor o2 saturation. History revealed that there was an onset of a cough that worsened over three days, subsequent admission after emergency room identified acute hypoxic respiratory failure secondary to pneumonia that is believed to be from silent aspiration. Also noted to have UTI. Initially admitted to the telemetry unit but secondary to continued respiratory decline patient was transferred to CCU and intubated. - Social History Smoking Status: Former smoker Smoking: quit greater than 1 year Alcohol Use: none Drug Use History: none Living Situation: snf resident - Medications MAR Reviewed: Yes - Allergies Allergies/Adverse Reactions: Allergies Allergy/AdvReac Type Severity Reaction Status Date / Time No Known Allergies Allergy Verified 03/15/19 13:42 - Subjective Intubated, sedated - ROS Non Response: due to endotracheal tube, due to mental status - Objective Vital Signs: Vital Signs - Most Recent Temp Pulse Resp BP Pulse Ox 98.9 F 120 H 37 H 141/79 H 100 03/23/19 07:00 03/23/19 13:10 03/23/19 10:20 03/23/19 09:58 03/23/19 08:00 Palliative Performance Scale: 20 - Advance Directives Medical Power of Electrolysis Investigator: Patient sister Manda - Physical Exam Constitutional: encephalitic, ill appearing HEENT: EOMI, moist MMs, sclera anicteric Deviation from normal: adventicious lung sounds, mechanical ventilation Cardiovascular: gallop Gastrointestinal: positive bowel sounds, incontinent Genitourinary: brewer catheter Musculoskeletal: edema present Deviation from normal: Mottling to toes bilateraly Deviation from normal: sedated, no purposeful movment Skin: fragile Deviation from normal: mottling to toes bilaterally Deviation from normal: encephalopathic - Problem List (1) Palliative care encounter Code(s): Z51.5 - ENCOUNTER FOR PALLIATIVE CARE Current Visit: Yes Status: Acute (2) Respiratory failure requiring intubation Code(s): J96.90 - RESPIRATORY FAILURE, UNSP, UNSP W HYPOXIA OR HYPERCAPNIA Current Visit: Yes Status: Acute (3) Pneumonia Code(s): J18.9 - PNEUMONIA, UNSPECIFIED ORGANISM Current Visit: Yes Status: Acute (4) Acute CHF Code(s): I50.9 - HEART FAILURE, UNSPECIFIED Current Visit: No Status: Acute Qualifiers: Heart failure type: systolic Qualified Code(s): I50.21 - Acute systolic ( congestive) heart failure (5) Physical deconditioning Code(s): R53.81 - OTHER MALAISE Current Visit: No Status: Acute (6) Diabetes mellitus, insulin dependent (IDDM), controlled Code(s): E11.9 - TYPE 2 DIABETES MELLITUS WITHOUT COMPLICATIONS; Z79.4 - TRANSIT MANAGER (CURRENT) USE OF INSULIN Current Visit: No Status: Chronic - Plan/Recommendations Plan: Assessed patient, called and spoke with patient sister who is MPOA for greater than 20 minutes. She gave insight to patient progressive decline over the past 2 years, with increase in frequency in falls and subsequently requiring admission to [facility] in Oct. Paitent sister (Manda) is not able to come to the hospital secondary to her being ill but hopes to come tomorrow *Manda will come to hospital if able tomorrow, if not she will call. Her plan is that if patient is not improving she would like to transition to no resuscitative measures, but resend if/when the patient improves. *Conversation initiated in relation to short and senior care goals for patient. "Hope for the best and plan for the worst" was discussed. Communicated with Dr Reich [60] minutes spent on this encounter with >50% of the time in counseling and coordination of care. Thank you for this very appropriate consult.
--- NOTE | 2019-03-23 15:06 | PDOC.HOSPP ---
- Subjective Encounter Date: 03/23/19 Encounter Time: 13:00 non-verbal Subjective: Patient seen and examined for resp failure. On Vent. No overnight events - Objective Vital Signs & Weight: Vital Signs (12 hours) Temp Pulse Pulse Pulse Resp BP BP 03/23/19 14:00 25 H 03/23/19 13:55 117 H 18 03/23/19 13:10 120 H 03/23/19 12:00 100.2 F H 26 H 03/23/19 11:25 123 H 121 H 127/79 03/23/19 10:31 124 H 03/23/19 10:20 37 H 03/23/19 09:58 127 H 141/79 H 03/23/19 08:20 32 H 03/23/19 08:00 03/23/19 07:00 98.9 F 03/23/19 06:56 116 H 03/23/19 06:00 24 H 03/23/19 04:00 98.8 F 23 H 03/23/19 03:09 115 H 03/23/19 03:08 BP Pulse Ox Pulse Ox Pulse Ox 03/23/19 14:00 03/23/19 13:55 100 03/23/19 13:10 03/23/19 12:00 03/23/19 11:25 113/79 100 100 03/23/19 10:31 03/23/19 10:20 03/23/19 09:58 03/23/19 08:20 03/23/19 08:00 100 03/23/19 07:00 03/23/19 06:56 03/23/19 06:00 03/23/19 04:00 03/23/19 03:09 03/23/19 03:08 100 Weight Admit Weight 209 lb 14.081 oz Weight 174 lb 13.225 oz Most Recent Monitor Data Heart Rate from ECG 119 NIBP 121/67 NIBP BP-Mean 85 Respiration from ECG 24 SpO2 100 I&O: 03/22/19 03/23/19 03/24/19 06:59 06:59 06:59 Intake Total 1051 1292.6 350 Output Total 900 1220 Balance 1051 392.6 -870 Result Diagrams: 03/23/19 03:28 03/23/19 03:28 Additional Labs: Accuchecks 03/23/19 03/23/1903/23/20 12:48 10:00 06:39 POC Glucose 342 H 368 H 387 H 03/22/19 03/22/19 22:14 16:25 POC Glucose 403 H 362 H Microbiology 03/14/19 22:16 Urine clean catch Urine Culture - Final Klebsiella pneumoniae ssp pneu 03/18/19 01:19 Venous blood - Left Hand Blood Culture - Final NO GROWTH IN 5 DAYS 03/18/19 01:14 Venous blood - Left Arm Blood Culture - Final NO GROWTH IN 5 DAYS Laboratory Tests 03/23/19 03/23/19 03:28 07:02 ABG pH 7.54 H ABG pCO2 24.9 L* ABG pO2 138.4 H B-Natriuretic Peptide 2635.3 H Radiology Reviewed by me: Yes (CXR - improving) EKG Reviewed by me: Yes (Tele ST) Hospitalist ROS - Review of Systems ROS unobtainable: due to mental status - Medication Medications: Active Medications Generic Name Dose Route Start Last Admin Trade Name Freq PRN Reason Stop Dose Admin Acetaminophen 650 mg 03/15/19 04:09 03/21/19 02:16 Tylenol PO 650 mg Q4H PRN Administration Headache/Fever/Mild Pain 1-3 Albuterol/Ipratropium 3 ml 03/15/19 06:30 03/23/19 13:55 Duoneb NEB 3 ml [id number] CARLOS Administration Albuterol/Ipratropium 3 ml 03/15/19 04:08 03/18/19 08:49 Duoneb NEB 3 ml [id number] PRN Administration SOB &/or Wheezing Amlodipine Besylate 5 mg 03/22/19 09:00 03/23/19 09:58 Norvasc PO 5 mg BID CARLOS Administration Aspirin 81 mg 03/15/19 09:00 03/23/19 09:59 Ecotrin PO 81 mg DAILY CARLOS Administration Aspirin 300 mg 03/23/19 09:00 03/23/19 10:00 Aspirin VT Not Given DAILY CARLOS Atorvastatin Calcium 40 mg 03/15/19 21:00 03/22/19 22:03 Lipitor PO 40 mg HS CARLOS Administration Clonidine 0.1 mg 03/21/19 17:30 03/21/19 17:31 Pcupvizd-Lmc-7 Patch TD 0.1 mg Q7D CARLOS Administration Sodium Chloride 1,000 mls @ 50 mls/hr 03/22/19 13:30 03/23/19 09:59 Normal Saline 0.9% IV 1,000 mls .Q20H CARLOS Administration Piperacillin Sod/Tazobactam 100 mls @ 200 mls/hr 03/23/19 14:00 03/23/19 13: 19 Sod 2.25 gm/ Sodium Chloride IVPB 100 mls Q8HR CARLOS Administration Methylprednisolone Sodium Succinate 40 mg 03/23/19 09:00 03/23/19 10:08 Solu-Medrol IVP 40 mg DAILY CARLOS Administration Morphine Sulfate 2 mg 03/22/19 16:51 03/23/19 11:02 Morphine SLOW IVP 04/21/19 16:51 2 mg Q1H PRN Administration BREAKTHROUGH PAIN/Agitation Propofol 1,000 mg 03/22/19 16:51 03/23/19 13:19 Diprivan IV 04/21/19 16:51 1,000 mg INF PRN Administration TO ACHIEVE GOAL RASS Protocol Saccharomyces Boulardii 250 mg 03/15/19 09:00 03/23/19 09:59 Florastor PO 250 mg DAILY CARLOS Administration Sertraline HCl 50 mg 03/15/19 09:00 03/23/19 09:59 Zoloft PO 50 mg DAILY CARLOS Administration Sodium Chloride 10 ml 03/15/19 03:16 03/18/19 12:45 Flush - Normal Saline IVF 10 ml PRN PRN Administration Saline Flush - Exam General - other findings: On Vent/sedated Heart: no gallops, no rubs Heart - other findings: S1S2 +, tachycardic Respiratory: no wheezes, normal chest expansion, rales, rhonchi Gastrointestinal: soft, non-distended, no guarding, no rigidity Extremities: no cyanosis Neurological - other findings: Neuro/Psych - cannot assess due to current mentation Hosp A/P - Plan DVT proph w/SCDs [facility] EUGENIO on CKD 3 Thrombocytopenia Aspiration pneumonia Toxic Metabolic Encephalopathy Klebsiella UTI (POA) - completed Atbx Swallow dysfunction - on modified diet Hypertension - uncontrolled Hyponatremia Diabetes mellitus type 2. uncontrolled Hyponatremia. Obesity with a BMI of 36. CAD s/p CABG in January 01. Hyperlipidemia. Sinus tachycardia secondary to #1. Anemia due to CKD PLAN: Cont Zosyn/Levaquin - adjust dose Cont Nebs/Solumedrol daily Hold Lisinopril due to EUGENIO Hold Lovenox due to thrombocytopenia Cont IVF CXR/ABGs/labs in AM Cont sliding scale Q4 Increase Lantus to 15 BID Cont other meds
[2019-03-23] MEDS: Insulin Regular 300 UNITS/3 ML VIAL SC PRN ×2 (16:40→20:37)
[2019-03-23] MEDS: Carvedilol 3.125 MG TAB PER TUBE SCH (16:40)
[2019-03-23] MEDS: Insulin Glargine 15 UNITS in Pre-Filled Syringe 1 EACH SC SCH (20:36)
[2019-03-23] MEDS: Atorvastatin Calcium 40 MG TAB PO SCH (22:26)
[2019-03-24] MEDS: Insulin Regular 300 UNITS/3 ML VIAL SC PRN ×6 (00:40→22:08)
[2019-03-24 04:06] LABS: ALT (SGPT) 813 U/L (8-55); AST (SGOT) 646 U/L (5-34); Albumin 2.6 g/dL (3.5-5.0); Alkaline Phosphatase 201 U/L (40-110); Anion Gap 11 mmol/L (10-20); BUN (Urea Nitrogen) 69 mg/dL (9.8-20.1); Bilirubin, Direct 0.5 mg/dL (0.1-0.3); Bilirubin, Total 0.7 mg/dL (0.2-1.2); Calc. Creatinine Clearance 50 mL/min (70-130); Calcium 7.8 mg/dL (7.8-10.44); Carbon Dioxide 25 mmol/L (22-29); Chloride 112 mmol/L (98-107); Estimated GFR-MDRD 35; Glucose 202 mg/dL (70-105); Magnesium 2.5 mg/dL (1.6-2.6); Potassium 3.8 mmol/L (3.5-5.1); Protein, Total 6.7 g/dL (6.0-8.3); Sodium 144 mmol/L (136-145)
[2019-03-24 04:42] LABS: Band 10 % (5-11); Hemoglobin 9.2 g/dL (12.0-16.0); Lymphocytes 1 % (21-51); MDiff Complete? YES; Mean Corpuscular HGB CONC 32.4 g/dL (32.0-36.0); Mean Corpuscular Hemoglobin 29.6 pg (27.0-31.0); Mean Corpuscular Volume 91.5 fL (78.0-98.0); Mean Platelet Volume 9.4 fL (7.4-10.4); Metamyelocyte 2 % (0-0); Monocytes 1 % (0-10); Myelocyte 1 % (0-0); Neutrophil 85 % (42-75); Platelet Count 153 thou/uL (130-400); RBC Distribution Width 14.6 % (11.5-14.5); Red Blood Cell (RBC) Count 3.12 mill/uL (4.20-5.40); White Blood Cell (WBC) Count 22.9 thou/uL (4.8-10.8)
[2019-03-24] MEDS: Piperacillin/Tazobactam 2.25 GM in Sodium Chloride 0.9% 100 ML IVPB SCH (05:34)
[2019-03-24] MEDS: Sodium Chloride 0.9% 1,000 ML IV SCH (05:36)
[2019-03-24 07:06] LABS: Actual Bicarbonate (HCO3a) 23.1 mEq/L (22-28); Base Excess (BEa) 1.3 mEq/L (-2.0 to +3.0); CO2 Tension 27.1 mmHg (35.0-45.0); Hemoglobin (Hb) 9.3 g/dL (12.0-16.0); O2 Tension (PaO2) 121.7 mmHg (80.0-100.0); Potassium - ABG Lab 3.65 mmol/L (3.70-5.30)
[2019-03-24 07:09] LABS: ALV-art Gradient 129.625 (0-20); Puncture Site RRA; pH, Arterial 7.55 (7.35-7.45)
[2019-03-24] MEDS: Acetaminophen 325 MG TAB PO PRN (07:55)
[2019-03-24] MEDS: Carvedilol 3.125 MG TAB PER TUBE SCH ×3 (08:02→21:55)
[2019-03-24] MEDS: Aspirin 81 mg Enteric Coated Tablet PO SCH (08:03)
[2019-03-24] MEDS: Aspirin 300 MG Suppository PR SCH (08:03)
[2019-03-24] MEDS: Saccharomyces boulardii 250 MG CAP PO SCH (08:03)
[2019-03-24] MEDS: methylPREDNISolone Sod Succ 40 MG VIAL IVP SCH (08:03)
[2019-03-24] MEDS: Famotidine 20 MG TAB PO SCH (08:03)
--- NOTE | 2019-03-24 08:32 | CT ---
PRELIMINARY REPORT/[facility]/EMERGENCY AFTER HOURS PROCEDURE: This report was discussed with Evelyn Stewart RN by Alicia Santana on Mar 24, 2019 06:18:00 [employer]. Addendum electronically signed by Alicia Santaan on March 24, 2019 6:18:33 AM [employer] EXAM: CT Head Without Intravenous Contrast. CLINICAL HISTORY: AMS RO/O CVA TECHNIQUE: Axial computed tomography images of the head/brain without intravenous contrast. COMPARISON: None provided. FINDINGS: BRAIN: No acute intraparenchymal hemorrhage. No mass lesion. No CT evidence for acute territorial inf arct. No midline shift or extra-axial collection. VENTRICLES: A right parieto-occipital fairly well-circumscribed hypodensity wedge-shaped and measuriR eport prioritized 6:09 AM CSTng 6 x 5 cm is present having little or no effect on the immediately adj acent posterior horn of the right lateral ventricle; sagittal and coronal reconstructions may be help ful. ORBITS: The orbits are unremarkable. SINUSES AND MASTOIDS: The paranasal sinuses and mastoid air cells are clear. SOFT TISSUES: No significant facial or scalp soft tissue swelling evident. No radiopaque foreign body is seen. BONES: No acute skull fracture. MISCELLANEOUS: There are no prior films. No evidence of acute bleed. IMPRESSION: 1. Large and remote or quasi-remote territorial infarct in the right posterior cerebral circulation. 2. No acute bleed within the subarachnoid subdural or epidural intraparenchymal or intraventricular s paces Report prioritized 6:05 AM [employer] MRI is recommended ELECTRONICALLY SIGNED BY: Tony Rivera M.D. Mar 24, 2019 6:11:42 AM [employer] This report is intended for review by the ordering physician only, in accordance of law. If you recei ve this report in error, please call [facility] at [phone]. FINAL REPORT HEAD CT WITHOUT CONTRAST: COMPARISON: 12/22/2018. FINDINGS: There is loss of yee-white matter differentiation involving the right temporal lobe secondary to a p robable subacute or early chronic MCA distribution infarct. The remainder of the cerebrum is unremar kable. There is evidence of paranasal sinus disease. Calvarium is intact. IMPRESSION: This report is in agreement with the initial report by [facility]. Late acute or early chronic right middle cerebral artery distribution infarct. POS: OFF
--- NOTE | 2019-03-24 09:24 | PRG ---
DATE OF SERVICE: 03/24/2019 SUBJECTIVE: This morning, remains intubated on the vent without any sedation. She is from the [facility]. At the time when she was admitted initially, she had presented with a fall. OBJECTIVE: VITAL SIGNS: She is breathing 32 times a minute, pulse is 84, blood pressure 150/76, saturations 95%. The vent is set at a rate of 10. GENERAL: This morning she is tachypneic, unresponsive. HEENT: Pupils are equal. CHEST: Bilateral rhonchi. CARDIAC: Sinus tach. ABDOMEN: Soft. NEUROLOGIC: Encephalopathic. IMAGING: Chest x-ray shows a small infiltrate, EF of 30%. CT head shows a large right parietotemporal infarct. LABORATORY DATA: Liver function shows worsening numbers with an AST of 646 and ALT of 813. White count is elevated at 22, H and H 9 and 28, platelet count 153. PO2 is 121, gSF110h ph 7.53_. IMPRESSION: 1. Metabolic encephalopathy, right temporoparietal infarct. 2. Congestive heart failure, EF 30%. 3. Renal failure, abnormal liver function. 4. Respiratory failure, pneumonia, chronic obstructive pulmonary disease , severe deconditioning. Her sister is going to arrive at any minute, discuss with her long-term care. Prognosis is grave, unclear what her baseline functional status is. Consider making her DNR. Otherwise, continue supportive care. PT. We will await input from the sister. One-half hour of critical time. Job ID: [id number] MTDD
--- NOTE | 2019-03-24 09:46 | RAD ---
PORTABLE SEMIUPRIGHT FRONTAL CHEST RADIOGRAPH: Date: 03/24/2019 COMPARISON: 03/23/2019. HISTORY: Ventilated patient. FINDINGS: Stable endotracheal tube and nasogastric tube. Midline sternotomy wires are stable. Stable heart and mediastinal contours. Nonspecific diffuse increased linear interstitial density with pulmonary vascul ar congestion noted. IMPRESSION: No significant interval change. POS: [facility]
[2019-03-24] MEDS ORDERED: Acetaminophen 650 MG/20.3 ML UDCUP PO SCH (12:00)
[2019-03-24] MEDS: Insulin Glargine 15 UNITS in Pre-Filled Syringe 1 EACH SC SCH ×2 (12:54→22:08)
[2019-03-24] MEDS: Cefepime 1 GM in Sodium Chloride 0.9% 100 ML IVPB SCH ×2 (13:01→21:55)
--- NOTE | 2019-03-24 16:06 | PQF ---
CLINICAL DOCUMENTATION IMPROVEMENT CLARIFICATION FORM: ICD-10 Updated PLEASE DO AN ADDENDUM TO THE PROGRESS NOTE WITH ANY DOCUMENTATION UPDATES OR ADDITIONS AND CARRY THROUGH TO DC SUMMARY. THANK YOU. DATE: 03/24/2019 ATTN: Dr. Reich Please exercise your independent, professional judgment in responding to the clarification form. Clinical indicators are provided on the bottom of this form for your review Please check appropriate box(es): [ ] Sepsis due to: (Pna, UTI) [ ] Severe sepsis with acute organ dysfunction of: (Examples: respiratory failure, encephalopathy, acute kidney failure, other) [ ] Localized infection without sepsis [ ] Other diagnosis [ ] Unable to determine In addition, please specify: Present on Admission (POA): [ ] Yes [ ] No [ ] Unable to determine For continuity of documentation, please document condition throughout progress notes and discharge summary. Thank You. CLINICAL INDICATORS - SIGNS / SYMPTOMS / LABS / RESULTS AND LOCATION IN ER Record: 03/14/2019 VS: Temp 99.0 - 102.0; resp. 24- 30; pulse 86-117 O2 sat: 83 on RA Diagnosis: Pneumonia UTI PN 03/19: Acute hypoxic respiratory failure due to Aspiration pneumonia (POA) Klebsiella UTI (POA) PN 03/23: Acute hypoxic respiratory failure on mech vent (since 03/22) EUGENIO on CKD 3 Aspiration Pneumonia Toxic metabolic Encephalopathy Klebsiella UTI (POA) RISKS: H&P 03/14: 59 yr old intermediate resident with DM 2, HTN. CABG 2 months ago. Acute hypoxic respiratory failure secondary to pneumonia, suspected aspiration. UTI TREATMENT: MAR: Order 03/15- 03/23/2019: Levaquin 500mg IV MAR: Order 03/15- 03/23/2019: Zosyn 3.375 gm IV q 6 MAR: Order 03/24/2019: Maxipime 1 gm IV q 12 hr Thank you, Stephenie (This form is maintained as a part of the permanent medical record) 2014 [employer]. All Rights Reserved Stephenie Bernal RN, [email or web address] [email or web address] Office: [phone] [facility]
[2019-03-24] MEDS ORDERED: Enoxaparin Sodium 30 MG/0.3 ML SYRINGE SC SCH (21:00)
[2019-03-24] MEDS: Enoxaparin Sodium 80 MG/0.8 ML SYRINGE SC SCH (21:55)
[2019-03-24] MEDS: Atorvastatin Calcium 40 MG TAB PO SCH (21:55)
--- NOTE | 2019-03-24 23:27 | CON ---
DATE OF CONSULTATION: 03/24/2019 CONSULTING PHYSICIAN: Hospitalist Service. IMPRESSION: 1. Right posterior middle cerebral artery division stroke consistent with a cardioembolic event. 2. Congestive heart failure with ejection fraction of 15% to 20%. 3. Diabetes. 4. Hypertension. 5. Dementia. 6. Anemia. PLAN: 1. Full-dose Lovenox until the patient is able to take an oral anticoagulant by mouth. 2. Continue supportive measures. HISTORY OF PRESENT ILLNESS: Ms. Wilson is a 59-year-old woman who [facility]. She developed some respiratory distress and was found to have evidence of a pneumonia. Her respiratory status worsened and she ended up on the ventilator. She seemed to have a deteriorating level of consciousness and was sent down for a CAT scan. The CAT scan revealed subacute area of infarction involving the right posterior division of the middle cerebral artery territory. There is no secondary bleed. She has remained on ventilatory support. She has been poorly responsive. She continues to have fevers. Her respiratory status reportedly has improved compared to her initial assessments of her oxygenation. I was called to give a neurologic opinion. PAST MEDICAL HISTORY: As listed above. ALLERGIES: NONE. SOCIAL: [facility] resident. No tobacco or alcohol use. FAMILY HISTORY: Noncontributory. REVIEW OF SYSTEMS: Not obtainable secondary to her current mental status. PHYSICAL EXAMINATION: VITAL SIGNS: Blood pressure 127/69, pulse 78 and sinus rhythm; saturations 99%. HEENT: Pupils were 2 mm and symmetric. Eyes were conjugate in movement. Conjunctivae were clear. She had a good corneal response. She had poor peripheral response to stimulation. Plantar responses were mute. No abnormal movements were seen. IMAGING: Reviewed. SUMMARY: This is a middle-aged woman with multiple medical problems, who was found to have evidence of a stroke, more than likely this is cardioembolic in origin. She will need long-term anticoagulation if she survives her current problems. Job ID: [id number]
[2019-03-25] MEDS: Insulin Regular 300 UNITS/3 ML VIAL SC PRN ×5 (00:11→20:26)
[2019-03-25] MEDS: Sodium Chloride 0.9% 1,000 ML IV SCH (02:06)
[2019-03-25 04:18] LABS: #Eosinphils 0.1 thou/uL (0.0-0.7); #Lymphocytes 1.3 thou/uL (1.20-3.40); #Monocytes 1.3 thou/uL (0.11-0.59); #Neutrophils 19.9 thou/uL (1.40-6.50); %Eosinophils 0.3 % (0.0-10.0); %Lymphocytes 5.7 % (21.0-51.0); %Monocytes 5.6 % (0.0-10.0); %Neutrophils 88.5 % (42.0-75.0); Hemoglobin 10.2 g/dL (12.0-16.0); Mean Corpuscular HGB CONC 33.9 g/dL (32.0-36.0); Mean Corpuscular Hemoglobin 31.9 pg (27.0-31.0); Mean Platelet Volume 9.2 fL (7.4-10.4); Platelet Count 150 thou/uL (130-400); RBC Distribution Width 14.6 % (11.5-14.5); Red Blood Cell (RBC) Count 3.18 mill/uL (4.20-5.40); White Blood Cell (WBC) Count 22.5 thou/uL (4.8-10.8)
[2019-03-25 04:35] LABS: Anion Gap 11 mmol/L (10-20); BUN (Urea Nitrogen) 62 mg/dL (9.8-20.1); Calc. Creatinine Clearance 68 mL/min (70-130); Calcium 7.8 mg/dL (7.8-10.44); Carbon Dioxide 21 mmol/L (22-29); Cardiac Risk 8.1 (Less than 4.5); Chloride 117 mmol/L (98-107); Cholesterol 114 mg/dl (< 200 Desired); Estimated GFR-MDRD 50; Glucose 169 mg/dL (70-105); HDL Cholesterol 14 mg/dL (>60 Neg Risk); LDL Cholesterol, Calculated 73 mg/dL; Magnesium 2.6 mg/dL (1.6-2.6); Sodium 145 mmol/L (136-145); Triglycerides 134 mg/dL (Less than 150)
[2019-03-25 06:42] LABS: Actual Bicarbonate (HCO3a) 22.7 mEq/L (22-28); CO2 Tension 29.9 mmHg (35.0-45.0); Calcium, Ionized 1.14 mmol/L (1.12-1.30); Carboxyhemoglobin (COHb) 0.3 gm% (0.0-3.0); Hemoglobin (Hb) 9.5 g/dL (12.0-16.0); O2 Tension (PaO2) 92.3 mmHg (80.0-100.0); Potassium - ABG Lab 3.84 mmol/L (3.70-5.30)
[2019-03-25 06:43] LABS: ALV-art Gradient 84.225 (0-20); Puncture Site RRA
--- NOTE | 2019-03-25 07:51 | PDOC.HOSPP ---
- Subjective Encounter Date: 03/24/19 Encounter Time: 11:00 Subjective: Patient seen and examined for multiple issues. On Vent - off sedation. Events noted. No overnight events - Objective Vital Signs & Weight: Vital Signs (12 hours) Temp Pulse Resp BP Pulse Ox 03/25/19 07:00 98.5 F 03/25/19 06:35 78 148/75 H 03/25/19 06:32 79 32 H 99 03/25/19 06:00 29 H 03/25/19 04:03 79 03/25/19 04:00 99.1 F 31 H 03/25/19 02:00 35 H 03/25/19 00:00 100.8 F H 38 H 03/24/19 22:18 82 125/65 100 03/24/19 22:00 36 H 03/24/19 20:00 100.4 F H 38 H 100 Weight Admit Weight 209 lb 14.081 oz Weight 157 lb 13.616 oz Most Recent Monitor Data Heart Rate from ECG 79 NIBP 139/79 NIBP BP-Mean 99 Respiration from ECG 30 SpO2 100 I&O: 03/24/19 03/25/19 03/26/19 06:59 06:59 06:59 Intake Total 2397.9 2331 Output Total 2580 1650 25 Balance -182.1 681 -25 Result Diagrams: 03/25/19 03:13 03/25/19 03:13 Additional Labs: Accuchecks 03/25/19 03/25/19 03/24/19 04:43 00:13 22:10 POC Glucose 147 H 230 H 241 H 03/24/19 03/24/19 03/24/19 17:43 11:57 08:09 POC Glucose 249 H 188 H 166 H Radiology Reviewed by me: Yes (CT brain - CVA) EKG Reviewed by me: Yes (Tele SR) Hospitalist ROS - Review of Systems ROS unobtainable: due to mental status - Medication Medications: Active Medications Generic Name Dose Route Start Last Admin Trade Name Freq PRN Reason Stop Dose Admin Acetaminophen 650 mg 03/15/19 04:09 03/24/19 07:55 Tylenol PO 650 mg Q4H PRN Administration Headache/Fever/Mild Pain 1-3 Albuterol/Ipratropium 3 ml 03/15/19 06:30 03/25/19 06:32 Duoneb NEB 3 ml [id number] CARLOS Administration Albuterol/Ipratropium 3 ml 03/15/19 04:08 03/18/19 08:49 Duoneb NEB 3 ml [id number] PRN Administration SOB &/or Wheezing Aspirin 81 mg 03/15/19 09:00 03/24/19 08:03 Ecotrin PO 81 mg DAILY CARLOS Administration Aspirin 300 mg 03/23/19 09:00 03/24/19 08:03 Aspirin DE Not Given DAILY CARLOS Atorvastatin Calcium 40 mg 03/15/19 21:00 03/24/19 21:55 Lipitor PO 40 mg HS CARLOS Administration Carvedilol 3.125 mg 03/23/19 17:00 03/24/19 21:55 Coreg PER TUBE 3.125 mg BID-WM CARLOS Administration Clonidine 0.1 mg 03/21/19 17:30 03/21/19 17:31 Asyjjhmg-Xhh-6 Patch TD 0.1 mg Q7D CARLOS Administration Enoxaparin Sodium 80 mg 03/24/19 21:00 03/24/19 21:55 Lovenox SC 60 mg 0900,2100 CARLOS Administration Famotidine 20 mg 03/24/19 09:00 03/24/19 08:03 Pepcid PO 20 mg 0900 CARLOS Administration Sodium Chloride 1,000 mls @ 50 mls/hr 03/22/19 13:30 03/25/19 02:06 Normal Saline 0.9% IV 1,000 mls .Q20H CARLOS Administration Insulin Glargine 15 units/ 0.15 mls @ 0 mls/hr 03/23/19 21:00 03/24/19 22:08 Miscellaneous Medication SC 0.15 mls BID CARLOS Administration Cefepime HCl 1 gm/ Sodium 100 mls @ 200 mls/hr 03/24/19 09:00 03/24/19 21:55 Chloride IVPB 100 mls Q12HR CARLOS Administration Insulin Human Regular 0 units 03/23/19 08:11 03/25/19 00:11 Humulin R SC 6 units .AGGRESSIVE SLIDING PRN Administration Aggressive Correctional Scale Lorazepam 2 mg 03/22/19 16:51 03/24/19 12:54 Ativan SLOW IVP 04/21/19 16:51 2 mg Q1H PRN Administration Breakthrough agitation Methylprednisolone Sodium Succinate 40 mg 03/23/19 09:00 03/24/19 08:03 Solu-Medrol IVP 40 mg DAILY CARLOS Administration Morphine Sulfate 2 mg 03/22/19 16:51 03/23/19 11:02 Morphine SLOW IVP 04/21/19 16:51 2 mg Q1H PRN Administration BREAKTHROUGH PAIN/Agitation Propofol 1,000 mg 03/22/19 16:51 03/23/19 13:19 Diprivan IV 04/21/19 16:51 1,000 mg INF PRN Administration TO ACHIEVE GOAL RASS Protocol Saccharomyces Boulardii 250 mg 03/15/19 09:00 03/24/19 08:03 Florastor PO 250 mg DAILY CARLOS Administration Sertraline HCl 50 mg 03/15/19 09:00 03/24/19 08:02 Zoloft PO 50 mg DAILY CARLOS Administration Sodium Chloride 10 ml 03/15/19 03:16 03/18/19 12:45 Flush - Normal Saline IVF 10 ml PRN PRN Administration Saline Flush - Exam General - other findings: On Vent Neurological - other findings: Neuro/Psych - unable to assess due to current mentation. Pupils 2mm. Hosp A/P - Plan DVT proph w/SCDs Acute/subacute CVA Acute hypoxic respiratory failure on [facility] vent (since 03/22/18) Chronic systolic HF EF 15-20% EUGENIO on CKD 3 Thrombocytopenia Severe sepsis due to Aspiration pneumonia Toxic Metabolic Encephalopathy Klebsiella UTI (POA) - completed Atbx Swallow dysfunction - on modified diet Hypertension - uncontrolled Hyponatremia Diabetes mellitus type 2. uncontrolled Hyponatremia. Obesity with a BMI of 36. CAD s/p CABG in January 01. Hyperlipidemia. Sinus tachycardia secondary to #1. Anemia due to CKD PLAN: Cont ASA Await Neuro input DNR verified with sister at bedside Cont Atbx/Nebs/Solumedrol Resume Lisinopril once renal function improves Cont IVF CXR/ABGs/labs in AM Cont sliding scale Q4 with Lantus Cont other meds
--- NOTE | 2019-03-25 08:02 | PDOC.FMACP ---
Advance Care Planning - Problem (1) Acute respiratory failure with hypoxemia Status: Acute Code(s): J96.01 - ACUTE RESPIRATORY FAILURE WITH HYPOXIA (2) Acute CVA (cerebrovascular accident) Status: Acute Code(s): I63.9 - CEREBRAL INFARCTION, UNSPECIFIED - Note Participants: family Summary: Advanced Care Planning was discussed with sister at bedside. DNR confirmed. The diagnosis, prognosis and goals of care were discussed. Appropriate forms and documentation to accomplish the goals of care were discussed. All questions were answered. The Palliative Care Team will be engaged to assist with completion of any outstanding forms that are needed. Time Spent (mins): 20
[2019-03-25] MEDS: Insulin Glargine 15 UNITS in Pre-Filled Syringe 1 EACH SC SCH ×2 (08:21→20:26)
[2019-03-25] MEDS: Enoxaparin Sodium 80 MG/0.8 ML SYRINGE SC SCH ×2 (08:24→20:26)
[2019-03-25] MEDS: Cefepime 1 GM in Sodium Chloride 0.9% 100 ML IVPB SCH ×2 (08:25→20:26)
[2019-03-25] MEDS: methylPREDNISolone Sod Succ 40 MG VIAL IVP SCH ×2 (08:25→08:28)
[2019-03-25] MEDS: Famotidine 20 MG TAB PO SCH (08:27)
[2019-03-25] MEDS: Carvedilol 3.125 MG TAB PER TUBE SCH ×2 (08:27→17:56)
[2019-03-25] MEDS: Saccharomyces boulardii 250 MG CAP PO SCH (08:27)
[2019-03-25] MEDS: Aspirin 81 mg Enteric Coated Tablet PO SCH (08:27)
[2019-03-25] MEDS: Aspirin 300 MG Suppository PR SCH (08:28)
--- NOTE | 2019-03-25 08:36 | RAD ---
Portable frontal chest radiograph: 03/25/2019 COMPARISON: 03/24/2019 HISTORY: Ventilated patient FINDINGS: Stable endotracheal tube and nasogastric tube. Stable coarse linear interstitial density no karyna bilaterally. Stable heart and mediastinal contours. Midline sternotomy wires are present. IMPRESSION: Stable appearance of the chest as described above.
[2019-03-25] MEDS ORDERED: Bacteriostatic Water 30 ML VIAL FS PRN (08:51)
--- NOTE | 2019-03-25 09:05 | PRG ---
DATE OF SERVICE: 03/25/2019 SUBJECTIVE: Steve is a 59-year-old female, intubated on the vent, no sedation. Renal function improved. OBJECTIVE: VITAL SIGNS: Pulse 104, blood pressure 140/83, sats 100%, respirations 38. I's and O's have been consistently negative. CHEST: Decreased breath sounds. No wheezing. CARDIAC: Normal S1, S2. No gallops. ABDOMEN: No masses. LABORATORY DATA: White count is 20,000, platelet count is normal. PO2 is 92, pCO2 . IMAGING: X-ray shows no acute infiltrates. All cultures negative except for Klebsiella in the urine. IMPRESSION: 1. Klebsiella urinary tract infection, sensitive to all antibiotics. 2. Congestive heart failure. 3. Cerebrovascular accident. 4. Severe deconditioning. PLAN: Pulmonary crawford, slow weaning. She will be made a DNR. She is off all sedation. She remains still encephalopathic. Overall prognosis in my mind is poor. Once she improves neurologically if she does and extubate. One-half hour of critical time. Job ID: [id number]
[2019-03-25 12:24] VITALS: BMI 27.1
[2019-03-25] MEDS: Acetaminophen 650 MG/20.3 ML UDCUP PO PRN (12:35)
--- NOTE | 2019-03-25 14:15 | CON ---
DATE OF CONSULTATION: 03/25/2019 [facility]OF[facility]TH[facility] DENTIST: Dr. Teddy Peterson. REASON FOR CONSULTATION: Tachycardia. HISTORY OF PRESENT ILLNESS: Ms. Wilson is a 59-year-old female, who comes to the hospital for cough, shortness of breath, and a fever. She was admitted for hypoxic respiratory failure, thought to be related to pneumonia. She was started on antibiotics and IV fluids. She eventually had to be intubated as respiratory insufficiency worsened. She eventually had to be intubated and during her trial to try to get her off, she was not responding. Secondary to this, she has more evaluation and she had a right middle cerebral artery distribution stroke, which was seen on the CAT scan. She is currently not responding. She has been off sedation for 2 days. During her last few days, she has been tachycardic, sinus tach in the 110s to 120s. Cardiology has been consulted to further assess this. PAST MEDICAL HISTORY: 1. Ischemic cardiomyopathy. 2. Coronary artery disease. 3. Status post CABG x3. 4. Hypertension. 5. Type 2 diabetes. 6. COPD. 7. Hyperlipidemia. 8. Frequent falls. 9. Anxiety and depression. 10. Major depressive disorder. SURGICAL HISTORY: 1. Appendectomy. 2. Cholecystectomy. 3. Right knee surgery. 4. Right great toe surgery. 5. D and C. 6. CABG x3 with a ALBERTS to the LAD, a vein to a diagonal, vein to the left circ. This was in December of 2018. OUTPATIENT MEDICATIONS: 1. Guaifenesin p.r.n. 2. Lasix 20 mg a day. 3. Mucinex. 4. Tramadol. 5. Sertraline. 6. Ferrous sulfate. 7. Potassium chloride. 8. Olopatadine drops. 9. Meloxicam. 10. Lisinopril 5 mg a day. 11. Aspirin 81 a day. 12. Atorvastatin 40 mg at bedtime. ALLERGIES: NO KNOWN DRUG ALLERGIES. SOCIAL HISTORY: Permanent resident in [facility]. Quit smoking in 2009. No alcohol or drugs. FAMILY HISTORY: Noncontributory. REVIEW OF SYSTEMS: Unobtainable as the patient is intubated and nonresponsive. PHYSICAL EXAMINATION: VITAL SIGNS: Temperature 101.2, this was today at noon. Respiratory rate . Blood pressure 154/84. Heart rate currently at 83, this has been as high as 120. Saturating 100% on 40% FiO2. GENERAL: and intubated. NECK: Supple. LUNGS: Have coarse breath sounds, worse in the right side. ABDOMEN: Soft. Positive bowel sounds. CARDIOVASCULAR: S1 and S2. No S3 or S4. No murmurs. No rubs. EXTREMITIES: Trace edema. SKIN: Warm and dry. LABORATORY DATA: Laboratory work was reviewed. White count of 22, hemoglobin of 10, hematocrit of 29, platelet count of 150. ABG was reviewed. Chemistries were reviewed, unremarkable except for creatinine of 1.1. Triglycerides 134, cholesterol 114, LDL of 73, HDL of 14. UA was reviewed as well, 4+ bacteria. Urine culture with Klebsiella pneumonia. Repeat echocardiogram showed worsening EF at 15% to 20%. ASSESSMENT: 1. Tachycardia. This is sinus tachycardia, most likely related to her level of LV dysfunction, her fevers, and her infectious process that is going on. No therapies recommended for this sinus tachycardia as this is probably needed to increase cardiac output in her acute illness. 2. Acute cerebrovascular accident. 3. Unresponsiveness. 4. Severe ischemic cardiomyopathy. 5. Coronary artery disease, stable. PLAN: 1. Continue current regimen for now. No new recommendations from the cardiac perspective. 2. Her future workup would be determined on her neurologic recovery. At this time, she is unresponsive, having been off of for the last 2 days. Thank you for letting us to participate in the care of your patient. We will follow. Job ID: [id number]
[2019-03-25] MEDS ORDERED: Sodium Chloride 0.9% 1,000 ML IV SCH (15:55)
--- NOTE | 2019-03-25 15:57 | PDOC.HOSPP ---
- Subjective Encounter Date: 03/25/19 Encounter Time: 14:30 non-verbal Subjective: Patient seen and examined for Acute CVA. On Vent. Off sedation. No overnight events - Objective Vital Signs & Weight: Vital Signs (12 hours) Temp Pulse Pulse Pulse Resp BP BP 03/25/19 15:30 84 150/73 H 03/25/19 15:28 84 39 H 03/25/19 13:50 83 85 140/77 03/25/19 12:00 101.2 F H 38 H 03/25/19 10:21 77 144/67 H 03/25/19 10:20 77 36 H 03/25/19 10:00 33 H 03/25/19 08:00 35 H 03/25/19 07:54 03/25/19 07:00 98.5 F 03/25/19 06:35 78 148/75 H 03/25/19 06:32 79 32 H 03/25/19 06:00 29 H 03/25/19 04:03 79 03/25/19 04:00 99.1 F 31 H BP Pulse Ox Pulse Ox Pulse Ox 03/25/19 15:30 03/25/19 15:28 99 03/25/19 13:50 154/84 H 100 100 03/25/19 12:00 03/25/19 10:21 03/25/19 10:20 99 03/25/19 10:00 03/25/19 08:00 03/25/19 07:54 100 03/25/19 07:00 03/25/19 06:35 03/25/19 06:32 99 03/25/19 06:00 03/25/19 04:03 03/25/19 04:00 Weight Admit Weight 189 lb Weight 157 lb 13.616 oz Most Recent Monitor Data Heart Rate from ECG 86 NIBP 154/84 NIBP BP-Mean 107 Respiration from ECG 36 SpO2 100 I&O: 03/24/19 03/25/19 03/26/19 06:59 06:59 06:59 Intake Total 2397.9 2331 Output Total 2580 1650 340 Balance -182.1 681 -340 Result Diagrams: 03/25/19 03:13 03/25/19 03:13 Additional Labs: Accuchecks 03/25/19 03/25/19 03/25/19 12:00 08:24 04:43 POC Glucose 176 H 164 H 147 H 03/25/19 03/24/19 03/24/19 00:13 22:10 17:43 POC Glucose 230 H 241 H 249 H EKG Reviewed by me: Yes ([employer]) Hospitalist ROS - Review of Systems ROS unobtainable: due to endotracheal tube - Medication Medications: Active Medications Generic Name Dose Route Start Last Admin Trade Name Freq PRN Reason Stop Dose Admin Acetaminophen 650 mg 03/15/19 04:09 03/24/19 07:55 Tylenol PO 650 mg Q4H PRN Administration Headache/Fever/Mild Pain 1-3 Acetaminophen 650 mg 03/24/19 11:56 03/25/19 12:35 Tylenol Elixir PO 650 mg Q4H PRN Administration Headache/Fever or Pain Albuterol/Ipratropium 3 ml 03/15/19 06:30 03/25/19 15:28 Duoneb NEB 3 ml [id number] CARLOS Administration Albuterol/Ipratropium 3 ml 03/15/19 04:08 03/18/19 08:49 Duoneb NEB 3 ml [id number] PRN Administration SOB &/or Wheezing Aspirin 81 mg 03/15/19 09:00 03/25/19 08:27 Ecotrin PO 81 mg DAILY CARLOS Administration Aspirin 300 mg 03/23/19 09:00 03/25/19 08:28 Aspirin TN Not Given DAILY CARLOS Atorvastatin Calcium 40 mg 03/15/19 21:00 03/24/19 21:55 Lipitor PO 40 mg HS CARLOS Administration Carvedilol 3.125 mg 03/23/19 17:00 03/25/19 08:27 Coreg PER TUBE 3.125 mg BID-WM CARLOS Administration Clonidine 0.1 mg 03/21/19 17:30 03/21/19 17:31 Eokbuekc-Occ-2 Patch TD 0.1 mg Q7D CARLOS Administration Enoxaparin Sodium 80 mg 03/24/19 21:00 03/25/19 08:24 Lovenox SC 80 mg 0900,2100 CARLOS Administration Famotidine 20 mg 03/24/19 09:00 03/25/19 08:27 Pepcid PO 20 mg 0900 CARLOS Administration Sodium Chloride 1,000 mls @ 50 mls/hr 03/22/19 13:30 03/25/19 02:06 Normal Saline 0.9% IV 1,000 mls .Q20H CARLOS Administration Insulin Glargine 15 units/ 0.15 mls @ 0 mls/hr 03/23/19 21:00 03/25/19 08:21 Miscellaneous Medication SC 0.15 mls BID CARLOS Administration Cefepime HCl 1 gm/ Sodium 100 mls @ 200 mls/hr 03/24/19 09:00 03/25/19 08:25 Chloride IVPB 100 mls Q12HR CARLOS Administration Insulin Human Regular 0 units 03/23/19 08:11 03/25/19 12:35 Humulin R SC 3 units .AGGRESSIVE SLIDING PRN Administration Aggressive Correctional Scale Lorazepam 2 mg 03/22/19 16:51 03/24/19 12:54 Ativan SLOW IVP 04/21/19 16:51 2 mg Q1H PRN Administration Breakthrough agitation Methylprednisolone Sodium Succinate 20 mg 03/25/19 08:48 03/25/19 08:28 Solu-Medrol IVP 20 mg DAILY CARLOS Administration Morphine Sulfate 2 mg 03/22/19 16:51 03/23/19 11:02 Morphine SLOW IVP 04/21/19 16:51 2 mg Q1H PRN Administration BREAKTHROUGH PAIN/Agitation Propofol 1,000 mg 03/22/19 16:51 03/23/19 13:19 Diprivan IV 04/21/19 16:51 1,000 mg INF PRN Administration TO ACHIEVE GOAL RASS Protocol Saccharomyces Boulardii 250 mg 03/15/19 09:00 03/25/19 08:27 Florastor PO 250 mg DAILY CARLOS Administration Sertraline HCl 50 mg 03/15/19 09:00 03/25/19 08:27 Zoloft PO 50 mg DAILY CARLOS Administration Sodium Chloride 10 ml 03/15/19 03:16 03/18/19 12:45 Flush - Normal Saline IVF 10 ml PRN PRN Administration Saline Flush - Exam General Appearance: NAD Heart: RRR, no gallops, no rubs Heart - other findings: no heaves Respiratory: no wheezes, normal chest expansion, rales, rhonchi Gastrointestinal: soft, non-distended, normal bowel sounds, no guarding, no rigidity Neurological - other findings: Neuro/Psych - Cannot assess due to current mentation/Vent Hosp A/P - Plan DVT proph w/lovenox Acute/subacute CVA Acute hypoxic [facility] Chronic systolic HF EF 15-20% - not on ACEI due to EUGENIO EUGENIO on CKD 3 Thrombocytopenia Severe sepsis due to Aspiration pneumonia Toxic Metabolic Encephalopathy Klebsiella UTI (POA) - completed Atbx Swallow dysfunction - on modified diet Hypertension Hyponatremia Diabetes mellitus type 2. Hyponatremia. Obesity with a BMI of 36. CAD s/p CABG in January 01. Hyperlipidemia. Sinus tachycardia secondary to #1. Anemia due to CKD PLAN: Cont ASA/Full dose anticoag Neuro/Cardio input appreciated Cont Atbx/Nebs/Solumedrol Resume Lisinopril once renal function improves Reduce IVF to KVO CXR/ABGs/labs in AM Cont sliding scale Q4 with Lantus Cont other meds Cont tube feeds
[2019-03-25] MEDS: Atorvastatin Calcium 40 MG TAB PO SCH (20:27)
[2019-03-26] MEDS: Insulin Regular 300 UNITS/3 ML VIAL SC PRN ×6 (00:22→20:08)
[2019-03-26 03:55] LABS: Anion Gap 14 mmol/L (10-20); BUN (Urea Nitrogen) 59 mg/dL (9.8-20.1); Calc. Creatinine Clearance 65 mL/min (70-130); Calcium 7.8 mg/dL (7.8-10.44); Carbon Dioxide 20 mmol/L (22-29); Chloride 116 mmol/L (98-107); Estimated GFR-MDRD 54; Glucose 191 mg/dL (70-105); Potassium 4.5 mmol/L (3.5-5.1); Sodium 145 mmol/L (136-145)
[2019-03-26 04:27] LABS: Band 1 % (5-11); Elliptocytes MODERATE= 6-15 cells (100X) (0-1/hpf); Hemoglobin 10.9 g/dL (12.0-16.0); Lymphocytes 4 % (21-51); MDiff Complete? YES; Mean Corpuscular HGB CONC 31.2 g/dL (32.0-36.0); Mean Corpuscular Hemoglobin 29.2 pg (27.0-31.0); Mean Corpuscular Volume 93.4 fL (78.0-98.0); Mean Platelet Volume 9.6 fL (7.4-10.4); Monocytes 6 % (0-10); Neutrophil 89 % (42-75); Platelet Count 193 thou/uL (130-400); Platelet Morphology Comment Appears Adequate; RBC Distribution Width 14.6 % (11.5-14.5); Red Blood Cell (RBC) Count 3.73 mill/uL (4.20-5.40); White Blood Cell (WBC) Count 18.4 thou/uL (4.8-10.8)
[2019-03-26 07:10] LABS: Actual Bicarbonate (HCO3a) 23.4 mEq/L (22-28); Base Excess (BEa) 0.9 mEq/L (-2.0 to +3.0); Calcium, Ionized 1.14 mmol/L (1.12-1.30); Carboxyhemoglobin (COHb) 0.5 gm% (0.0-3.0); Hemoglobin (Hb) 10.5 g/dL (12.0-16.0); O2 Tension (PaO2) 80.6 mmHg (80.0-100.0); Potassium - ABG Lab 4.45 mmol/L (3.70-5.30); pH, Arterial 7.51 (7.35-7.45)
[2019-03-26 07:27] LABS: Puncture Site RRA
[2019-03-26] MEDS: Saccharomyces boulardii 250 MG CAP PO SCH (08:47)
[2019-03-26] MEDS: Carvedilol 3.125 MG TAB PER TUBE SCH ×2 (08:47→17:08)
[2019-03-26] MEDS: Famotidine 20 MG TAB PO SCH (08:47)
[2019-03-26] MEDS: Aspirin Chewable 81 MG TAB PER TUBE SCH (08:47)
[2019-03-26] MEDS: Cefepime 1 GM in Sodium Chloride 0.9% 100 ML IVPB SCH ×2 (08:48→21:07)
[2019-03-26] MEDS: methylPREDNISolone Sod Succ 40 MG VIAL IVP SCH (08:48)
[2019-03-26] MEDS: Enoxaparin Sodium 80 MG/0.8 ML SYRINGE SC SCH ×2 (09:06→21:07)
--- NOTE | 2019-03-26 09:16 | PRG ---
DATE OF SERVICE: 03/26/2019 SUBJECTIVE: A 59-year-old female, unresponsive on the vent, intracerebral hemorrhage. OBJECTIVE: VITAL SIGNS: Pulse 90, blood pressure 154/76, respirations 30. She is afebrile. Sats are adequate. I's and O's have been consistently positive. CHEST: Decreased breath sounds. No wheezing. CARDIAC: Sinus tach. ABDOMEN: Soft. LABORATORY DATA: White count 31341, hemoglobin and hematocrit are 10 and 34, and platelet count is normal. PO2 is 80, pCO2 of and lytes are normal. IMPRESSION: Respiratory failure, intracerebral hemorrhage, recent coronary artery bypass graft, CVA. PLAN: She is clearly not weanable at this stage. Family for the time being wants all supportive care. Continue antibiotics supportive care nutrition. She may very well require trach to wean her off the vent. One-half hour of critical time. Job ID: [id number]
--- NOTE | 2019-03-26 10:54 | PDOC.HOSPP ---
- Subjective Encounter Date: 03/26/19 Encounter Time: 10:52 Subjective: Ms. Wilson was seen today in follow-up of respiratory failure and recent acute CVA. She is intubated, but unresponsive. - Objective Vital Signs & Weight: Vital Signs (12 hours) Temp Pulse Pulse Pulse Resp BP BP 03/26/19 10:24 92 120/52 L 03/26/19 10:23 93 42 H 03/26/19 09:02 96 96 147/61 H 03/26/19 08:00 41 H 03/26/19 07:00 99.8 F H 03/26/19 06:44 90 154/76 H 03/26/19 06:40 89 37 H 03/26/19 06:00 41 H 03/26/19 05:00 99.9 F H 03/26/19 04:00 34 H 03/26/19 03:20 87 03/26/19 03:19 03/26/19 02:00 38 H 03/26/19 00:28 85 128/66 03/26/19 00:00 101.0 F H 33 H BP Pulse Ox Pulse Ox Pulse Ox 03/26/19 10:24 03/26/19 10:23 99 03/26/19 09:02 154/82 H 100 100 03/26/19 08:00 100 03/26/19 07:00 03/26/19 06:44 03/26/19 06:40 99 03/26/19 06:00 03/26/19 05:00 03/26/19 04:00 03/26/19 03:20 03/26/19 03:19 99 03/26/19 02:00 03/26/19 00:28 03/26/19 00:00 Weight Admit Weight 189 lb Weight 153 lb 0.013 oz Most Recent Monitor Data Heart Rate from ECG 96 NIBP 147/61 NIBP BP-Mean 89 Respiration from ECG 42 SpO2 100 I&O: 03/25/19 03/26/19 03/27/19 06:59 06:59 06:59 Intake Total 2331 1602 Output Total 1650 1540 150 Balance 681 62 -150 Result Diagrams: 03/26/19 03:11 03/26/19 03:11 Additional Labs: Accuchecks 03/26/19 03/26/19 03/25/19 08:56 00:22 20:06 POC Glucose 238 H 183 H 230 H 03/25/19 03/25/19 17:52 12:00 POC Glucose 244 H 176 H Hospitalist ROS - Medication Medications: Active Medications Generic Name Dose Route Start Last Admin Trade Name Freq PRN Reason Stop Dose Admin Acetaminophen 650 mg 03/15/19 04:09 03/24/19 07:55 Tylenol PO 650 mg Q4H PRN Administration Headache/Fever/Mild Pain 1-3 Acetaminophen 650 mg 03/24/19 11:56 03/25/19 12:35 Tylenol Elixir PO 650 mg Q4H PRN Administration Headache/Fever or Pain Albuterol/Ipratropium 3 ml 03/15/19 06:30 03/26/19 10:23 Duoneb NEB 3 ml [id number] CARLOS Administration Albuterol/Ipratropium 3 ml 03/15/19 04:08 03/18/19 08:49 Duoneb NEB 3 ml [id number] PRN Administration SOB &/or Wheezing Aspirin 81 mg 03/26/19 09:00 03/26/19 08:47 Aspirin Chewable PER TUBE 81 mg DAILY CARLOS Administration Atorvastatin Calcium 40 mg 03/15/19 21:00 03/25/19 20:27 Lipitor PO 40 mg HS CARLOS Administration Carvedilol 3.125 mg 03/23/19 17:00 03/26/19 08:47 Coreg PER TUBE 3.125 mg BID-WM CARLOS Administration Clonidine 0.1 mg 03/21/19 17:30 03/21/19 17:31 [id number]-Lvt-5 Patch TD 0.1 mg Q7D CARLOS Administration Enoxaparin Sodium 80 mg 03/24/19 21:00 03/26/19 09:06 Lovenox SC 80 mg 0900,2100 CARLOS Administration Famotidine 20 mg 03/24/19 09:00 03/26/19 08:47 Pepcid PO 20 mg 0900 CARLOS Administration Insulin Glargine 15 units/ 0.15 mls @ 0 mls/hr 03/23/19 21:00 03/25/19 20:26 Miscellaneous Medication SC 0.15 mls BID CARLOS Administration Cefepime HCl 1 gm/ Sodium 100 mls @ 200 mls/hr 03/24/19 09:00 03/26/19 08:48 Chloride IVPB 100 mls Q12HR CARLOS Administration Insulin Human Regular 0 units 03/23/19 08:11 03/26/19 09:16 Humulin R SC 6 units .AGGRESSIVE SLIDING PRN Administration Aggressive Correctional Scale Lorazepam 2 mg 03/22/19 16:51 03/24/19 12:54 Ativan SLOW IVP 04/21/19 16:51 2 mg Q1H PRN Administration Breakthrough agitation Methylprednisolone Sodium Succinate 20 mg 03/25/19 08:48 03/26/19 08:48 Solu-Medrol IVP 20 mg DAILY CARLOS Administration Morphine Sulfate 2 mg 03/22/19 16:51 03/23/19 11:02 Morphine SLOW IVP 04/21/19 16:51 2 mg Q1H PRN Administration BREAKTHROUGH PAIN/Agitation Propofol 1,000 mg 03/22/19 16:51 03/23/19 13:19 Diprivan IV 04/21/19 16:51 1,000 mg INF PRN Administration TO ACHIEVE GOAL RASS Protocol Saccharomyces Boulardii 250 mg 03/15/19 09:00 03/26/19 08:47 Florastor PO 250 mg DAILY CARLOS Administration Sertraline HCl 50 mg 03/15/19 09:00 03/26/19 08:47 Zoloft PO 50 mg DAILY CARLOS Administration Sodium Chloride 10 ml 03/15/19 03:16 03/18/19 12:45 Flush - Normal Saline IVF 10 ml PRN PRN Administration Saline Flush - Exam Eye: PERRL Heart: RRR, no murmur, no gallops, no rubs, normal peripheral pulses Respiratory: rales Gastrointestinal: soft, non-tender, non-distended, normal bowel sounds, no palpable masses, no hepatomegaly Extremities: no edema Hosp A/P (1) Pneumonia Code(s): J18.9 - PNEUMONIA, UNSPECIFIED ORGANISM Status: Acute (2) Acute respiratory failure with hypoxemia Code(s): J96.01 - ACUTE RESPIRATORY FAILURE WITH HYPOXIA Status: Acute (3) Diabetes mellitus type 2 in obese Code(s): E11.69 - TYPE 2 DIABETES MELLITUS WITH OTHER SPECIFIED COMPLICATION; E66.9 - OBESITY, UNSPECIFIED Status: Chronic - Plan * Pneumonia- due to aspiration- continue IV antibiotics * Recent CVA- she is unresponsive- continue aspirin rectally * HTN-blood pressure is stable * DM- blood glucose is stable * Awaiting family decision on how to proceed with the patient's care going forward- her overall prognosis is poor.
[2019-03-26] MEDS: Insulin Glargine 15 UNITS in Pre-Filled Syringe 1 EACH SC SCH ×2 (12:00→21:08)
[2019-03-26] MEDS: Acetaminophen 650 MG/20.3 ML UDCUP PO PRN ×2 (12:01→15:39)
--- NOTE | 2019-03-26 13:27 | PDOC.CPN ---
- Subjective Date: 03/26/19 Time: 13:25 Interval history: No new issues. Remains unresponsive. - Review of Systems ROS unobtainable: due to endotracheal tube - Objective Allergies/Adverse Reactions: Allergies Allergy/AdvReac Type Severity Reaction Status Date / Time No Known Allergies Allergy Verified 03/15/19 13:42 Visit Medications: Current Medications Acetaminophen (Tylenol) 650 mg PO Q4H PRN PRN Reason: Headache/Fever/Mild Pain 1-3 Last Admin: 03/24/19 07:55 Dose: 650 mg Acetaminophen (Tylenol) 650 mg SC Q4H PRN PRN Reason: Headache/Fever/Mild Pain (1-3) Acetaminophen (Tylenol Elixir) 650 mg PO Q4H PRN PRN Reason: Headache/Fever or Pain Last Admin: 03/26/19 12:01 Dose: 650 mg Albuterol/Ipratropium (Duoneb) 3 ml NEB [id number] [facility] Last Admin: 03/26/19 10:23 Dose: 3 ml Albuterol/Ipratropium (Duoneb) 3 ml NEB [id number] PRN PRN Reason: SOB &/or Wheezing Last Admin: 03/18/19 08:49 Dose: 3 ml Aspirin (Aspirin Chewable) 81 mg PER TUBE DAILY [facility] Last Admin: 03/26/19 08:47 Dose: 81 mg Atorvastatin Calcium (Lipitor) 40 mg PO HS [facility] Last Admin: 03/25/19 20:27 Dose: 40 mg Carvedilol (Coreg) 3.125 mg PER TUBE BID-WM [facility] Last Admin: 03/26/19 08:47 Dose: 3.125 mg Clonidine (Tmjgfvta-Dqc-6 Patch) 0.1 mg TD Q7D [facility] Last Admin: 03/21/19 17:31 Dose: 0.1 mg Clonidine (Catapres) 0.1 mg PO Q4H PRN PRN Reason: SBP Greater Than 180 Dextrose/Water (Dextrose 50%) 25 gm SLOW IVP PRN PRN PRN Reason: Hypoglycemia Enoxaparin Sodium (Lovenox) 80 mg SC 0900,2100 [facility] Last Admin: 03/26/19 09:06 Dose: 80 mg Famotidine (Pepcid) 20 mg PO 0900 [facility] Last Admin: 03/26/19 08:47 Dose: 20 mg Glucagon (Glucagon) 1 mg IM PRN PRN PRN Reason: Hypoglycemia Hydralazine HCl (Apresoline) 10 mg SLOW IVP Q4H PRN PRN Reason: SBP Greater Than 180 Dextrose/Water (D5w) 1,000 mls @ 0 mls/hr IV .Q0M PRN PRN Reason: Hypoglycemia Fentanyl Citrate 2,000 mcg/ (Sodium Chloride) 100 mls @ 0 mls/hr IV INF CARLOS; Protocol Stop: 04/21/19 16:51 Fentanyl Citrate (Fentanyl Bolus) 250 mls @ 0 mls/hr IVPB PRN PRN PRN Reason: Breakthrough pain/agitation Stop: 04/21/19 16:51 Insulin Glargine 15 units/ (Miscellaneous Medication) 0.15 mls @ 0 mls/hr SC BID [facility] Last Admin: 03/26/19 12:00 Dose: 0.15 mls Cefepime HCl 1 gm/ Sodium (Chloride) 100 mls @ 200 mls/hr IVPB Q12HR [facility] Last Admin: 03/26/19 08:48 Dose: 100 mls Sodium Chloride (Normal Saline 0.9%) 1,000 mls @ 0 mls/hr IV .Q0M [facility] Insulin Human Regular (Humulin R) 0 units SC .AGGRESSIVE SLIDING PRN PRN Reason: Aggressive Correctional Scale Last Admin: 03/26/19 12:06 Dose: 6 units Lorazepam (Ativan) 2 mg SLOW IVP Q1H PRN PRN Reason: Breakthrough agitation Stop: 04/21/19 16:51 Last Admin: 03/24/19 12:54 Dose: 2 mg Methylprednisolone Sodium Succinate (Solu-Medrol) 20 mg IVP DAILY [facility] Last Admin: 03/26/19 08:48 Dose: 20 mg Miscellaneous Medication (Pharmacy To Dose) 1 each IVPB PRN PRN PRN Reason: Pharmacy to dose Morphine Sulfate (Morphine) 2 mg SLOW IVP Q1H PRN PRN Reason: BREAKTHROUGH PAIN/Agitation Stop: 04/21/19 16:51 Last Admin: 03/23/19 11:02 Dose: 2 mg Discontinue Previous Narcotic Pain Medications And Benzodiazepines 1 each FS .ONE CARLOS Stop: 04/21/19 16:51 Propofol (Diprivan) 1,000 mg IV INF PRN; Protocol PRN Reason: TO ACHIEVE GOAL RASS Stop: 04/21/19 16:51 Last Admin: 03/23/19 13:19 Dose: 1,000 mg Propofol (Diprivan Bolus) 20 mg IV Q5MIN PRN PRN Reason: BREAKTHROUGH AGITATION Stop: 04/21/19 16:51 Saccharomyces Boulardii (Florastor) 250 mg PO DAILY [facility] Last Admin: 03/26/19 08:47 Dose: 250 mg Senna/Docusate Sodium (Senokot S) 2 tab PO BIDPRN PRN PRN Reason: Constipation Sertraline HCl (Zoloft) 50 mg PO DAILY [facility] Last Admin: 03/26/19 08:47 Dose: 50 mg Sodium Chloride (Flush - Normal Saline) 10 ml IVF PRN PRN PRN Reason: Saline Flush Last Admin: 03/18/19 12:45 Dose: 10 ml Sodium Chloride (Flush - Normal Saline) 10 ml IVF PRN PRN PRN Reason: Saline Flush Sterile Water (Bacteriostatic Water) 1 ml FS PRN PRN PRN Reason: RECONSTITUTION Vital Signs & Weight: Vital Signs Temp Pulse Pulse Pulse Resp BP BP 03/26/19 12:00 40 H 03/26/19 10:24 92 120/52 L 03/26/19 10:23 93 42 H 03/26/19 10:00 32 H 03/26/19 09:02 96 96 147/61 H 03/26/19 08:00 41 H 03/26/19 07:00 99.8 F H 03/26/19 06:44 90 154/76 H 03/26/19 06:40 89 37 H 03/26/19 06:00 41 H 03/26/19 05:00 99.9 F H 03/26/19 04:00 34 H 03/26/19 03:20 87 03/26/19 03:19 03/26/19 02:00 38 H BP Pulse Ox Pulse Ox Pulse Ox 03/26/19 12:00 03/26/19 10:24 03/26/19 10:23 99 03/26/19 10:00 03/26/19 09:02 154/82 H 100 100 03/26/19 08:00 100 03/26/19 07:00 03/26/19 06:44 03/26/19 06:40 99 03/26/19 06:00 03/26/19 05:00 03/26/19 04:00 03/26/19 03:20 03/26/19 03:19 99 03/26/19 02:00 Admit Weight 189 lb Weight 153 lb 0.013 oz - Physical Exam General: other (Intubated, unresponsive.) HEENT: normocephaly Neck: supple neck Cardiac: regular rate and rhythm Lungs: normal breath sounds Neuro: other (Unresponsive.) Abdomen: active bowel sounds Extremities: no edema Skin: clear Musculoskeletal: normal range of motion - Labs Result Diagrams: 03/26/19 03:11 03/26/19 03:11 - Telemetry Sinus rhythms and dysrhythmias: sinus rhythm - Assessment/Plan Assessment/Plan: 1. Sinus tachycardia. 2. Acute CVA 3. Severe ischemis CM 4. CAD, stable no ACS. PLAN: - Tachycardia resolved. - No recurrence. - Will sign off. Please call with questions.
[2019-03-26] MEDS: Atorvastatin Calcium 40 MG TAB PO SCH (21:07)
[2019-03-27] MEDS: Insulin Regular 300 UNITS/3 ML VIAL SC PRN ×4 (03:04→16:41)
[2019-03-27 03:39] LABS: Band 7 % (5-11); Hemoglobin 12.2 g/dL (12.0-16.0); Lymphocytes 8 % (21-51); MDiff Complete? YES; Mean Corpuscular HGB CONC 31.2 g/dL (32.0-36.0); Mean Corpuscular Hemoglobin 29.2 pg (27.0-31.0); Mean Corpuscular Volume 93.6 fL (78.0-98.0); Mean Platelet Volume 9.7 fL (7.4-10.4); Monocytes 8 % (0-10); Neutrophil 77 % (42-75); Nucleated RBC 1 % (0); Platelet Count 237 thou/uL (130-400); Platelet Morphology Comment Appears Adequate; Red Blood Cell (RBC) Count 4.19 mill/uL (4.20-5.40); White Blood Cell (WBC) Count 18.5 thou/uL (4.8-10.8)
[2019-03-27 03:57] LABS: Anion Gap 13 mmol/L (10-20); BUN (Urea Nitrogen) 66 mg/dL (9.8-20.1); Calc. Creatinine Clearance 55 mL/min (70-130); Calcium 7.7 mg/dL (7.8-10.44); Carbon Dioxide 20 mmol/L (22-29); Chloride 118 mmol/L (98-107); Estimated GFR-MDRD 46; Glucose 250 mg/dL (70-105); Potassium 4.8 mmol/L (3.5-5.1); Sodium 146 mmol/L (136-145)
[2019-03-27] MEDS: Acetaminophen 650 MG/20.3 ML UDCUP PO PRN ×3 (04:18→19:55)
--- NOTE | 2019-03-27 08:29 | PRG ---
DATE OF SERVICE: 03/27/2019 SUBJECTIVE: The patient remains intubated on the vent, no sedation. OBJECTIVE: VITAL SIGNS: Respiratory rate is 40, pulse 108, blood pressure 170/84, saturations 98%, on a rate of 4, temperature is 99.6. GENERAL: She is unresponsive, tachypneic, and tachycardic. Family has to make a decision about ongoing care. CHEST: Decreased breath sounds. Bilateral rhonchi. CARDIAC: Sinus tach. ABDOMEN: Soft. LABORATORY DATA: Creatinine is 1.2, BUN is 66, glucose 250. White count 18,000 CVA, respiratory failure, pneumonia, congestive heart failure. She is clearly not weanable at this stage. In the meantime, continue antibiotics. She needs comfort care. She is a DNR. Family will decide about extubation. In the meantime, nutrition. One-half hour of critical care time. Job ID: [id number]
--- NOTE | 2019-03-27 08:36 | PDOC.HOSPP ---
- Subjective Encounter Date: 03/27/19 Encounter Time: 08:35 Subjective: Ms. Wilson was seen today in follow-up of respiratory failure, and severe systolic heart failure, and post CVA. She is unresponsive. - Objective Vital Signs & Weight: Vital Signs (12 hours) Temp Pulse Resp BP Pulse Ox 03/27/19 06:36 111 H 130/53 L 03/27/19 06:33 111 H 41 H 99 03/27/19 06:00 99.6 F 40 H 03/27/19 04:00 102.4 F H 45 H 03/27/19 03:09 112 H 03/27/19 03:08 95 03/27/19 02:00 41 H 03/27/19 00:00 43 H 03/26/19 22:41 110 H 113/77 03/26/19 22:40 99 03/26/19 22:00 37 H Weight Admit Weight 189 lb Weight 153 lb 10.595 oz Most Recent Monitor Data Heart Rate from ECG 111 NIBP 130/53 NIBP BP-Mean 78 Respiration from ECG 40 SpO2 98 I&O: 03/26/19 03/27/19 03/28/19 06:59 06:59 06:59 Intake Total 1602 1966 Output Total 1540 1600 Balance 62 366 Result Diagrams: 03/27/19 03:12 03/27/19 03:12 Additional Labs: Accuchecks 03/27/19 03/27/19 03/26/19 04:17 00:55 19:33 POC Glucose 223 H 290 H 266 H 03/26/19 03/26/19 03/26/19 15:01 12:09 08:56 POC Glucose 232 H 237 H 238 H Hospitalist ROS - Medication Medications: Active Medications Generic Name Dose Route Start Last Admin Trade Name Freq PRN Reason Stop Dose Admin Acetaminophen 650 mg 03/15/19 04:09 03/24/19 07:55 Tylenol PO 650 mg Q4H PRN Administration Headache/Fever/Mild Pain 1-3 Acetaminophen 650 mg 03/24/19 11:56 03/27/19 04:18 Tylenol Elixir PO 650 mg Q4H PRN Administration Headache/Fever or Pain Albuterol/Ipratropium 3 ml 03/15/19 06:30 03/27/19 06:33 Duoneb NEB 3 ml [id number] [facility]OS Administration Albuterol/Ipratropium 3 ml 03/15/19 04:08 03/18/19 08:49 Duoneb NEB 3 ml [id number] PRN Administration SOB &/or Wheezing Aspirin 81 mg 03/26/19 09:00 03/26/19 08:47 Aspirin Chewable PER TUBE 81 mg DAILY [facility] Administration Atorvastatin Calcium 40 mg 03/15/19 21:00 03/26/19 21:07 Lipitor PO 40 mg HS [facility] Administration Carvedilol 3.125 mg 03/23/19 17:00 03/26/19 17:08 Coreg PER TUBE 3.125 mg BID-WM [facility] Administration Clonidine 0.1 mg 03/21/19 17:30 03/21/19 17:31 Sjxsajrs-Bzk-9 Patch TD 0.1 mg Q7D [facility] Administration Enoxaparin Sodium 80 mg 03/24/19 21:00 03/26/19 21:07 Lovenox SC 80 mg 0900,2100 [facility] Administration Famotidine 20 mg 03/24/19 09:00 03/26/19 08:47 Pepcid PO 20 mg 0900 [facility] Administration Insulin Glargine 15 units/ 0.15 mls @ 0 mls/hr 03/23/19 21:00 03/26/19 21:08 Miscellaneous Medication SC 0.15 mls BID [facility] Administration Cefepime HCl 1 gm/ Sodium 100 mls @ 200 mls/hr 03/24/19 09:00 03/26/19 21:07 Chloride IVPB 100 mls Q12HR [facility] Administration Insulin Human Regular 0 units 03/23/19 08:11 03/27/19 05:23 Humulin R SC 6 units .AGGRESSIVE SLIDING PRN Administration Aggressive Correctional Scale Lorazepam 2 mg 03/22/19 16:51 03/24/19 12:54 Ativan SLOW IVP 04/21/19 16:51 2 mg Q1H PRN Administration Breakthrough agitation Methylprednisolone Sodium Succinate 20 mg 03/25/19 08:48 03/26/19 08:48 Solu-Medrol IVP 20 mg DAILY [facility] Administration Morphine Sulfate 2 mg 03/22/19 16:51 03/23/19 11:02 Morphine SLOW IVP 04/21/19 16:51 2 mg Q1H PRN Administration BREAKTHROUGH PAIN/Agitation Propofol 1,000 mg 03/22/19 16:51 03/23/19 13:19 Diprivan IV 04/21/19 16:51 1,000 mg INF PRN Administration TO ACHIEVE GOAL RASS Protocol Saccharomyces Boulardii 250 mg 03/15/19 09:00 03/26/19 08:47 Florastor PO 250 mg DAILY [facility] Administration Sertraline HCl 50 mg 03/15/19 09:00 03/26/19 08:47 Zoloft PO 50 mg DAILY [facility] Administration Sodium Chloride 10 ml 03/15/19 03:16 03/18/19 12:45 Flush - Normal Saline IVF 10 ml PRN PRN Administration Saline Flush - Exam Eye: PERRL Heart: RRR, no murmur, murmur present, II/IV Respiratory: CTAB (With the exception of bilateral rhonchi and rales) Gastrointestinal: soft, non-tender, non-distended, normal bowel sounds Extremities: no edema Hosp A/P (1) Pneumonia Code(s): J18.9 - PNEUMONIA, UNSPECIFIED ORGANISM Status: Acute (2) Acute respiratory failure with hypoxemia Code(s): J96.01 - ACUTE RESPIRATORY FAILURE WITH HYPOXIA Status: Acute (3) Diabetes mellitus type 2 in obese Code(s): E11.69 - TYPE 2 DIABETES MELLITUS WITH OTHER SPECIFIED COMPLICATION; E66.9 - OBESITY, UNSPECIFIED Status: Chronic (4) Hypertension Code(s): I10 - ESSENTIAL (PRIMARY) HYPERTENSION Status: Chronic - Plan * Pneumonia- due to aspiration- continue Cefepime * Recent CVA- she is unresponsive- continue aspirin rectally * HTN-blood pressure is stable * DM- blood glucose is a bit elevated- continue SSI * Supportive care pending family decision on continuing care
[2019-03-27] MEDS: Carvedilol 3.125 MG TAB PER TUBE SCH ×2 (09:44→16:42)
[2019-03-27] MEDS: Aspirin Chewable 81 MG TAB PER TUBE SCH (09:45)
[2019-03-27] MEDS: Cefepime 1 GM in Sodium Chloride 0.9% 100 ML IVPB SCH (09:45)
[2019-03-27] MEDS: Enoxaparin Sodium 80 MG/0.8 ML SYRINGE SC SCH (09:46)
[2019-03-27] MEDS: Famotidine 20 MG TAB PO SCH (09:46)
[2019-03-27] MEDS: Insulin Glargine 15 UNITS in Pre-Filled Syringe 1 EACH SC SCH (09:46)
[2019-03-27] MEDS: methylPREDNISolone Sod Succ 40 MG VIAL IVP SCH (09:47)
[2019-03-27] MEDS: Saccharomyces boulardii 250 MG CAP PO SCH (09:47)
[2019-03-27 14:43] VITALS: BP 95/65
[2019-03-27 16:37] VITALS: TEMP 100.7
--- NOTE | 2019-03-27 20:14 | PDOC.EVN ---
Event Note - Event Note Event Note: Called by RN at 20:11 that pt had - bp's dropped into the 40's systolic , agonal breathing, and then . Requested RN pronounce . No further needs. Pt seen by Dr. Casey today - request that certificate be assigned to her. 20:08 - time of Called back by nurse that because pt is on a vent, they are not allowed to pronouce . I evaluated the patient at bedside - absent breath sounds, no radial pulse, no audible heart sounds and asystole on monitor all consistent with . Requested vent be turned off.
--- NOTE | 2019-03-28 14:25 | DIS ---
DATE OF ADMISSION: 03/14/2019 DATE OF DISCHARGE: 03/27/2019 DATE OF : 03/27/2019. DIAGNOSES: 1. Acute respiratory failure with hypoxemia. 2. Healthcare associated pneumonia, likely due to aspiration. 3. Wgkfl-hk-hkhskns systolic heart failure. 4. Coronary artery disease. 5. Diabetes mellitus type 2. 6. Chronic kidney disease, stage 3. 7. Vision loss. 8. Dyslipidemia. 9. Chronic obstructive pulmonary disease. 10. Wheelchair dependent. HOSPITAL COURSE: Ms. Wilson was a 59-year-old female, who was admitted to the hospital with cough, fever and respiratory failure. She was found to have a right upper lobe infiltrate. This was thought to be due to aspiration pneumonia and she was placed on IV antibiotics for this. She initially had started to improve. However, after a couple of days, her symptoms actually worsened and her progress stalled. For this reason, a pulmonology consult was obtained to determine whether or not this was truly a pneumonia or could it be related to heart failure. A trial of IV Lasix proved not to be beneficial in her case. IV antibiotics were continued. However, the patient began to decompensate and had to be transferred to the ICU. There, she was evaluated by Cardiology. A repeat echo was obtained and it was found that her ejection fraction had worsened from about 40% down to 15%. During this time, she required mechanical ventilation. Also during this time, she suffered an acute cerebral vascular accident and unfortunately remained unresponsive following this. She did not make any significant improvement or recovery and was deemed unweanable from the ventilator. The family was considering terminal extubation. However, prior to this, the patient's heart rate dropped into the 40s as well as her blood pressure and respirations and she on 03/27/2019. Job ID: [id number]
--- NOTE | 2019-03-29 18:52 | PQF ---
TARAN SMILEY TONI MD [id number] CLINICAL DOCUMENTATION CLARIFICATION FORM: POST DISCHARGE Addendum to original discharge summary date: ____ Late entry note date: __ DATE: 03/29/18 ATTN: Abelardo Casey Please exercise your independent, professional judgment in responding to the clarification form. Clinical indicators are provided on the bottom of this form for your review Can you tatiana further specify if Severe Sepsis is ruled in or ruled out? Severe Sepsis [ ] Ruled in diagnosis [ ] Continue to treat [ ] Resolved [ ] Ruled out diagnosis [ ] Cannot rule out diagnosis [ ] Other diagnosis [ ] Unable to determine In addition, please specify: Present on Admission (POA): [ ] Yes [ ] No [ ] Unable to determine For continuity of documentation, please document condition throughout progress notes and discharge summary. Thank You. CLINICAL INDICATORS - SIGNS / SYMPTOMS / LABS Hospitalist PN 03/24 Dr. Reich pg.7- Severe sepsis due to aspiration pneumonia H and P pg.1- temperature of 102 with respiration of 33, pulse rate 117 with blood pressure of 114/54 H and P pg.3- sinus tachycardia secondary to #1 DS pg.1- discharged diagnosis: acute respiratory failure with hypoxemia RISK FACTORS COPD- H and P pg.1 Acute hypoxic respiratory failure- H and P pg.3 UTI- H and P pg.3 Aspiration pneumonia- Physician documentation TREATMENTS Chest X ray 03/14/19 Intubation-OP report 03/22 IV Fluids- MAY IV Antibiotics- MAY Pulmonary Consult 03/19- Dr. Buck Oxygen supplementation (This form is maintained as a part of the permanent medical record) 2014 [employer]. All Rights Reserved [email or web address] [not provided] [email or web address]
== END 2019-03-27 21:25 | disposition expired | DRG 870 ==
LOC: ERS 21:21 → ERHOLD 23:11 → 2NO 03-15 13:51 → T4-A 03-17 16:47 → 2NO 03-18 19:54 → IMCU/EMU 03-21 18:34 → CCU 03-22 14:17
PROVIDERS: ADMIT Internal Medicine; ATTEND Internal Medicine
PROC: 5A1955Z Respiratory Ventilation, Greater than 96 Consecutive Hours (ICD-10-PCS; principal; 2019-03-22)
PROC: 0BH18EZ Insertion of Endotracheal Airway into Trachea, Via Natural or Artificial Opening Endoscopic (ICD-10-PCS; 2019-03-22)
DX: A41.9 Sepsis, unspecified organism (principal); J69.0 Pneumonitis due to inhalation of food and vomit; J96.01 Acute respiratory failure with hypoxia; I50.23 Acute on chronic systolic (congestive) heart failure; G92 Toxic encephalopathy; I63.511 Cerebral infarction due to unspecified occlusion or stenosis of right middle cerebral artery; I61.9 Nontraumatic intracerebral hemorrhage, unspecified; N39.0 Urinary tract infection, site not specified; I13.0 Hypertensive heart and chronic kidney disease with heart failure and stage 1 through stage 4 chronic kidney disease, or unspecified chronic kidney disease; E87.1 Hypo-osmolality and hyponatremia; N17.9 Acute kidney failure, unspecified; R65.20 Severe sepsis without septic shock; Z66 Do not resuscitate; Z51.5 Encounter for palliative care; J44.9 Chronic obstructive pulmonary disease, unspecified; E78.5 Hyperlipidemia, unspecified; F41.9 Anxiety disorder, unspecified; F32.9 Major depressive disorder, single episode, unspecified; D63.1 Anemia in chronic kidney disease; B96.1 Klebsiella pneumoniae [K. pneumoniae] as the cause of diseases classified elsewhere; G47.33 Obstructive sleep apnea (adult) (pediatric); I34.0 Nonrheumatic mitral (valve) insufficiency; F03.90 Unspecified dementia, unspecified severity, without behavioral disturbance, psychotic disturbance, mood disturbance, and anxiety; I25.5 Ischemic cardiomyopathy; D69.6 Thrombocytopenia, unspecified; E11.22 Type 2 diabetes mellitus with diabetic chronic kidney disease; N18.3 Chronic kidney disease, stage 3 (moderate); D50.9 Iron deficiency anemia, unspecified; E11.69 Type 2 diabetes mellitus with other specified complication; Z99.3 Dependence on wheelchair; Z90.49 Acquired absence of other specified parts of digestive tract; Z79.82 Long term (current) use of aspirin; Z79.899 Other long term (current) drug therapy; Z87.891 Personal history of nicotine dependence; Z68.36 Body mass index [BMI] 36.0-36.9, adult; H54.7 Unspecified visual loss; Z95.1 Presence of aortocoronary bypass graft; I25.10 Atherosclerotic heart disease of native coronary artery without angina pectoris; E66.9 Obesity, unspecified
CPT/HCPCS: 36415; 36416; 51702; 70450; 71045; 80048; 80053; 80061; 80069; 80076; 81003; 81015; 82274; 82550; 82607; 82728; 82746; 82805; 83010; 83540; 83550; 83605; 83615; 83735; 83880; 84100; 84145; 85025; 85046; 85060; 87040; 87077; 87086; 87186; 87804; 93005; 93306; 94002; 94003; 94640; 94660; 94760; 96361; 96365; 96366; 96367; J0692; J1650; J1815; J1940; J1956; J2060; J2270; J2543; J2704; J2920; J3490; J7042; J7620; S0028